=== PATIENT | male | born 1950 | race Caucasian/White ===

== ENCOUNTER 2019-06-28 05:42 | Outpatient (CLI) | payer SELFPAY ==
[~2019-06-28] VITALS: Ht 172.7 cm; Wt 70.5 kg
[~2019-06-28 05:42] MED LIST: LORA1TAB PO; SERT100T8 PO; TERA1CAP3 PO; TRAZ150T42 PO
[2019-06-28] MEDS ORDERED: TERA2CAP4 PO (10:06)
[2019-06-28] MEDS ORDERED: TRAZ150T72 PO (10:06)
[2019-06-28] MEDS ORDERED: SERT100T8 PO (10:06)
[2019-06-28] MEDS ORDERED: RT-ALBUINH IH (10:11)
== END 2019-06-28 10:12 | disposition home or self-care (01) ==
LOC: PREOP 05:42
PROVIDERS: ATTEND Specialist
DX: Z01.818 Encounter for other preprocedural examination (principal)

== ENCOUNTER 2019-07-01 08:01 | Day surgery (SDC) | payer OTHER ==
[~2019-07-01] VITALS: Wt 70.5 kg
[~2019-07-01 08:01] MED LIST changes: +RT-ALBUINH IH; +TERA2CAP4 PO; +TRAZ150T72 PO
[2019-07-01 08:10] VITALS: BP 155/75
[2019-07-01] MEDS ORDERED: POVIDONE (BETADINE) OPHTH SOLN 5% 30 ML OP ONE (08:15)
[2019-07-01] MEDS ORDERED: TIMOLOL MALEATE 0.5% 5 ML (TIMOPTIC) BTL OU PRN (08:15)
[2019-07-01] MEDS ORDERED: MOXIFLOXACIN OPHTH SOLN 5 MG/ML 0.3 ML SYRINGE OP ONE (08:15)
[2019-07-01] MEDS ORDERED: LIDOCAINE PF 1% 2 ML AMP IR PRN (08:15)
[2019-07-01] MEDS: TETRACAINE 0.5% OPHTH SOLN 4 ML BTL (SINGLE DOSE ONLY) OU PRN ×4 (08:24→08:50)
[2019-07-01] MEDS: CYCLOPENTOLATE 1% (CYCLOGYL) 2 ML DROPS OP SCH ×3 (08:34→08:50)
[2019-07-01] MEDS: PHENYLEPHRINE 10% OPHTH (NEO-SYN) 5 ML BTL OU SCH ×3 (08:34→08:50)
--- NOTE | 2019-07-01 09:29 | Ophthalmologist Pre-Op Note ---
Pre-Operative Progress Note H&P Reviewed The H&P was reviewed, patient examined and no changes noted. Date H&P Reviewed: Jul 01, 2019 Time H&P Reviewed: 09:29 Pre-Op Dx Cataract, Right Eye ALEX BARONE MD Jul 01, 2019 09:29
[2019-07-01] MEDS ORDERED: MIDAZOLAM 2 MG/2 ML (VERSED) VIAL ONE (09:33)
--- NOTE | 2019-07-01 09:57 | Ophthalmology Operative Report ---
Cataract removal/placement IOL PREOPERATIVE DIAGNOSIS: Cataract Right Eye POSTOPERATIVE DIAGNOSIS: Cataract Right Eye PROCEDURE: Cataract removal and placement of posterior chamber implant, right eye SURGEON: John Barone ANESTHESIA: Topical with sedation COMPLICATIONS: None ESTIMATED BLOOD LOSS: Minimal DESCRIPTION OF PROCEDURE: After proper informed consent was obtained, the patient, a [id number] male, was taken to the Operating Room and the right eye was anesthetized with tetracaine. The right eye was then prepped and draped in the usual manner. A wire lid speculum was placed. A paracentesis was made at the left hand position. Preservative free lidocaine was injected into the anterior chamber followed by viscoelastic. A clear corneal incision was made in the temporal position. A capsulorrhexis was preformed and the central nuclear and cortical material were removed. The posterior capsule was polished and Bryon 19.0 AU00T0 IOL was placed into the capsular bag. The residual viscoelastic was aspirated and balanced saline solution was injected into the anterior chamber. Moxifloxacin was injected into the anterior chamber. The wound was checked and found to be water tight. The patient tolerated the procedure well without complications. JOHN BARONE MD Jul 01, 2019 09:57
[2019-07-01] MEDS ORDERED: acetaZOLAMIDE ER 500 MG CAP (DIAMOX SEQUELS) PO ONE (10:00)
[2019-07-01 10:08] VITALS: BP 139/76
== END 2019-07-01 10:08 | disposition home or self-care (01) ==
LOC: SDC 08:01
PROVIDERS: ATTEND Specialist
DX: H25.11 Age-related nuclear cataract, right eye (principal); J44.9 Chronic obstructive pulmonary disease, unspecified; F32.9 Major depressive disorder, single episode, unspecified; F17.210 Nicotine dependence, cigarettes, uncomplicated; Z79.899 Other long term (current) drug therapy

== ENCOUNTER 2021-09-18 18:45 | Inpatient (IN) | payer OTHER ==
[~2021-09-18] VITALS: Ht 165 cm; Wt 48.4 kg
[~2021-09-18 18:45] MED LIST changes: +SERT-414 PO
[2021-09-18] MEDS ORDERED: ROCURONIUM 10 MG/ML 5 ML SYRINGE IV ONE (18:50)
[2021-09-18] MEDS ORDERED: ETOMIDATE IV SOLN 20 MG/10 ML VIAL IV ONE (18:50)
[2021-09-18] MEDS ORDERED: methylPREDNISolone 40 MG/ML (Solu-MEDROL) VIAL IV ONE (19:15)
--- NOTE | 2021-09-18 19:19 | ED Neurological Problem ---
General Chief Complaint: Respiratory Problems Stated Complaint: AMS Source: patient, EMS Exam Limitations: no limitations (RUFINO TURNER) History of Present Illness Date Seen by Provider: Sep 18, 2021 Time Seen by Provider: 19:15 Initial Comments Patient is a 70-year-old male who was brought to the ED by EMS for altered mental status. Patient was found in his room rolling around on the ground was confused and slurring of his words. According to patient roommates patient was sleeping this morning and when they return patient was found on the ground. Denies of any seizure-like activity. Reports daily excessive alcohol use. Patient was found to be hypoxic 80% on room air. Patient was placed on 15 L nonrebreather. Eventually was able to get a better oxygen level at 97% on 3 L. Patient appears altered. Alert and oriented x3. Denies of any alcohol or drug use. Reports cough. Denies chest pain abdominal pain, vomiting or diarrhea. Patient smells of smoke. EMS concerned that patient appeared dusky. Patient does appear cool to touch. Patient is moaning. Patient with impaired movements. (RUFINO TURNER) Allergies and Home Medications Allergies Coded Allergies: No Known Drug Allergies (Unverified , 12/16/12) Patient Home Medication List Home Medication List Reviewed: Yes (RUFINO TURNER) Albuterol Sulfate (Proair Hfa) 1 Puff Puff, 2 PUFF IH Q4H PRN for WHEEZING, (Reported) Entered as Reported by: MULUGETA VENTURA on 06/28/19 1011 Sertraline HCl (Sertraline HCl) 100 Mg Tablet, 150 MG PO DAILY, (Reported) Entered as Reported by: MULUGETA VENTURA on 06/28/19 1006 Terazosin HCl (Terazosin HCl) 2 Mg Capsule, 2 MG PO HS, (Reported) Entered as Reported by: MULUGETA VENTURA on 06/28/19 1006 Trazodone HCl (Trazodone HCl) 150 Mg Tablet, 150 MG PO HS, (Reported) Entered as Reported by: MULUGETA VENTURA on 06/28/19 1006 Review of Systems Review of Systems Constitutional: No chills, No dizziness, No fever Eyes: Denies Blindness, Denies Blurred Vision Ears, Nose, Mouth, Throat: denies ear pain, denies nose pain, denies nose discharge Cardiovascular: No chest pain Gastrointestinal: No abdominal pain, No diarrhea, No vomiting Musculoskeletal: No back pain Skin: No change in color, No change in hair/nails (RUFINO TURNER) All Other Systems Reviewed Negative Unless Noted: Yes (RUFINO TURNER) Past Qfmrbfr-Rlyvni-Jtysxe Hx Immunizations Up To Date Tetanus Booster (TDap): Unknown (RUFINO TURNER) Past Medical History Reproductive Disorders: No Prostate Problems ADD/ADHD, Schizophrenia, Depression Adverse Reaction/Blood Tranf: No (RUFINO TURNER) Physical Exam Vital Signs Vital Signs - First Documented 09/19/21 09/19/21 00:34 08:00 O2 Flow Rate 40.00 FiO2 40 (NICHO CALDERON) Vital Signs Capillary Refill : (RUFINO TURNER) Height, Weight, BMI Height: 5'9.00" Weight: 160lbs. 6.0oz. [id number]; BMI Method:Stated General Appearance: other (Altered) HEENT: other (Pinpoint pupils) Neck: non-tender, full range of motion, supple Respiratory: wheezing Cardiovascular: regular rate, rhythm, no edema, no gallop Peripheral Pulses: 2+ Femoral (R), 2+ Femoral (L), 2+ Dorsalis Pedis (R), 2+ Left Dors-Pedis (L), 2+ Radial Pulses (R), 2+ Radial Pulses (L) Gastrointestinal: normal bowel sounds, non tender, soft, no organomegaly Back: normal inspection, no CVA tenderness Extremities: normal range of motion, non-tender, normal inspection, no pedal edema (RUFINO TURNER) Focused Exam Lactate Level 09/18/21 18:45: Lactic Acid Level 2.10*H 09/18/21 21:56: Lactic Acid Level 1.88 (NICHO CALDERON) Sepsis Stage: Sepsis Possible Source: Genitouriary (BRITTNEY MICHAEL MD) Lactic Acid Level Laboratory Tests Test 09/18/21 18:45 09/18/21 21:56 Lactic Acid Level 2.10 MMOL/L (0.50-2.00) *H 1.88 MMOL/L (0.50-2.00) (NICHO CALDERON) Time of Focused Exam: 07:30 Respiratory: Lungs Clear, Normal Breath Sounds Cardiovascular: Regular Rate, Rhythm, No Edema, No Murmur Capillary Refill: Greater Than 3 Seconds Skin: normal color, warm/dry (BRITTNEY MICHAEL MD) Within 3hrs of presentation: Admin fluids, Admin 30ml/kg IBW due to BMI>30, Admin ABX, Blood cultures prior to ABX's, Focus exam, Lactate level (BRITTNEY MICHAEL MD) Procedures/Interventions Reason for Intubation: Airway protection Date of ETT Placement: Sep 18, 2021 Time of ETT Placement: 23:45 Intubation Method: orotracheal Tube Size: 7.5 Medications: Etomidate, Rocuronium Positive End Tide CO2: Yes Breath Sounds after Intubation: bilateral-equal Intubation Complications: no complications Post Intubation Xray: Yes Initial placement required movement at least 3 cm into the trachea. Succes Care turned over to: Dr. Calderon (TURNERRUFINO A [place]) Progress/Results/Core Measures Results/Orders Lab Results Laboratory Tests Test 09/18/21 18:45 09/18/21 19:00 09/18/21 19:08 09/18/21 19:13 Range/Units White Blood Count 18.5 H 4.3-11.0 10^3/uL Red Blood Count 4.30 4.30-5.52 10^6/uL Hemoglobin 11.7 L 13.3-17.7 g/dL Hematocrit 36 L 40-54 % Mean Corpuscular Volume 85 80-99 fL Mean Corpuscular Hemoglobin 27 25-34 pg Mean Corpuscular Hemoglobin Concent 32 32-36 g/dL Red Cell Distribution Width 14.6 H 10.0-14.5 % Platelet Count 360 130-400 10^3/uL Mean Platelet Volume 9.5 9.0-12.2 fL Immature Granulocyte % (Auto) 1 % Neutrophils (%) (Auto) 88 H 42-75 % Lymphocytes (%) (Auto) 6 L 12-44 % Monocytes (%) (Auto) 6 0-12 % Eosinophils (%) (Auto) 0 0-10 % Basophils (%) (Auto) 0 0-10 % Neutrophils # (Auto) 16.2 H 1.8-7.8 10^3/uL Lymphocytes # (Auto) 1.1 1.0-4.0 10^3/uL Monocytes # (Auto) 1.0 0.0-1.0 10^3/uL Eosinophils # (Auto) 0.0 0.0-0.3 10^3/uL Basophils # (Auto) 0.0 0.0-0.1 10^3/uL Immature Granulocyte # (Auto) 0.1 0.0-0.1 10^3/uL Neutrophils % (Manual) 94 % Lymphocytes % (Manual) 3 % Monocytes % (Manual) 3 % Metamyelocytes % % Band Neutrophils % Blood Morphology Comment NORMAL Sodium Level 135 135-145 MMOL/L Potassium Level 6.2 H 3.6-5.0 MMOL/L Chloride Level 97 L 98-107 MMOL/L Carbon Dioxide Level 13 L 21-32 MMOL/L Anion Gap 25 H 5-14 MMOL/L Blood Urea Nitrogen 99 H 7-18 MG/DL Creatinine 4.84 H 0.60-1.30 MG/DL Estimat Glomerular Filtration Rate 12 BUN/Creatinine Ratio 20 Glucose Level 89 70-105 MG/DL Lactic Acid Level 2.10 *H 0.50-2.00 MMOL/L Calcium Level 7.3 L 8.5-10.1 MG/DL Corrected Calcium 7.5 L 8.5-10.1 MG/DL Total Bilirubin 0.9 0.1-1.0 MG/DL Aspartate Amino Transf (AST/SGOT) 1588 H 5-34 U/L Alanine Aminotransferase (ALT/SGPT) 319 H 0-55 U/L Alkaline Phosphatase 80 40-136 U/L Total Creatine Kinase > 63984 H 30-200 U/L Troponin I 0.253 H <0.028 NG/ML Total Protein 8.7 H 6.4-8.2 GM/DL Albumin 3.8 3.2-4.5 GM/DL Procalcitonin 1.73 H <0.10 NG/ML Salicylates Level < 5.0 L 5.0-20.0 MG/DL Acetaminophen Level < 10 L 10-30 UG/ML Serum Alcohol < 10 <10 MG/DL Influenza Type A Antigen NEGATIVE NEGATIVE Influenza Type B Antigen NEGATIVE NEGATIVE SARS-CoV-2 RNA (RT-PCR) Not Detected Negative Blood Gas Puncture Site LEFT WRIST Blood Gas Patient Temperature 36.3 Arterial Blood pH 7.18 *L 7.37-7.43 Arterial Blood Partial Pressure CO2 42 35-45 MMHG Arterial Blood Partial Pressure O2 184 H 79-93 MMHG Arterial Blood HCO3 15 *L 23-27 MMOL/L Arterial Blood Total CO2 16.4 L 21.0-31.0 MMOL/L Arterial Blood Oxygen Saturation 99 94-100 % Arterial Blood Base Excess -11.9 L -2.5-2.5 MMOL/L Juan David Test POSITIVE Blood Gas Ventilator Setting NO Blood Gas Inspired Oxygen RA Glucometer 92 70-110 MG/DL Coronavirus (COVID-19)(PCR) Negative Negative Test 09/18/21 19:14 09/18/21 21:56 09/18/21 22:10 09/19/21 01:15 Range/Units Urine Color YELLOW Urine Clarity CLOUDY Urine pH 5.0 5-9 Urine Specific Bivins >=1.030 1.016-1.022 Urine Protein 2+ H NEGATIVE Urine Glucose (UA) NEGATIVE NEGATIVE Urine Ketones TRACE H NEGATIVE Urine Nitrite NEGATIVE NEGATIVE Urine Bilirubin 2+ H NEGATIVE Urine Urobilinogen 1.0 < = 1.0 MG/DL Urine Leukocyte Esterase NEGATIVE NEGATIVE Urine RBC (Auto) 3+ H NEGATIVE Urine RBC 10-25 H /HPF Urine WBC 5-10 H /HPF Urine Squamous Epithelial Cells 5-10 /HPF Urine Crystals PRESENT H /LPF Urine Amorphous Sediment MOD LESVIA URATES H /LPF Urine Bacteria FEW H /HPF Urine Casts NONE /LPF Urine Mucus NEGATIVE /LPF Urine Culture Indicated YES Urine Opiates Screen NEGATIVE NEGATIVE Urine Oxycodone Screen NEGATIVE NEGATIVE Urine Methadone Screen NEGATIVE NEGATIVE Urine Propoxyphene Screen NEGATIVE NEGATIVE Urine Barbiturates Screen NEGATIVE NEGATIVE Ur Tricyclic Antidepressants Screen NEGATIVE NEGATIVE Urine Phencyclidine Screen NEGATIVE NEGATIVE Urine Amphetamines Screen POSITIVE H NEGATIVE Urine Methamphetamines Screen POSITIVE H NEGATIVE Urine Benzodiazepines Screen NEGATIVE NEGATIVE Urine Cocaine Screen NEGATIVE NEGATIVE Urine Cannabinoids Screen NEGATIVE NEGATIVE Sodium Level 137 135-145 MMOL/L Potassium Level 5.9 H 3.6-5.0 MMOL/L Chloride Level 101 98-107 MMOL/L Carbon Dioxide Level 12 L 21-32 MMOL/L Anion Gap 24 H 5-14 MMOL/L Blood Urea Nitrogen 100 *H 7-18 MG/DL Creatinine 4.63 H 0.60-1.30 MG/DL Estimat Glomerular Filtration Rate 13 BUN/Creatinine Ratio 22 Glucose Level 83 70-105 MG/DL Lactic Acid Level 1.88 0.50-2.00 MMOL/L Calcium Level 6.7 L 8.5-10.1 MG/DL Blood Gas Puncture Site RIGHT RADIAL Blood Gas Patient Temperature 36.3 Arterial Blood pH 7.21 *L 7.37-7.43 Arterial Blood Partial Pressure CO2 39 35-45 MMHG Arterial Blood Partial Pressure O2 59 L 79-93 MMHG Arterial Blood HCO3 15 *L 23-27 MMOL/L Arterial Blood Total CO2 16.2 L 21.0-31.0 MMOL/L Arterial Blood Oxygen Saturation 88 L 94-100 % Arterial Blood Base Excess -11.6 L -2.5-2.5 MMOL/L Juan David Test POSITIVE Blood Gas Ventilator Setting NO Blood Gas Inspired Oxygen RA Troponin I 0.193 H <0.028 NG/ML Test 09/19/21 01:24 09/19/21 05:37 09/19/21 06:10 09/19/21 08:10 Range/Units Glucometer 113 H 70-110 MG/DL Blood Gas Puncture Site RIGHT RADIAL Blood Gas Patient Temperature 37 Arterial Blood pH 7.19 *L 7.37-7.43 Arterial Blood Partial Pressure CO2 40 35-45 MMHG Arterial Blood Partial Pressure O2 120 H 79-93 MMHG Arterial Blood HCO3 15 *L 23-27 MMOL/L Arterial Blood Total CO2 15.9 L 21.0-31.0 MMOL/L Arterial Blood Oxygen Saturation 98 94-100 % Arterial Blood Base Excess -11.9 L -2.5-2.5 MMOL/L Juan David Test POSITIVE Blood Gas Ventilator Setting YES Blood Gas Inspired Oxygen 40% White Blood Count 14.9 H 4.3-11.0 10^3/uL Red Blood Count 4.14 L 4.30-5.52 10^6/uL Hemoglobin 11.2 L 13.3-17.7 g/dL Hematocrit 35 L 40-54 % Mean Corpuscular Volume 85 80-99 fL Mean Corpuscular Hemoglobin 27 25-34 pg Mean Corpuscular Hemoglobin Concent 32 32-36 g/dL Red Cell Distribution Width 14.6 H 10.0-14.5 % Platelet Count 285 130-400 10^3/uL Mean Platelet Volume 9.5 9.0-12.2 fL Immature Granulocyte % (Auto) 1 % Neutrophils (%) (Auto) 93 H 42-75 % Lymphocytes (%) (Auto) 2 L 12-44 % Monocytes (%) (Auto) 4 0-12 % Eosinophils (%) (Auto) 0 0-10 % Basophils (%) (Auto) 0 0-10 % Neutrophils # (Auto) 13.8 H 1.8-7.8 10^3/uL Lymphocytes # (Auto) 0.3 L 1.0-4.0 10^3/uL Monocytes # (Auto) 0.6 0.0-1.0 10^3/uL Eosinophils # (Auto) 0.0 0.0-0.3 10^3/uL Basophils # (Auto) 0.0 0.0-0.1 10^3/uL Immature Granulocyte # (Auto) 0.1 0.0-0.1 10^3/uL Sodium Level 134 L 135-145 MMOL/L Potassium Level 6.7 *H 3.6-5.0 MMOL/L Chloride Level 102 98-107 MMOL/L Carbon Dioxide Level 13 L 21-32 MMOL/L Anion Gap 19 H 5-14 MMOL/L Blood Urea Nitrogen 111 *H 7-18 MG/DL Creatinine 4.83 H 0.60-1.30 MG/DL Estimat Glomerular Filtration Rate 12 BUN/Creatinine Ratio 23 Glucose Level 106 H 70-105 MG/DL Calcium Level 6.2 L 8.5-10.1 MG/DL Magnesium Level 2.5 H 1.6-2.4 MG/DL Total Bilirubin 0.7 0.1-1.0 MG/DL Direct Bilirubin 0.5 H 0.0-0.3 MG/DL Indirect Bilirubin 0.2 MG/DL Aspartate Amino Transf (AST/SGOT) 925 H 5-34 U/L Alanine Aminotransferase (ALT/SGPT) 253 H 0-55 U/L Alkaline Phosphatase 66 40-136 U/L Total Creatine Kinase 10153 H 30-200 U/L Troponin I 0.155 H <0.028 NG/ML Total Protein 7.3 6.4-8.2 GM/DL Albumin 3.2 3.2-4.5 GM/DL Prothrombin Time 17.5 H 12.2-14.7 SEC INR Comment 1.4 0.8-1.4 Test 09/19/21 12:19 09/19/21 12:45 09/19/21 13:40 09/19/21 18:00 Range/Units Glucometer 171 H 70-110 MG/DL Sodium Level 136 138 135-145 MMOL/L Potassium Level 5.4 H 4.8 3.6-5.0 MMOL/L Chloride Level 100 102 98-107 MMOL/L Carbon Dioxide Level 19 L 19 L 21-32 MMOL/L Anion Gap 17 H 17 H 5-14 MMOL/L Blood Urea Nitrogen 112 *H 112 *H 7-18 MG/DL Creatinine 4.85 H 4.85 H 0.60-1.30 MG/DL Estimat Glomerular Filtration Rate 12 12 BUN/Creatinine Ratio 23 23 Glucose Level 218 H 117 H 70-105 MG/DL Calcium Level 5.9 *L 6.0 *L 8.5-10.1 MG/DL Total Creatine Kinase 38499 H 70146 H 30-200 U/L Procalcitonin 1.47 H <0.10 NG/ML Blood Gas Puncture Site RRAD Blood Gas Patient Temperature 35.6 Arterial Blood pH 7.32 *L 7.37-7.43 Arterial Blood Partial Pressure CO2 40 35-45 MMHG Arterial Blood Partial Pressure O2 135 H 79-93 MMHG Arterial Blood HCO3 20 L 23-27 MMOL/L Arterial Blood Total CO2 21.4 21.0-31.0 MMOL/L Arterial Blood Oxygen Saturation 99 94-100 % Arterial Blood Base Excess -5.3 L -2.5-2.5 MMOL/L Juan David Test POS Blood Gas Ventilator Setting YES Blood Gas Inspired Oxygen 40% Test 09/20/21 00:29 09/20/21 02:45 09/20/21 05:35 09/20/21 06:50 Range/Units Glucometer 119 H 70-110 MG/DL Blood Gas Puncture Site LEFT RADIAL Blood Gas Patient Temperature 36.2 Arterial Blood pH 7.31 *L 7.37-7.43 Arterial Blood Partial Pressure CO2 43 35-45 MMHG Arterial Blood Partial Pressure O2 359 H 79-93 MMHG Arterial Blood HCO3 21 L 23-27 MMOL/L Arterial Blood Total CO2 22.5 21.0-31.0 MMOL/L Arterial Blood Oxygen Saturation 100 94-100 % Arterial Blood Base Excess -4.2 L -2.5-2.5 MMOL/L Juan David Test YES-POS Blood Gas Ventilator Setting YES Blood Gas Inspired Oxygen 30% White Blood Count 11.2 H 4.3-11.0 10^3/uL Red Blood Count 3.64 L 4.30-5.52 10^6/uL Hemoglobin 10.0 L 13.3-17.7 g/dL Hematocrit 30 L 40-54 % Mean Corpuscular Volume 82 80-99 fL Mean Corpuscular Hemoglobin 28 25-34 pg Mean Corpuscular Hemoglobin Concent 34 32-36 g/dL Red Cell Distribution Width 15.0 H 10.0-14.5 % Platelet Count 190 130-400 10^3/uL Mean Platelet Volume 9.5 9.0-12.2 fL Sodium Level 141 135-145 MMOL/L Potassium Level 4.7 3.6-5.0 MMOL/L Chloride Level 103 98-107 MMOL/L Carbon Dioxide Level 20 L 21-32 MMOL/L Anion Gap 18 H 5-14 MMOL/L Blood Urea Nitrogen 119 *H 7-18 MG/DL Creatinine 4.69 H 0.60-1.30 MG/DL Estimat Glomerular Filtration Rate 12 BUN/Creatinine Ratio 25 Glucose Level 118 H 70-105 MG/DL Calcium Level 5.5 *L 8.5-10.1 MG/DL Magnesium Level 2.1 1.6-2.4 MG/DL Total Bilirubin 0.5 0.1-1.0 MG/DL Direct Bilirubin 0.4 H 0.0-0.3 MG/DL Indirect Bilirubin 0.1 MG/DL Aspartate Amino Transf (AST/SGOT) 371 H 5-34 U/L Alanine Aminotransferase (ALT/SGPT) 179 H 0-55 U/L Alkaline Phosphatase 56 40-136 U/L Total Creatine Kinase 30750 H 30-200 U/L Total Protein 6.1 L 6.4-8.2 GM/DL Albumin 2.6 L 3.2-4.5 GM/DL Hepatitis A IgM Antibody Non-Reactive Non-Reactive Hepatitis B Surface Antigen Non-Reactive Non-Reactive Hepatitis B Core IgM Antibody Non-Reactive Non-Reactive Hepatitis C Antibody Reactive H Non-Reactive Hepatitis C Antibody Index 13.67 H 0.00-0.79 Index HIV (1&2) Ag and Ab Screen Referral Non-Reactive Non-Reactive Test 09/20/21 11:31 09/20/21 14:00 09/21/21 01:28 09/21/21 06:49 Range/Units Glucometer 111 H 102 70-110 MG/DL Sodium Level 141 148 H 135-145 MMOL/L Potassium Level 4.2 3.7 3.6-5.0 MMOL/L Chloride Level 103 102 98-107 MMOL/L Carbon Dioxide Level 25 28 21-32 MMOL/L Anion Gap 13 18 H 5-14 MMOL/L Blood Urea Nitrogen 118 *H 113 *H 7-18 MG/DL Creatinine 4.55 H 4.15 #H 0.60-1.30 MG/DL Estimat Glomerular Filtration Rate 13 14 BUN/Creatinine Ratio 26 27 Glucose Level 112 H 95 70-105 MG/DL Calcium Level 5.7 *L 6.3 L 8.5-10.1 MG/DL Total Creatine Kinase 52173 H 6504 #H 30-200 U/L White Blood Count 9.2 4.3-11.0 10^3/uL Red Blood Count 3.47 L 4.30-5.52 10^6/uL Hemoglobin 9.5 L 13.3-17.7 g/dL Hematocrit 29 L 40-54 % Mean Corpuscular Volume 84 80-99 fL Mean Corpuscular Hemoglobin 27 25-34 pg Mean Corpuscular Hemoglobin Concent 33 32-36 g/dL Red Cell Distribution Width 15.6 H 10.0-14.5 % Platelet Count 157 130-400 10^3/uL Mean Platelet Volume 9.7 9.0-12.2 fL Prothrombin Time 16.5 H 12.2-14.7 SEC INR Comment 1.3 0.8-1.4 Test 09/21/21 08:07 Range/Units Blood Gas Puncture Site RT RAD Blood Gas Patient Temperature 37.0 Arterial Blood pH 7.52 H 7.37-7.43 Arterial Blood Partial Pressure CO2 37 35-45 MMHG Arterial Blood Partial Pressure O2 80 79-93 MMHG Arterial Blood HCO3 30 H 23-27 MMOL/L Arterial Blood Total CO2 31.2 H 21.0-31.0 MMOL/L Arterial Blood Oxygen Saturation 98 94-100 % Arterial Blood Base Excess 6.9 H -2.5-2.5 MMOL/L Juan David Test YES-POS Blood Gas Ventilator Setting YES Blood Gas Inspired Oxygen 30 (NICHO CALDERON) Micro Results Microbiology 09/20/21 Gram Stain - Final, Resulted 09/20/21 Sputum Culture, Resulted Pending 09/20/21 Gram Stain - Final, Resulted 09/20/21 Sputum Culture, Resulted Pending 09/18/21 Urine Culture - Final, Complete NO GROWTH 09/18/21 Blood Culture - Preliminary, Resulted No growth 09/18/21 Blood Culture - Preliminary, Resulted No growth (NICHO CALDERON) My Orders Orders - NICHO CALDERON Chest 1 View, Ap/Pa Only (09/18/21 22:34) Catheter(Urinary) Insert & Ass 03,15 (09/18/21 23:36) Og Tube Insertion (09/18/21 23:36) Troponin I [place] (09/19/21 01:00) Cefepime Injection (Maxipime Injection) (09/19/21 02:00) 1/2 Ns Iv Solution (0.45% Sodium Chlorid (09/19/21 01:00) Arterial Blood Gas (09/19/21 05:19) Cbc With Automated Diff (09/19/21 05:51) Basic Metabolic Panel (09/19/21 05:51) Chest 1 View, Ap/Pa Only (09/21/21 07:22) Arterial Blood Gas (09/21/21 07:59) Ceftriaxone 1 Gm Pre-Mix (Rocephin 1 Gm (09/21/21 09:00) Morphine Injection (Morphine Injection (09/21/21 08:36) Morphine Injection (Morphine Injection (09/21/21 08:37) D5 1/2 Ns 1000 Ml Iv Solution (Dextrose (09/21/21 09:15) (NICHO CALDERON) Medications Given in ED Current Medications Medications Dose Ordered Sig/Eriberto Route Start Time Stop Time Status Last Admin Dose Admin Ceftriaxone Sodium/Dextrose 50 ml @ 100 mls/hr DAILY ONCE IV 09/21/21 09:00 09/21/21 09:29 09/21/21 08:34 100 MLS/HR (NICHO CALDERON) Vital Signs/I&O 09/18/21 09/18/21 09/18/21 09/19/21 18:50 18:50 23:24 00:34 Temp 36.3 Pulse 79 84 84 Resp 20 18 16 B/P (MAP) 125/71 (89) 146/69 Pulse Ox 97 98 O2 Delivery Nasal Cannula Room Air FiO2 40 09/19/21 09/19/21 09/19/21 09/19/21 07:17 08:00 09:29 09:30 Pulse 75 74 76 76 Resp 16 24 16 23 B/P (MAP) 109/53 115/56 Pulse Ox 100 100 100 100 O2 Delivery Mechanical Ventilator Mechanical Ventilator O2 Flow Rate 40.00 40.00 FiO2 40 40 09/19/21 09/19/21 09/19/21 09/19/21 10:00 11:00 11:43 12:00 Pulse 76 73 72 73 Resp 24 24 23 B/P (MAP) 114/58 108/59 111/59 114/61 Pulse Ox 100 100 100 O2 Delivery Mechanical Ventilator Mechanical Ventilator Mechanical Ventilator O2 Flow Rate 40.00 40.00 40.00 09/19/21 09/19/21 09/19/21 09/19/21 12:00 13:00 14:00 14:32 Temp 36.0 Pulse 75 74 73 Resp 19 20 16 B/P (MAP) 107/52 109/52 Pulse Ox 100 100 99 O2 Delivery Mechanical Ventilator Mechanical Ventilator O2 Flow Rate 40.00 40.00 FiO2 40 09/19/21 09/19/21 09/19/21 09/19/21 15:00 16:00 16:00 17:00 Temp 35.8 Pulse 72 73 73 Resp 18 18 19 B/P (MAP) 114/60 113/55 112/51 Pulse Ox 99 100 99 O2 Delivery Mechanical Ventilator Mechanical Ventilator Mechanical Ventilator O2 Flow Rate 40.00 40.00 40.00 09/19/21 09/19/21 09/19/21 09/19/21 18:00 18:39 19:04 21:00 Temp 36.3 Pulse 76 73 Resp 20 18 B/P (MAP) 109/74 Pulse Ox 99 99 O2 Delivery Mechanical Ventilator O2 Flow Rate 40.00 FiO2 40 30 09/19/21 09/19/21 09/20/21 09/20/21 22:25 23:35 02:03 02:14 Temp 36.4 Pulse 77 75 76 Resp 24 24 B/P (MAP) 120/58 Pulse Ox 96 97 FiO2 30 30 09/20/21 09/20/21 09/20/21 09/20/21 03:17 06:37 07:11 09:00 Temp 36.8 37.1 37.1 Pulse 77 75 Resp 24 23 B/P (MAP) 113/59 Pulse Ox 100 95 FiO2 30 09/20/21 09/20/21 09/20/21 09/20/21 10:20 11:00 13:25 13:26 Temp 36.8 36.7 Pulse 74 74 73 74 Resp 18 21 14 24 B/P (MAP) 122/61 140/88 119/61 Pulse Ox 99 99 99 FiO2 30 09/20/21 09/20/21 09/20/21 09/20/21 14:55 15:00 17:00 18:00 Temp 36.5 36.5 36.2 Pulse 72 73 70 69 Resp 18 20 20 18 B/P (MAP) 123/60 122/57 114/59 Pulse Ox 99 98 99 98 FiO2 30 09/20/21 09/20/21 09/20/21 09/21/21 19:31 20:35 21:59 01:28 Temp 36.2 Pulse 69 70 71 Resp 18 18 B/P (MAP) 108/54 Pulse Ox 99 99 FiO2 30 30 09/21/21 09/21/21 09/21/21 09/21/21 01:30 04:47 06:40 08:30 Temp 36.6 36.7 37.0 Pulse 74 76 Resp 20 20 B/P (MAP) 108/54 Pulse Ox 97 97 FiO2 30 09/21/21 00:00 Intake Total 1210 ml Output Total 1250 ml Balance -40 ml (NICHO CALDERON) Progress Progress Note #1: Time: 23:52 Progress Note Assumed care of the patient at shift change. Patient was intubated because of GCS below 7. Fear he would not protect his airway. He did receive some Zosyn and we will continue that for potential airway aspiration. He certainly has an impressive case of rhabdomyolysis likely due to his recent methamphetamine ingestion and lack of self-care. Put a Oquendo catheter NG and he has good IV access. We will continue fluids going. Will repeat troponin at 1 AM. Significant other states that he is a heavy drinker daily and since his alcohol level is 0 we put him on a Versed drip to prevent withdrawal seizures. Jatinder has called multiple hospitals in the [address] [place] [address] area without success at finding a available bed. Plan to room him in overnight and see if we can try again in the morning. Patient is stable at this time on ventilator settings 450 tidal volume, PEEP of 5, FiO2 60%, rate of 16 and sats of 96%. We will switch him to cefepime given his kidney failure and and redose him at 0200. Progress Note #2: Time: 07:21 Progress Note Assumed care of the patient at shift change. Plan to get a chest x-ray in addition to lab draws for this morning. We will continue to pursue his increasing urine output and reducing creatinine levels. He is resting comfortably 450 tidal volume, rate of 16, PEEP of 5, FiO2 of 30% with good vital signs. eICU consult is appreciated. Progress Note #3: Progress Note 09/21/21 0915: Patient's ABG reviewed and he has metabolic alkalosis. We stopped the bicarb drip and put him on half-normal saline at 165 an hour. He is resting comfortably. No ventilator changes were made at this time. He is excepted to the ICU and we are just waiting for a bed to open up. He did receive a gram of Rocephin here in the ER for his UTI. A septic vital signs. We will give him Protonix and continue to manage him with the much appreciated assistance of eICU. (NICHO CALDERON) Progress Note #1: Time: 07:59 Progress Note Care of this patient has been assumed from Dr. Calderon. Report received and morning labs are reviewed. Patient was reexamined and found to have clear lung sounds. Capillary refill is 3 to 5 seconds. No edema. I have contacted [facility] to help find a bed placement. Our facility is currently on ICU diversion. In addition to needing critical care, this patient also needs nephrology services and likely dialysis. He is being maintained on a Versed drip. Versed was selected due to his history of daily alcohol consumption. Urine output has been poor at 15 to 20 mL/h despite receiving 3 L of IV fluids. He is now receiving normal saline at 250 mL/h. Potassium has been increasing. Management will be discussed with eICU momentarily. Troponin and CK levels are trending downward. Progress Note #2: Time: 08:59 Progress Note Patient remained stable on the ventilator sedated with Versed. Report has been given to eICU. We have reviewed management of hyperkalemia and overall condition. Patient is receiving D50 with insulin 5 units IV as well as albute rol 10 mg, an amp of sodium bicarb, and calcium gluconate for immediate management of the hyperkalemia. We will also add a sodium bicarb drip of 100 mEq in D5W to run at 250 mL/h x 1 L in addition to the normal saline running at 250 mL/h. Labs will be checked again in approximately 4 hours. Transfer has been turned over to [place] control with a request to transfer to a nephrology capable facility with dialysis. Patient received Zosyn and cefepime earlier this morning. Because of the renal failure no further antibiotics have been given at this time. Progress Note #3: Time: 14:37 Progress Note Most recent labs have been reviewed. Renal function is static. Hyperkalemia has improved. eICU continues to assist with management. I have discussed this case with Dr. Valdovinos multiple times, before most recent labs and again after. He declines admission to [facility] at this time due to the patient's renal function as patient would be best served in a facility with nephrology and dialysis. We will continue to monitor his renal function. In the meantime, I have inquired about transfer status with [facility]. They have been looking as far away as [place], [place], [place], and [place] without any success in finding a bed. (BRITTNEY MICHAEL MD) Progress Note : Progress Note 1800--ASSUMED CARE OF PT AT SHIFT CHANGE. STILL UNABLE TO FIND A BED, IN MULTIPLE STATES. E-ICU CONTINUES TO MANAGE PATIENT. VITALS ARE STABLE, STILL MAINTAINED ON VENTILATOR. 0600--CARE TURNED OVER TO DR. RASHID. PT REMAINED STABLE THROUGHOUT THE [facility]. [facility] HAS CONTACTED [facility], AND THEY WILL START THE PROCESS AGAIN THIS MORNING TO TRY TO FIND A BED. E-ICU CONTINUES TO MANAGE THE PATIENT. (KIM HERNANDEZ DO) Progress Note : Time: 06:10 Progress Note Care assumed at shift change from Dr Hernandez. Patient critical care, boarding in the ICU pending placement at a facility with Nephrology services. [facility] assisting with finding a bed. Liz Walters in consult for critical care management. Patient evaluated by me - stable VS, on the ventilator with saO2 100% at 30%. BP 120's systolic, not tachycardic. am CXR reviewed and it appears he may be developing a right sided infiltrate. He's currently on a Versed drip, saline and a Bicarb drip. Afebrile. per Dr Hernandez (night doc) and nursing staff, he's been turned. had oral care. I&O's monitored (just around 24ml/kg/hr or urine output over night). Will continue to monitor patient. Hopeful for bed placement today. She and i discussed with significantly elevated LFT's adding on HIV and Acute hepatitis panel. This has been done. (FATUMA RASHID MD) Progress Note : Time: 03:50 Progress Note 09/21/2021: Assumed care of the patient at shift change at [address] Rashid pending transfer. Patient is also under care of [facility] on ICU hold consult and they are managing the patient. Patient is currently intubated and appears comfortable. Remains on Versed drip as well as sodium bicarb drip. Vent settings tidal volume 450, rate 18, PEEP of 5 with FiO2 at 30% and satting 97% with those settings. Heart rate is 72 and regular. Lung sounds are clear with ventilation. Abdomen is soft. Edema noted to arms. No significant edema of the legs with distal pulses intact. Heel protector boots are on place bilateral lower extremities. Nursing has continued orders per ICU including turning. At this point, he is having improved urinary output with total out on this shift of 1050 mL of now clear yellow urine. At beginning of shift, urine was darker yellow but now is much stallion keeper. Urine output is much improved. Hepatitis panel is positive. Creatinine had improved slightly with yesterday afternoon's labs and today's labs are pending. [facility] is still working to find bed placement. [facility] ICU consult much appreciated. Continue to monitor awaiting placement. (EVELINE BROWER MD) Comment Sinus rhythm, 78 bpm, QRS duration 92 MS, QTC 504 MS (RUFINO TURNER) Initial ECG Impression Date: Sep 18, 2021 Initial ECG Impression Time: 19:57 Initial ECG Rate: 78 Initial ECG Rhythm: Normal Sinus Initial ECG Intervals: Normal Initial ECG Impression: Normal Initial ECG Comparisson: No Previous ECG Available Comment Sinus rhythm without clinically relevant ST changes. (NICHO CALDERON) Diagnostic Imaging Diagonstic Imaging: Xray Plain Films/CT/US/NM/MRI: chest Comments [facility] [place] NAME: JAXON HERNANDEZ [facility] REC#: [id number] PT STATUS: REG ER : 1950 PHYSICIAN: RUFINO TURNER ADMIT DATE: 09/18/21/ER Signed Date of Exam:09/18/21 CHEST 1 VIEW, AP/PA ONLY CLINICAL INDICATIONS: Patient with cough. EXAM: Portable chest x-ray upright view. COMPARISON: Chest x-ray dated 03/19/2015. FINDINGS: There is interval development of pleural thickening involving the lateral right lung base and blunting of right costophrenic angle. There is a spiculated area of consolidation in the periphery of the right lung base which appears pleural-based with architectural distortion noted. Groundglass opacifications involving right midlung field right lung base. There are increased lung markings throughout both lungs and mild left basilar atelectasis versus infiltrate. There is no pneumothorax. Pulmonary vasculature and cardiac silhouette are within normal limits. Bones show no significant interval abnormality. IMPRESSION: 1: There is interval development of pleural thickening in the lateral right lung base region or pleural fluid. There is also parenchymal consolidation of the periphery of the lateral right lung base which is pleural-based with architectural distortion. Unknown if this represents postoperative changes or a mass. If this is not a known finding, then CT scan of the chest with contrast is suggested for further evaluation. 2: There are increased lung markings throughout both lungs which may be related to chronic lung changes or interstitial infiltrates. Bilateral basilar atelectasis versus infiltrate seen. Dictated by: Dictated on workstation # [id number] Dict: 09/18/212014 Trans: 09/18/212330 [facility] [id number] Interpreted by: GUILLE MORELAND MD Electronically signed by: GUILLE MORELAND MD 09/18/21 2331 Reviewed: Reviewed by Me Diagonstic Imaging: CT Plain Films/CT/US/NM/MRI: head Comments [facility] [place] [place] NAME: JAXON HERNANDEZ [facility] REC#: [id number] PT STATUS: REG ER : 1950 PHYSICIAN: RUFINO TURNER ADMIT DATE: 09/18/21/ER Signed Date of Exam:09/18/21 CT HEAD WO Clinical indication: Patient with altered mental status. Exam: Axial CT scan of the brain without IV contrast with coronal and sagittal reformatted images. Auto Exposure Controls were utilized during the CT exam to meet ALARA standards for radiation dose reduction. Comparison: None Findings: There is interval development of a roughly 6 mm low-density area involving the left frontal lobe deep white matter region which is of unknown age. There is slight progression of patchy confluent low-density white matter changes throughout both cerebral hemispheres. There is no definite evidence of acute cerebral infarct, intracranial hemorrhage, or gross mass effect. There is no dense vessel sign. Brain parenchymal volume loss again seen. There is normal cortes-white matter distinction. There is no significant midline shift or herniation. There is no evidence of hydrocephalus. The basal cisterns are unremarkable. The skull, extracranial soft tissue, and orbits are unremarkable. The paranasal sinuses are unremarkable. Temporal bones show no significant abnormality. Impression: 1: There is a 6 mm low-density area involving the left frontal lobe deep white matter which is of unknown age, but is developed in interim. This may represent a subacute or chronic ischemic area. If there is concern for acute cerebral infarct, MRI of the brain would better evaluate. 2: Otherwise, there is no acute intracranial process. 3: There is slight progression of age-related brain parenchymal changes. Dictated by: Dictated on workstation # [id number] Dict: 09/18/212122 Trans: 09/18/212335 [facility] [id number] Interpreted by: GUILLE MORELAND MD Electronically signed by: GUILLE MORELAND MD 09/18/212335 Reviewed: Reviewed by Me Diagonstic Imaging: Xray Plain Films/CT/US/NM/MRI: chest Comments Good interval placement of the ET tube about 4 to 5 cm above the samuel. Reviewed: Reviewed by Me Diagonstic Imaging: Xray Plain Films/CT/US/NM/MRI: chest Comments [facility] [place], [place] NAME: JAXON HERNANDEZ [facility] REC#: [id number] PT STATUS: REG ER : 1950 PHYSICIAN: NICHO CALDERON MD ADMIT DATE: 09/18/21/ER Draft Date of Exam:09/21/21 CHEST 1 VIEW, AP/PA ONLY HISTORY: Intubated COMPARISON: 09/20/2021 TECHNIQUE: Frontal view the chest FINDINGS: The endotracheal tube is about 6.5 cm above the samuel. An enteric tube crosses the [id number]. There are airspace opacities in the lung bases and perihilar region, likely scarring at the right lung base. No pneumothorax is seen. The cardiac silhouette is normal in size. There is a small right pleural effusion. IMPRESSION:. Bilateral airspace opacities with small right pleural effusion, stable since the prior study. Dictated on workstation # [id number] Dict: 09/21/21 0732 Trans: 09/21/21 0748 [facility] [id number] Interpreted by: TOPHER VELEZ MD Electronically signed by: Reviewed: Reviewed by Me (NICHO CALDERON) Diagonstic Imaging: Xray Plain Films/CT/US/NM/MRI: chest Comments [facility] [place], [place] NAME: JAXON HERNANDEZ [facility] REC#: [id number] PT STATUS: REG ER : 1950 PHYSICIAN: BENIGNO TORO MD ADMIT DATE: 09/18/21/ER Signed Date of Exam:09/20/21 CHEST 1 VIEW, AP/PA ONLY REASON FOR EXAMINATION: Endotracheal tube placement. Semiupright AP portable chest was obtained and compared to 09/18/2021. FINDINGS: Heart size is within normal limits. No mediastinal widening. ET tube tip is between the clavicles and samuel. Right greater than left pulmonary infiltrates with right pleural thickening versus right pleural effusion and not much overall change since 09/18/2021. IMPRESSION: 1. ET tube tip is in good position. 2. Persistent bilateral infiltrates greatest in the right lower lobe with a right pleural thickening versus small right pleural effusion. Not much change since 09/18/2021. Dictated by: Dictated on workstation # [id number] Dict: 09/20/21610 Trans: 09/20/21613 [id number] Interpreted by: KAM LEWIS MD Electronically signed by: KAM LEWIS MD 09/20/21613 (FATUMA RASHID MD) Critical Care Note Critical Care Start Time: 21:30 Stop Time: 22:30 Total Time (minutes) 60 Progress Improvement after intubation, aggressive IV hydration secondary to rhabdomyolysis, respiratory distress, metabolic acidosis, acute kidney injury. (RUFINO TURNER) Departure Communication (Admissions) Patient on arrival easily arousable but does appear confused. Patient is altered. Maintaining his airway. I Was able to get a oxygen level on 3 L of nasal cannula of 96 to 98%. Patient did feel cool to touch. Initial dusky skin. Patient initial ABG showed a pH of 7.18, bicarb of 15. Elevated white blood count. Sepsis protocol was initiated initially on arrival. Lactic acid 2.10. Was started on a liter of fluid. Patient in acute kidney failure with elevated transaminitis, troponin likely secondary to acute kidney injury we will continue monitoring. EKG normal sinus rhythm. Chest x-ray with possible pneumonia. Urinalysis concerning for source of infection. Patient was started on Zosyn. Patient with a history of alcohol abuse after discussing with roommat janny. Patient positive for methamphetamines. Negative for opiates. Patient was given Ativan and Cogentin with improvement of his involuntary movements likely secondary to meth induced. CT scan head negative for acute abnormality. Patient in rhabdomyolysis. Excessive fluid resuscitation here in the ED. Patient initially was given 3 L of fluid started on normal saline switch to LR.. Patient initial potassium 6.2 without any EKG changes. Rechecked with improvement of 5.9. Calcium carbonate and potassium treatment was held at this time. If any acute changes will start on protocol. We will continue monitoring ABG. Bicarb. May consider bicarb at this time. At shift change discussed patient with Dr. Calderon who assumed care. Intubation was performed to help maintain patient's airway as he became somnolent. Successful after placement with chest x-ray (RUFINO TURNER) Time/Spoke to Admitting Phy: 07:45 Dr. Fung agrees to admit the patient to the ICU with eICU consult, bicarb drip, Versed for sedation. We reviewed ventilator settings. Patient's urine output has improved to 1.6 mL/kg/h. Patient had 1350 mL of urine out over the past 12 hours. Patient also is maintaining good sedation oxygenation and repeat chest x-ray unremarkable. Time/Spoke to Consulting Phy: 08:00 eICU agrees to consult on the case (NICHO CALDERON) Communication (PCP) Patient was passed on to Dr. Calderon at 2300. Patient initially was able to verbally answer questions. Patient started to become somnolent. Difficulty obtaining oxygen level. For the patient safety and his current mental status intubation was performed. Attempted to call multiple places including [facility], [facility], [facility], [facility] and [facility] and was unsuccessful. We will continue monitoring patient here in the ED. Patient was given 3 L of IV fluids here in the ED. Slight improvement of potassium, kidney function, pH after initial 2 L of fluid (RUFINO TURNER) Impression Primary Impression: Methamphetamine abuse Additional Impressions: Intoxication by drug Qualified Codes: F19.921 - Other psychoactive substance use, unspecified with intoxication with delirium Rhabdomyolysis Qualified Codes: M62.82 - Rhabdomyolysis Dehydration Acute kidney injury Hyperkalemia Elevated troponin Sepsis Qualified Codes: A41.9 - Sepsis, unspecified organism; R65.20 - Severe sepsis without septic shock; N17.9 - Acute kidney failure, unspecified Urinary tract infection Qualified Codes: N39.0 - Urinary tract infection, site not specified Pulmonary infiltrate Abnormal CT scan, head Acute hepatitis Multiorgan failure Disposition: ADMITTED INPATIENT Condition: Critical Admissions Decision to Admit Reason: Admit from ER (General) Decision to Admit/Date: Sep 21, 2021 Time/Decision to Admit Time: 07:45 (NICHO CALDERON) Decision to Admit Reason: Admit from ER (General) Decision to Admit/Date: Sep 18, 2021 Time/Decision to Admit Time: 19:20 (BRITTNEY MICHAEL MD) Departure-Patient Inst. Referrals: NO,LOCAL PHYSICIAN (PCP/Family) Primary Care Physician RUFINO TURNER Sep 18, 2021 19:19 NICHO CALDERON Sep 18, 2021 23:59 BRITTNEY MICHAEL MD Sep 19, 2021 08:04 KIM HERNANDEZ DO Sep 19, 2021 20:00 FATUMA RASHID MD Sep 20, 2021 06:25 EVELINE BROWER MD Sep 21, 2021 03:56
[2021-09-18 19:22] LABS: ABG BASE EXCESS -11.9 MMOL/L (-2.5-2.5); ABG OXYGEN SATURATION 99 % (94-100); ABG PCO2 42 MMHG (35-45); ABG PO2 184 MMHG (79-93); ABG TCO2 16.4 MMOL/L (21.0-31.0)
[2021-09-18 19:23] LABS: ABG PH 7.18 (7.37-7.43); ALLENS TEST POSITIVE; INSPIRED O2 RA; PATIENT TEMP 36.3; VENTILATOR NO
[2021-09-18] MEDS: NS IV 1000 ML 1,000 ML IV SCH (19:23)
[2021-09-18 19:29] LABS: BASOPHILS % (AUTO) 0 % (0-10); EOSINOPHILS % (AUTO) 0 % (0-10); HEMATOCRIT 36 % (40-54); HEMOGLOBIN 11.7 g/dL (13.3-17.7); LYMPHOCYTES # (AUTO) 1.1 10^3/uL (1.0-4.0); LYMPHOCYTES % (AUTO) 6 % (12-44); MEAN CORPUSCULAR HEMOGLOBIN 27 pg (25-34); MEAN CORPUSCULAR HGB CONC 32 g/dL (32-36); MEAN CORPUSCULAR VOLUME 85 fL (80-99); MEAN PLATELET VOLUME 9.5 fL (9.0-12.2); MONOCYTES % (AUTO) 6 % (0-12); NEUTROPHILS # (AUTO) 16.2 10^3/uL (1.8-7.8); NEUTROPHILS % (AUTO) 88 % (42-75); PLATELET COUNT 360 10^3/uL (130-400); WHITE BLOOD COUNT 18.5 10^3/uL (4.3-11.0)
[2021-09-18 19:32] LABS: CLARITY,URINE CLOUDY; COLOR,URINE YELLOW; GLUCOSE, URINE (UA) NEGATIVE (NEGATIVE); KETONES,URINE TRACE (NEGATIVE); LEUKOCYTE ESTERASE ,URINE NEGATIVE (NEGATIVE); NITRITE,URINE NEGATIVE (NEGATIVE); PROTEIN,URINE 2+ (NEGATIVE)
[2021-09-18 19:36] LABS: ALBUMIN 3.8 GM/DL (3.2-4.5); CHLORIDE 97 MMOL/L (98-107); POTASSIUM 6.2 MMOL/L (3.6-5.0); SODIUM 135 MMOL/L (135-145)
[2021-09-18 19:38] LABS: CALCIUM 7.3 MG/DL (8.5-10.1)
[2021-09-18 19:39] LABS: GLUCOSE 89 MG/DL (70-105); TOTAL PROTEIN 8.7 GM/DL (6.4-8.2)
[2021-09-18 19:40] LABS: BACTERIA,URINE FEW /HPF; BILIRUBIN,URINE 2+ (NEGATIVE)
[2021-09-18 19:40] LABS: BILIRUBIN,TOTAL 0.9 MG/DL (0.1-1.0); CARBON DIOXIDE 13 MMOL/L (21-32)
[2021-09-18 19:41] LABS: AMORPHOUS SEDIMENT,UR MOD AMOR URATES /LPF
[2021-09-18 19:42] LABS: ALKALINE PHOSPHATASE 80 U/L (40-136); CREATININE SERUM 4.84 MG/DL (0.60-1.30); GFR ESTIMATED 12
[2021-09-18 19:43] LABS: BUN/CREATININE RATIO 20
[2021-09-18 19:45] LABS: ALANINE AMINOTRANSFERASE 319 U/L (0-55)
[2021-09-18] MEDS ORDERED: PIPERACILLIN SODIUM/TAZOBACTAM 4.5 GM in NS (IVPB) 100 ML IV ONE (19:45)
[2021-09-18 19:47] LABS: AMPHETAMINE SCREEN, URINE POSITIVE (NEGATIVE); BARBITURATE SCREEN URINE NEGATIVE (NEGATIVE); BENZODIAZEPINES SCREEN URINE NEGATIVE (NEGATIVE); CANNABINOID SCREEN, URINE NEGATIVE (NEGATIVE); COCAINE SCREEN URINE NEGATIVE (NEGATIVE); METHADONE STAT NEGATIVE (NEGATIVE); METHAMPHETAMINE SCREEN URINE S POSITIVE (NEGATIVE); OPIATE SCREEN URINE NEGATIVE (NEGATIVE); OXYCODONE STAT NEGATIVE (NEGATIVE); PROPOXYPHENE STAT NEGATIVE (NEGATIVE); TRICYCLIC ANTIDEPRESSANTS SCRE NEGATIVE (NEGATIVE)
[2021-09-18 19:50] LABS: MONOCYTES % (MANUAL) 3 %; RBC MORPH NORMAL
[2021-09-18] MEDS ORDERED: LORazepam INJ 2 MG/ML (ATIVAN) VIAL ONE (19:52)
[2021-09-18 19:54] LABS: LYMPHOCYTES % (MANUAL) 3 %; NEUTROPHILS % (MANUAL) 94 %
[2021-09-18] MEDS ORDERED: LACTATED RINGERS 1,000 ML IV ONE (19:57)
[2021-09-18] MEDS ORDERED: LORazepam INJ 2 MG/ML (ATIVAN) VIAL IVP ONE (20:00)
[2021-09-18] MEDS ORDERED: BENZTROPINE 2 MG/2 ML INJ (COGENTIN) AMP IM ONE (20:00)
[2021-09-18] MEDS ORDERED: LACTATED RINGERS 1,000 ML IV SCH ×2 (20:00→22:00)
[2021-09-18] MEDS ORDERED: BENZTROPINE 2 MG/2 ML INJ (COGENTIN) AMP ONE (20:17)
[2021-09-18 20:19] LABS: SALICYLATE < 5.0 MG/DL (5.0-20.0)
[2021-09-18 20:23] LABS: ACETAMINOPHEN < 10 UG/ML (10-30)
--- NOTE | 2021-09-18 20:24 | Diagnostic Imaging Report ---
CLINICAL INDICATIONS: Patient with cough. EXAM: Portable chest x-ray upright view. COMPARISON: Chest x-ray dated 03/19/2015. FINDINGS: There is interval development of pleural thickening involving the lateral right lung base and blunting of right costophrenic angle. There is a spiculated area of consolidation in the periphery of the right lung base which appears pleural-based with architectural distortion noted. Groundglass opacifications involving right midlung field right lung base. There are increased lung markings throughout both lungs and mild left basilar atelectasis versus infiltrate. There is no pneumothorax. Pulmonary vasculature and cardiac silhouette are within normal limits. Bones show no significant interval abnormality. IMPRESSION: 1: There is interval development of pleural thickening in the lateral right lung base region or pleural fluid. There is also parenchymal consolidation of the periphery of the lateral right lung base which is pleural-based with architectural distortion. Unknown if this represents postoperative changes or a mass. If this is not a known finding, then CT scan of the chest with contrast is suggested for further evaluation. 2: There are increased lung markings throughout both lungs which may be related to chronic lung changes or interstitial infiltrates. Bilateral basilar atelectasis versus infiltrate seen. Dictated by: Dictated on workstation # [id number]
[2021-09-18 20:44] LABS: CREATINE KINASE > 42670 U/L (30-200)
--- NOTE | 2021-09-18 21:27 | Diagnostic Imaging Report ---
Clinical indication: Patient with altered mental status. Exam: Axial CT scan of the brain without IV contrast with coronal and sagittal reformatted images. Auto Exposure Controls were utilized during the CT exam to meet ALARA standards for radiation dose reduction. Comparison: None Findings: There is interval development of a roughly 6 mm low-density area involving the left frontal lobe deep white matter region which is of unknown age. There is slight progression of patchy confluent low-density white matter changes throughout both cerebral hemispheres. There is no definite evidence of acute cerebral infarct, intracranial hemorrhage, or gross mass effect. There is no dense vessel sign. Brain parenchymal volume loss again seen. There is normal cortes-white matter distinction. There is no significant midline shift or herniation. There is no evidence of hydrocephalus. The basal cisterns are unremarkable. The skull, extracranial soft tissue, and orbits are unremarkable. The paranasal sinuses are unremarkable. Temporal bones show no significant abnormality. Impression: 1: There is a 6 mm low-density area involving the left frontal lobe deep white matter which is of unknown age, but is developed in interim. This may represent a subacute or chronic ischemic area. If there is concern for acute cerebral infarct, MRI of the brain would better evaluate. 2: Otherwise, there is no acute intracranial process. 3: There is slight progression of age-related brain parenchymal changes. Dictated by: Dictated on workstation # [id number]
[2021-09-18 22:18] LABS: POTASSIUM 5.9 MMOL/L (3.6-5.0)
[2021-09-18 22:20] LABS: CALCIUM 6.7 MG/DL (8.5-10.1)
[2021-09-18 22:23] LABS: ABG BASE EXCESS -11.6 MMOL/L (-2.5-2.5); ABG OXYGEN SATURATION 88 % (94-100); ABG PCO2 39 MMHG (35-45); ABG PO2 59 MMHG (79-93); ABG TCO2 16.2 MMOL/L (21.0-31.0)
[2021-09-18 22:24] LABS: ALLENS TEST POSITIVE; INSPIRED O2 RA; PATIENT TEMP 36.3; VENTILATOR NO
[2021-09-18 22:24] LABS: CREATININE SERUM 4.63 MG/DL (0.60-1.30)
[2021-09-18 22:26] LABS: ABG PH 7.21 (7.37-7.43)
[2021-09-18] MEDS: MIDAZOLAM DRIP PRE-MIX 100 ML IV SCH (23:24)
--- NOTE | 2021-09-19 00:11 | Diagnostic Imaging Report ---
CLINICAL INDICATION: Post intubation EXAM: Portable chest x-ray upright view. COMPARISON: Chest x-ray dated 09/18/2021 at 2002 hours. FINDINGS AND IMPRESSION: 1: There is interval placement of ET tube with tip seen at the C7 vertebral body level. The ET tube should be advanced roughly 7 cm to ensure good positioning. Dr. Calderon is aware of the position of the ET tube. 2: Feeding tube has been placed in the interim with distal portion seen below level of diaphragm, but is not completely imaged. 3: The remainder of this exam shows no significant interval change compared to the prior study of comparison. Dictated by: Dictated on workstation # [id number]
--- NOTE | 2021-09-19 00:16 | Diagnostic Imaging Report ---
CLINICAL INDICATION: ET tube adjusted. EXAM: Portable chest x-ray upright view. COMPARISON: Chest x-ray dated 09/18/2021 at 2259 hours. FINDINGS AND IMPRESSION: 1: There is interval advancement of ET tube in good position with tip now seen at the T4 vertebral body level. 2: The remainder of this exam shows no significant interval change compared to the prior study of comparison. Dictated by: Dictated on workstation # [id number]
[2021-09-19 00:34] VITALS: BP 131/61
[2021-09-19] MEDS ORDERED: 1/2 NS IV SOLUTION 1,000 ML IV SCH (01:00)
[2021-09-19] MEDS ORDERED: CEFEPIME INJECTION 1,000 MG in NS (IVPB) 50 ML IV ONE (02:00)
[2021-09-19 05:47] LABS: ABG BASE EXCESS -11.9 MMOL/L (-2.5-2.5); ABG OXYGEN SATURATION 98 % (94-100); ABG PCO2 40 MMHG (35-45); ABG PO2 120 MMHG (79-93); ABG TCO2 15.9 MMOL/L (21.0-31.0)
[2021-09-19] MEDS: NS IV 1000 ML 1,000 ML IV SCH ×3 (05:49→20:02)
[2021-09-19 05:51] LABS: ALLENS TEST POSITIVE
[2021-09-19 05:52] LABS: INSPIRED O2 40%; PATIENT TEMP 37; VENTILATOR YES
[2021-09-19 05:53] LABS: ABG PH 7.19 (7.37-7.43)
[2021-09-19 06:19] LABS: BASOPHILS % (AUTO) 0 % (0-10); EOSINOPHILS % (AUTO) 0 % (0-10); HEMATOCRIT 35 % (40-54); HEMOGLOBIN 11.2 g/dL (13.3-17.7); LYMPHOCYTES # (AUTO) 0.3 10^3/uL (1.0-4.0); LYMPHOCYTES % (AUTO) 2 % (12-44); MEAN CORPUSCULAR HEMOGLOBIN 27 pg (25-34); MEAN CORPUSCULAR HGB CONC 32 g/dL (32-36); MEAN CORPUSCULAR VOLUME 85 fL (80-99); MEAN PLATELET VOLUME 9.5 fL (9.0-12.2); MONOCYTES # (AUTO) 0.6 10^3/uL (0.0-1.0); MONOCYTES % (AUTO) 4 % (0-12); NEUTROPHILS # (AUTO) 13.8 10^3/uL (1.8-7.8); NEUTROPHILS % (AUTO) 93 % (42-75); PLATELET COUNT 285 10^3/uL (130-400); WHITE BLOOD COUNT 14.9 10^3/uL (4.3-11.0)
[2021-09-19 06:32] LABS: CALCIUM 6.2 MG/DL (8.5-10.1)
[2021-09-19 06:36] LABS: CREATININE SERUM 4.83 MG/DL (0.60-1.30)
[2021-09-19 06:42] LABS: POTASSIUM 6.7 MMOL/L (3.6-5.0)
[2021-09-19 06:59] LABS: MAGNESIUM 2.5 MG/DL (1.6-2.4)
[2021-09-19] MEDS ORDERED: NS IV 1000 ML 1,000 ML IV ONE (07:00)
[2021-09-19 07:17] VITALS: BP 131/61
[2021-09-19 07:34] LABS: ALBUMIN 3.2 GM/DL (3.2-4.5)
[2021-09-19 07:37] LABS: TOTAL PROTEIN 7.3 GM/DL (6.4-8.2)
[2021-09-19 07:39] LABS: BILIRUBIN,TOTAL 0.7 MG/DL (0.1-1.0)
[2021-09-19 07:42] LABS: BILIRUBIN,DIRECT 0.5 MG/DL (0.0-0.3); BILIRUBIN,INDIRECT 0.2 MG/DL
[2021-09-19] MEDS ORDERED: RT-ALBUTEROL SULF 2.5 MG/3 ML PRE-MIX VIAL INH STA (08:41)
[2021-09-19] MEDS ORDERED: SODIUM BICARB 8.4% 50 MEQ/50 ML (ABBOTT) SYR IV ONE (08:45)
[2021-09-19] MEDS ORDERED: DEXTROSE 50% 50 ML (IMS) SYR IV ONE (08:45)
[2021-09-19] MEDS ORDERED: inSUlin (REGULAR) HUMAN 1 UNIT/0.01 ML (CHARGE PER UNIT) IV ONE (08:45)
[2021-09-19] MEDS ORDERED: CALCIUM GLUC. 10% 4.65 MEQ/10 ML VIAL IV ONE (08:45)
[2021-09-19 08:57] LABS: INR 1.4 (0.8-1.4); PROTHROMBIN TIME PATIENT 17.5 SEC (12.2-14.7)
[2021-09-19] MEDS ORDERED: SODIUM BICARBONATE 8.4% VIAL 100 MEQ in D5W 1000 ML IV SOLUTION 1,000 ML IV SCH (09:00)
[2021-09-19 09:29] VITALS: BP 109/53
--- NOTE | 2021-09-19 11:26 | Tele-ICU Consult ---
History of Present Illness History of Present Illness Date Seen by Provider: Sep 19, 2021 Time Seen by Provider: 11:26 Date of Admission Allergies and Home Medications Allergies Coded Allergies: No Known Drug Allergies (Unverified , 12/16/12) Home Medications Albuterol Sulfate 1 Puff Puff, 2 PUFF IH Q4H PRN for WHEEZING, (Reported) 1 PUFF = 90 MCG Sertraline HCl 100 Mg Tablet, 150 MG PO DAILY, (Reported) take 1.5 of 100mg tab Terazosin HCl 2 Mg Capsule, 2 MG PO HS, (Reported) Trazodone HCl 150 Mg Tablet, 150 MG PO HS, (Reported) Past Medical/Social/Family Hx Patient Social History Tobacco Use?: No Use of E-Cig and/or Vaping dev: No Substance use?: No Alcohol Use?: No Pt stated abuse/neglect: No Immunizations Up To Date Influenza Vaccine Up-to-Date: Yes; Up-to-Date First/Initial COVID19 Vaccinat: 2020 Second COVID19 Vaccination Bar: 2020 Tetanus Booster (TDap): Unknown Hepatitis A: No Hepatitis B: No TB Skin Test: None Date of Pneumonia Vaccine: Mar 19, 2014 Current Status Advance Directives: No Communicates: Verbally Primary Language: Tristanian Preferred Spoken Language: Tristanian Past Medical History Past medical history 1. Alcoholism 2. Depression 3. Benign prostatic hypertrophy Review of Systems Constitutional: see HPI Focused Exam Lactate Level 09/18/21 18:45: Lactic Acid Level 2.10*H 09/18/21 21:56: Lactic Acid Level 1.88 Height, Weight, BMI Height: 5'9.00" Weight: 160lbs. 6.0oz. 72.137153lf; 25.00 BMI Method:Stated Time of Focused Exam: 07:30 Exam Exam Patient acknowledged, consented, and participated in this virtual visit which was conducted using real time audio/video Vital Signs Date Time Temp Pulse Resp B/P (MAP) Pulse Ox O2 Delivery O2 Flow Rate FiO2 09/19/21 09:29 76 16 100 40 09/19/21 07:17 75 16 100 40 09/19/21 00:34 84 16 98 40 09/18/21 23:24 84 18 146/69 09/18/21 18:50 Room Air 09/18/21 18:50 36.3 79 20 125/71 (89) 97 Nasal Cannula I & O 09/19/21 07:00 Intake Total 3350 ml Balance 3350 ml Height & Weight Height: 5'9.00" Weight: 160lbs. 6.0oz. 72.808393cl; 25.00 BMI Method:Stated General Appearance: No Apparent Distress Respiratory: Lungs Clear, Normal Breath Sounds Cardiovascular: Regular Rate, Rhythm, No Edema, No Murmur Capillary Refill: Greater Than 3 Seconds Peripheral Pulses: 2+ Femoral (R), 2+ Femoral (L), 2+ Dorsalis Pedis (R), 2+ Left Dors-Pedis (L), 2+ Radial Pulses (R), 2+ Radial Pulses (L) Gastrointestinal: normal bowel sounds, non tender, soft, no organomegaly Results Lab Laboratory Tests 09/18/21 18:45 09/18/21 21:56 09/19/21 06:10 Assessment/Plan Assessment/Plan (Tele-ICU Physician , consultation) PATIENT IS CURRENTLY IN ER , AWAITING ICU BED Available chart/ vitals / labs / Images reviewed H&P is from ER notes and discussion with ER MD Patient's information available about PMH, Shx, Fhx allergy reviewed in EMR. ROS as per chart and RN report Discussed with RN. Hospital course: 09/19- intubated FOR AIRWAY PROTECTION , METH OD, LYDIA / RABDO A/P Acute respo failure - AC 450 25 +5 100 - intubated 09/19 for airway protection -follow abg , adjust rate Unresponsiveness - most likely OFD - urin tox pos for meth/amphet - CT head - no acute finfding , abnormal findings to follow latted - as per PCP LYDIA - cont agressive hydration - dodson in place , if no UO will check US renal Rhabdo - bicarb gtt , agressive hydration hyperkalemia with LYDIA - Tx with meds , repeat , follow Elevated transaminazes - -? shock liver , follow Possible infection , UTI ,? PNA? abx started , cx pending - fly and rapod covif NEG ETON abuse - thiamine Elv trop - in face of LYDIA - follow closely Follow BS Lines : periph (Central Line Necessity Reviewed) Dodson: 09/19 O/6 Nutrition: Analgesia: Anxiety/ delirium versed VTE Prophylaxis: INR 1.4 - readress tomorrow Stress Ulcer Prophylaxis: ppi Plans in collaboration with bedside consultants and IM MDs. Discussed with RN to reach out if any questions or concerns A total of 40 minutes of critical care time was devoted to this patient today, required to treat and/or prevent further deterioration of critical care condition ( as above ) . BENIGNO TORO MD Sep 19, 2021 11:26
[2021-09-19] MEDS: MIDAZOLAM DRIP PRE-MIX 100 ML IV SCH (11:43)
[2021-09-19] MEDS ORDERED: inSUlin ASPART (NovoLOG) 1 UNIT/0.01 ML (CHARGE PER UNIT) ONE (12:22)
[2021-09-19 13:14] LABS: POTASSIUM 5.4 MMOL/L (3.6-5.0)
[2021-09-19 13:17] LABS: CALCIUM 5.9 MG/DL (8.5-10.1)
[2021-09-19 13:20] LABS: CREATININE SERUM 4.85 MG/DL (0.60-1.30)
[2021-09-19 13:42] LABS: ABG BASE EXCESS -5.3 MMOL/L (-2.5-2.5); ABG OXYGEN SATURATION 99 % (94-100); ABG PCO2 40 MMHG (35-45); ABG PO2 135 MMHG (79-93); ABG TCO2 21.4 MMOL/L (21.0-31.0)
[2021-09-19 13:50] LABS: ABG PH 7.32 (7.37-7.43); ALLENS TEST POS; INSPIRED O2 40%; PATIENT TEMP 35.6; VENTILATOR YES
[2021-09-19 14:32] VITALS: BP 115/63
[2021-09-19] MEDS ORDERED: CALCIUM GLUCONATE 10% INJ 4.65 MEQ in NS (IVPB) 50 ML IV ONE (14:45)
[2021-09-19] MEDS: SODIUM BICARBONATE 8.4% VIAL 100 MEQ in 1/2 NS IV SOLUTION 1,000 ML IV SCH ×2 (14:51→23:31)
[2021-09-19] MEDS ORDERED: inSUlin ASPART (NovoLOG) 1 UNIT/0.01 ML (CHARGE PER UNIT) SC SCH (16:00)
[2021-09-19 18:19] LABS: POTASSIUM 4.8 MMOL/L (3.6-5.0)
[2021-09-19 18:24] LABS: CREATININE SERUM 4.85 MG/DL (0.60-1.30)
[2021-09-19] MEDS: inSUlin ASPART (NovoLOG) 1 UNIT/0.01 ML (CHARGE PER UNIT) SC SCH (18:24)
[2021-09-19 18:39] VITALS: BP 109/72
[2021-09-19 22:25] VITALS: BP 117/58
[2021-09-19] MEDS ORDERED: 1/2 NS IV SOLUTION 1,000 ML IV ONE (23:07)
[2021-09-19] MEDS ORDERED: SODIUM BICARB 8.4% 50 MEQ/50 ML (ABBOTT) SYR ONE (23:08)
[2021-09-20] MEDS: inSUlin ASPART (NovoLOG) 1 UNIT/0.01 ML (CHARGE PER UNIT) SC SCH ×4 (00:30→19:37)
[2021-09-20] MEDS: MIDAZOLAM DRIP PRE-MIX 100 ML IV SCH ×2 (02:03→13:25)
[2021-09-20 02:14] VITALS: BP 122/59
[2021-09-20 02:49] LABS: ABG BASE EXCESS -4.2 MMOL/L (-2.5-2.5); ABG OXYGEN SATURATION 100 % (94-100); ABG PCO2 43 MMHG (35-45); ABG PO2 359 MMHG (79-93); ABG TCO2 22.5 MMOL/L (21.0-31.0)
[2021-09-20 02:57] LABS: ABG PH 7.31 (7.37-7.43)
[2021-09-20 02:58] LABS: ALLENS TEST YES-POS; INSPIRED O2 30%; PATIENT TEMP 36.2; VENTILATOR YES
[2021-09-20] MEDS: NS IV 1000 ML 1,000 ML IV SCH (03:39)
[2021-09-20 05:44] LABS: HEMATOCRIT 30 % (40-54); MEAN CORPUSCULAR HEMOGLOBIN 28 pg (25-34); MEAN CORPUSCULAR HGB CONC 34 g/dL (32-36); MEAN CORPUSCULAR VOLUME 82 fL (80-99); MEAN PLATELET VOLUME 9.5 fL (9.0-12.2); PLATELET COUNT 190 10^3/uL (130-400); WHITE BLOOD COUNT 11.2 10^3/uL (4.3-11.0)
[2021-09-20 05:56] LABS: ALBUMIN 2.6 GM/DL (3.2-4.5); POTASSIUM 4.7 MMOL/L (3.6-5.0)
[2021-09-20 05:59] LABS: TOTAL PROTEIN 6.1 GM/DL (6.4-8.2)
[2021-09-20 06:00] LABS: BILIRUBIN,TOTAL 0.5 MG/DL (0.1-1.0)
[2021-09-20 06:01] LABS: CALCIUM 5.5 MG/DL (8.5-10.1)
[2021-09-20 06:02] LABS: CREATININE SERUM 4.69 MG/DL (0.60-1.30)
[2021-09-20 06:04] LABS: BILIRUBIN,DIRECT 0.4 MG/DL (0.0-0.3); BILIRUBIN,INDIRECT 0.1 MG/DL
[2021-09-20 06:05] LABS: MAGNESIUM 2.1 MG/DL (1.6-2.4)
--- NOTE | 2021-09-20 06:14 | Diagnostic Imaging Report ---
REASON FOR EXAMINATION: Endotracheal tube placement. Semiupright AP portable chest was obtained and compared to 09/18/2021. FINDINGS: Heart size is within normal limits. No mediastinal widening. ET tube tip is between the clavicles and samuel. Right greater than left pulmonary infiltrates with right pleural thickening versus right pleural effusion and not much overall change since 09/18/2021. IMPRESSION: 1. ET tube tip is in good position. 2. Persistent bilateral infiltrates greatest in the right lower lobe with a right pleural thickening versus small right pleural effusion. Not much change since 09/18/2021. Dictated by: Dictated on workstation # [id number]
[2021-09-20] MEDS ORDERED: CALCIUM GLUCONATE 10% INJ 4.65 MEQ in NS (IVPB) 50 ML IV ONE ×2 (07:00→15:00)
[2021-09-20 07:11] VITALS: BP 117/585
[2021-09-20] MEDS: SODIUM BICARBONATE 8.4% VIAL 100 MEQ in 1/2 NS IV SOLUTION 1,000 ML IV SCH ×3 (08:01→21:43)
[2021-09-20] MEDS: PANTOPRAZOLE 40 MG (PROTONIX) VIAL IV SCH (08:32)
[2021-09-20] MEDS ORDERED: THIAMINE 100 MG/ML 2 ML (VITAMIN B-1) VIAL IV ONE (09:00)
[2021-09-20] MEDS ORDERED: BUMETANIDE 1 MG/4 ML (BUMEX) VIAL IV ONE ×2 (09:15→15:00)
--- NOTE | 2021-09-20 09:22 | Tele-ICU Progress Note ---
Subjective Date Seen by a Provider: Sep 20, 2021 Time Seen by a Provider: 09:22 Sepsis Event Evaluation Height, Weight, BMI Height: 5'9.00" Weight: 160lbs. 6.0oz. 72.001843cr; 25.00 BMI Method:Stated Focused Exam Lactate Level 09/18/21 18:45: Lactic Acid Level 2.10*H 09/18/21 21:56: Lactic Acid Level 1.88 Time of Focused Exam: 07:30 Exam Exam Patient acknowledged, consented, and participated in this virtual visit which was conducted using real time audio/video Vital Signs Date Time Temp Pulse Resp B/P (MAP) Pulse Ox O2 Delivery O2 Flow Rate FiO2 09/20/21 07:11 77 24 100 30 09/20/21 06:37 37.1 09/20/21 03:17 36.8 09/20/21 02:14 76 24 97 30 09/20/21 02:03 75 120/58 09/19/21 23:35 36.4 09/19/21 22:25 77 24 96 30 09/19/21 21:00 36.3 09/19/21 19:04 30 09/19/21 18:39 73 18 99 40 09/19/21 18:00 76 20 109/74 99 Mechanical Ventilator 40.00 09/19/21 17:00 73 19 112/51 99 Mechanical Ventilator 40.00 09/19/21 16:00 73 18 113/55 100 Mechanical Ventilator 40.00 09/19/21 16:00 35.8 09/19/21 15:00 72 18 114/60 99 Mechanical Ventilator 40.00 09/19/21 14:32 73 16 99 40 09/19/21 14:00 74 20 109/52 100 Mechanical Ventilator 40.00 09/19/21 13:00 75 19 107/52 100 Mechanical Ventilator 40.00 09/19/21 12:00 36.0 09/19/21 12:00 73 23 114/61 100 Mechanical Ventilator 40.00 09/19/21 11:43 72 111/59 09/19/21 11:00 73 24 108/59 100 Mechanical Ventilator 40.00 09/19/21 10:00 76 24 114/58 100 Mechanical Ventilator 40.00 09/19/21 09:30 76 23 115/56 100 Mechanical Ventilator 40.00 09/19/21 09:29 76 16 100 40 I & O 09/20/21 07:00 Intake Total 5760 ml Output Total 675 ml Balance 5085 ml Height & Weight Height: 5'9.00" Weight: 160lbs. 6.0oz. 72.029753zz; 25.00 BMI Method:Stated General Appearance: No Apparent Distress Respiratory: Lungs Clear, Normal Breath Sounds Cardiovascular: Regular Rate, Rhythm, No Edema, No Murmur Capillary Refill: Greater Than 3 Seconds Peripheral Pulses: 2+ Femoral (R), 2+ Femoral (L), 2+ Dorsalis Pedis (R), 2+ Left Dors-Pedis (L), 2+ Radial Pulses (R), 2+ Radial Pulses (L) Gastrointestinal: normal bowel sounds, non tender, soft, no organomegaly Results Lab Laboratory Tests 09/18/21 18:45 09/18/21 21:56 09/19/21 06:10 09/19/21 12:45 09/19/21 18:00 09/20/21 05:35 Assessment/Plan Assessment/Plan (Tele-ICU Physician , Progress Note ) PATIENT IS IN ER, AWAITING TRANSFER TO HOSPITAL WITH RENAL SERVICE Tele-ICU is providing complimentary help with ICU expertise to ER / PCP physicians while patient in ER location. Available chart/ vitals / labs / Images reviewed Discussed with RN , EXAM PER RN Events overnight : none Afebrile , 37.1 FiO2 - I/O = positive Pressors: , hemodynamically stable Hospital course: 09/19- intubated FOR AIRWAY PROTECTION , METH OD, LYDIA / RABDO A/P Acute respo failure - AC 450 25 +5 30 % - intubated 09/19 for airway protection -follow abg , adjust Unresponsiveness - most likely OD - urin tox pos for meth/amphet - CT head - no acute finfding , abnormal findings to follow latted - as per PCP - on versed gtt on vent LYDIA - cont agressive hydration with NS and bicarb - smal dose of diuretics given x1 - dodson in place , follow UO Rhabdo - bicarb gtt to cont , agressive hydration hyperkalemia with LYDIA - Tx with meds , repeat , follow --> resolved Elevated transaminazes - -? shock liver , follow -> improved Possible infection , UTI ,? PNA? abx started , cx pending - flu and rapid covif NEG ETON abuse - thiamine Elv trop - in face of LYDIA - follow closely , trending down Anemia - most likely delutional Follow BS Lines : periph (Central Line Necessity Reviewed) Dodson: 09/19 O/6 Nutrition: Analgesia: Anxiety/ delirium versed VTE Prophylaxis: INR 1.4 - readress tomorrow, recheck INR Stress Ulcer Prophylaxis: ppi Bedside admitting physician and consultants on case to be updated by bedside RN. Future plans depend on the clinical course and tests results, and as delineated by bedside physicians. Discussed with RN to reach out if any questions or concerns (we cannot fully and completely monitor patient in ER settings BENIGNO TORO MD Sep 20, 2021 09:22
[2021-09-20] MEDS: CEFEPIME INJECTION 1,000 MG in NS (IVPB) 50 ML IV SCH ×2 (09:49→20:32)
[2021-09-20 10:20] VITALS: BP 116/59
[2021-09-20 14:20] LABS: POTASSIUM 4.2 MMOL/L (3.6-5.0)
[2021-09-20 14:25] LABS: CREATININE SERUM 4.55 MG/DL (0.60-1.30)
[2021-09-20 14:32] LABS: CALCIUM 5.7 MG/DL (8.5-10.1)
[2021-09-20 14:55] VITALS: BP 123/60
[2021-09-20 19:31] VITALS: BP 106/60
[2021-09-20 23:37] LABS: HEPATITIS C ANTIBODY C Reactive (Non-Reactive)
[2021-09-21] MEDS: MIDAZOLAM DRIP PRE-MIX 100 ML IV SCH ×3 (01:28→21:44)
[2021-09-21] MEDS: inSUlin ASPART (NovoLOG) 1 UNIT/0.01 ML (CHARGE PER UNIT) SC SCH ×5 (01:30→23:20)
[2021-09-21] MEDS: SODIUM BICARBONATE 8.4% VIAL 100 MEQ in 1/2 NS IV SOLUTION 1,000 ML IV SCH ×2 (04:31→15:39)
[2021-09-21 06:40] VITALS: BP 108/54
[2021-09-21 06:56] LABS: HEMATOCRIT 29 % (40-54); HEMOGLOBIN 9.5 g/dL (13.3-17.7); MEAN CORPUSCULAR HEMOGLOBIN 27 pg (25-34); MEAN CORPUSCULAR HGB CONC 33 g/dL (32-36); MEAN CORPUSCULAR VOLUME 84 fL (80-99); MEAN PLATELET VOLUME 9.7 fL (9.0-12.2); PLATELET COUNT 157 10^3/uL (130-400); WHITE BLOOD COUNT 9.2 10^3/uL (4.3-11.0)
[2021-09-21 07:06] LABS: POTASSIUM 3.7 MMOL/L (3.6-5.0)
[2021-09-21 07:07] LABS: CALCIUM 6.3 MG/DL (8.5-10.1)
[2021-09-21 07:11] LABS: CREATININE SERUM 4.15 MG/DL (0.60-1.30)
[2021-09-21 07:25] LABS: INR 1.3 (0.8-1.4); PROTHROMBIN TIME PATIENT 16.5 SEC (12.2-14.7)
--- NOTE | 2021-09-21 07:48 | Diagnostic Imaging Report ---
HISTORY: Intubated COMPARISON: 09/20/2021 TECHNIQUE: Frontal view the chest FINDINGS: The endotracheal tube is about 6.5 cm above the samuel. An enteric tube crosses the [id number]. There are airspace opacities in the lung bases and perihilar region, likely scarring at the right lung base. No pneumothorax is seen. The cardiac silhouette is normal in size. There is a small right pleural effusion. IMPRESSION:. Bilateral airspace opacities with small right pleural effusion, stable since the prior study. Dictated by: Dictated on workstation # [id number]
[2021-09-21 08:13] LABS: ABG BASE EXCESS 6.9 MMOL/L (-2.5-2.5); ABG OXYGEN SATURATION 98 % (94-100); ABG PCO2 37 MMHG (35-45); ABG PH 7.52 (7.37-7.43); ABG PO2 80 MMHG (79-93); ABG TCO2 31.2 MMOL/L (21.0-31.0)
[2021-09-21 08:27] LABS: ALLENS TEST YES-POS; INSPIRED O2 30; VENTILATOR YES
[2021-09-21] MEDS: LACRI-LUBE OPTHALMIC OINT 3.5 GM TUBE OU SCH ×2 (08:34→20:28)
[2021-09-21] MEDS ORDERED: morphine INJ 10 MG/ML 1ML (SYR OR VIAL) IVP STA (08:36)
[2021-09-21] MEDS ORDERED: morphine INJ 10 MG/ML 1ML (SYR OR VIAL) ONE (08:37)
[2021-09-21] MEDS ORDERED: cefTRIAXone 1 GM PRE-MIX 50 ML IV ONE (09:00)
[2021-09-21] MEDS ORDERED: D5 1/2 NS 1000 ML IV SOLUTION 1,000 ML IV SCH (09:15)
[2021-09-21] MEDS: PANTOPRAZOLE 40 MG (PROTONIX) VIAL IV SCH (09:16)
[2021-09-21] MEDS: 1/2 NS IV SOLUTION 1,000 ML IV SCH ×3 (09:27→21:43)
[2021-09-21] MEDS: CEFEPIME INJECTION 1,000 MG in NS (IVPB) 50 ML IV SCH ×2 (09:41→20:07)
[2021-09-21 10:50] VITALS: BP 108/54
[2021-09-21 14:04] VITALS: BP 106/51
--- NOTE | 2021-09-21 14:08 | Tele-ICU Progress Note ---
Progress Note 70 /o male with drug OD. Intubated and has been held in ED for past 48 h Has LYDIA and rhabdo PLAN: mechanical vent and sedation Fluid resuscittaion for rhabdo Focused Exam Lactate Level 09/18/21 18:45: Lactic Acid Level 2.10*H 09/18/21 21:56: Lactic Acid Level 1.88 Height, Weight, BMI Height: 5'9.00" Weight: 160lbs. 6.0oz. 72.256628pe; 25.00 BMI Method:Stated Time of Focused Exam: 07:30 Results Results/Procedures Lab Laboratory Tests 09/19/21 18:00 09/20/21 05:35 09/20/21 14:00 09/21/21 06:49 Results Labs Labs Laboratory Tests 09/21/21 01:28: Glucometer 102 09/21/21 06:49: White Blood Count 9.2, Red Blood Count 3.47L, Hemoglobin 9.5L, Hematocrit 29L, Mean Corpuscular Volume 84, Mean Corpuscular Hemoglobin 27, Mean Corpuscular Hemoglobin Concent 33, Red Cell Distribution Width 15.6H, Platelet Count 157, Mean Platelet Volume 9.7, Prothrombin Time 16.5H, INR Comment 1.3, Sodium Level 148H, Potassium Level 3.7, Chloride Level 102, Carbon Dioxide Level 28, Anion Gap 18H, Blood Urea Nitrogen 113*H, Creatinine 4.15#H, Estimat Glomerular Filtration Rate 14, BUN/Creatinine Ratio 27, Glucose Level 95, Calcium Level 6.3L, Total Creatine Kinase 6504#H 09/21/21 08:07: Blood Gas Puncture Site RT RAD, Blood Gas Patient Temperature 37.0, Arterial Blood pH 7.52H, Arterial Blood Partial Pressure CO2 37, Arterial Blood Partial Pressure O2 80, Arterial Blood HCO3 30H, Arterial Blood Total CO2 31.2H, Arterial Blood Oxygen Saturation 98, Arterial Blood Base Excess 6.9H, Juan David Test YES-POS, Blood Gas Ventilator Setting YES, Blood Gas Inspired Oxygen 30 Microbiology 09/20/21 Gram Stain - Final, Resulted 09/20/21 Sputum Culture, Resulted Pending 09/18/21 Urine Culture - Final, Complete NO GROWTH 09/18/21 Blood Culture - Preliminary, Resulted Probable Coag Negative Staph Gram Positive Bacillus 1 FRANCISCO J RICHARDSON MD Sep 21, 2021 14:08
[2021-09-21] MEDS ORDERED: ONDANSETRON 4 MG/2 ML (SDV) Z0FRAN IV PRN (18:30)
[2021-09-21] MEDS ORDERED: polyethylene glycoL POWDER 17 GM (MIRALAX) PACK PO PRN (18:30)
[2021-09-21] MEDS ORDERED: ACETAMINOPHEN 325 MG TABLET PO PRN (18:30)
[2021-09-21] MEDS ORDERED: ONDANSETRON 4 MG (ZOFRAN) ORAL DISSOLVE TAB PO PRN (18:30)
[2021-09-21] MEDS ORDERED: ANTACID SUSP 30 ML UDC (MYLANTA) PO PRN (18:30)
--- NOTE | 2021-09-21 18:35 | History & Physical-Hospitalist ---
History of Present Illness HPI/Chief Complaint Roman Jane is a 70 year old male who presented to the ER after being found down at his home. He was reportedly agitated, but alert and oriented on arrival. He was requiring supplemental oxygen. He was intoxicated on methamphetamine. He became less responsive and was intubated for airway protection. He was found to be in acute renal failure with rhabdomyolysis. Due to the severity of his renal failure, a transfer was attempted for hemodialysis. He had low urine output, hyperkalemia, and significantly elevated BUN/creatinine. He was treated with IV fluids and bicarbonate. No bed was able to be secured for transfer, but his renal function began to improve. Source: patient Exam Limitations: no limitations Date Seen 09/21/21 Time Seen by a Provider: 11:30 Attending Physician Carleen Grossman MD PCP No,Local Physician Referring Physician Date of Admission Sep 21, 2021 at 08:00 Home Medications & Allergies Home Medications Reviewed patient Home Medication Reconciliation performed by pharmacy medication reconciliations range technician and/or nursing. Patients Allergies have been reviewed. Allergies Allergies Coded Allergies No Known Drug Allergies (Unverified12/16/12) Past Qqeipse-Cghrnw-Rgthph Hx Patient Social History Tobacco Use?: No Use of E-Cig and/or Vaping dev: No Substance use?: Yes Substance type: Methamphetamine Alcohol Use?: No Pt feels they are or have been: No Immunizations Up To Date Date of Influenza Vaccine: May 18, 2012 First/Initial COVID19 Vaccinat: 2020 Second COVID19 Vaccination Bar: 2020 Tetanus Booster (TDap): Unknown Hepatitis A: No Hepatitis B: No Date of Pneumonia Vaccine: Mar 19, 2014 Current Status Advance Directives: No Communicates: Verbally Primary Language: [place] Preferred Spoken Language: [place] Past Medical History Prostate Problems ADD/ADHD, Schizophrenia, Depression Adverse Reaction/Blood Tranf: No Past medical history 1. Alcoholism 2. Depression 3. Benign prostatic hypertrophy Family Medical History No Pertinent Family Hx Review of Systems ROS-Unable to Obtain: intubated and sedated Constitutional: see HPI Physical Exam Physical Exam Vital Signs Vital Signs - First Documented 09/19/21 09/19/21 00:34 08:00 O2 Flow Rate 40.00 FiO2 40 Capillary Refill : Greater Than 3 Seconds Height, Weight, BMI Height: 5'9.00" Weight: 160lbs. 6.0oz. 72.769455al; 25.00 BMI Method:Stated General Appearance: No Apparent Distress, WD/WN, Other (intubated and sedated) HEENT: PERRL/EOMI, Pharynx Normal Respiratory: Lungs Clear, No Respiratory Distress, Other (intubated and mechanically ventilated) Cardiovascular: Regular Rate, Rhythm, No Murmur Gastrointestinal: Normal Bowel Sounds, Soft Extremity: Normal Inspection, Pedal Edema Neurologic/Psychiatric: Other (sedated) Skin: Normal Color, Warm/Dry Results Results/Procedures Labs Laboratory Tests 09/20/21 05:35 09/20/21 14:00 09/21/21 06:49 Patient resulted labs reviewed. Imaging: Reviewed Imaging Report Assessment/Plan Admission Diagnosis Acute kidney injury superimposed on chronic kidney disease Admission Status: Inpatient Order (span 2 midnights) Reason for Inpatient Admission: Renal failure Respiratory failure Assessment and Plan LYDIA on CKD Acute tubular necrosis Rhabdomyolysis Acute respiratory failure with hypoxia Endotracheally intubated Hyperkalemia Lactic acidosis Metabolic acidosis Hypernatremia Pneumonia Methamphetamine abuse Elevated LFTs Hepatitis C antibody positive CK improving BUN/Cr improving Continue IV fluids Monitor I/O Continue Rocephin TeleICU following Monitor electrolytes Check Hep C RNA Social work consult DVT prophylaxis: Heparin Critical Care Critically Ill Patient Diagnosis/Problems Diagnosis/Problems (1) Acute kidney injury superimposed on chronic kidney disease Status: Acute (2) ATN (acute tubular necrosis) Status: Acute (3) Lactic acidosis Status: Resolved Resolution Date/Time: 09/21/21 @ 18:43 (4) Hypernatremia Status: Acute (5) Metabolic acidosis Status: Resolved Resolution Date/Time: 09/21/21 @ 18:43 (6) PNA (pneumonia) Status: Acute (7) Endotracheally intubated Status: Acute (8) Methamphetamine abuse Status: Acute (9) Acute hepatitis Status: Acute (10) Rhabdomyolysis Status: Acute Qualifiers: Rhabdomyolysis type: non-traumatic Qualified Codes: M62.82 - Rhabdomyolysis (11) Multiorgan failure Status: Acute (12) Hyperkalemia Status: Resolved Resolution Date/Time: 09/21/21 @ 18:43 (13) Acute respiratory failure with hypoxia Status: Acute (14) Hepatitis C antibody positive in blood Status: Acute CARLEEN GROSSMAN MD Sep 21, 2021 18:35
[2021-09-21 18:55] VITALS: BP 113/55
[2021-09-21 22:50] VITALS: BP 115/51
[2021-09-22 02:55] VITALS: BP 124/60
[2021-09-22] MEDS: 1/2 NS IV SOLUTION 1,000 ML IV SCH ×4 (03:47→22:45)
[2021-09-22 05:17] LABS: BASOPHILS % (AUTO) 0 % (0-10); EOSINOPHILS % (AUTO) 0 % (0-10); HEMATOCRIT 31 % (40-54); HEMOGLOBIN 9.9 g/dL (13.3-17.7); LYMPHOCYTES % (AUTO) 13 % (12-44); MEAN CORPUSCULAR HEMOGLOBIN 27 pg (25-34); MEAN CORPUSCULAR HGB CONC 32 g/dL (32-36); MEAN CORPUSCULAR VOLUME 85 fL (80-99); MONOCYTES # (AUTO) 0.6 10^3/uL (0.0-1.0); MONOCYTES % (AUTO) 7 % (0-12); NEUTROPHILS # (AUTO) 6.3 10^3/uL (1.8-7.8); NEUTROPHILS % (AUTO) 79 % (42-75); PLATELET COUNT 154 10^3/uL (130-400)
[2021-09-22] MEDS: KCL 20 MEQ TAB (K-DUR) PO SCH (05:18)
[2021-09-22 05:20] LABS: ABG BASE EXCESS 5.6 MMOL/L (-2.5-2.5); ABG OXYGEN SATURATION 91 % (94-100); ABG PCO2 44 MMHG (35-45); ABG PH 7.45 (7.37-7.43); ABG PO2 58 MMHG (79-93); ABG TCO2 31.1 MMOL/L (21.0-31.0)
[2021-09-22 05:23] LABS: ALLENS TEST YES-POS; INSPIRED O2 30%; PATIENT TEMP 36.5; VENTILATOR YES
[2021-09-22 05:31] LABS: POTASSIUM 3.6 MMOL/L (3.6-5.0)
[2021-09-22 05:32] LABS: CALCIUM 6.2 MG/DL (8.5-10.1)
[2021-09-22 05:36] LABS: PHOSPHORUS 3.9 MG/DL (2.3-4.7)
[2021-09-22 05:37] LABS: CREATININE SERUM 3.23 MG/DL (0.60-1.30)
[2021-09-22 05:39] LABS: MAGNESIUM 1.8 MG/DL (1.6-2.4)
[2021-09-22] MEDS: POTASSIUM CL 10MEQ/50ML IVPB 50 ML IV SCH (06:00)
[2021-09-22] MEDS: inSUlin ASPART (NovoLOG) 1 UNIT/0.01 ML (CHARGE PER UNIT) SC SCH ×3 (06:00→18:22)
[2021-09-22] MEDS: MAGNESIUM 1 GM/100 ML IVPB 100 ML IV SCH (06:00)
[2021-09-22 08:05] VITALS: BP 130/62
[2021-09-22] MEDS: MIDAZOLAM DRIP PRE-MIX 100 ML IV SCH ×2 (08:41→19:51)
[2021-09-22] MEDS: CEFEPIME INJECTION 1,000 MG in NS (IVPB) 50 ML IV SCH ×2 (09:06→20:35)
[2021-09-22] MEDS: PANTOPRAZOLE 40 MG (PROTONIX) VIAL IV SCH (09:06)
[2021-09-22] MEDS: LACRI-LUBE OPTHALMIC OINT 3.5 GM TUBE OU SCH ×2 (09:12→20:35)
[2021-09-22 10:46] VITALS: BP 116/65
--- NOTE | 2021-09-22 10:46 | Tele-ICU Progress Note ---
Subjective Date Seen by a Provider: Sep 22, 2021 Time Seen by a Provider: 09:30 Subjective/Events-last exam This virtual visit was conducted using real time audio/video. Thank you for asking us to see this patient for respiratory insufficiency due to B pna. Also meth intoxication, LYDIA, rhabdo, Pos blod cult. Recent events: stable overnight. PE: Sedated on vent. VSS. O2 sat 90% on 30%/+5 HEENT: No obvious masses, adenopathy or JVD. Chest: clear to auscultation. CV: RRR S1 S2 No murmur or added sounds. Abd: Non-tender. Bowel sounds Y. : Unremarkable. [place]quendo Y. INSERT OPERATOR/psychiatric: Grossly intact. No obvious focal findings. Extremities: No edema. Capillary refill < 3 seconds. Skin: unremarkable. Results: Elevated BUN 97, Creat 3.23, CPK 6504. Decreased .Hb 9.9 B.45/44/58. CXR: B infilts. Available chart/ vitals / labs / images reviewed. Video assessment done using teleICU camera, rest of exam as per RN. A/P: Respiratory insufficiency: Continue present management with vent. SBT soon. Monitor for increasing oxygenation needs. Critical Care: critically ill patient. Cont. PPI, Cefipime, Versed, Hep., SSI. Discussed with STEVEN Betancourt. Asked RN to reach out to eICU if any questions or concerns later. Time spent with patient/coordination of care with other health professionals (mins): 30 Sepsis Event Evaluation Height, Weight, BMI Height: 5'9.00" Weight: 160lbs. 6.0oz. 72.810164li; 25.00 BMI Method:Stated Focused Exam Time of Focused Exam: 07:30 Exam Exam Patient acknowledged, consented, and participated in this virtual visit which was conducted using real time audio/video Vital Signs Date Time Temp Pulse Resp B/P (MAP) Pulse Ox O2 Delivery O2 Flow Rate FiO2 09/22/21 10:00 65 9 135/69 93 Mechanical Ventilator 35.00 09/22/21 09:00 68 18 116/64 90 Mechanical Ventilator 30.00 09/22/21 08:41 79 22 132/69 09/22/21 08:05 75 26 94 30 09/22/21 08:00 76 18 130/62 90 Mechanical Ventilator 30.00 09/22/21 08:00 37.0 09/22/21 07:00 61 14 129/65 95 Mechanical Ventilator 30.00 09/22/21 07:00 61 09/22/21 06:00 64 17 118/63 94 Mechanical Ventilator 30.00 09/22/21 05:11 36.5 09/22/21 05:00 77 14 130/65 94 Mechanical Ventilator 30.00 09/22/21 04:07 30 09/22/21 04:00 94 Mechanical Ventilator 30 09/22/21 04:00 71 16 126/58 92 Mechanical Ventilator 30.00 09/22/21 03:46 36.6 09/22/21 03:00 72 15 124/63 95 Mechanical Ventilator 30.00 09/22/21 02:55 67 25 95 30 09/22/21 02:00 61 18 120/63 94 Mechanical Ventilator 30.00 09/22/21 01:00 63 17 116/57 94 Mechanical Ventilator 30.00 09/22/21 01:00 62 09/22/21 00:08 30 09/22/21 00:00 67 21 125/64 94 Mechanical Ventilator 30.00 09/22/21 00:00 94 Mechanical Ventilator 30 09/21/21 23:05 36.3 09/21/21 23:00 70 18 116/52 95 Mechanical Ventilator 30.00 09/21/21 22:50 60 18 95 30 09/21/21 22:00 61 17 117/63 95 Mechanical Ventilator 30.00 09/21/21 21:44 61 18 107/51 09/21/21 21:00 64 18 108/51 94 Mechanical Ventilator 30.00 09/21/21 20:06 30 09/21/21 20:00 64 18 118/59 92 Mechanical Ventilator 30.00 09/21/21 20:00 94 Mechanical Ventilator 30 09/21/21 19:35 35.9 09/21/21 19:00 63 09/21/21 19:00 63 23 113/65 93 Mechanical Ventilator 30.00 09/21/21 18:55 63 18 92 30 09/21/21 18:00 63 18 114/56 92 Mechanical Ventilator 30.00 09/21/21 17:00 65 19 110/57 92 Mechanical Ventilator 30.00 09/21/21 16:00 65 17 103/55 92 Mechanical Ventilator 30.00 09/21/21 16:00 94 Mechanical Ventilator 30 09/21/21 15:58 36.6 09/21/21 15:00 66 17 105/53 95 Mechanical Ventilator 30.00 09/21/21 14:04 69 18 93 30 09/21/21 14:03 73 09/21/21 14:00 69 15 106/51 94 Mechanical Ventilator 30.00 09/21/21 14:00 93 Mechanical Ventilator 30 09/21/21 13:44 36.4 67 16 110/52 96 Mechanical Ventilator 30.00 09/21/21 12:19 36.4 66 16 114/61 95 09/21/21 11:58 66 18 118/63 09/21/21 10:50 66 18 97 30 I & O 09/22/21 07:00 Intake Total 2700 ml Output Total 2005 ml Balance 695 ml Height & Weight Height: 5'9.00" Weight: 160lbs. 6.0oz. 72.117743op; 25.00 BMI Method:Stated General Appearance: No Apparent Distress, WD/WN, Other (intubated and sedated) HEENT: PERRL/EOMI, Pharynx Normal Respiratory: Lungs Clear, No Respiratory Distress, Other (intubated and mechanically ventilated) Cardiovascular: Regular Rate, Rhythm, No Murmur Capillary Refill: Greater Than 3 Seconds Peripheral Pulses: 2+ Femoral (R), 2+ Femoral (L), 2+ Dorsalis Pedis (R), 2+ Left Dors-Pedis (L), 2+ Radial Pulses (R), 2+ Radial Pulses (L) Gastrointestinal: normal bowel sounds, non tender, soft, no organomegaly Extremity: Normal Inspection, Pedal Edema Neurologic/Psychiatric: Other (sedated) Skin: Normal Color, Warm/Dry Results Lab Laboratory Tests 09/20/21 14:00 09/21/21 06:49 09/22/21 04:31 Assessment/Plan Assessment/Plan See free text. Critical Care: Ventilator Management ALEKSEY MOLINA MD Sep 22, 2021 10:46
[2021-09-22] MEDS: DexMEDEtomidine 250 ML DRIP 250 ML IV SCH (11:17)
[2021-09-22 15:09] VITALS: BP 126/62
[2021-09-22 18:51] VITALS: BP 126/57
--- NOTE | 2021-09-22 19:02 | Progress Note - Hospitalist ---
Subjective HPI/CC On Admission Date Seen by Provider: Sep 22, 2021 Time Seen by Provider: 10:00 Roman Jane is a 70 year old male who presented to the ER after being found down at his home. He was reportedly agitated, but alert and oriented on arrival. He was requiring supplemental oxygen. He was intoxicated on methamphetamine. He b ecame less responsive and was intubated for airway protection. He was found to be in acute renal failure with rhabdomyolysis. Due to the severity of his renal failure, a transfer was attempted for hemodialysis. He had low urine output, hyperkalemia, and significantly elevated BUN/creatinine. He was treated with IV fluids and bicarbonate. No bed was able to be secured for transfer, but his renal function began to improve. Subjective/Events-last exam He remains intubated and sedated. Focused Exam Time of Focused Exam: 07:30 Objective Exam Vital Signs Vital Signs Date Time Temp Pulse Resp B/P (MAP) Pulse Ox O2 Delivery O2 Flow Rate FiO2 09/22/21 18:51 49 18 96 35 09/22/21 18:00 139/63 Mechanical Ventilator 35.00 09/22/21 16:00 36.4 Capillary Refill : Greater Than 3 Seconds General Appearance: No Apparent Distress, WD/WN Respiratory: Lungs Clear, No Respiratory Distress, Other (intubated and mechanically ventilated) Cardiovascular: Regular Rate, Rhythm, No Edema, No Murmur Gastrointestinal: Normal Bowel Sounds, Non Tender, Soft Extremity: Normal Inspection, Non Tender, Pedal Edema Neurologic/Psychiatric: Other (sedated) Skin: Normal Color, Warm/Dry Results/Procedures Lab Laboratory Tests 09/22/21 04:31 Patient resulted labs reviewed. Imaging: Reviewed Imaging Report Assessment/Plan Assessment and Plan Assess & Plan/Chief Complaint LYDIA on CKD Acute tubular necrosis Rhabdomyolysis Acute respiratory failure with hypoxia Endotracheally intubated Pneumonia Methamphetamine abuse Elevated LFTs Hepatitis C antibody positive CK improving BUN/Cr improving Continue IV fluids Monitor I/O Continue Rocephin TeleICU following Monitor electrolytes Hep C RNA pending Social work consult DVT prophylaxis: Heparin Hyperkalemia, resolved Lactic acidosis, resolved Metabolic acidosis, resolved Hypernatremia, resolved Critical Care Critically Ill Patient Diagnosis/Problems Diagnosis/Problems (1) Acute kidney injury superimposed on chronic kidney disease Status: Acute (2) ATN (acute tubular necrosis) Status: Acute (3) Lactic acidosis Status: Resolved Resolution Date/Time: 1/8/22 @ 18:43 (4) Hypernatremia Status: Acute (5) Metabolic acidosis Status: Resolved Resolution Date/Time: 09/21/21 @ 18:43 (6) PNA (pneumonia) Status: Acute (7) Endotracheally intubated Status: Acute (8) Methamphetamine abuse Status: Acute (9) Acute hepatitis Status: Acute (10) Rhabdomyolysis Status: Acute Qualifiers: Rhabdomyolysis type: non-traumatic Qualified Codes: M62.82 - Rhabdomyolysis (11) Multiorgan failure Status: Acute (12) Hyperkalemia Status: Resolved Resolution Date/Time: 09/21/21 @ 18:43 (13) Acute respiratory failure with hypoxia Status: Acute (14) Hepatitis C antibody positive in blood Status: Acute CARLEEN GROSSMAN MD Sep 22, 2021 19:02
[2021-09-23] MEDS: inSUlin ASPART (NovoLOG) 1 UNIT/0.01 ML (CHARGE PER UNIT) SC SCH ×4 (00:05→18:21)
[2021-09-23 02:15] VITALS: BP 139/101
[2021-09-23] MEDS: DexMEDEtomidine 250 ML DRIP 250 ML IV SCH ×2 (02:49→19:16)
[2021-09-23] MEDS: 1/2 NS IV SOLUTION 1,000 ML IV SCH ×4 (04:50→23:29)
[2021-09-23 05:06] LABS: ABG BASE EXCESS 2.8 MMOL/L (-2.5-2.5); ABG OXYGEN SATURATION 98 % (94-100); ABG PCO2 40 MMHG (35-45); ABG PH 7.44 (7.37-7.43); ABG PO2 95 MMHG (79-93); ABG TCO2 28.1 MMOL/L (21.0-31.0); ALLENS TEST YES-POS; INSPIRED O2 35%; VENTILATOR YES
[2021-09-23 05:44] LABS: BASOPHILS % (AUTO) 0 % (0-10); EOSINOPHILS # (AUTO) 0.1 10^3/uL (0.0-0.3); EOSINOPHILS % (AUTO) 2 % (0-10); HEMATOCRIT 34 % (40-54); HEMOGLOBIN 10.6 g/dL (13.3-17.7); LYMPHOCYTES # (AUTO) 1.1 10^3/uL (1.0-4.0); LYMPHOCYTES % (AUTO) 15 % (12-44); MEAN CORPUSCULAR HEMOGLOBIN 27 pg (25-34); MEAN CORPUSCULAR HGB CONC 32 g/dL (32-36); MEAN CORPUSCULAR VOLUME 86 fL (80-99); MEAN PLATELET VOLUME 10.4 fL (9.0-12.2); MONOCYTES # (AUTO) 0.7 10^3/uL (0.0-1.0); MONOCYTES % (AUTO) 10 % (0-12); NEUTROPHILS # (AUTO) 5.1 10^3/uL (1.8-7.8); NEUTROPHILS % (AUTO) 72 % (42-75); PLATELET COUNT 151 10^3/uL (130-400)
[2021-09-23 05:54] LABS: POTASSIUM 3.6 MMOL/L (3.6-5.0)
[2021-09-23 05:59] LABS: PHOSPHORUS 3.9 MG/DL (2.3-4.7)
[2021-09-23 06:00] LABS: CREATININE SERUM 2.21 MG/DL (0.60-1.30)
[2021-09-23 06:02] LABS: MAGNESIUM 1.8 MG/DL (1.6-2.4)
[2021-09-23] MEDS: POTASSIUM CL 10MEQ/50ML IVPB 50 ML IV SCH (06:22)
[2021-09-23] MEDS: MAGNESIUM 1 GM/100 ML IVPB 100 ML IV SCH (06:22)
[2021-09-23] MEDS: KCL 20 MEQ TAB (K-DUR) PO SCH (06:22)
[2021-09-23 07:00] VITALS: BP 127/69
[2021-09-23] MEDS: PANTOPRAZOLE 40 MG (PROTONIX) VIAL IV SCH (08:04)
[2021-09-23] MEDS: CEFEPIME INJECTION 1,000 MG in NS (IVPB) 50 ML IV SCH ×2 (08:04→20:40)
[2021-09-23] MEDS: LACRI-LUBE OPTHALMIC OINT 3.5 GM TUBE OU SCH ×2 (08:05→20:40)
[2021-09-23] MEDS: MIDAZOLAM DRIP PRE-MIX 100 ML IV SCH ×2 (08:41→18:43)
--- NOTE | 2021-09-23 09:29 | Tele-ICU Progress Note ---
Subjective Date Seen by a Provider: Sep 23, 2021 Time Seen by a Provider: 09:28 Sepsis Event Evaluation Height, Weight, BMI Height: 5'9.00" Weight: 160lbs. 6.0oz. 72.000617je; 25.00 BMI Method:Stated Focused Exam Time of Focused Exam: 07:30 Exam Exam Patient acknowledged, consented, and participated in this virtual visit which was conducted using real time audio/video Vital Signs Date Time Temp Pulse Resp B/P (MAP) Pulse Ox O2 Delivery O2 Flow Rate FiO2 09/23/21 08:41 49 18 125/60 09/23/21 08:12 30 09/23/21 08:00 35.4 09/23/21 07:49 Mechanical Ventilator 30.00 09/23/21 07:22 Mechanical Ventilator 30.00 09/23/21 07:00 42 09/23/21 06:00 42 18 125/60 60 Mechanical Ventilator 35.00 09/23/21 05:00 44 18 132/63 94 Mechanical Ventilator 35.00 09/23/21 04:47 36.0 09/23/21 04:00 42 18 139/60 94 Mechanical Ventilator 35.00 09/23/21 04:00 35 09/23/21 04:00 94 Mechanical Ventilator 35 09/23/21 03:00 44 18 130/62 91 Mechanical Ventilator 35.00 09/23/21 02:15 45 18 100 35 09/23/21 02:00 43 18 139/61 96 Mechanical Ventilator 35.00 09/23/21 01:00 44 18 134/62 96 Mechanical Ventilator 35.00 09/23/21 01:00 44 09/23/21 00:48 35 09/23/21 00:03 36.2 09/23/21 00:00 46 18 135/63 95 Mechanical Ventilator 35.00 09/23/21 00:00 94 Mechanical Ventilator 35 09/22/21 23:00 46 18 130/66 95 Mechanical Ventilator 35.00 09/22/21 22:00 46 18 131/62 96 Mechanical Ventilator 35.00 09/22/21 21:00 47 18 125/60 95 Mechanical Ventilator 35.00 09/22/21 20:06 35 09/22/21 20:00 36.0 09/22/21 20:00 48 18 119/53 96 Mechanical Ventilator 35.00 09/22/21 20:00 94 Mechanical Ventilator 35 09/22/21 19:51 49 16 115/54 09/22/21 19:00 49 09/22/21 19:00 49 18 123/56 97 Mechanical Ventilator 35.00 09/22/21 18:51 49 18 96 35 09/22/21 18:00 50 17 139/63 96 Mechanical Ventilator 35.00 09/22/21 17:00 51 18 137/64 96 Mechanical Ventilator 35.00 09/22/21 16:12 98 Mechanical Ventilator 35 09/22/21 16:06 35 09/22/21 16:00 36.4 09/22/21 16:00 51 18 127/64 96 Mechanical Ventilator 35.00 09/22/21 15:09 52 18 96 35 09/22/21 15:00 52 17 126/62 96 Mechanical Ventilator 35.00 09/22/21 14:00 53 17 132/66 96 Mechanical Ventilator 35.00 09/22/21 13:00 55 18 122/68 95 Mechanical Ventilator 35.00 09/22/21 13:00 56 09/22/21 12:06 35 09/22/21 12:01 98 Mechanical Ventilator 30 09/22/21 12:00 64 22 107/51 91 Mechanical Ventilator 35.00 09/22/21 11:45 36.6 09/22/21 11:17 77 130/61 09/22/21 11:00 75 23 127/63 96 Mechanical Ventilator 35.00 09/22/21 10:46 74 21 94 35 09/22/21 10:00 65 9 135/69 93 Mechanical Ventilator 35.00 I & O 09/23/21 07:00 Intake Total 2400 ml Output Total 2025 ml Balance 375 ml Height & Weight Height: 5'9.00" Weight: 160lbs. 6.0oz. 72.004502me; 25.00 BMI Method:Stated General Appearance: No Apparent Distress, WD/WN HEENT: PERRL/EOMI, Pharynx Normal Respiratory: Lungs Clear, No Respiratory Distress, Other (intubated and mechanically ventilated) Cardiovascular: Regular Rate, Rhythm, No Edema, No Murmur Capillary Refill: Greater Than 3 Seconds Peripheral Pulses: 2+ Femoral (R), 2+ Femoral (L), 2+ Dorsalis Pedis (R), 2+ Left Dors-Pedis (L), 2+ Radial Pulses (R), 2+ Radial Pulses (L) Gastrointestinal: normal bowel sounds, non tender, soft, no organomegaly Extremity: Normal Inspection, Non Tender, Pedal Edema Neurologic/Psychiatric: Other (sedated) Skin: Normal Color, Warm/Dry Results Lab Laboratory Tests 09/22/21 04:31 09/23/21 05:08 Assessment/Plan Assessment/Plan (Tele-ICU Physician , Progress Note ) Available chart/ vitals / labs / Images reviewed Discussed with RN , EXAM PER RN Events overnight : none Afebrile , 37.1 FiO2 - I/O = positive Pressors: , hemodynamically stable Hospital course: 09/19- intubated FOR AIRWAY PROTECTION , METH OD, LYDIA / RABDO A/P Acute respo failure - AC 450 25 +5 30 % - intubated 09/19 for airway protection -follow abg , adjust Unresponsiveness - most likely OD - urin tox pos for meth/amphet - CT head - no acute finfding , abnormal findings to follow latted - as per PCP - OFF sedation 09/23 - not follow commands , agitated, will try prn fentanul LYDIA - cont agressive hydration with NS and ( OFF bicarb - dodson in place , follow UO Rhabdo - bicarb gtt to cont , agressive hydration - resolving Elevated transaminazes - -? shock liver , follow -> improved Possible infection , - sputum with H flu = cont abx - flu and rapid covif NEG ETON abuse? - thiamine Elv trop - in face of LYDIA , trending down Anemia - most likely delutional - follow Follow BS Lines : (Central Line Necessity Reviewed) Dodson: 09/19 O/6 Nutrition: Analgesia: Anxiety/ delirium versed VTE Prophylaxis: INR 1.4 - readress tomorrow, recheck INR Stress Ulcer Prophylaxis: ppi Plans in collaboration with bedside consultants and IM MDs. Discussed with RN to reach out if any questions or concerns A total of 35 minutes of critical care time was devoted to this patient today, required to treat and/or prevent further deterioration of critical care condition ( as above) . BENIGNO TORO MD Sep 23, 2021 09:29
[2021-09-23] MEDS: fentaNYL INJ 100 MCG/2 ML AMP IVP PRN ×4 (10:06→14:42)
[2021-09-23 10:15] VITALS: BP 99/53
--- NOTE | 2021-09-23 10:53 | Progress Note - Hospitalist ---
Subjective HPI/CC On Admission Date Seen by Provider: Sep 23, 2021 Time Seen by Provider: 10:30 Roman Jane is a 70 year old male who presented to the ER after being found down at his home. He was reportedly agitated, but alert and oriented on arrival. He was requiring supplemental oxygen. He was intoxicated on methamphetamine. He became less responsive and was intubated for airway protection. He was found to be in acute renal failure with rhabdomyolysis. Due to the severity of his renal failure, a transfer was attempted for hemodialysis. He had low urine output, hyperkalemia, and significantly elevated BUN/creatinine. He was treated with IV fluids and bicarbonate. No bed was able to be secured for transfer, but his renal function began to improve. Subjective/Events-last exam Pt remains critical but stable Cefepime maintained Pt is on vent ABG is 7.44/40/95 A good friend is at the bedside Creatinine is down to 2.21 Sedation vacation revealed he can't follow commands Focused Exam Time of Focused Exam: 07:30 Objective Exam Vital Signs Vital Signs Date Time Temp Pulse Resp B/P (MAP) Pulse Ox O2 Delivery O2 Flow Rate FiO2 09/24/21 04:43 42 09/24/21 02:10 18 94 32 09/24/21 02:00 95/44 Mechanical Ventilator 32.00 09/23/21 22:09 36.2 Capillary Refill : Greater Than 3 Seconds General Appearance: Chronically ill, Other (sedated and intubated) Respiratory: Lungs Clear Cardiovascular: Regular Rate, Rhythm Results/Procedures Lab Laboratory Tests 09/23/21 05:08 09/24/21 04:23 Patient resulted labs reviewed. Imaging: Reviewed Imaging Report Assessment/Plan Assessment and Plan Assess & Plan/Chief Complaint Assess & Plan/Chief Complaint LYDIA on CKD Acute tubular necrosis Rhabdomyolysis Acute respiratory failure with hypoxia Endotracheally intubated Pneumonia Methamphetamine abuse Elevated LFTs Hepatitis C antibody positive CK improving BUN/Cr improving Continue IV fluids Monitor I/O Continue Cefepime TeleICU following Monitor electrolytes Hep C RNA pending Social work consult DVT prophylaxis: Heparin Hyperkalemia, resolved Lactic acidosis, resolved Metabolic acidosis, resolved Hypernatremia, resolved 09/23/21: Supportive care Prognosis guarded DC [place] control search Critical Care Critically Ill Patient GAIL GIRARD DO Sep 23, 2021 10:53
[2021-09-23 15:50] VITALS: BP 120/55
[2021-09-23] MEDS: RT-ALBUTEROL/IPRATROPIUM 3 ML (DUONEB) VIAL INH PRN (15:50)
[2021-09-23 18:21] VITALS: BP 120/58
[2021-09-23 21:26] VITALS: BP 109/55
[2021-09-24] MEDS: fentaNYL INJ 100 MCG/2 ML AMP IVP PRN ×6 (00:06→22:25)
[2021-09-24] MEDS: inSUlin ASPART (NovoLOG) 1 UNIT/0.01 ML (CHARGE PER UNIT) SC SCH ×4 (00:38→18:25)
[2021-09-24 02:10] VITALS: BP 94/44
[2021-09-24] MEDS: MIDAZOLAM DRIP PRE-MIX 100 ML IV SCH ×2 (04:43→17:37)
[2021-09-24 04:54] LABS: BASOPHILS % (AUTO) 1 % (0-10); EOSINOPHILS # (AUTO) 0.1 10^3/uL (0.0-0.3); EOSINOPHILS % (AUTO) 2 % (0-10); HEMATOCRIT 36 % (40-54); LYMPHOCYTES # (AUTO) 1.3 10^3/uL (1.0-4.0); LYMPHOCYTES % (AUTO) 21 % (12-44); MEAN CORPUSCULAR HEMOGLOBIN 27 pg (25-34); MEAN CORPUSCULAR HGB CONC 31 g/dL (32-36); MEAN CORPUSCULAR VOLUME 86 fL (80-99); MEAN PLATELET VOLUME 10.5 fL (9.0-12.2); MONOCYTES # (AUTO) 0.6 10^3/uL (0.0-1.0); MONOCYTES % (AUTO) 10 % (0-12); NEUTROPHILS # (AUTO) 3.9 10^3/uL (1.8-7.8); NEUTROPHILS % (AUTO) 66 % (42-75); PLATELET COUNT 135 10^3/uL (130-400); WHITE BLOOD COUNT 5.9 10^3/uL (4.3-11.0)
[2021-09-24 05:10] LABS: ALBUMIN 2.2 GM/DL (3.2-4.5); POTASSIUM 3.5 MMOL/L (3.6-5.0)
[2021-09-24 05:12] LABS: CALCIUM 7.4 MG/DL (8.5-10.1)
[2021-09-24 05:13] LABS: TOTAL PROTEIN 5.6 GM/DL (6.4-8.2)
[2021-09-24 05:15] LABS: BILIRUBIN,TOTAL 1.1 MG/DL (0.1-1.0)
[2021-09-24 05:16] LABS: PHOSPHORUS 3.7 MG/DL (2.3-4.7)
[2021-09-24 05:17] LABS: CREATININE SERUM 1.56 MG/DL (0.60-1.30)
[2021-09-24 05:20] LABS: MAGNESIUM 1.6 MG/DL (1.6-2.4)
[2021-09-24 05:23] LABS: ABG BASE EXCESS -0.5 MMOL/L (-2.5-2.5); ABG OXYGEN SATURATION 92 % (94-100); ABG PCO2 39 MMHG (35-45); ABG PO2 66 MMHG (79-93); ABG TCO2 24.9 MMOL/L (21.0-31.0)
[2021-09-24 05:24] LABS: ALLENS TEST ART LINE; INSPIRED O2 32%; PATIENT TEMP 36.5; VENTILATOR YES
[2021-09-24] MEDS: MAGNESIUM 1 GM/100 ML IVPB 100 ML IV SCH (05:27)
[2021-09-24] MEDS: POTASSIUM CL 10MEQ/50ML IVPB 50 ML IV SCH (05:27)
[2021-09-24] MEDS: KCL 20 MEQ TAB (K-DUR) PO SCH (05:28)
[2021-09-24] MEDS: 1/2 NS IV SOLUTION 1,000 ML IV SCH ×4 (05:33→23:44)
[2021-09-24] MEDS: DexMEDEtomidine 250 ML DRIP 250 ML IV SCH ×2 (06:18→19:26)
[2021-09-24 07:26] VITALS: BP 97/50
[2021-09-24] MEDS: CEFEPIME INJECTION 1,000 MG in NS (IVPB) 50 ML IV SCH ×2 (08:34→20:03)
[2021-09-24] MEDS: LACRI-LUBE OPTHALMIC OINT 3.5 GM TUBE OU SCH ×2 (08:34→20:03)
[2021-09-24] MEDS: PANTOPRAZOLE 40 MG (PROTONIX) VIAL IV SCH (08:34)
[2021-09-24] MEDS ORDERED: KCL 20 MEQ TAB (K-DUR) PO NR (09:24)
[2021-09-24] MEDS ORDERED: BUMETANIDE 1 MG/4 ML (BUMEX) VIAL IV NR (09:24)
--- NOTE | 2021-09-24 09:52 | Tele-ICU Progress Note ---
Subjective Date Seen by a Provider: Sep 24, 2021 Time Seen by a Provider: 09:52 Sepsis Event Evaluation Height, Weight, BMI Height: 5'9.00" Weight: 160lbs. 6.0oz. 72.342767op; 25.00 BMI Method:Stated Focused Exam Time of Focused Exam: 07:30 Exam Exam Patient acknowledged, consented, and participated in this virtual visit which was conducted using real time audio/video Vital Signs Date Time Temp Pulse Resp B/P (MAP) Pulse Ox O2 Delivery O2 Flow Rate FiO2 09/24/21 09:00 44 19 96/53 97 Mechanical Ventilator 50.00 09/24/21 08:00 44 14 103/55 97 Mechanical Ventilator 50.00 09/24/21 08:00 36.0 09/24/21 07:26 43 19 96 50 09/24/21 07:00 46 17 97/51 94 Mechanical Ventilator 50.00 09/24/21 07:00 44 09/24/21 06:18 86/44 09/24/21 06:00 48 18 90/46 98 Mechanical Ventilator 32.00 09/24/21 05:00 42 18 100/47 95 Mechanical Ventilator 32.00 09/24/21 04:43 42 09/24/21 04:00 36.5 09/24/21 04:00 Mechanical Ventilator 32 09/24/21 04:00 32 09/24/21 04:00 42 18 98/48 94 Mechanical Ventilator 32.00 09/24/21 03:00 42 18 100/49 94 Mechanical Ventilator 32.00 09/24/21 02:10 41 18 94 32 09/24/21 02:00 42 18 95/44 94 Mechanical Ventilator 32.00 09/24/21 01:00 42 09/24/21 01:00 42 18 94/45 93 Mechanical Ventilator 32.00 09/24/21 00:39 32 09/24/21 00:39 Mechanical Ventilator 32 09/24/21 00:00 42 18 111/52 93 Mechanical Ventilator 32.00 09/23/21 23:00 42 18 112/56 93 Mechanical Ventilator 32.00 09/23/21 22:09 36.2 09/23/21 22:00 43 18 112/57 93 Mechanical Ventilator 32.00 09/23/21 21:26 43 21 91 32 09/23/21 21:00 43 18 109/51 91 Mechanical Ventilator 32.00 09/23/21 20:00 32 09/23/21 20:00 43 18 107/53 93 Mechanical Ventilator 32.00 09/23/21 19:33 94 Mechanical Ventilator 32 09/23/21 19:32 44 18 109/52 94 Mechanical Ventilator 32.00 09/23/21 19:26 36.1 09/23/21 19:16 44 09/23/21 19:00 44 09/23/21 19:00 44 18 96/49 94 Mechanical Ventilator 32.00 09/23/21 18:43 41 18 120/58 09/23/21 18:21 41 18 93 32 09/23/21 18:00 41 19 121/59 93 Mechanical Ventilator 32.00 09/23/21 17:00 42 18 121/55 94 Mechanical Ventilator 32.00 09/23/21 16:00 42 17 118/57 94 Mechanical Ventilator 32.00 09/23/21 16:00 36.1 09/23/21 15:50 42 18 95 32 09/23/21 15:46 32 09/23/21 15:45 93 Mechanical Ventilator 32 09/23/21 15:00 43 17 120/55 94 Mechanical Ventilator 32.00 09/23/21 14:00 43 17 116/56 97 Mechanical Ventilator 32.00 09/23/21 13:00 43 09/23/21 13:00 43 11 130/56 97 Mechanical Ventilator 32.00 09/23/21 12:56 97 Mechanical Ventilator 32 09/23/21 12:53 32 09/23/21 12:00 50 122/57 96 Mechanical Ventilator 32.00 09/23/21 11:56 35.6 09/23/21 11:00 65 106/62 94 Mechanical Ventilator 32.00 09/23/21 10:38 Mechanical Ventilator 32.00 09/23/21 10:15 46 18 92 32 09/23/21 10:00 55 22 112/55 91 Mechanical Ventilator 30.00 I & O 09/24/21 07:00 Intake Total 2250 ml Output Total 1500 ml Balance 750 ml Height & Weight Height: 5'9.00" Weight: 160lbs. 6.0oz. 72.366345nh; 25.00 BMI Method:Stated General Appearance: Chronically ill, Other (sedated and intubated) HEENT: PERRL/EOMI, Pharynx Normal Respiratory: Lungs Clear Cardiovascular: Regular Rate, Rhythm Capillary Refill: Greater Than 3 Seconds Peripheral Pulses: 2+ Femoral (R), 2+ Femoral (L), 2+ Dorsalis Pedis (R), 2+ Left Dors-Pedis (L), 2+ Radial Pulses (R), 2+ Radial Pulses (L) Gastrointestinal: normal bowel sounds, non tender, soft, no organomegaly Extremity: Normal Inspection, Non Tender, Pedal Edema Neurologic/Psychiatric: Other (sedated) Skin: Normal Color, Warm/Dry Results Lab Laboratory Tests 09/23/21 05:08 09/24/21 04:23 Assessment/Plan Assessment/Plan (Tele-ICU Physician , Progress Note ) Available chart/ vitals / labs / Images reviewed Discussed with RN , EXAM PER RN Events overnight : none Afebrile , 37.1 FiO2 - I/O = positive Pressors: , hemodynamically stable Hospital course: 09/19- intubated FOR AIRWAY PROTECTION , METH OD, LYDIA / RABDO A/P Acute respo failure - AC 450 25 +5 FIO2 NEEDS INCREASED TO %) today = probab;ly VO now - WILL DECREASE FLUIDS M ONE DOSE BUMEX _ FOLLOW CLOSELY - intubated 09/19 for airway protection SBT considered tomorrow if mental status ok Unresponsiveness - most likely OD - urin tox pos for meth/amphet - CT head - no acute finfding , abnormal findings to follow latted - as per PCP - OFF sedation 09/23 - not follow commands , agitated, will try prn fentanul LYDIA with Rhabdo - Improving - cont hydration , decrease rrate - dodson in place , follow UO Elevated transaminazes - -? shock liver , follow -> improved Possible infection , - sputum with H flu = cont abx - flu and rapid covif NEG ETON abuse? - thiamine Elv trop - in face of LYDIA , trending down Anemia - most likely delutional - follow Follow BS start TF today Lines : (Central Line Necessity Reviewed) Dodson: 09/19 O/6 Nutrition: Analgesia: Anxiety/ delirium versed VTE Prophylaxis: INR 1.4 - readress tomorrow, recheck INR Stress Ulcer Prophylaxis: ppi Plans in collaboration with bedside consultants and IM MDs. Discussed with RN to reach out if any questions or concerns A total of 35 minutes of critical care time was devoted to this patient today, required to treat and/or prevent further deterioration of critical care condition ( as above) . BENIGNO TORO MD Sep 24, 2021 09:52
--- NOTE | 2021-09-24 10:12 | Progress Note - Hospitalist ---
Subjective HPI/CC On Admission Date Seen by Provider: Sep 24, 2021 Time Seen by Provider: 10:00 Roman Jane is a 70 year old male who presented to the ER after being found down at his home. He was reportedly agitated, but alert and oriented on arrival. He was requiring supplemental oxygen. He was intoxicated on methamphetamine. He became less responsive and was intubated for airway protection. He was found to be in acute renal failure with rhabdomyolysis. Due to the severity of his renal failure, a transfer was attempted for hemodialysis. He had low urine output, hyperkalemia, and significantly elevated BUN/creatinine. He was treated with IV fluids and bicarbonate. No bed was able to be secured for transfer, but his renal function began to improve. Subjective/Events-last exam Pt still intubated Creatine 1.5 Overall, very poor prognosis long-term due to meth use Focused Exam Time of Focused Exam: 07:30 Objective Exam Vital Signs Vital Signs Date Time Temp Pulse Resp B/P (MAP) Pulse Ox O2 Delivery O2 Flow Rate FiO2 09/25/21 05:00 57 18 91 Mechanical Ventilator 40.00 09/25/21 04:16 40 09/25/21 03:58 36.7 Capillary Refill : Greater Than 3 Seconds General Appearance: Chronically ill, Other (sedated and intubated) Respiratory: Normal Breath Sounds Cardiovascular: Regular Rate, Rhythm Results/Procedures Lab Laboratory Tests 09/25/21 04:22 Patient resulted labs reviewed. Imaging: Reviewed Imaging Report Assessment/Plan Assessment and Plan Assess & Plan/Chief Complaint Assess & Plan/Chief Complaint LYDIA on CKD Acute tubular necrosis Rhabdomyolysis Acute respiratory failure with hypoxia Endotracheally intubated Pneumonia Methamphetamine abuse Elevated LFTs Hepatitis C antibody positive CK improving BUN/Cr improving Continue IV fluids Monitor I/O Continue Cefepime TeleICU following Monitor electrolytes Hep C RNA pending Social work consult DVT prophylaxis: Heparin Hyperkalemia, resolved Lactic acidosis, resolved Metabolic acidosis, resolved Hypernatremia, resolved 09/23/21: Supportive care Prognosis guarded DC [place] control search 09/24/21: Intubation Guarded prognosis Critical Care Critically Ill Patient SHAJIGAIL WHITE Sep 24, 2021 10:12
[2021-09-24 10:20] VITALS: BP 112/58
[2021-09-24] MEDS ORDERED: TRAZ-227 PO (12:22)
[2021-09-24 14:09] VITALS: BP 98/51
[2021-09-24 19:12] VITALS: BP 89/51
[2021-09-24 22:13] VITALS: BP 91/44
[2021-09-25] MEDS: fentaNYL INJ 100 MCG/2 ML AMP IVP PRN ×5 (02:10→20:33)
[2021-09-25 02:36] VITALS: BP 108/58
[2021-09-25 04:10] LABS: ABG BASE EXCESS -1.7 MMOL/L (-2.5-2.5); ABG OXYGEN SATURATION 92 % (94-100); ABG PCO2 39 MMHG (35-45); ABG PH 7.38 (7.37-7.43); ABG PO2 65 MMHG (79-93); ABG TCO2 23.9 MMOL/L (21.0-31.0)
[2021-09-25 04:11] LABS: ALLENS TEST YES-POS; INSPIRED O2 40%; PATIENT TEMP 36.7; VENTILATOR YES
[2021-09-25 04:58] LABS: BASOPHILS % (AUTO) 0 % (0-10); EOSINOPHILS # (AUTO) 0.1 10^3/uL (0.0-0.3); EOSINOPHILS % (AUTO) 2 % (0-10); HEMATOCRIT 34 % (40-54); HEMOGLOBIN 10.6 g/dL (13.3-17.7); LYMPHOCYTES # (AUTO) 1.2 10^3/uL (1.0-4.0); LYMPHOCYTES % (AUTO) 19 % (12-44); MEAN CORPUSCULAR HEMOGLOBIN 27 pg (25-34); MEAN CORPUSCULAR HGB CONC 31 g/dL (32-36); MEAN CORPUSCULAR VOLUME 86 fL (80-99); MEAN PLATELET VOLUME 11.5 fL (9.0-12.2); MONOCYTES # (AUTO) 0.7 10^3/uL (0.0-1.0); MONOCYTES % (AUTO) 10 % (0-12); NEUTROPHILS # (AUTO) 4.4 10^3/uL (1.8-7.8); NEUTROPHILS % (AUTO) 68 % (42-75); PLATELET COUNT 151 10^3/uL (130-400); WHITE BLOOD COUNT 6.6 10^3/uL (4.3-11.0)
[2021-09-25 05:12] LABS: POTASSIUM 3.6 MMOL/L (3.6-5.0)
[2021-09-25 05:13] LABS: CALCIUM 7.9 MG/DL (8.5-10.1)
[2021-09-25 05:17] LABS: CREATININE SERUM 1.42 MG/DL (0.60-1.30); PHOSPHORUS 3.7 MG/DL (2.3-4.7)
[2021-09-25 05:20] LABS: MAGNESIUM 1.5 MG/DL (1.6-2.4)
[2021-09-25] MEDS: KCL 20 MEQ TAB (K-DUR) PO SCH (05:21)
[2021-09-25] MEDS: inSUlin ASPART (NovoLOG) 1 UNIT/0.01 ML (CHARGE PER UNIT) SC SCH ×5 (05:21→23:42)
[2021-09-25] MEDS: MAGNESIUM 1 GM/100 ML IVPB 100 ML IV SCH ×3 (05:21→23:09)
[2021-09-25] MEDS: POTASSIUM CL 10MEQ/50ML IVPB 50 ML IV SCH (05:21)
[2021-09-25] MEDS: DexMEDEtomidine 250 ML DRIP 250 ML IV SCH ×2 (06:38→19:42)
[2021-09-25 07:08] VITALS: BP 116/58
--- NOTE | 2021-09-25 07:14 | Progress Note - Hospitalist ---
Subjective HPI/CC On Admission Date Seen by Provider: Sep 25, 2021 Time Seen by Provider: 11:00 Roman Jane is a 70 year old male who presented to the ER after being found down at his home. He was reportedly agitated, but alert and oriented on arrival. He was requiring supplemental oxygen. He was intoxicated on methamphetamine. He became less responsive and was intubated for airway protection. He was found to be in acute renal failure with rhabdomyolysis. Due to the severity of his renal failure, a transfer was attempted for hemodialysis. He had low urine output, hyperkalemia, and significantly elevated BUN/creatinine. He was treated with IV fluids and bicarbonate. No bed was able to be secured for transfer, but his renal function began to improve. Subjective/Events-last exam Pt is still intubated Checked meds and labs Overall very tenuous Trying to wake up for wean protocol Meth use procludes anything but a poor prognosis Focused Exam Lactate Level 09/25/21 21:20: Lactic Acid Level 0.98 Time of Focused Exam: 07:30 Objective Exam Vital Signs Vital Signs Date Time Temp Pulse Resp B/P (MAP) Pulse Ox O2 Delivery O2 Flow Rate FiO2 09/26/21 04:25 61 115/56 09/26/21 04:00 High Flow N/C 15.00 09/26/21 00:00 22 90 09/25/21 19:53 36.6 09/25/21 16:49 50 Capillary Refill : Greater Than 3 Seconds General Appearance: Chronically ill, Other (sedated) Respiratory: No Accessory Muscle Use, No Respiratory Distress, Decreased Breath Sounds Cardiovascular: Regular Rate, Rhythm Results/Procedures Lab Laboratory Tests 09/25/21 21:20 09/26/21 04:15 Patient resulted labs reviewed. Imaging: Reviewed Imaging Report Assessment/Plan Assessment and Plan Assess & Plan/Chief Complaint Assess & Plan/Chief Complaint LYDIA on CKD Acute tubular necrosis Rhabdomyolysis Acute respiratory failure with hypoxia Endotracheally intubated Pneumonia Methamphetamine abuse Elevated LFTs Hepatitis C antibody positive CK improving BUN/Cr improving Continue IV fluids Monitor I/O TeleICU following Monitor electrolytes Hep C RNA pending Social work consult DVT prophylaxis: Heparin Hyperkalemia, resolved Lactic acidosis, resolved Metabolic acidosis, resolved Hypernatremia, resolved 09/23/21: Supportive care Prognosis guarded DC [place] control search 09/24/21: Intubation Guarded prognosis 09/25/21: Monitor closely Critical Care Critically Ill Patient GAIL GIRARD DO Sep 25, 2021 07:13
[2021-09-25] MEDS: PANTOPRAZOLE 40 MG (PROTONIX) VIAL IV SCH (08:10)
[2021-09-25] MEDS: LACRI-LUBE OPTHALMIC OINT 3.5 GM TUBE OU SCH ×2 (08:10→20:17)
[2021-09-25] MEDS: RT-ALBUTEROL/IPRATROPIUM 3 ML (DUONEB) VIAL INH PRN (10:29)
[2021-09-25 10:30] VITALS: BP 133/76
--- NOTE | 2021-09-25 13:10 | Tele-ICU Progress Note ---
Subjective Date Seen by a Provider: Sep 25, 2021 Time Seen by a Provider: 13:02 Subjective/Events-last exam PT remained sedated and on vent. versed at 10mg/hr. fio2 40%. not a candidated for sbt due to high dose of versed. advised to start on precedex and wean versed. Review of Systems ros per rn Sepsis Event Evaluation Height, Weight, BMI Height: 5'9.00" Weight: 160lbs. 6.0oz. 72.879603kv; 25.00 BMI Method:Stated Focused Exam Time of Focused Exam: 07:30 Exam Exam Patient acknowledged, consented, and participated in this virtual visit which was conducted using real time audio/video Vital Signs Date Time Temp Pulse Resp B/P (MAP) Pulse Ox O2 Delivery O2 Flow Rate FiO2 09/25/21 12:00 91 22 130/59 90 Mechanical Ventilator 50.00 09/25/21 11:38 36.6 09/25/21 11:00 78 114/56 93 Mechanical Ventilator 50.00 09/25/21 10:39 40 09/25/21 10:30 79 31 93 50 09/25/21 10:00 51 19 122/57 93 Mechanical Ventilator 50.00 09/25/21 09:00 52 19 119/58 90 Mechanical Ventilator 50.00 09/25/21 08:16 50 09/25/21 08:00 69 19 113/55 91 Mechanical Ventilator 50.00 09/25/21 07:54 36.6 Mechanical Ventilator 50.00 09/25/21 07:08 65 20 92 40 09/25/21 07:00 50 09/25/21 07:00 54 16 100/58 93 Mechanical Ventilator 40.00 09/25/21 06:38 50 09/25/21 06:00 50 18 105/51 92 Mechanical Ventilator 40.00 09/25/21 05:30 51 18 98/52 91 Mechanical Ventilator 40.00 09/25/21 05:00 57 18 91 Mechanical Ventilator 40.00 09/25/21 04:16 40 09/25/21 04:16 Mechanical Ventilator 40 09/25/21 04:00 51 18 98/47 91 Mechanical Ventilator 40.00 09/25/21 03:58 36.7 09/25/21 03:00 50 18 103/50 91 Mechanical Ventilator 40.00 09/25/21 02:36 50 18 92 40 1/12/22 02:00 49 18 111/51 93 Mechanical Ventilator 40.00 09/25/21 01:00 51 18 105/54 93 Mechanical Ventilator 40.00 09/25/21 01:00 51 09/25/21 00:00 36.3 09/25/21 00:00 45 09/25/21 00:00 50 18 100/50 91 Mechanical Ventilator 40.00 09/24/21 23:22 Mechanical Ventilator 40 09/24/21 23:00 49 18 104/50 92 Mechanical Ventilator 40.00 09/24/21 22:13 52 28 91 40 09/24/21 22:00 49 18 110/53 94 Mechanical Ventilator 40.00 09/24/21 21:00 49 18 113/59 93 Mechanical Ventilator 40.00 09/24/21 20:58 Mechanical Ventilator 40.00 09/24/21 20:00 50 18 100/53 92 Mechanical Ventilator 50.00 09/24/21 19:42 36.1 09/24/21 19:30 45 09/24/21 19:28 93 Mechanical Ventilator 45 09/24/21 19:26 105/73 09/24/21 19:23 60 25 105/73 94 Mechanical Ventilator 50.00 09/24/21 19:12 55 25 94 50 09/24/21 19:00 53 18 89/51 92 Mechanical Ventilator 50.00 09/24/21 19:00 53 09/24/21 18:00 46 109/52 96 Mechanical Ventilator 50.00 09/24/21 17:37 47 21 108/53 09/24/21 17:00 46 22 106/51 96 Mechanical Ventilator 50.00 09/24/21 16:15 94 Mechanical Ventilator 50 09/24/21 16:06 50 09/24/21 16:00 49 21 103/55 95 Mechanical Ventilator 50.00 09/24/21 16:00 36.4 09/24/21 15:00 45 19 101/48 96 Mechanical Ventilator 50.00 09/24/21 14:09 48 19 95 50 09/24/21 14:00 51 22 98/51 96 Mechanical Ventilator 50.00 I & O 09/25/21 07:00 Intake Total 690 ml Output Total 1275 ml Balance -585 ml Height & Weight Height: 5'9.00" Weight: 160lbs. 6.0oz. 72.005655fn; 25.00 BMI Method:Stated General Appearance: Chronically ill, Other (sedated and intubated) HEENT: PERRL/EOMI, Pharynx Normal Respiratory: Normal Breath Sounds Cardiovascular: Regular Rate, Rhythm Capillary Refill: Greater Than 3 Seconds Peripheral Pulses: 2+ Femoral (R), 2+ Femoral (L), 2+ Dorsalis Pedis (R), 2+ Left Dors-Pedis (L), 2+ Radial Pulses (R), 2+ Radial Pulses (L) Gastrointestinal: normal bowel sounds, non tender, soft, no organomegaly Extremity: Normal Inspection, Non Tender, Pedal Edema Neurologic/Psychiatric: Other (sedated) Skin: Normal Color, Warm/Dry Other comments pe per attending physician Results Lab Laboratory Tests 09/24/21 04:23 09/25/21 04:22 Assessment/Plan Assessment/Plan 1. Acute hypoxic respiratory failure secondary to methamphetamine abuse 2. Rhabdomyolysis with acute kidney injury. 3. Metabolic encephalopathy due to drug abuse. Recommendations 1. We will start Precedex and try to wean Versed drip. Once his Versed has been adequately reduced 2. Recheck his CPK level 3. Continue hydration with normal saline 4. DVT prophylaxis and ulcer prophylaxis will be continued. 5. Video visit made and discussed with the PROCESSING CLERK. Critical Care: Ventilator Management ROBBY WHITTEN MD Sep 25, 2021 13:10
[2021-09-25 13:47] VITALS: BP 124/56
[2021-09-25 14:54] LABS: ABG BASE EXCESS -2.2 MMOL/L (-2.5-2.5); ABG OXYGEN SATURATION 97 % (94-100); ABG PCO2 38 MMHG (35-45); ABG PH 7.38 (7.37-7.43); ABG PO2 93 MMHG (79-93); ABG TCO2 23.1 MMOL/L (21.0-31.0)
[2021-09-25 14:55] LABS: INSPIRED O2 50%; PATIENT TEMP 37.7; VENTILATOR YES
[2021-09-25] MEDS: 1/2 NS IV SOLUTION 1,000 ML IV SCH ×2 (19:30→19:42)
[2021-09-25] MEDS ORDERED: LORazepam 1 MG (ATIVAN) TAB PO PRN (20:45)
[2021-09-25] MEDS ORDERED: MAGNESIUM 2 GM/50 ML IVPB 50 ML IV ONE (20:45)
[2021-09-25] MEDS ORDERED: LORazepam INJ 2 MG/ML (ATIVAN) VIAL IM/IV PRN (20:45)
[2021-09-25] MEDS ORDERED: LORazepam INJ 2 MG/ML (ATIVAN) VIAL ONE ×2 (20:48→21:51)
[2021-09-25] MEDS: LORazepam INJ 2 MG/ML (ATIVAN) VIAL IV PRN ×3 (20:49→22:53)
--- NOTE | 2021-09-25 20:50 | Tele-ICU Progress Note ---
Subjective Date Seen by a Provider: Sep 25, 2021 (20) Time Seen by a Provider: 20:30 Subjective/Events-last exam TeleICU NOTE Bedside RN called. Patient with history of ETOH, polysubstance withdrawal extubated earlier today but with ongoing agitation and delirium, trying to get out of bed, risk to self and nursing staff, yelling. No benefit with max precedex Add order CIWA scale and PRN ativan Per RN report, patient already had head CT on 09/18/21 with admission, no focal changes in neuro exam reported Assessment/Plan Assessment/Plan 1. Delirium Recommend CIWA scale, add PRN ativan trial and monitor response Discontinue fentanyl/versed gtt for now Patient is extubated RN to use soft mitts, declines restraints for now Bedside sitter not available 2. Worsening mixed metabolic acidosis noted upon chart review, worsening AG Recommend repeat BMP, check ketones, lactate. ?AKA or Starvation KA with concomitant LYDIA Replace Mg AM labs ordered Critical Care: Critically Ill Patient Time spent with patient (mins): 25 DRISS COLEMAN MD Sep 25, 2021 20:50
[2021-09-25 21:45] LABS: POTASSIUM 3.6 MMOL/L (3.6-5.0)
[2021-09-25 21:46] LABS: CALCIUM 8.2 MG/DL (8.5-10.1)
[2021-09-25 21:50] LABS: CREATININE SERUM 1.3 MG/DL (0.60-1.30)
[2021-09-25] MEDS ORDERED: MAGNESIUM 1 GM/100 ML IVPB 200 ML IV ONE (21:52)
[2021-09-26] MEDS: LORazepam INJ 2 MG/ML (ATIVAN) VIAL IV PRN ×7 (00:19→18:19)
[2021-09-26] MEDS: DexMEDEtomidine 250 ML DRIP 250 ML IV SCH ×3 (04:25→22:51)
[2021-09-26] MEDS: 1/2 NS IV SOLUTION 1,000 ML IV SCH (04:25)
[2021-09-26] MEDS: KCL 20 MEQ TAB (K-DUR) PO SCH (04:40)
[2021-09-26] MEDS: POTASSIUM CL 10MEQ/50ML IVPB 50 ML IV SCH (04:40)
[2021-09-26] MEDS: MAGNESIUM 1 GM/100 ML IVPB 100 ML IV SCH (04:40)
[2021-09-26 04:54] LABS: BASOPHILS % (AUTO) 0 % (0-10); EOSINOPHILS # (AUTO) 0.1 10^3/uL (0.0-0.3); EOSINOPHILS % (AUTO) 1 % (0-10); HEMATOCRIT 32 % (40-54); HEMOGLOBIN 9.8 g/dL (13.3-17.7); LYMPHOCYTES # (AUTO) 1.1 10^3/uL (1.0-4.0); LYMPHOCYTES % (AUTO) 13 % (12-44); MEAN CORPUSCULAR HEMOGLOBIN 27 pg (25-34); MEAN CORPUSCULAR HGB CONC 31 g/dL (32-36); MEAN CORPUSCULAR VOLUME 86 fL (80-99); MEAN PLATELET VOLUME 11.3 fL (9.0-12.2); MONOCYTES # (AUTO) 0.7 10^3/uL (0.0-1.0); MONOCYTES % (AUTO) 8 % (0-12); NEUTROPHILS # (AUTO) 6.7 10^3/uL (1.8-7.8); NEUTROPHILS % (AUTO) 77 % (42-75); PLATELET COUNT 161 10^3/uL (130-400); WHITE BLOOD COUNT 8.7 10^3/uL (4.3-11.0)
[2021-09-26 05:04] LABS: ALBUMIN 2.4 GM/DL (3.2-4.5); POTASSIUM 3.5 MMOL/L (3.6-5.0)
[2021-09-26 05:05] LABS: CALCIUM 8.1 MG/DL (8.5-10.1)
[2021-09-26 05:07] LABS: TOTAL PROTEIN 5.9 GM/DL (6.4-8.2)
[2021-09-26 05:09] LABS: BILIRUBIN,TOTAL 1.2 MG/DL (0.1-1.0)
[2021-09-26 05:10] LABS: CREATININE SERUM 1.17 MG/DL (0.60-1.30); PHOSPHORUS 3.1 MG/DL (2.3-4.7)
[2021-09-26 05:13] LABS: MAGNESIUM 1.8 MG/DL (1.6-2.4)
[2021-09-26] MEDS: inSUlin ASPART (NovoLOG) 1 UNIT/0.01 ML (CHARGE PER UNIT) SC SCH ×3 (05:16→18:19)
--- NOTE | 2021-09-26 06:15 | Progress Note - Hospitalist ---
Subjective HPI/CC On Admission Date Seen by Provider: Sep 26, 2021 Time Seen by Provider: 10:00 Roman Jane is a 70 year old male who presented to the ER after being found down at his home. He was reportedly agitated, but alert and oriented on arrival. He was requiring supplemental oxygen. He was intoxicated on methamphetamine. He became less responsive and was intubated for airway protection. He was found to be in acute renal failure with rhabdomyolysis. Due to the severity of his renal failure, a transfer was attempted for hemodialysis. He had low urine output, hyperkalemia, and significantly elevated BUN/creatinine. He was treated with IV fluids and bicarbonate. No bed was able to be secured for transfer, but his renal function began to improve. Subjective/Events-last exam Pt extubated but wheezing Chest X-ray shows progression of infiltrates Bulmaro and Alexa will be given On alcohol withdrawal protocol Overall, poor prognosis Pt appears to be very debilitated Review of Systems General: Fatigue, Malaise Neurological: Confusion Focused Exam Lactate Level 09/25/21 21:20: Lactic Acid Level 0.98 Time of Focused Exam: 07:30 Objective Exam Vital Signs Vital Signs Date Time Temp Pulse Resp B/P (MAP) Pulse Ox O2 Delivery O2 Flow Rate FiO2 09/27/21 04:00 Vapotherm 35.00 80 09/27/21 02:11 92 09/27/21 01:00 93 09/27/21 00:00 23 103/44 09/26/21 22:47 36.3 Capillary Refill : Less Than 3 Seconds General Appearance: Anxious, Chronically ill, Obese, Other (fatigued) Respiratory: Accessory Muscle Use, Crackles, Decreased Breath Sounds, Wheezing Cardiovascular: Regular Rate, Rhythm Neurologic/Psychiatric: Alert, Disoriented Results/Procedures Lab Laboratory Tests 09/27/21 04:45 Patient resulted labs reviewed. Imaging: Reviewed Imaging Report Assessment/Plan Assessment and Plan Assess & Plan/Chief Complaint Assess & Plan/Chief Complaint LYDIA on CKD Acute tubular necrosis Rhabdomyolysis Acute respiratory failure with hypoxia Endotracheally intubated Pneumonia Methamphetamine abuse Elevated LFTs Hepatitis C antibody positive CK improving BUN/Cr improving Continue IV fluids Monitor I/O TeleICU following Monitor electrolytes Hep C RNA pending Social work consult DVT prophylaxis: Heparin Hyperkalemia, resolved Lactic acidosis, resolved Metabolic acidosis, resolved Hypernatremia, resolved 1/10/22: Supportive care Prognosis guarded DC [place] control search 09/24/21: Intubation Guarded prognosis 09/25/21: Monitor closely 09/26/21: Risk for re-intubation Critical Care Critically Ill Patient GAIL GIRARD DO Sep 26, 2021 06:15
[2021-09-26] MEDS: PANTOPRAZOLE 40 MG (PROTONIX) VIAL IV SCH (08:06)
[2021-09-26] MEDS: RT-ALBUTEROL/IPRATROPIUM 3 ML (DUONEB) VIAL INH PRN (08:20)
[2021-09-26] MEDS: LACRI-LUBE OPTHALMIC OINT 3.5 GM TUBE OU SCH ×2 (08:22→19:35)
[2021-09-26] MEDS ORDERED: BUMETANIDE 1 MG/4 ML (BUMEX) VIAL IV NR (10:31)
--- NOTE | 2021-09-26 10:45 | Diagnostic Imaging Report ---
EXAMINATION: Chest 1 view HISTORY: Hypoxia. COMPARISON: 09/21/2021. FINDINGS: Widespread patchy and consolidative opacities are seen throughout the lungs, greatest in the mid lungs and left apex. Increasing small right pleural effusion is seen. No pneumothorax. Stable cardiac silhouette. There has been interval removal of the endotracheal tube. IMPRESSION: 1. Increased multifocal opacities throughout the lungs with increasing small right pleural effusion. Findings are concerning for pneumonia. Dictated by: Dictated on workstation # [id number]
--- NOTE | 2021-09-26 10:49 | Tele-ICU Progress Note ---
Subjective Date Seen by a Provider: Sep 26, 2021 Time Seen by a Provider: 10:49 Sepsis Event Evaluation Height, Weight, BMI Height: 5'9.00" Weight: 160lbs. 6.0oz. 72.708046qt; 25.00 BMI Method:Stated Focused Exam Lactate Level 09/25/21 21:20: Lactic Acid Level 0.98 Time of Focused Exam: 07:30 Exam Exam Patient acknowledged, consented, and participated in this virtual visit which was conducted using real time audio/video Vital Signs Date Time Temp Pulse Resp B/P (MAP) Pulse Ox O2 Delivery O2 Flow Rate FiO2 09/26/21 10:29 58 16 108/56 94 Vapotherm 35.00 80.00 09/26/21 09:00 60 15 104/46 94 Vapotherm 35.00 80.00 09/26/21 08:48 Vapotherm 35.00 80.00 09/26/21 08:45 95 Vapotherm 35.00 80 09/26/21 08:24 High Flow N/C 12.00 09/26/21 08:00 High Flow N/C 12.00 09/26/21 08:00 36.0 09/26/21 08:00 69 25 101/90 92 High Flow N/C 15.00 09/26/21 07:00 48 26 109/48 97 High Flow N/C 15.00 09/26/21 07:00 47 09/26/21 06:00 80 20 128/61 94 High Flow N/C 15.00 09/26/21 05:00 71 16 96/56 91 High Flow N/C 15.00 09/26/21 04:25 61 115/56 09/26/21 04:00 68 19 103/48 92 High Flow N/C 15.00 09/26/21 04:00 High Flow N/C 15.00 09/26/21 03:00 57 14 109/58 94 High Flow N/C 15.00 09/26/21 02:00 84 15 113/57 94 High Flow N/C 15.00 09/26/21 01:07 High Flow N/C 15.00 09/26/21 01:00 61 09/26/21 01:00 61 24 99/47 92 High Flow N/C 10.00 09/26/21 00:00 73 22 115/56 90 High Flow N/C 10.00 09/25/21 23:59 High Flow N/C 15.00 09/25/21 23:00 75 30 115/48 93 High Flow N/C 10.00 09/25/21 22:37 High Flow N/C 10.00 09/25/21 22:00 81 25 115/53 95 High Flow N/C 15.00 09/25/21 21:00 89 20 124/55 97 High Flow N/C 15.00 09/25/21 20:00 High Flow N/C 15.00 09/25/21 20:00 90 14 136/63 96 High Flow N/C 15.00 09/25/21 19:53 36.6 09/25/21 19:42 103 119/52 09/25/21 19:00 90 09/25/21 19:00 87 16 117/79 92 High Flow N/C 15.00 09/25/21 19:00 High Flow N/C 15.00 09/25/21 18:00 103 32 84 NIV Bilevel 50.00 09/25/21 17:00 97 31 94 NIV Bilevel 50.00 09/25/21 16:49 NIV Bilevel 50 09/25/21 16:00 101 36 119/52 95 NIV Bilevel 50.00 09/25/21 16:00 37.2 09/25/21 15:35 NIV Bilevel 50.00 09/25/21 15:30 100 37 95 50.00 09/25/21 15:00 112 18 99/79 95 Mechanical Ventilator 50.00 09/25/21 14:00 90 32 99/50 95 Mechanical Ventilator 50.00 09/25/21 13:47 87 31 95 50 09/25/21 13:41 86 23 95 50 09/25/21 13:00 75 09/25/21 13:00 89 28 124/56 90 Mechanical Ventilator 50.00 09/25/21 12:15 Mechanical Ventilator 40 09/25/21 12:06 50 09/25/21 12:00 91 22 130/59 90 Mechanical Ventilator 50.00 09/25/21 11:38 36.6 09/25/21 11:00 78 114/56 93 Mechanical Ventilator 50.00 I & O 09/26/21 07:00 Intake Total 2700 ml Output Total 1900 ml Balance 800 ml Height & Weight Height: 5'9.00" Weight: 160lbs. 6.0oz. 72.908792uh; 25.00 BMI Method:Stated General Appearance: Chronically ill, Other (sedated) HEENT: PERRL/EOMI, Pharynx Normal Respiratory: No Accessory Muscle Use, No Respiratory Distress, Decreased Breath Sounds Cardiovascular: Regular Rate, Rhythm Capillary Refill: Less Than 3 Seconds Peripheral Pulses: 2+ Femoral (R), 2+ Femoral (L), 2+ Dorsalis Pedis (R), 2+ Left Dors-Pedis (L), 2+ Radial Pulses (R), 2+ Radial Pulses (L) Gastrointestinal: normal bowel sounds, non tender, soft, no organomegaly Extremity: Normal Inspection, Non Tender, Pedal Edema Neurologic/Psychiatric: Other (sedated) Skin: Normal Color, Warm/Dry Results Lab Laboratory Tests 09/25/21 04:22 09/25/21 21:20 09/26/21 04:15 Assessment/Plan Assessment/Plan (Tele-ICU Physician , Progress Note ) Available chart/ vitals / labs / Images reviewed Discussed with RN , EXAM PER RN Events overnight : none Afebrile , 37.1 FiO2 - I/O = positive Pressors: , hemodynamically stable Hospital course: 09/19- intubated FOR AIRWAY PROTECTION , METH OD, LYDIA / RABDO 09/25 extubated , still confused. 12L, precedex 1.5 09/26 - CIWA strarted on VT 35L 80%, weak cough A/P Acute respo failure - intubated 09/19 for airway protection -09/25 extubated , still confused. precedex 1.5 -post extubation 12L-->09/26 VT 35L 80% --weak cough, strarted on scheduled nebs , STOP IVF < GENTLE DIURESIS < CHECK CXR Unresponsiveness on presentation / ENCEPHALOPATHY - most likely OD - urin tox pos for meth/amphet - CT head - no acute finfding , abnormal findings to follow latted - as per PCP - 09/26 - CIWA strarted post extubation + precedex 1.5 LYDIA with Rhabdo - resolved Elevated transaminazes - -? shock liver , follow -> improved Possible infection , - sputum with H flu = FINISHED ABX - flu and rapid covif NEG ETON abuse? - thiamine , CIWA Elv trop - in face of LYDIA , trending down Anemia - most likely delutional - follow Follow BS Lines : (Central Line Necessity Reviewed) Oquendo: 09/19 O/6 Nutrition: NPO today Analgesia: Anxiety/ delirium versed VTE Prophylaxis: INR 1.4 - readress tomorrow, recheck INR Stress Ulcer Prophylaxis: ppi Plans in collaboration with bedside consultants and IM MDs. Discussed with RN to reach out if any questions or concerns A total of 35 minutes of critical care time was devoted to this patient today, required to treat and/or prevent further deterioration of critical care condition ( as above) . BENIGNO TORO MD Sep 26, 2021 10:49
[2021-09-26] MEDS ORDERED: WATER (STERILE) FOR INJ 10 ML BTL INJ SCH (11:00)
[2021-09-26] MEDS: HALOPERIDOL 5 MG/ML (HALDOL) VIAL IM PRN ×2 (11:10→16:00)
[2021-09-26] MEDS: RT-ALBUTEROL/IPRATROPIUM 3 ML (DUONEB) VIAL INH SCH ×3 (15:05→23:04)
[2021-09-26] MEDS: ZIPRASIDONE 20 MG INJ (GEODON) VIAL IM PRN (18:07)
[2021-09-26] MEDS: WATER (STERILE) FOR INJ 10 ML BTL INJ SCH (18:07)
[2021-09-27] MEDS: inSUlin ASPART (NovoLOG) 1 UNIT/0.01 ML (CHARGE PER UNIT) SC SCH ×4 (00:44→17:20)
[2021-09-27] MEDS: HALOPERIDOL 5 MG/ML (HALDOL) VIAL IM PRN ×3 (01:04→09:49)
[2021-09-27] MEDS: RT-ALBUTEROL/IPRATROPIUM 3 ML (DUONEB) VIAL INH SCH ×6 (02:11→22:29)
[2021-09-27] MEDS: ZIPRASIDONE 20 MG INJ (GEODON) VIAL IM PRN ×2 (02:18→12:48)
[2021-09-27] MEDS: LORazepam INJ 2 MG/ML (ATIVAN) VIAL IV PRN ×6 (03:49→19:52)
[2021-09-27 04:54] LABS: BASOPHILS % (AUTO) 0 % (0-10); EOSINOPHILS % (AUTO) 0 % (0-10); HEMATOCRIT 34 % (40-54); HEMOGLOBIN 10.6 g/dL (13.3-17.7); LYMPHOCYTES # (AUTO) 0.5 10^3/uL (1.0-4.0); LYMPHOCYTES % (AUTO) 6 % (12-44); MEAN CORPUSCULAR HEMOGLOBIN 27 pg (25-34); MEAN CORPUSCULAR HGB CONC 31 g/dL (32-36); MEAN CORPUSCULAR VOLUME 86 fL (80-99); MEAN PLATELET VOLUME 10.9 fL (9.0-12.2); MONOCYTES # (AUTO) 0.6 10^3/uL (0.0-1.0); MONOCYTES % (AUTO) 7 % (0-12); NEUTROPHILS % (AUTO) 86 % (42-75); PLATELET COUNT 185 10^3/uL (130-400); WHITE BLOOD COUNT 8.2 10^3/uL (4.3-11.0)
[2021-09-27 05:04] LABS: POTASSIUM 3.3 MMOL/L (3.6-5.0)
[2021-09-27 05:05] LABS: CALCIUM 8.4 MG/DL (8.5-10.1)
[2021-09-27 05:09] LABS: CREATININE SERUM 0.89 MG/DL (0.60-1.30); PHOSPHORUS 3.1 MG/DL (2.3-4.7)
[2021-09-27 05:12] LABS: MAGNESIUM 1.5 MG/DL (1.6-2.4)
[2021-09-27] MEDS: MAGNESIUM 1 GM/100 ML IVPB 100 ML IV SCH (06:19)
[2021-09-27] MEDS: KCL 20 MEQ TAB (K-DUR) PO SCH (06:19)
[2021-09-27] MEDS: POTASSIUM CL 10MEQ/50ML IVPB 50 ML IV SCH (06:19)
[2021-09-27 06:47] LABS: LYMPHOCYTES % (MANUAL) 6 %; MONOCYTES % (MANUAL) 5 %; NEUTROPHILS % (MANUAL) 89 %
[2021-09-27 06:48] LABS: TOXIC GRANULATION/VACUOLAZATIO 1+
[2021-09-27] MEDS: PANTOPRAZOLE 40 MG (PROTONIX) VIAL IV SCH (08:36)
[2021-09-27] MEDS: DexMEDEtomidine 250 ML DRIP 250 ML IV SCH ×2 (08:37→17:40)
[2021-09-27] MEDS: LACRI-LUBE OPTHALMIC OINT 3.5 GM TUBE OU SCH ×2 (08:38→20:23)
[2021-09-27] MEDS ORDERED: BUMETANIDE 1 MG/4 ML (BUMEX) VIAL IV NR (10:04)
--- NOTE | 2021-09-27 10:47 | Tele-ICU Progress Note ---
Subjective Date Seen by a Provider: Sep 27, 2021 Time Seen by a Provider: 10:47 Sepsis Event Evaluation Height, Weight, BMI Height: 5'9.00" Weight: 160lbs. 6.0oz. 72.055350qw; 25.00 BMI Method:Stated Focused Exam Lactate Level 09/25/21 21:20: Lactic Acid Level 0.98 Time of Focused Exam: 07:30 Exam Exam Patient acknowledged, consented, and participated in this virtual visit which was conducted using real time audio/video Vital Signs Date Time Temp Pulse Resp B/P (MAP) Pulse Ox O2 Delivery O2 Flow Rate FiO2 09/27/21 10:00 72 22 116/47 94 Vapotherm 35.00 75.00 09/27/21 09:20 Vapotherm 35.00 75.00 09/27/21 09:00 77 28 115/48 90 Vapotherm 35.00 100.00 09/27/21 08:37 77 115/49 09/27/21 08:00 77 115/49 92 Vapotherm 35.00 100.00 09/27/21 08:00 35.8 09/27/21 08:00 Vapotherm 35.00 75 09/27/21 07:12 93 Vapotherm 35.00 75 09/27/21 07:00 75 09/27/21 07:00 70 28 104/72 94 Vapotherm 35.00 100.00 09/27/21 06:00 77 23 117/82 92 Vapotherm 35.00 100.00 09/27/21 05:00 85 23 125/77 95 Vapotherm 35.00 100.00 09/27/21 04:00 84 23 114/54 94 Vapotherm 35.00 100.00 09/27/21 04:00 Vapotherm 35.00 80 09/27/21 03:00 84 23 116/50 98 Vapotherm 35.00 100.00 09/27/21 02:11 92 Vapotherm 35.00 75 09/27/21 02:00 68 23 33/57 94 Vapotherm 35.00 100.00 09/27/21 01:00 93 09/27/21 01:00 94 28 115/47 92 Vapotherm 35.00 100.00 09/27/21 00:00 99 23 103/44 97 Vapotherm 35.00 100.00 09/26/21 23:59 Vapotherm 35.00 80 09/26/21 23:04 95 Vapotherm 35.00 80 09/26/21 23:00 45 23 116/49 95 Vapotherm 35.00 80.00 09/26/21 22:51 50 102/45 09/26/21 22:47 36.3 09/26/21 22:00 47 23 113/51 98 Vapotherm 35.00 80.00 09/26/21 21:00 50 23 124/53 96 Vapotherm 35.00 80.00 09/26/21 20:00 55 14 134/48 96 Vapotherm 35.00 80.00 09/26/21 20:00 Vapotherm 35.00 80 09/26/21 19:33 36.0 53 20 123/50 96 Vapotherm 35.00 80.00 09/26/21 19:00 45 09/26/21 19:00 45 19 114/49 96 Vapotherm 35.00 80.00 09/26/21 18:40 94 Vapotherm 35.00 80 09/26/21 18:00 63 29 115/54 93 Vapotherm 35.00 80.00 09/26/21 17:00 71 24 132/78 94 Vapotherm 35.00 80.00 09/26/21 16:08 Vapotherm 35.00 80 09/26/21 16:00 59 10 123/47 95 Vapotherm 35.00 80.00 09/26/21 16:00 36.5 09/26/21 15:10 94 Vapotherm 35.00 80 09/26/21 15:00 44 16 116/51 96 Vapotherm 35.00 80.00 09/26/21 14:00 45 16 114/52 96 Vapotherm 35.00 80.00 09/26/21 13:29 46 109/51 09/26/21 13:00 46 15 109/51 96 Vapotherm 35.00 80.00 09/26/21 12:34 61 09/26/21 12:01 Vapotherm 35.00 80 09/26/21 12:00 54 29 112/48 94 Vapotherm 35.00 80.00 09/26/21 11:53 36.0 09/26/21 11:00 84 24 92/48 99 Vapotherm 35.00 80.00 I & O 09/27/21 07:00 Intake Total 1000 ml Output Total 2425 ml Balance -1425 ml Height & Weight Height: 5'9.00" Weight: 160lbs. 6.0oz. 72.503478ob; 25.00 BMI Method:Stated General Appearance: Anxious, Chronically ill, Obese, Other (fatigued) HEENT: PERRL/EOMI, Pharynx Normal Respiratory: Accessory Muscle Use, Crackles, Decreased Breath Sounds, Wheezing Cardiovascular: Regular Rate, Rhythm Capillary Refill: Less Than 3 Seconds Peripheral Pulses: 2+ Femoral (R), 2+ Femoral (L), 2+ Dorsalis Pedis (R), 2+ Left Dors-Pedis (L), 2+ Radial Pulses (R), 2+ Radial Pulses (L) Gastrointestinal: normal bowel sounds, non tender, soft, no organomegaly Extremity: Normal Inspection, Non Tender, Pedal Edema Neurologic/Psychiatric: Alert, Disoriented Skin: Normal Color, Warm/Dry Results Lab Laboratory Tests 09/25/21 21:20 09/26/21 04:15 09/27/21 04:45 Assessment/Plan Assessment/Plan (Tele-ICU Physician , Progress Note ) Available chart/ vitals / labs / Images reviewed Discussed with RN , EXAM PER RN Events overnight : none Afebrile , 37.1 FiO2 - I/O = positive Pressors: , hemodynamically stable Hospital course: 09/19- intubated FOR AIRWAY PROTECTION , METH OD, LYDIA / RABDO 09/25 extubated , still confused. 12L, precedex 1.5 09/26 - CIWA strarted on VT 35L 80%, weak cough 09/27 - 35 L 75% A/P Acute respo failure - intubated 09/19 for airway protection -09/25 extubated , still confused. precedex 1.5 -post extubation 12L-->09/26 VT 35L 80% --weak cough, strarted on scheduled nebs , STOPED IVF < GENTLE DIURESIS TO CONT - CXR - PNA vs VO - OFF abx - WILL CHECK PCT - MIGHT CONSIDER CARBAPEMNEM IF ELEVATED Unresponsiveness on presentation / ENCEPHALOPATHY - most likely OD - urin tox pos for meth/amphet - CT head - no acute finfding , abnormal findings to follow latted - as per PCP - 09/26 - CIWA strarted post extubation + precedex 1.5 LYDIA with Rhabdo - resolved Elevated transaminazes - -? shock liver , follow -> improved Possible infection , - sputum with H flu = FINISHED ABX - cxr with suspected PN A, hypoxix - WILL CHECK PCT - MIGHT CONSIDER CARBAPEMNEM IF ELEVATED - flu and rapid covif NEG ETON abuse? - thiamine , CIWA Elv trop - in face of LYDIA - trending down Anemia - most likely delutional - follow Follow BS failed swallow 09/27 - NPO for now Lines : periph (Central Line Necessity Reviewed) Oquendo: 09/19 O/6 Nutrition: NPO today Analgesia: Anxiety/ delirium versed VTE Prophylaxis: INR 1.4 - readress tomorrow, recheck INR Stress Ulcer Prophylaxis: ppi Plans in collaboration with bedside consultants and IM MDs. Discussed with RN to reach out if any questions or concerns A total of 35 minutes of critical care time was devoted to this patient today, required to treat and/or prevent further deterioration of critical care condition ( as above) . BENIGNO TORO MD Sep 27, 2021 10:47
[2021-09-27] MEDS: WATER (STERILE) FOR INJ 10 ML BTL INJ SCH (12:49)
--- NOTE | 2021-09-27 13:14 | Progress Note - Hospitalist ---
YOHAN ANTUNEZ 09/27/21 1314: Subjective HPI/CC On Admission Date Seen by Provider: Sep 27, 2021 Time Seen by Provider: 10:45 Roman Jane is a 70 year old male who presented to the ER after being found down at his home. He was reportedly agitated, but alert and oriented on arrival. He was requiring supplemental oxygen. He was intoxicated on methamphetamine. He became less responsive and was intubated for airway protection. He was found to be in acute renal failure with rhabdomyolysis. Due to the severity of his renal failure, a transfer was attempted for hemodialysis. He had low urine output, hyperkalemia, and significantly elevated BUN/creatinine. He was treated with IV fluids and bicarbonate. No bed was able to be secured for transfer, but his renal function began to improve. Subjective/Events-last exam Patient is in laying in bed at time of encounter. His eyes are open and at times will track, however he appears unresponsive. He is slightly groaning with respirations. Patient is on vapotherm 35/75, SpO2 91% Oquendo catheter is in place, urine is dark yellow/orange. BUN 32, improvement from yesterday (44) Cr 0.89, yesterday 1.17 CXR from 09/26 displayed increase in multifocal opacities throughout the lungs with increase in small right pleural effusion and concern for pneumonia. Patient was extubated on 09/26, there is concern for re-intubation At this time patient does not have any family members present for care decision- making. ROS unable to be obtained. Focused Exam Lactate Level 09/25/21 21:20: Lactic Acid Level 0.98 Time of Focused Exam: 07:30 Objective Exam Vital Signs Vital Signs Date Time Temp Pulse Resp B/P (MAP) Pulse Ox O2 Delivery O2 Flow Rate FiO2 09/27/21 13:00 79 09/27/21 12:00 Vapotherm 35.00 75 09/27/21 12:00 35 118/68 94 09/27/21 12:00 35.8 Capillary Refill : Less Than 3 Seconds General Appearance: Chronically ill, Moderate Distress, Thin HEENT: Other (poor dentition) Respiratory: Decreased Breath Sounds, Respiratory Distress, Other (coarse breath sounds throughout) Gastrointestinal: Soft, Abnormal Bowel Sounds (absent bowel sounds) Extremity: No Pedal Edema Skin: Warm/Dry, Other (garcia-coloration) Results/Procedures Lab Laboratory Tests 09/27/21 04:45 Patient resulted labs reviewed. Imaging: Reviewed Imaging Report Assessment/Plan Assessment and Plan Assess & Plan/Chief Complaint Assessment: LYDIA on CKD Acute tubular necrosis Acute respiratory failure with hypoxia S/p endotracheal intubation Rhabdomyoloysis Elevated CK improvement Pneumonia Methamphetamine abuse Elevated LFTs Hepatitis C antibody positive, Hep C RNA pending DVT prophylaxis with heparin Hyperkalemia -> resolved Lactic acidosis -> resolved Metabolic acidosis -> resolved Hypernatremia -> resolved Hypokalemia Risk for re-intubation Plan: Continue IV fluids Monitor I/O TeleICU following Monitor electrolytes Social work consult Replace K Monitor closely Continue vapotherm Critical Care: Critically Ill Patient ANISHA GIRARD DO 09/28/21 0529: Subjective Subjective/Events-last exam Patient appears to be declining Appears to be more of a comfort care patient Patient at high risk for needing intubation again Objective Exam General Appearance: Chronically ill, Moderate Distress, Thin, Other (Garcia) Respiratory: Accessory Muscle Use, Decreased Breath Sounds Assessment/Plan Assessment and Plan Assess & Plan/Chief Complaint Supportive care May need reintubation Very poor prognosis Supervisory-Addendum Brief Verification & Attestation Participated in pt care: history, MDM, physical Personally performed: exam, history, MDM, supervision of care Care discussed with: Medical Student Procedures: n/a Results interpretation: Verified all documentation Verification and Attestation of Medical Student E/M Service A medical student performed and documented this service in my presence. I reviewed and verified all information documented by the medical student and made modifications to such information, when appropriate. I personally performed the physical exam and medical decision making. Anisha Girard, Sep 28, 2021,05:28 YOHAN ANTUNEZ Sep 27, 2021 13:14 ANISHA GIRARD DO Sep 28, 2021 05:29
[2021-09-27] MEDS ORDERED: SCOPOLAMINE 1.5 MG (TRANSDERM-SCOP) PATCH TD ONE (19:30)
[2021-09-27] MEDS ORDERED: SCOPOLAMINE 1.5 MG (TRANSDERM-SCOP) PATCH ONE (20:27)
[2021-09-28] MEDS: LORazepam INJ 2 MG/ML (ATIVAN) VIAL IV PRN ×6 (00:10→23:11)
[2021-09-28] MEDS: HALOPERIDOL 5 MG/ML (HALDOL) VIAL IM PRN (00:29)
[2021-09-28] MEDS: ZIPRASIDONE 20 MG INJ (GEODON) VIAL IM PRN ×2 (02:28→12:00)
[2021-09-28] MEDS: WATER (STERILE) FOR INJ 10 ML BTL INJ SCH ×2 (02:29→12:00)
[2021-09-28] MEDS: DexMEDEtomidine 250 ML DRIP 250 ML IV SCH ×3 (02:29→21:03)
[2021-09-28] MEDS: inSUlin ASPART (NovoLOG) 1 UNIT/0.01 ML (CHARGE PER UNIT) SC SCH ×5 (02:31→23:15)
[2021-09-28] MEDS: RT-ALBUTEROL/IPRATROPIUM 3 ML (DUONEB) VIAL INH SCH ×6 (02:36→22:49)
[2021-09-28 05:12] LABS: LYMPHOCYTES % (AUTO) 9 % (12-44); MEAN CORPUSCULAR VOLUME 86 fL (80-99)
[2021-09-28 05:14] LABS: BASOPHILS % (AUTO) 0 % (0-10); EOSINOPHILS # (AUTO) 0.1 10^3/uL (0.0-0.3); EOSINOPHILS % (AUTO) 1 % (0-10); HEMATOCRIT 31 % (40-54); HEMOGLOBIN 9.7 g/dL (13.3-17.7); LYMPHOCYTES # (AUTO) 0.6 10^3/uL (1.0-4.0); MEAN CORPUSCULAR HEMOGLOBIN 27 pg (25-34); MEAN CORPUSCULAR HGB CONC 31 g/dL (32-36); MEAN PLATELET VOLUME 11.9 fL (9.0-12.2); MONOCYTES # (AUTO) 0.5 10^3/uL (0.0-1.0); MONOCYTES % (AUTO) 8 % (0-12); NEUTROPHILS # (AUTO) 5.2 10^3/uL (1.8-7.8); NEUTROPHILS % (AUTO) 81 % (42-75); PLATELET COUNT 144 10^3/uL (130-400); WHITE BLOOD COUNT 6.4 10^3/uL (4.3-11.0)
[2021-09-28 05:24] LABS: POTASSIUM 2.9 MMOL/L (3.6-5.0)
[2021-09-28 05:25] LABS: CALCIUM 8.4 MG/DL (8.5-10.1)
[2021-09-28 05:29] LABS: CREATININE SERUM 0.77 MG/DL (0.60-1.30); PHOSPHORUS 2.8 MG/DL (2.3-4.7)
[2021-09-28 05:32] LABS: MAGNESIUM 1.2 MG/DL (1.6-2.4)
--- NOTE | 2021-09-28 06:04 | Progress Note - Hospitalist ---
Subjective HPI/CC On Admission Date Seen by Provider: Sep 28, 2021 Time Seen by Provider: 11:30 Roman Jane is a 70 year old male who presented to the ER after being found down at his home. He was reportedly agitated, but alert and oriented on arrival. He was requiring supplemental oxygen. He was intoxicated on methamphetamine. He became less responsive and was intubated for airway protection. He was found to be in acute renal failure with rhabdomyolysis. Due to the severity of his renal failure, a transfer was attempted for hemodialysis. He had low urine output, hyperkalemia, and significantly elevated BUN/creatinine. He was treated with IV fluids and bicarbonate. No bed was able to be secured for transfer, but his renal function began to improve. Subjective/Events-last exam Patient still confused Tracking better Very chronically ill Appears to be a comfort care candidate Checked meds and labs Long history of meth use is caused multisystem organ failure Maintained on Vapotherm maxed Focused Exam Lactate Level Time of Focused Exam: 07:30 Objective Exam Vital Signs Vital Signs Date Time Temp Pulse Resp B/P (MAP) Pulse Ox O2 Delivery O2 Flow Rate FiO2 09/29/21 04:00 37.6 Vapotherm 25.00 80.00 09/29/21 04:00 95 80 09/29/21 01:00 80 09/28/21 23:00 32 111/55 Capillary Refill : Less Than 3 Seconds General Appearance: WD/WN, Anxious, Chronically ill, Mild Distress, Other (Very end-stage appearance) Respiratory: No Respiratory Distress, Accessory Muscle Use, Decreased Breath Sounds, Rales, Wheezing Cardiovascular: Regular Rate, Rhythm Results/Procedures Lab Laboratory Tests 09/28/21 18:42 09/29/21 03:34 Patient resulted labs reviewed. Imaging: Reviewed Imaging Report Assessment/Plan Assessment and Plan Assess & Plan/Chief Complaint LYDIA on CKD Acute tubular necrosis Rhabdomyolysis Acute respiratory failure with hypoxia Endotracheally intubated Pneumonia Methamphetamine abuse Elevated LFTs Hepatitis C antibody positive CK improving BUN/Cr improving Continue IV fluids Monitor I/O TeleICU following Monitor electrolytes Hep C RNA pending Social work consult DVT prophylaxis: Heparin Hyperkalemia, resolved Lactic acidosis, resolved Metabolic acidosis, resolved Hypernatremia, resolved 09/23/21: Supportive care Prognosis guarded DC [place] control search 09/24/21: Intubation Guarded prognosis 09/25/21: Monitor closely 09/26/21: Risk for re-intubation 09/28/2021: Prognosis poor Vapotherm [facility] Critical Care Critically Ill Patient GAIL GIRARD DO Sep 28, 2021 06:04
[2021-09-28] MEDS: KCL 20 MEQ TAB (K-DUR) PO SCH (06:14)
[2021-09-28] MEDS: MAGNESIUM 1 GM/100 ML IVPB 100 ML IV SCH ×5 (06:14→09:45)
[2021-09-28] MEDS: POTASSIUM CL 10MEQ/50ML IVPB 50 ML IV SCH ×10 (06:14→23:06)
[2021-09-28] MEDS: PANTOPRAZOLE 40 MG (PROTONIX) VIAL IV SCH (08:19)
[2021-09-28] MEDS: LACRI-LUBE OPTHALMIC OINT 3.5 GM TUBE OU SCH ×2 (08:39→21:04)
--- NOTE | 2021-09-28 11:04 | Tele-ICU Progress Note ---
Subjective Date Seen by a Provider: Sep 28, 2021 Time Seen by a Provider: 11:04 Sepsis Event Evaluation Height, Weight, BMI Height: 5'9.00" Weight: 160lbs. 6.0oz. 72.473533yp; 25.00 BMI Method:Stated Focused Exam Lactate Level 09/25/21 21:20: Lactic Acid Level 0.98 Time of Focused Exam: 07:30 Exam Exam Patient acknowledged, consented, and participated in this virtual visit which was conducted using real time audio/video Vital Signs Date Time Temp Pulse Resp B/P (MAP) Pulse Ox O2 Delivery O2 Flow Rate FiO2 09/28/21 10:22 93 Vapotherm 30.00 90 09/28/21 10:00 86 16 118/52 93 Vapotherm 30.00 90.00 09/28/21 09:00 75 23 121/68 98 Vapotherm 30.00 90.00 09/28/21 08:08 97 Vapotherm 40.00 100 09/28/21 08:03 36.4 09/28/21 08:00 79 25 117/44 95 Vapotherm 30.00 90.00 09/28/21 07:46 95 Vapotherm 30.00 90 09/28/21 07:43 96 Vapotherm 40.00 100 09/28/21 07:00 74 09/28/21 07:00 77 25 109/48 95 Vapotherm 40.00 100.00 09/28/21 06:00 77 18 133/60 98 Vapotherm 40.00 100.00 09/28/21 05:00 81 19 119/64 98 Vapotherm 40.00 100.00 09/28/21 04:00 84 23 138/56 98 Vapotherm 40.00 100.00 09/28/21 04:00 Vapotherm 40.00 100 09/28/21 03:00 87 24 129/57 96 Vapotherm 40.00 100.00 09/28/21 02:36 95 Vapotherm 40.00 100 09/28/21 02:29 88 131/71 09/28/21 02:00 81 24 128/57 96 Vapotherm 40.00 100.00 09/28/21 01:00 83 23 127/66 95 Vapotherm 40.00 100.00 09/28/21 01:00 84 09/28/21 00:00 86 28 121/58 85 Vapotherm 40.00 100.00 09/28/21 00:00 Vapotherm 40.00 100 09/27/21 23:00 75 18 132/56 98 Vapotherm 40.00 100.00 09/27/21 22:52 35.6 09/27/21 22:30 97 Vapotherm 40.00 100 09/27/21 22:00 78 19 115/54 98 Vapotherm 40.00 100.00 09/27/21 21:45 Vapotherm 40.00 100.00 09/27/21 21:00 87 24 116/51 98 NIV Bilevel 100.00 09/27/21 20:00 Vapotherm 40.00 100 09/27/21 20:00 79 17 134/61 98 NIV Bilevel 100.00 09/27/21 19:36 36.3 09/27/21 19:02 94 Vapotherm 40.00 100 09/27/21 19:00 83 17 113/56 95 Vapotherm 40.00 100.00 09/27/21 19:00 82 09/27/21 18:00 80 23 117/86 98 Vapotherm 40.00 100.00 09/27/21 17:40 82 123/55 09/27/21 17:00 82 25 123/55 95 Vapotherm 40.00 100.00 09/27/21 16:01 Vapotherm 40.00 100 09/27/21 16:00 36.1 09/27/21 16:00 85 14 90/48 97 Vapotherm 40.00 100.00 09/27/21 15:00 73 28 116/65 92 Vapotherm 40.00 100.00 09/27/21 14:46 93 Vapotherm 40.00 100 09/27/21 14:00 69 28 103/50 95 Vapotherm 40.00 100.00 09/27/21 13:47 Vapotherm 40.00 100.00 09/27/21 13:00 68 26 107/46 91 Vapotherm 35.00 75.00 09/27/21 13:00 79 09/27/21 12:00 Vapotherm 35.00 75 09/27/21 12:00 76 35 118/68 94 Vapotherm 35.00 75.00 09/27/21 12:00 35.8 I & O 09/28/21 07:00 Intake Total 1250 ml Output Total 3300 ml Balance -2050 ml Height & Weight Height: 5'9.00" Weight: 160lbs. 6.0oz. 72.365772rt; 25.00 BMI Method:Stated General Appearance: Chronically ill, Moderate Distress, Thin, Other (Garcia) HEENT: Other (poor dentition) Respiratory: Accessory Muscle Use, Decreased Breath Sounds Cardiovascular: Regular Rate, Rhythm Capillary Refill: Less Than 3 Seconds Peripheral Pulses: 2+ Femoral (R), 2+ Femoral (L), 2+ Dorsalis Pedis (R), 2+ Left Dors-Pedis (L), 2+ Radial Pulses (R), 2+ Radial Pulses (L) Gastrointestinal: normal bowel sounds, non tender, soft, no organomegaly Extremity: No Pedal Edema Neurologic/Psychiatric: Alert, Disoriented Skin: Warm/Dry, Other (garcia-coloration) Results Lab Laboratory Tests 09/27/21 04:45 09/28/21 04:45 Assessment/Plan Assessment/Plan (Tele-ICU Physician , Progress Note ) Available chart/ vitals / labs / Images reviewed Discussed with RN , EXAM PER RN Events overnight : none Afebrile FiO2 - I/O = negative Pressors: , hemodynamically stable Hospital course: 09/19- intubated FOR AIRWAY PROTECTION , METH OD, LYDIA / RABDO 09/25 extubated , still confused. 12L, precedex 1.5 09/26 - CIWA strarted on VT 35L 80%, weak cough 09/27 - 35 L 75% 09/28 30 L 80 % A/P Acute respo failure - intubated 09/19 for airway protection -09/25 extubated , still confused. precedex 1.5 -post extubation 12L-->09/26 VT 35L 80% --weak cough, strarted on scheduled nebs , STOPED IVF < GENTLE DIURESIS TO CONT - CXR - PNA vs VO - OFF abx - WILL CHECK PCT neg 09/27 Unresponsiveness on presentation / ENCEPHALOPATHY - most likely OD - urin tox pos for meth/amphet - CT head 09/28 - no acute finfding , abnormal findings to follow latted - as per PCP- - will order to repeart CT with contrrast , might need MRI - 09/26 - CIWA strarted post extubation + precedex 1.5 - check ammonia LYDIA with Rhabdo - resolved Elevated transaminazes - -? shock liver , follow -> improved Possible infection , - sputum with H flu = FINISHED ABX - cxr with suspected PN A, hypoxia - neg PCT - ( MIGHT CONSIDER CARBAPEMNEM IF ELEVATED - flu and rapid covif NEG ETON abuse? - thiamine , CIWA Elv trop - in face of LYDIA - trending down Anemia - most likely delutional - follow Follow BS failed swallow 09/27 - NPO for now - ? will need OG and TF if no improvenment Lines : periph (Central Line Necessity Reviewed) Oquendo: 09/19 O/6 Nutrition: NPO today Analgesia: Anxiety/ delirium VTE Prophylaxis: heparinn sq Stress Ulcer Prophylaxis: ppi Plans in collaboration with bedside consultants and IM MDs. Discussed with RN to reach out if any questions or concerns A total of 38 minutes of critical care time was devoted to this patient today, required to treat and/or prevent further deterioration of critical care condition ( as above) . BENIGNO TORO MD Sep 28, 2021 11:04
[2021-09-28] MEDS ORDERED: NS 100 ML (IVPB) BAG IV ONE (11:30)
[2021-09-28] MEDS ORDERED: HOLD METFORMIN - RECEIVED CONTRAST 20 ML VIAL IV SCH (11:30)
[2021-09-28] MEDS ORDERED: IOHEXOL 350 MG/ML 100 ML (OMNIPAQUE 350) VIAL IV ONE (11:30)
[2021-09-28] MEDS ORDERED: POTASSIUM CL 10MEQ/50ML IVPB 50 ML IV ONE (19:15)
[2021-09-29] MEDS: RT-ALBUTEROL/IPRATROPIUM 3 ML (DUONEB) VIAL INH SCH ×6 (02:18→21:38)
[2021-09-29] MEDS: LORazepam INJ 2 MG/ML (ATIVAN) VIAL IV PRN ×3 (03:27→22:05)
[2021-09-29 03:42] LABS: BASOPHILS % (AUTO) 0 % (0-10); EOSINOPHILS # (AUTO) 0.1 10^3/uL (0.0-0.3); EOSINOPHILS % (AUTO) 2 % (0-10); HEMATOCRIT 30 % (40-54); HEMOGLOBIN 9.2 g/dL (13.3-17.7); LYMPHOCYTES # (AUTO) 1.1 10^3/uL (1.0-4.0); LYMPHOCYTES % (AUTO) 16 % (12-44); MEAN CORPUSCULAR HEMOGLOBIN 27 pg (25-34); MEAN CORPUSCULAR HGB CONC 31 g/dL (32-36); MEAN CORPUSCULAR VOLUME 87 fL (80-99); MEAN PLATELET VOLUME 10.7 fL (9.0-12.2); MONOCYTES # (AUTO) 0.5 10^3/uL (0.0-1.0); MONOCYTES % (AUTO) 7 % (0-12); NEUTROPHILS # (AUTO) 4.8 10^3/uL (1.8-7.8); NEUTROPHILS % (AUTO) 74 % (42-75); PLATELET COUNT 218 10^3/uL (130-400); WHITE BLOOD COUNT 6.5 10^3/uL (4.3-11.0)
[2021-09-29 03:53] LABS: POTASSIUM 3.7 MMOL/L (3.6-5.0)
[2021-09-29 03:54] LABS: CALCIUM 8.3 MG/DL (8.5-10.1)
[2021-09-29 03:58] LABS: PHOSPHORUS 2.2 MG/DL (2.3-4.7)
[2021-09-29 03:59] LABS: CREATININE SERUM 0.77 MG/DL (0.60-1.30)
[2021-09-29 04:01] LABS: MAGNESIUM 1.6 MG/DL (1.6-2.4)
[2021-09-29 04:18] LABS: ALBUMIN 2.4 GM/DL (3.2-4.5)
[2021-09-29 04:21] LABS: TOTAL PROTEIN 5.9 GM/DL (6.4-8.2)
[2021-09-29 04:23] LABS: BILIRUBIN,TOTAL 1.2 MG/DL (0.1-1.0)
[2021-09-29 04:27] LABS: BILIRUBIN,DIRECT 0.8 MG/DL (0.0-0.3); BILIRUBIN,INDIRECT 0.4 MG/DL
[2021-09-29] MEDS: MAGNESIUM 1 GM/100 ML IVPB 100 ML IV SCH ×3 (05:07→05:09)
[2021-09-29] MEDS: inSUlin ASPART (NovoLOG) 1 UNIT/0.01 ML (CHARGE PER UNIT) SC SCH ×3 (05:09→18:01)
[2021-09-29] MEDS: KCL 20 MEQ TAB (K-DUR) PO SCH (05:09)
[2021-09-29] MEDS: POTASSIUM CL 10MEQ/50ML IVPB 50 ML IV SCH (05:09)
[2021-09-29] MEDS: DexMEDEtomidine 250 ML DRIP 250 ML IV SCH ×2 (05:55→15:12)
--- NOTE | 2021-09-29 06:23 | Progress Note - Hospitalist ---
Subjective HPI/CC On Admission Date Seen by Provider: Sep 29, 2021 Time Seen by Provider: 10:00 Roman Jane is a 70 year old male who presented to the ER after being found down at his home. He was reportedly agitated, but alert and oriented on arrival. He was requiring supplemental oxygen. He was intoxicated on methamphetamine. He became less responsive and was intubated for airway protection. He was found to be in acute renal failure with rhabdomyolysis. Due to the severity of his renal failure, a transfer was attempted for hemodialysis. He had low urine output, hyperkalemia, and significantly elevated BUN/creatinine. He was treated with IV fluids and bicarbonate. No bed was able to be secured for transfer, but his renal function began to improve. Subjective/Events-last exam Patient declining Difficulty communicating with daughter Meropenem initiated due to fever Poor prognosis Review of Systems Neurological: Confusion Focused Exam Time of Focused Exam: 07:30 Objective Exam Vital Signs Vital Signs Date Time Temp Pulse Resp B/P (MAP) Pulse Ox O2 Delivery O2 Flow Rate FiO2 09/30/21 05:00 95 124/79 90 Vapotherm 25.00 100.00 09/30/21 03:00 33 09/30/21 02:46 100 09/30/21 02:00 37.2 Capillary Refill : Less Than 3 Seconds General Appearance: Anxious, Chronically ill, Mild Distress, Thin Respiratory: Accessory Muscle Use, Crackles, Decreased Breath Sounds, Rales, Wheezing Cardiovascular: Regular Rate, Rhythm Neurologic/Psychiatric: Alert, Disoriented Results/Procedures Lab Laboratory Tests 09/30/21 03:58 Patient resulted labs reviewed. Imaging: Reviewed Imaging Report Assessment/Plan Assessment and Plan Assess & Plan/Chief Complaint Assessment: LYDIA on CKD Acute tubular necrosis Rhabdomyolysis Acute respiratory failure with hypoxia Endotracheally intubated Pneumonia Methamphetamine abuse Elevated LFTs Hepatitis C antibody positive CK improving BUN/Cr improving Continue IV fluids Monitor I/O TeleICU following Monitor electrolytes Hep C RNA pending Social work consult DVT prophylaxis: Heparin Hyperkalemia, resolved Lactic acidosis, resolved Metabolic acidosis, resolved Hypernatremia, resolved 09/23/21: Supportive care Prognosis guarded DC [place] control search 09/24/21: Intubation Guarded prognosis 09/25/21: Monitor closely 09/26/21: Risk for re-intubation 09/28/2021: Prognosis poor Vapotherm maxed 09/29/2021: Poor prognosis Critical Care Critically Ill Patient GAIL GIRARD DO Sep 29, 2021 06:23
--- NOTE | 2021-09-29 07:39 | Diagnostic Imaging Report ---
CHEST 1 VIEW, AP/PA ONLY Indication: Hypoxia Comparison: 09/26/2021 Findings: Heterogeneous consolidations throughout the entire left lung and mid to lower right lung have not substantially changed. Stable chronic blunting of the bilateral costophrenic angles. No pneumothorax. Cardiac silhouette is normal in size. Impression: 1. No change in bilateral pulmonary opacities which are likely due to scar/fibrosis secondary to severe acute lung injury. Dictated by: Dictated on workstation # [id number]
[2021-09-29] MEDS: PANTOPRAZOLE 40 MG (PROTONIX) VIAL IV SCH (09:50)
[2021-09-29] MEDS: LACRI-LUBE OPTHALMIC OINT 3.5 GM TUBE OU SCH ×2 (09:50→22:05)
[2021-09-29] MEDS: ACETAMINOPHEN 650 MG SUPP (TYLENOL) PR PRN (10:14)
[2021-09-29] MEDS ORDERED: BUMETANIDE 1 MG/4 ML (BUMEX) VIAL IV NR (10:30)
--- NOTE | 2021-09-29 10:54 | Tele-ICU Progress Note ---
Subjective Date Seen by a Provider: Sep 29, 2021 Time Seen by a Provider: 10:54 Sepsis Event Evaluation Height, Weight, BMI Height: 5'9.00" Weight: 160lbs. 6.0oz. 72.661960pc; 25.00 BMI Method:Stated Focused Exam Time of Focused Exam: 07:30 Exam Exam Patient acknowledged, consented, and participated in this virtual visit which was conducted using real time audio/video Vital Signs Date Time Temp Pulse Resp B/P (MAP) Pulse Ox O2 Delivery O2 Flow Rate FiO2 09/29/21 10:39 92 Vapotherm 25.00 80 09/29/21 10:17 Vapotherm 25.00 100.00 09/29/21 10:14 39.0 09/29/21 10:00 86 128/57 92 Vapotherm 25.00 80.00 09/29/21 09:48 39.0 09/29/21 09:00 84 130/60 92 Vapotherm 25.00 80.00 09/29/21 08:16 84 120/55 89 Vapotherm 25.00 80.00 09/29/21 07:54 89 Vapotherm 25.00 80 09/29/21 07:18 89 Vapotherm 25.00 80 09/29/21 07:00 82 119/55 89 Vapotherm 25.00 80.00 09/29/21 07:00 84 09/29/21 06:00 83 26 125/56 90 Vapotherm 25.00 80.00 09/29/21 05:55 84 127/54 09/29/21 05:00 84 26 127/54 90 Vapotherm 25.00 80.00 09/29/21 04:00 37.6 Vapotherm 25.00 80.00 09/29/21 04:00 95 Vapotherm 25.00 80 09/29/21 04:00 90 28 115/51 92 Vapotherm 25.00 80.00 09/29/21 03:00 84 26 125/60 90 Vapotherm 25.00 80.00 09/29/21 02:18 94 Vapotherm 25.00 80 09/29/21 02:00 80 27 115/51 92 Vapotherm 25.00 80.00 09/29/21 01:00 80 09/29/21 01:00 79 36 115/54 94 Vapotherm 25.00 80.00 09/29/21 00:00 37.1 Vapotherm 25.00 80.00 09/29/21 00:00 77 28 115/51 95 Vapotherm 25.00 80.00 09/28/21 23:59 95 Vapotherm 25.00 80 09/28/21 23:00 85 32 111/55 94 Vapotherm 25.00 80.00 09/28/21 22:49 95 Vapotherm 25.00 80 09/28/21 22:00 79 34 109/49 94 Vapotherm 25.00 80.00 09/28/21 21:03 76 115/54 09/28/21 21:00 80 26 105/48 94 Vapotherm 25.00 80.00 09/28/21 20:00 95 Vapotherm 25.00 80 09/28/21 20:00 37.4 Vapotherm 25.00 80.00 09/28/21 20:00 82 25 124/57 95 Vapotherm 25.00 80.00 09/28/21 19:06 95 Vapotherm 25.00 80 09/28/21 19:00 81 09/28/21 19:00 81 35 109/52 95 Vapotherm 25.00 80.00 09/28/21 18:00 93 126/84 92 Vapotherm 25.00 80.00 09/28/21 17:00 84 32 124/61 95 Vapotherm 25.00 80.00 09/28/21 16:21 93 Vapotherm 25.00 80 09/28/21 16:00 87 129/63 95 Vapotherm 25.00 80.00 09/28/21 15:00 90 11 136/66 94 Vapotherm 25.00 80.00 09/28/21 14:32 Vapotherm 25.00 80.00 09/28/21 14:31 96 25.00 80 09/28/21 14:30 97 Vapotherm 30.00 90 09/28/21 14:00 88 31 130/61 97 Vapotherm 30.00 90.00 09/28/21 13:00 84 23 126/64 96 Vapotherm 30.00 90.00 09/28/21 12:41 87 09/28/21 12:00 94 Vapotherm 30.00 90 09/28/21 12:00 91 31 112/31 95 Vapotherm 30.00 90.00 09/28/21 11:36 94 115/58 09/28/21 11:27 36.6 09/28/21 11:00 94 33 115/58 89 Vapotherm 30.00 90.00 I & O 09/29/21 07:00 Intake Total 1650 ml Output Total 1300 ml Balance 350 ml Height & Weight Height: 5'9.00" Weight: 160lbs. 6.0oz. 72.737447iy; 25.00 BMI Method:Stated General Appearance: WD/WN, Anxious, Chronically ill, Mild Distress, Other (Very end-stage appearance) HEENT: Other (poor dentition) Respiratory: No Respiratory Distress, Accessory Muscle Use, Decreased Breath Sounds, Rales, Wheezing Cardiovascular: Regular Rate, Rhythm Capillary Refill: Less Than 3 Seconds Peripheral Pulses: 2+ Femoral (R), 2+ Femoral (L), 2+ Dorsalis Pedis (R), 2+ Left Dors-Pedis (L), 2+ Radial Pulses (R), 2+ Radial Pulses (L) Gastrointestinal: normal bowel sounds, non tender, soft, no organomegaly Extremity: No Pedal Edema Neurologic/Psychiatric: Alert, Disoriented Skin: Warm/Dry, Other (cortes-coloration) Results Lab Laboratory Tests 09/28/21 04:45 09/28/21 18:42 09/29/21 03:34 Assessment/Plan Assessment/Plan (Tele-ICU Physician , Progress Note ) Available chart/ vitals / labs / Images reviewed Discussed with RN , EXAM PER RN Events overnight : none Afebrile FiO2 - I/O = negative Pressors: , hemodynamically stable Hospital course: 09/19- intubated FOR AIRWAY PROTECTION , METH OD, LYDIA / RABDO 09/25 extubated , still confused. 12L, precedex 1.5 09/26 - CIWA strarted on VT 35L 80%, weak cough 09/27 - 35 L 75% 09/28 30 L 80 % 09/29 - NEW FEVER -MERREM started , 100 fio2 A/P Acute respo failure - intubated 09/19 for airway protection -09/25 extubated , on 100 % fio2 with new fever - Merrem started 09/29 - FULL CODE as per family - monitor for intubnation needs Unresponsiveness on presentation / ENCEPHALOPATHY - most likely OD - urin tox pos for meth/amphet - CT head 09/28 - no acute finfding , abnormal findings to follow latted - as per PCP- - might need to repeart CT with contrrast , might need MRI - 09/26 - CIWA strarted post extubation + precedex 1.5, neg ammonia LYDIA with Rhabdo - resolved Elevated transaminazes - -? shock liver , follow -> improved ID - sputum with H flu = FINISHED ABX - merrem 09/29 ( new fever) - flu and rapid covif NEG ETON abuse? - thiamine , CIWA Elv trop - in face of LYDIA - trending down Anemia - most likely delutional - follow Follow BS failed swallow 09/27 - NPO for now - ? will need OG and TF if no improvenment Lines : periph (Central Line Necessity Reviewed) Oquendo: 09/19 O/6 Nutrition: NPO today Analgesia: Anxiety/ delirium VTE Prophylaxis: heparinn sq Stress Ulcer Prophylaxis: ppi Plans in collaboration with bedside consultants and IM MDs. Discussed with RN to reach out if any questions or concerns A total of 38 minutes of critical care time was devoted to this patient today, required to treat and/or prevent further deterioration of critical care condition ( as above) . BENIGNO TORO MD Sep 29, 2021 10:54
[2021-09-29] MEDS: MEROPENEM 1,000 MG in NS (IVPB) 100 ML IV SCH ×2 (11:29→18:32)
[2021-09-29 12:08] LABS: ABG OXYGEN SATURATION 95 % (94-100); ABG PCO2 47 MMHG (35-45); ABG PH 7.44 (7.37-7.43); ABG PO2 75 MMHG (79-93); ABG TCO2 32.3 MMOL/L (21.0-31.0)
[2021-09-29 12:09] LABS: ALLENS TEST YES-POS; INSPIRED O2 25L 100%; PATIENT TEMP 101.4; VENTILATOR NO
[2021-09-29] MEDS: ZIPRASIDONE 20 MG INJ (GEODON) VIAL IM PRN (18:32)
[2021-09-29] MEDS: WATER (STERILE) FOR INJ 10 ML BTL INJ SCH (18:32)
[2021-09-30] MEDS: inSUlin ASPART (NovoLOG) 1 UNIT/0.01 ML (CHARGE PER UNIT) SC SCH ×4 (00:29→17:21)
[2021-09-30] MEDS: DexMEDEtomidine 250 ML DRIP 250 ML IV SCH ×3 (00:30→22:00)
[2021-09-30] MEDS: RT-ALBUTEROL/IPRATROPIUM 3 ML (DUONEB) VIAL INH SCH ×6 (02:45→21:47)
[2021-09-30] MEDS: MEROPENEM 1,000 MG in NS (IVPB) 100 ML IV SCH ×3 (02:57→18:03)
[2021-09-30] MEDS: LORazepam INJ 2 MG/ML (ATIVAN) VIAL IV PRN ×3 (03:51→08:12)
[2021-09-30 04:07] LABS: BASOPHILS % (AUTO) 0 % (0-10); EOSINOPHILS # (AUTO) 0.1 10^3/uL (0.0-0.3); EOSINOPHILS % (AUTO) 1 % (0-10); HEMATOCRIT 29 % (40-54); HEMOGLOBIN 8.9 g/dL (13.3-17.7); LYMPHOCYTES # (AUTO) 1.2 10^3/uL (1.0-4.0); LYMPHOCYTES % (AUTO) 15 % (12-44); MEAN CORPUSCULAR HEMOGLOBIN 27 pg (25-34); MEAN CORPUSCULAR HGB CONC 31 g/dL (32-36); MEAN CORPUSCULAR VOLUME 88 fL (80-99); MEAN PLATELET VOLUME 10.8 fL (9.0-12.2); MONOCYTES # (AUTO) 0.6 10^3/uL (0.0-1.0); MONOCYTES % (AUTO) 7 % (0-12); NEUTROPHILS # (AUTO) 6.3 10^3/uL (1.8-7.8); NEUTROPHILS % (AUTO) 76 % (42-75); PLATELET COUNT 206 10^3/uL (130-400); WHITE BLOOD COUNT 8.3 10^3/uL (4.3-11.0)
[2021-09-30 04:15] LABS: POTASSIUM 3.2 MMOL/L (3.6-5.0)
[2021-09-30 04:16] LABS: CALCIUM 8.1 MG/DL (8.5-10.1)
[2021-09-30 04:20] LABS: PHOSPHORUS 2.8 MG/DL (2.3-4.7)
[2021-09-30 04:21] LABS: CREATININE SERUM 0.8 MG/DL (0.60-1.30)
[2021-09-30 04:23] LABS: MAGNESIUM 1.7 MG/DL (1.6-2.4)
[2021-09-30] MEDS: MAGNESIUM 1 GM/100 ML IVPB 100 ML IV SCH ×2 (05:48→09:05)
[2021-09-30] MEDS: POTASSIUM CL 10MEQ/50ML IVPB 50 ML IV SCH ×3 (05:48→08:11)
[2021-09-30] MEDS: KCL 20 MEQ TAB (K-DUR) PO SCH (05:48)
[2021-09-30] MEDS: LACRI-LUBE OPTHALMIC OINT 3.5 GM TUBE OU SCH ×2 (08:12→22:12)
[2021-09-30] MEDS: PANTOPRAZOLE 40 MG (PROTONIX) VIAL IV SCH (08:12)
[2021-09-30] MEDS: WATER (STERILE) FOR INJ 10 ML BTL INJ SCH (09:04)
[2021-09-30] MEDS: ZIPRASIDONE 20 MG INJ (GEODON) VIAL IM PRN ×2 (09:04→22:10)
--- NOTE | 2021-09-30 09:54 | Tele-ICU Progress Note ---
Subjective Date Seen by a Provider: Sep 30, 2021 Time Seen by a Provider: 08:05 Subjective/Events-last exam This virtual visit was conducted using real time audio/video. Thank you for asking us to see this patient for respiratory insufficiency due to pna. Also Meth/EtOH abuse, rhabdo. Recent events: None overnight. PE: Appears comfortable on camera. VSS. O2 sat 95% on VT 100%. HEENT: No obvious masses, adenopathy or JVD. Chest: coarse wheezes. CV: RRR S1 S2 No murmur or added sounds. Abd: Non-tender. Bowel sounds Y. : Unremarkable. Oquendo Y. GRINDER LAP/psychiatric: Grossly intact. No obvious focal findings. Extremities: 1+ edema. Capillary refill < 3 seconds. Skin: unremarkable. Results: Elevated Na 152. Decreased K 3.2. BG: &.44/47/55. CXR: B infilts, unchanged. Available chart/ vitals / labs / images reviewed. Video assessment done using teleICU camera, rest of exam as per RN. A/P: Respiratory insufficiency: Continue present management with Vapotherm, BDs. Monitor for increasing oxygenation needs and/or need for intubation. Critical Care: critically ill patient. Cont. CIWA, Merrem, Thiamine, Hep., PPI, SSI,Geodon. Discussed with RN Chrissy. Pt too ill to transfer currently.Asked RN to reach out to eICU if any questions or concerns later. Time spent with patient/coordination of care with other health professionals (mins): 20 Sepsis Event Evaluation Height, Weight, BMI Height: 5'9.00" Weight: 160lbs. 6.0oz. 72.026245bc; 25.00 BMI Method:Stated Focused Exam Time of Focused Exam: 07:30 Exam Exam Patient acknowledged, consented, and participated in this virtual visit which was conducted using real time audio/video Vital Signs Date Time Temp Pulse Resp B/P (MAP) Pulse Ox O2 Delivery O2 Flow Rate FiO2 09/30/21 09:20 92 125/64 09/30/21 09:00 92 43 125/64 94 Vapotherm 25.00 100.00 09/30/21 08:42 95 Vapotherm 25.00 100 09/30/21 08:00 94 44 127/59 95 Vapotherm 25.00 100.00 09/30/21 08:00 37.6 1/17/22 07:04 93 Vapotherm 25.00 100 09/30/21 07:00 83 09/30/21 07:00 87 29 128/60 93 Vapotherm 25.00 100.00 09/30/21 06:00 85 143/64 91 Vapotherm 25.00 100.00 09/30/21 05:00 95 124/79 90 Vapotherm 25.00 100.00 09/30/21 04:00 87 118/74 92 Vapotherm 25.00 100.00 09/30/21 04:00 95 High Flow N/C 25.00 100 09/30/21 04:00 37.9 Vapotherm 25.00 100.00 09/30/21 03:00 80 33 115/77 92 Vapotherm 25.00 100.00 09/30/21 02:46 95 Vapotherm 25.00 100 09/30/21 02:00 75 27 115/45 95 Vapotherm 25.00 100.00 09/30/21 02:00 37.2 Vapotherm 25.00 100.00 09/30/21 01:00 81 09/30/21 01:00 81 127/56 97 Vapotherm 25.00 100.00 09/30/21 00:30 97 130/59 09/30/21 00:00 80 29 131/53 97 NIV Bilevel 25.00 100.00 09/30/21 00:00 37.6 Vapotherm 25.00 100.00 09/29/21 23:59 95 High Flow N/C 25.00 100 09/29/21 23:00 80 28 118/57 97 NIV Bilevel 50.00 09/29/21 22:00 85 34 133/54 97 NIV Bilevel 50.00 09/29/21 21:38 96 Vapotherm 25.00 100 09/29/21 21:00 87 121/56 95 NIV Bilevel 50.00 09/29/21 20:00 89 125/67 97 NIV Bilevel 50.00 09/29/21 20:00 95 High Flow N/C 25.00 100 09/29/21 20:00 37.0 09/29/21 19:00 82 18 113/76 97 NIV Bilevel 50.00 09/29/21 19:00 82 09/29/21 18:57 92 Vapotherm 25.00 100 09/29/21 18:00 77 36 122/57 92 NIV Bilevel 50.00 09/29/21 17:00 80 118/64 96 NIV Bilevel 50.00 09/29/21 16:00 95 NIV Bilevel 50 09/29/21 16:00 74 18 112/50 94 NIV Bilevel 50.00 09/29/21 15:12 76 102/47 09/29/21 15:08 NIV Bilevel 50.00 09/29/21 15:00 77 26 104/47 93 NIV Bilevel 100.00 09/29/21 14:35 76 34 95 70.00 09/29/21 14:00 75 27 102/47 97 NIV Bilevel 100.00 09/29/21 13:00 75 39 110/54 97 NIV Bilevel 100.00 09/29/21 12:47 81 09/29/21 12:45 89 Vapotherm 25.00 100 09/29/21 12:40 NIV Bilevel 100.00 09/29/21 12:00 81 19 114/56 92 Vapotherm 25.00 100.00 09/29/21 11:23 38.1 09/29/21 11:00 83 17 114/54 92 Vapotherm 25.00 100.00 09/29/21 10:39 92 Vapotherm 25.00 80 09/29/21 10:17 Vapotherm 25.00 100.00 09/29/21 10:14 39.0 09/29/21 10:00 86 128/57 92 Vapotherm 25.00 80.00 09/29/21 09:48 39.0 I & O 09/30/21 07:00 Intake Total 0 ml Output Total 2675 ml Balance -2675 ml Height & Weight Height: 5'9.00" Weight: 160lbs. 6.0oz. 72.336201ll; 25.00 BMI Method:Stated General Appearance: Anxious, Chronically ill, Mild Distress, Thin HEENT: Other (poor dentition) Respiratory: Accessory Muscle Use, Crackles, Decreased Breath Sounds, Rales, Wheezing Cardiovascular: Regular Rate, Rhythm Capillary Refill: Less Than 3 Seconds Peripheral Pulses: 2+ Femoral (R), 2+ Femoral (L), 2+ Dorsalis Pedis (R), 2+ Left Dors-Pedis (L), 2+ Radial Pulses (R), 2+ Radial Pulses (L) Gastrointestinal: normal bowel sounds, non tender, soft, no organomegaly Extremity: No Pedal Edema Neurologic/Psychiatric: Alert, Disoriented Skin: Warm/Dry, Other (cortes-coloration) Results Lab Laboratory Tests 09/28/21 18:42 09/29/21 03:34 09/30/21 03:58 Assessment/Plan Assessment/Plan See free text. Critical Care: Critically Ill Patient ALEKSEY MOLINA MD Sep 30, 2021 09:54
[2021-09-30] MEDS: risperiDONE 1 MG (RisperDAL) TAB PO SCH ×2 (10:44→22:06)
[2021-09-30] MEDS: D5W 1000 ML IV SOLUTION 1,000 ML IV SCH ×2 (10:52→21:00)
[2021-09-30] MEDS: HALOPERIDOL 5 MG/ML (HALDOL) VIAL IM PRN ×3 (13:00→20:43)
[2021-09-30] MEDS ORDERED: FUROSEMIDE 40 MG/4 ML INJ (LASIX) ONE (13:09)
[2021-09-30] MEDS ORDERED: FUROSEMIDE 40 MG/4 ML INJ (LASIX) IVP ONE (13:15)
--- NOTE | 2021-09-30 19:20 | Progress Note - Hospitalist ---
Subjective HPI/CC On Admission Date Seen by Provider: Sep 30, 2021 Time Seen by Provider: 09:50 Roman Jane is a 70 year old male who presented to the ER after being found down at his home. He was reportedly agitated, but alert and oriented on arrival. He was requiring supplemental oxygen. He was intoxicated on methamphetamine. He became less responsive and was intubated for airway protection. He was found to be in acute renal failure with rhabdomyolysis. Due to the severity of his renal failure, a transfer was attempted for hemodialysis. He had low urine output, hyperkalemia, and significantly elevated BUN/creatinine. He was treated with IV fluids and bicarbonate. No bed was able to be secured for transfer, but his renal function began to improve. Subjective/Events-last exam He is following commands. He opens his eyes but is not tracking. He says his name. He knows he is in the hospital. He squeezes his fingers and wiggles his toes. Focused Exam Time of Focused Exam: 07:30 Objective Exam Vital Signs Vital Signs Date Time Temp Pulse Resp B/P (MAP) Pulse Ox O2 Delivery O2 Flow Rate FiO2 09/30/21 18:56 97 Vapotherm 25.00 100 09/30/21 18:00 93 24 125/53 09/30/21 16:38 36.9 Capillary Refill : Less Than 3 Seconds General Appearance: No Apparent Distress, Chronically ill HEENT: PERRL/EOMI Respiratory: No Respiratory Distress, Rhonci Cardiovascular: Regular Rate, Rhythm, No Murmur Gastrointestinal: Normal Bowel Sounds, Soft Extremity: No Inflammation; Pedal Edema Neurologic/Psychiatric: Alert, No Motor/Sensory Deficits, Disoriented Skin: Normal Color, Warm/Dry Results/Procedures Lab Laboratory Tests 09/30/21 03:58 Patient resulted labs reviewed. Imaging: Reviewed Imaging Report Assessment/Plan Assessment and Plan Assess & Plan/Chief Complaint Acute respiratory failure with hypoxia PNA Vapotherm Merrem Add Lasix TeleICU following Delirium Agitation Dysphagia Debility Add Risperdal Haldol as needed Decrease Geodon Speech/swallow evaluation PT/OT Hypernatremia Begin D5W Methamphetamine abuse Hepatitis C DVT prophylaxis: Lovenox LYDIA on CKD, resolved Acute tubular necrosis, resolved Rhabdomyolysis, resolved Endotracheally intubated, resolved Pneumonia, resolved Hyperkalemia, resolved Lactic acidosis, resolved Metabolic acidosis, resolved Elevated LFTs, resolved Critical Care Critically Ill Patient Diagnosis/Problems Diagnosis/Problems (1) Acute kidney injury superimposed on chronic kidney disease Status: Acute (2) ATN (acute tubular necrosis) Status: Acute (3) Lactic acidosis Status: Resolved Resolution Date/Time: 09/21/21 @ 18:43 (4) Hypernatremia Status: Acute (5) Metabolic acidosis Status: Resolved Resolution Date/Time: 09/21/21 @ 18:43 (6) PNA (pneumonia) Status: Acute (7) Endotracheally intubated Status: Acute (8) Methamphetamine abuse Status: Acute (9) Acute hepatitis Status: Acute (10) Rhabdomyolysis Status: Acute Qualifiers: Rhabdomyolysis type: non-traumatic Qualified Codes: M62.82 - Rhabdomyolysis (11) Multiorgan failure Status: Acute (12) Hyperkalemia Status: Resolved Resolution Date/Time: 09/21/21 @ 18:43 (13) Acute respiratory failure with hypoxia Status: Acute (14) Hepatitis C antibody positive in blood Status: Acute (15) Delirium Status: Acute (16) Agitation Status: Acute (17) Debility Status: Acute (18) Dysphagia Status: Acute CARLEEN GROSSMAN MD Sep 30, 2021 19:20
[2021-09-30] MEDS: ENOXAPARIN 40 MG/0.4 ML (LOVENOX) SYR SC SCH (22:12)
[2021-10-01] MEDS: RT-ALBUTEROL/IPRATROPIUM 3 ML (DUONEB) VIAL INH SCH ×6 (02:38→21:29)
[2021-10-01] MEDS: MEROPENEM 1,000 MG in NS (IVPB) 100 ML IV SCH ×3 (03:31→18:15)
[2021-10-01 03:58] LABS: BASOPHILS % (AUTO) 0 % (0-10); EOSINOPHILS # (AUTO) 0.2 10^3/uL (0.0-0.3); EOSINOPHILS % (AUTO) 2 % (0-10); HEMATOCRIT 28 % (40-54); HEMOGLOBIN 8.5 g/dL (13.3-17.7); LYMPHOCYTES # (AUTO) 0.9 10^3/uL (1.0-4.0); LYMPHOCYTES % (AUTO) 11 % (12-44); MEAN CORPUSCULAR HEMOGLOBIN 27 pg (25-34); MEAN CORPUSCULAR HGB CONC 30 g/dL (32-36); MEAN CORPUSCULAR VOLUME 90 fL (80-99); MEAN PLATELET VOLUME 10.7 fL (9.0-12.2); MONOCYTES # (AUTO) 0.6 10^3/uL (0.0-1.0); MONOCYTES % (AUTO) 7 % (0-12); NEUTROPHILS # (AUTO) 6.1 10^3/uL (1.8-7.8); NEUTROPHILS % (AUTO) 79 % (42-75); PLATELET COUNT 216 10^3/uL (130-400); WHITE BLOOD COUNT 7.7 10^3/uL (4.3-11.0)
[2021-10-01 04:08] LABS: POTASSIUM 2.9 MMOL/L (3.6-5.0)
[2021-10-01 04:09] LABS: CALCIUM 7.6 MG/DL (8.5-10.1)
[2021-10-01 04:13] LABS: CREATININE SERUM 0.76 MG/DL (0.60-1.30); PHOSPHORUS 2.7 MG/DL (2.3-4.7)
[2021-10-01 04:16] LABS: MAGNESIUM 1.6 MG/DL (1.6-2.4)
[2021-10-01] MEDS: ZIPRASIDONE 20 MG INJ (GEODON) VIAL IM PRN ×3 (04:38→20:17)
[2021-10-01] MEDS: MAGNESIUM 1 GM/100 ML IVPB 100 ML IV SCH ×3 (05:32→06:47)
[2021-10-01] MEDS: KCL 20 MEQ TAB (K-DUR) PO SCH (05:32)
[2021-10-01] MEDS: POTASSIUM CL 10MEQ/50ML IVPB 50 ML IV SCH ×9 (05:32→17:18)
[2021-10-01] MEDS: D5W 1000 ML IV SOLUTION 1,000 ML IV SCH ×2 (05:33→17:20)
[2021-10-01] MEDS: inSUlin ASPART (NovoLOG) 1 UNIT/0.01 ML (CHARGE PER UNIT) SC SCH ×5 (05:33→23:51)
[2021-10-01] MEDS ORDERED: POTASSIUM CL 10MEQ/50ML IVPB 50 ML IV ONE (05:45)
[2021-10-01] MEDS: DexMEDEtomidine 250 ML DRIP 250 ML IV SCH ×2 (08:13→17:21)
[2021-10-01] MEDS: PANTOPRAZOLE 40 MG (PROTONIX) VIAL IV SCH (08:41)
[2021-10-01] MEDS: LACRI-LUBE OPTHALMIC OINT 3.5 GM TUBE OU SCH ×2 (08:41→21:03)
[2021-10-01] MEDS: FUROSEMIDE 40 MG/4 ML INJ (LASIX) IVP SCH (08:41)
[2021-10-01] MEDS: risperiDONE 1 MG (RisperDAL) TAB PO SCH ×2 (08:41→21:03)
--- NOTE | 2021-10-01 08:50 | Physical Therapy Evaluation ---
PT Evaluation-General Medical Diagnosis Admission Date Sep 21, 2021 at 08:00 Medical Diagnosis: ARF, Rhabdo, Hemodialysis, Meth use, Hep C Onset Date: Sep 21, 2021 Therapy Diagnosis Therapy Diagnosis: Gait deficit, strength deficit Height/Weight Height (Feet): 5 Height (Inches): 9.00 Weight (Pounds): 160 Weight (Ounces): 6.0 Precautions Precautions/Isolations: Aspiration, Fall Prevention, Standard Precautions, Pressure Ulcer Referral Physician: Dr. Valdovinos Reason for Referral: Evaluation/Treatment Medical History Reviewed History: Yes Social History Home: Single Level Current Living Status: Alone Entry Into Home: Stairs With Railing PT Steps Into Home: 5 Prior Prior Level of Function SCALE: Activities may be completed with or without assistive devices. 7-Hikavnjaii-ryaqgiq completes the activity by him/herself with no assistance from a helper. 5-Set-up or Clean-up Assistance-helper sets up or cleans up; patient completes activity. [place] assists only prior to or following the activity. 4-Supervision or Touching Assistance-helper provides verbal cues and/or touching/steadying and/or contact guard assistance as patient completes activity. Assistance may be provided throughout the activity or intermittently. 3-Partial/Moderate Assistance-helper does LESS THAN HALF the effort. [place] lifts, holds or supports trunk or limbs, but provides less than half the effort. 2-Substantial/Maximal Assistance-helper does MORE THAN HALF the effort. [place] lifts or holds trunk or limbs and provides more than half the effort. 7-Mjwlyavhi-afmwgf does ALL the effort. Patient does none of the effort to complete the activity. Or, the assistance of 2 or more helpers is required for the patient to complete the activity. If activity was not attempted, code reason: 7-Patient Refused. 9-Not Applicable-not attempted and the patient did not perform the activity before the current illness, exacerbation or injury. 10-Not Attempted due to Environmental Limitations-(lack of equipment, weather restraints, etc.). 88-Not Attempted due to Medical Conditions or Safety Concerns. Bed Mobility: 6 Transfers (B,C,W/C): 6 Gait: 6 Stairs: 6 Indoor Mobility (Ambulation): Independent Stairs: Independent Prior Devices Use: None PT Evaluation-Current Subjective Patient lying supine in bed upon PT arrival, agreeable to treatment. Nurse gives approval as well. Patient demonstrates difficulty speaking, however was able to enunciate some words that were understandable. ROM/Strength ROM Lower Extremities Bilateral LEs WFLs with PROM, Patient unable to fully follow commands to determine AROM. Strength Lower Extremities 3/5 Bilaterally all planes based upon visual observation as patient does not follow commands to accurately test MMT Neuromuscular (Tone, Coordination, Reflexes) Tone appears minimally decreased but otherwise normal, coordination impaired in BLEs. Sensory Vision: Functional Hearing: Functional Sensation Right Lower Extremit: Impaired Sensation Left Lower Extremity: Impaired Transfers Roll Left to Right (QC): 2 Sit to Lying (QC): 1 Lying to Sitting/Side of Bed(Q: 1 Sit to Stand (QC): 1 Gait Does the Patient Walk?: No and Walking Goal IS indicated Mode of Locomotion: Walk Anticipated Mode of Locomotion: Walk Balance Sitting Static: Poor Sitting Dynamic: Poor Standing Static: Poor Standing Dynamic: Poor Assessment/Needs Patient tolerated treatment fair, however demonstrates difficulty following commands to fully participate. Majority of the eval was passively, however patient did attempt to participate to his limits. Patient performs all bed mobility with Max assistance and all observed transfers with dependence. Patient received BLE PROM/AAROM to LEs prior to mobilizing and he reports his LEs "feel tight." Patient was able to sit at the edge of the bed ~ 2 minutes with total dependence. He tends to lean posteriorly and to the left. Patient requires total dependence to return to bed. Patient in bed post treatment with all needs met, nursing notified, call light in reach and nurse in the room. Rehab Potential: Poor PT Short Term Goals Short Term Goals Time Frame: Oct 11, 2021 Roll Left & Right: 3 Sit to lyin Lying to sitting on side of be: 3 Sit to stand: 3 Chair/xre-ii-eeukc transfer: 3 Toilet transfer: 3 Walk 10 feet: 2 PT Allergy Nurse Goals Mcfp Goals PT Allergy Nurse Goals Time Frame: Oct 25, 2021 Roll Left & Right (QC): 4 Sit to Lying (QC): 4 Lying-Sitting on Side/Bed(QC): 4 Sit to Stand (QC): 4 Chair/Npo-fo-Swbyd Xfer(QC): 4 Toilet Transfer (QC): 4 Car Transfer (QC): 4 Does the Patient Walk: Yes Walk 10 feet (QC): 4 Walk 50ft with 2 Turns (QC): 3 Walk 150 ft (QC): 3 PT Plan Problem List Problem List: Activity Tolerance, Functional Strength, Safety Treatment/Plan Treatment Plan: Continue Plan of Care Treatment Plan: Bed Mobility, Education, Functional Activity Kaia, Functional Strength, Group Therapy, Gait, Safety, Therapeutic Exercise, Transfers Treatment Duration: Nov 11, 2021 Frequency: 6 times per week Estimated Hrs Per Day: .25 hour per day Safety Risks/Education Patient Education: Transfer Techniques, Safety Issues Teaching Recipient: Patient Teaching Methods: Demonstration, Discussion Response to Teaching: Reinforcement Needed Discharge Recommendations Target Placement Post acute placement recommended. Time/GCodes Time In: 816 Time Out: 842 Total Billed Treatment Time: 26 Total Billed Treatment Visit, stephanie Carlisle JOHN A PT Oct 01, 2021 08:50
[2021-10-01] MEDS ORDERED: MIDAZOLAM 5 MG/5 ML (VERSED) VIAL IVP NR (10:15)
--- NOTE | 2021-10-01 10:55 | Tele-ICU Progress Note ---
Subjective Date Seen by a Provider: Oct 01, 2021 Time Seen by a Provider: 09:53 Sepsis Event Evaluation Height, Weight, BMI Height: 5'9.00" Weight: 160lbs. 6.0oz. [id number]; 25.00 BMI Method:Stated Focused Exam Time of Focused Exam: 07:30 Exam Exam Patient acknowledged, consented, and participated in this virtual visit which was conducted using real time audio/video Vital Signs Date Time Temp Pulse Resp B/P (MAP) Pulse Ox O2 Delivery O2 Flow Rate FiO2 10/01/21 09:47 Vapotherm 30.00 90.00 10/01/21 09:00 86 29 122/63 100 Vapotherm 40.00 100.00 10/01/21 08:13 74 101/52 10/01/21 08:00 91 38 104/54 90 Vapotherm 40.00 100.00 10/01/21 08:00 90 Vapotherm 40.00 100 10/01/21 07:44 36.5 10/01/21 07:43 Vapotherm 40.00 100.00 10/01/21 07:41 91 10/01/21 07:27 Vapotherm 40.00 100.00 10/01/21 07:00 88 54 141/64 93 Vapotherm 25.00 90.00 10/01/21 06:56 94 Vapotherm 25.00 90 10/01/21 06:00 74 37 101/52 95 Vapotherm 25.00 90.00 10/01/21 05:00 70 23 114/53 97 Vapotherm 25.00 90.00 10/01/21 04:00 36.5 10/01/21 04:00 77 36 110/42 Vapotherm 25.00 90.00 10/01/21 04:00 90 Vapotherm 25.00 100 10/01/21 03:00 73 26 120/49 94 Vapotherm 25.00 90.00 10/01/21 02:37 95 Vapotherm 25.00 90 10/01/21 02:00 86 28 108/49 95 Vapotherm 25.00 90.00 10/01/21 01:00 86 10/01/21 01:00 86 135/69 94 Vapotherm 25.00 90.00 10/01/21 00:00 90 26 125/61 92 Vapotherm 25.00 90.00 10/01/21 00:00 38.0 09/30/21 23:59 90 Vapotherm 25.00 100 09/30/21 23:00 101 133/55 94 Vapotherm 25.00 90.00 09/30/21 22:00 93 133/116 95 Vapotherm 25.00 90.00 09/30/21 22:00 93 110/95 09/30/21 21:47 99 Vapotherm 25.00 100 09/30/21 21:00 92 21 133/58 97 Vapotherm 25.00 90.00 09/30/21 20:14 37.4 09/30/21 20:00 90 Vapotherm 25.00 100 09/30/21 20:00 91 22 115/72 97 Vapotherm 25.00 90.00 09/30/21 19:00 89 09/30/21 19:00 89 37 126/59 96 Vapotherm 25.00 90.00 09/30/21 18:56 97 Vapotherm 25.00 100 09/30/21 18:00 93 24 125/53 93 Vapotherm 25.00 100.00 09/30/21 17:00 92 26 118/65 97 Vapotherm 25.00 100.00 09/30/21 16:38 36.9 09/30/21 16:00 93 22 104/68 94 Vapotherm 25.00 100.00 09/30/21 15:07 90 Vapotherm 25.00 100 09/30/21 15:03 95 Vapotherm 25.00 100 09/30/21 15:00 90 37 110/55 96 Vapotherm 25.00 100.00 09/30/21 14:06 37.5 09/30/21 14:00 89 30 122/56 99 Vapotherm 25.00 100.00 09/30/21 13:00 101 28 126/71 95 Vapotherm 25.00 100.00 09/30/21 12:50 94 09/30/21 12:40 38.1 09/30/21 12:00 38.2 09/30/21 12:00 92 31 121/63 94 Vapotherm 25.00 100.00 09/30/21 11:53 94 Vapotherm 25.00 100 09/30/21 11:00 96 24 145/58 94 Vapotherm 25.00 100.00 I & O 10/01/21 07:00 Intake Total 850 ml Output Total 3450 ml Balance -2600 ml Height & Weight Height: 5'9.00" Weight: 160lbs. 6.0oz. [id number]; 25.00 BMI Method:Stated General Appearance: No Apparent Distress, Chronically ill HEENT: PERRL/EOMI Respiratory: No Respiratory Distress, Rhonci Cardiovascular: Regular Rate, Rhythm, No Murmur Capillary Refill: Less Than 3 Seconds Peripheral Pulses: 2+ Femoral (R), 2+ Femoral (L), 2+ Dorsalis Pedis (R), 2+ Left Dors-Pedis (L), 2+ Radial Pulses (R), 2+ Radial Pulses (L) Gastrointestinal: normal bowel sounds, non tender, soft, no organomegaly Extremity: No Inflammation; Pedal Edema Neurologic/Psychiatric: Alert, No Motor/Sensory Deficits, Disoriented Skin: Normal Color, Warm/Dry Results Lab Laboratory Tests 09/30/21 03:58 10/01/21 03:47 Assessment/Plan Assessment/Plan (Tele-ICU Physician , Progress Note ) Available chart/ vitals / labs / Images reviewed Discussed with RN , EXAM PER RN Events overnight : none Afebrile FiO2 - I/O = negative Pressors: , hemodynamically stable Hospital course: 09/19- intubated FOR AIRWAY PROTECTION , METH OD, LYDIA / RABDO 09/25 extubated , still confused. 12L, precedex 1.5 09/26 - CIWA strarted on VT 35L 80%, weak cough 09/27 - 35 L 75% 09/28 30 L 80 % 09/29 - NEW FEVER -MERREM started , 100 fio2 10/01 - large blood clots in laryngeal area with edema A/P Acute respo failure - intubated 09/19 for airway protection -09/25 extubated on 100 % fio2 with new fever - Merrem started 09/29 - FULL CODE as per family - monitor for intubation needs Unresponsiveness on presentation / ENCEPHALOPATHY - most likely OD - urin tox pos for meth/amphet - CT head 09/28 - no acute finfding , abnormal findings to follow latted - as per PCP- - might need to repeart CT with contrrast , might need MRI - 09/26 - CIWA strarted post extubation + precedex 1.5, neg ammonia LYDIA with Rhabdo - resolved Elevated transaminazes - -? shock liver , follow -> improved ID - sputum with H flu = FINISHED ABX - merrem 09/29 ( new fever) - still febrile - will scan neck , chesr and abdomen - ? absess - flu and rapid covif NEG ETON abuse? - thiamine , CIWA Elv trop - in face of LYDIA - trending down Anemia - most likely delutional - follow Follow BS failed swallow 09/27 - NPO for now - can not place OG 09/30 - will await CT , and readress Hypernatremia - on d5w Lines : periph (Central Line Necessity Reviewed) Oquendo: 09/19 O/6 Nutrition: NPO today Analgesia: Anxiety/ delirium VTE Prophylaxis: heparinn sq Stress Ulcer Prophylaxis: ppi Plans in collaboration with bedside consultants and IM MDs. Discussed with RN to reach out if any questions or concerns A total of 40 minutes of critical care time was devoted to this patient today, required to treat and/or prevent further deterioration of critical care condition ( as above) . BENIGNO TORO MD Oct 01, 2021 10:55
[2021-10-01] MEDS ORDERED: HOLD METFORMIN - RECEIVED CONTRAST 20 ML VIAL IV SCH (11:30)
[2021-10-01] MEDS ORDERED: IOHEXOL 350 MG/ML 150 ML (OMNIPAQUE 350) VIAL IV ONE (11:30)
[2021-10-01] MEDS ORDERED: NS 100 ML (IVPB) BAG IV ONE (11:30)
[2021-10-01] MEDS: HALOPERIDOL 5 MG/ML (HALDOL) VIAL IM PRN ×2 (11:49→20:17)
--- NOTE | 2021-10-01 12:54 | Speech Therapy Progress Note ---
Therapy Progress Note Speech pathology acknowledges consult for "Swallow Eval" placed on 09/26/2021 at 1236. This specific clinician has been out of the office since 09/20/2021. The clinician contacted ICU at 1215 on this date to update the RN/floor on the expected/estimated date and time the clinical bedside swallowing evaluation would be completed (10/02/2021 due to high volume of speech language pathology orders received). No answer was received, however, a call back was returned from "Jeffery" at approximately 1245. The clinician stated she will make every attempt to complete the order as soon as possible. Per chart review, the patient was unable to follow commands, therefore, the NG was unable to be placed (09/30/2021). Additionally, nutrition recommended "pt would likely benefit from TPN to meet nutrition needs" on 09/30/2021. If medically necessary for the patient to receive nutrition prior to completion of the clinical bedside swallowing evaluation (10/02/2021, if the patient is appropriate and able to follow commands), this clinician recommends following nutrition's advice previously provided. Per RN, "I will let Chrissy know." If additional questions or concerns arise, this clinician will provide support as clinically appropriate and within scope of practice. MICHELLE MORTENSEN Oct 01, 2021 12:54
--- NOTE | 2021-10-01 13:34 | Occupational Therapy Eval ---
OT Evaluation-General/PLF Medical Diagnosis Admission Date Sep 21, 2021 at 08:00 Medical Diagnosis: ARF, Rhabdo, Hemodialysis, Meth use, Hep C Onset Date: Sep 21, 2021 Therapy Diagnosis Therapy Diagnosis: decreased ADL status, impaired cognition Height/Weight Height (Feet): 5 Height (Inches): 9.00 Weight (Pounds): 160 Weight (Ounces): 6.0 Precautions Precautions/Isolations: Aspiration, Fall Prevention, Standard Precautions, Pressure Ulcer Referral Physician: Dr. Valdovinos Referral Reason: Evaluation/Treatment Medical History Additional Medical History alcoholism, depression, BPH, schizophrenia, meth use Current History ED after being found down at home, became less responsive and intubated to protect airways. Social History Home: Single Level Current Living Status: Alone Entry Into Home: Stairs With Railing Steps Into Home: 5 ADL-Prior Level of Function SCALE: Activities may be completed with or without assistive devices. 9-Ptghpfpbau-khcuacz completes the activity by him/herself with no assistance from a helper. 5-Set-up or Clean-up Assistance-helper sets up or cleans up; patient completes activity. [place] assists only prior to or following the activity. 4-Supervision or Touching Assistance-helper provides verbal cues and/or touching/steadying and/or contact guard assistance as patient completes activity. Assistance may be provided throughout the activity or intermittently. 3-Partial/Moderate Assistance-helper does LESS THAN HALF the effort. [place] lifts, holds or supports trunk or limbs, but provides less than half the effort. 2-Substantial/Maximal Assistance-helper does MORE THAN HALF the effort. [place] lifts or holds trunk or limbs and provides more than half the effort. 0-Kcdhikiii-tewmvj does ALL the effort. Patient does none of the effort to complete the activity. Or, the assistance of 2 or more helpers is required for the patient to complete the activity. If activity was not attempted, code reason: 7-Patient Refused. 9-Not Applicable-not attempted and the patient did not perform the activity before the current illness, exacerbation or injury. 10-Not Attempted due to Environmental Limitations-(lack of equipment, weather restraints, etc.). 88-Not Attempted due to Medical Conditions or Safety Concerns. ADL PLOF Comments Unknown at this time, pt unable to provide information Self Care: Unknown Functional Cognition: Unknown OT Current Status Subjective Pt in bed, telesitter present. Pt mumbles throughout session, OT had difficulty understanding what pt was saying. Pt followed minimal directions throughout session. Mental Status/Objective Patient Orientation: Unable to Assess, Eyes Open, Mumbles Attachments: [place] Catheter, IV, Oxygen (vapotherm) Current Upper Extremity ROM AAROM WFL. Pt had difficulty following instructions for formal testing. Upper Extremity Sensation unable to assess Upper Extremity Strength unable to formally assess due to pt's difficulty following instructions. ADL-Treatment Eating (QC): 88 Oral Hygiene (QC): 88 Toileting Hygiene (QC): 1 (catheter.) Other Treatments Pt in bed, telesitter present. Pt pulling on the bedrail, pulling his trunk fo rward in bed. OT provided tactile cue and instruction to lay back and relax, pt then laid back down in bed. Assist x2 to scoot pt up towards HOB. OT attempted UE screen, pt unable to follow instructions. OT performed AAROM RUE for shoulder flexion, x9 reps, then pt resistive to movements. OT pointed at pt's LUE, instructing him to lift it up, pt raised his R arm off of his lap. AAROM provided to raise LUE, x1 rep then pt resisted other movements. Throughout session, pt was constantly moving, attempting to roll towards the side, bend/straighten legs in bed, and pulling his trunk forward in bed. Multiple cues given throughout session to lay back. Post tx, pt in bed, call light in reach and all needs met. Bed alarm on and telesitter present. Education OT Patient Education: Correct positioning, Energy conservation, Exercise program, Modified ADL techniques, Progress toward Goal/Update tx plan, Purpose of tx/functional activities, Rehab process Teaching Recipient: Patient Teaching Methods: Demonstration Response to Teaching: Unable to Return Demonstration, Unable to Comprehend OT Prop Maker Goals Care Home Goals Time Frame: Oct 18, 2021 Eating (QC): 5 Oral Hygiene (QC): 5 Toileting Hygiene (QC): 4 Shower/Bathe Self (QC): 4 Upper Body Dressing (QC): 5 Lower Body Dressing (QC): 4 On/Off Footwear (QC): 4 Additional Goals: 1-Demonstrate ADL Tasks, 2-Verbalize Understanding, 3- ImproveStrength/Kaia 1=Demonstrate adherence to instructed precautions during ADL tasks. 2=Patient will verbalize/demonstrate understanding of assistive devices/modifications for ADL. 3=Patient will improve strength/tolerance for activity to enable patient to perform ADL's. OT Education/Plan Problem List/Assessment Assessment: Decreased Activ Tolerance, Decreased Safety Aware, Decreased UE Strength, Impaired Cognition, Impaired Coordination, Impaired Funct Balance, Impaired I ADL's, Impaired Self-Care Skills, Restricted Funct UE ROM Discharge Recommendations Plan/Recommendations: Continue POC Treatment Plan/Plan of Care Patient would benefit from OT for education, treatment and training to promote independence in ADL's, mobility, safety and/or upper extremity function for ADL's. Plan of Care: ADL Retraining, Functional Mobility, UE Funct Exercise/Act Treatment Duration: Oct 18, 2021 Frequency: 3 times per week (3-5 times per week.) Rehab Potential: Guarded Time/GCodes Start Time: 13:01 Stop Time: 13:12 Total Time Billed (hr/min): 11 Billed Treatment Time 1, EDWINA ESTRADA OT Oct 01, 2021 13:34
[2021-10-01] MEDS: WATER (STERILE) FOR INJ 10 ML BTL INJ SCH (13:43)
--- NOTE | 2021-10-01 16:01 | Diagnostic Imaging Report ---
CT NECK/CHEST/ABDOMEN W INDICATION: Neck mass and pneumonia. COMPARISON: None available. TECHNIQUE: CT imaging of the neck, chest, and abdomen was performed with IV contrast. Automatic exposure controls were utilized to keep dose as low as reasonably achievable. FINDINGS: NECK: Airway remains patent. No mass at the base of the tongue. Epiglottis is normal in appearance. The pericolonic fat spaces are normal. No cervical lymphadenopathy. Parapharyngeal fat spaces are also normal. No retropharyngeal fluid collection. Mild mucosal thickening in the paranasal sinuses. Hyperdense tubular structure in the left external auditory canal could be a hearing aid device. Multilevel degenerative changes throughout the cervical spine do not cause high-grade spinal stenosis. No worrisome focal osseous lesions. CHEST: Small bilateral pleural effusions are present. The right pleural effusion has a thin rim of hyperdensity indicative of a chronic effusion. There is a mixture of consolidations, interlobular thickening, and ground-glass attenuation within both lungs. No axillary or mediastinal lymphadenopathy. Heart is normal in size without pericardial effusion. Normal-caliber thoracic aorta without dissection. No lytic or blastic skeletal lesions. ABDOMEN: No free intraperitoneal air or fluid. Diffuse body wall edema is noted. No focal hepatic lesion is appreciated. Gallbladder is moderately distended. Spleen is unremarkable. No peripancreatic inflammatory change. No adrenal mass. No renal mass or obstructive uropathy. Atherosclerotic aorta is normal in caliber. No dilated loops of bowel that would indicate obstruction. IMPRESSION: 1. No mass or lymphadenopathy within the neck. Airway is widely patent. 2. Bilateral multifocal pulmonary consolidations are likely due to multifocal pneumonia or potentially ARDS. 3. Small bilateral pleural effusions, of which the right has a chronic appearance. 4. Distended gallbladder without radiopaque gallstones. This could be due to fasting state. However, if there is strong clinical concern for acute cholecystitis, consider right upper quadrant ultrasound. Dictated by: Dictated on workstation # [id number]
--- NOTE | 2021-10-01 19:51 | Progress Note - Hospitalist ---
Subjective HPI/CC On Admission Date Seen by Provider: Oct 01, 2021 Time Seen by Provider: 09:40 Roman Jane is a 70 year old male who presented to the ER after being found down at his home. He was reportedly agitated, but alert and oriented on arrival. He was requiring supplemental oxygen. He was intoxicated on methamphetamine. He became less responsive and was intubated for airway protection. He was found to be in acute renal failure with rhabdomyolysis. Due to the severity of his renal failure, a transfer was attempted for hemodialysis. He had low urine output, hyperkalemia, and significantly elevated BUN/creatinine. He was treated with IV fluids and bicarbonate. No bed was able to be secured for transfer, but his renal function began to improve. Subjective/Events-last exam He is awake and speaking. He is difficult to understand. He is delirious and agitated. Focused Exam Time of Focused Exam: 07:30 Objective Exam Vital Signs Vital Signs Date Time Temp Pulse Resp B/P (MAP) Pulse Ox O2 Delivery O2 Flow Rate FiO2 10/01/21 18:41 95 Vapotherm 20.00 50 10/01/21 18:00 81 22 130/66 10/01/21 15:42 36.4 Capillary Refill : Less Than 3 Seconds General Appearance: Anxious, Chronically ill Respiratory: No Respiratory Distress, Crackles Cardiovascular: Regular Rate, Rhythm, No Murmur Gastrointestinal: Normal Bowel Sounds, Soft Extremity: Normal Inspection, No Pedal Edema Neurologic/Psychiatric: Alert, Disoriented Skin: Normal Color, Warm/Dry Results/Procedures Lab Laboratory Tests 10/01/21 03:47 10/01/21 13:20 Patient resulted labs reviewed. Imaging: Reviewed Imaging Report Assessment/Plan Assessment and Plan Assess & Plan/Chief Complaint Acute respiratory failure with hypoxia PNA Vapotherm, requirements improving Merrem [facility] TeleICU following Goals of care discussion Poor prognosis DNR Hypokalemia Hypomagnesemia Monitor and replace as needed Delirium Agitation Dysphagia Debility Risperdal Haldol as needed Geodon as needed Speech/swallow evaluation PT/OT Hypernatremia D5W Methamphetamine abuse Hepatitis C DVT prophylaxis: Lovenox LYDIA on CKD, resolved Acute tubular necrosis, resolved Rhabdomyolysis, resolved Endotracheally intubated, resolved Pneumonia, resolved Hyperkalemia, resolved Lactic acidosis, resolved Metabolic acidosis, resolved Elevated LFTs, resolved Critical Care Critically Ill Patient Diagnosis/Problems Diagnosis/Problems (1) Acute kidney injury superimposed on chronic kidney disease Status: Acute (2) ATN (acute tubular necrosis) Status: Acute (3) Lactic acidosis Status: Resolved Resolution Date/Time: 09/21/21 @ 18:43 (4) Hypernatremia Status: Acute (5) Metabolic acidosis Status: Resolved Resolution Date/Time: 09/21/21 @ 18:43 (6) PNA (pneumonia) Status: Acute (7) Endotracheally intubated Status: Acute (8) Methamphetamine abuse Status: Acute (9) Acute hepatitis Status: Acute (10) Rhabdomyolysis Status: Acute Qualifiers: Rhabdomyolysis type: non-traumatic Qualified Codes: M62.82 - Rhabdo myolysis (11) Multiorgan failure Status: Acute (12) Hyperkalemia Status: Resolved Resolution Date/Time: 09/21/21 @ 18:43 (13) Acute respiratory failure with hypoxia Status: Acute (14) Hepatitis C antibody positive in blood Status: Acute (15) Delirium Status: Acute (16) Agitation Status: Acute (17) Debility Status: Acute (18) Dysphagia Status: Acute CARLEEN GROSSMAN MD Oct 01, 2021 19:51
[2021-10-01] MEDS: ENOXAPARIN 40 MG/0.4 ML (LOVENOX) SYR SC SCH (21:03)
[2021-10-02] MEDS: HALOPERIDOL 5 MG/ML (HALDOL) VIAL IM PRN ×4 (00:43→23:10)
[2021-10-02] MEDS: ZIPRASIDONE 20 MG INJ (GEODON) VIAL IM PRN ×4 (01:16→23:10)
[2021-10-02] MEDS: RT-ALBUTEROL/IPRATROPIUM 3 ML (DUONEB) VIAL INH SCH ×6 (02:19→22:14)
[2021-10-02] MEDS: MEROPENEM 1,000 MG in NS (IVPB) 100 ML IV SCH ×3 (02:22→19:37)
[2021-10-02] MEDS: D5W 1000 ML IV SOLUTION 1,000 ML IV SCH (02:24)
[2021-10-02] MEDS: DexMEDEtomidine 250 ML DRIP 250 ML IV SCH ×2 (02:30→11:44)
[2021-10-02 04:45] LABS: BASOPHILS % (AUTO) 0 % (0-10); EOSINOPHILS # (AUTO) 0.1 10^3/uL (0.0-0.3); EOSINOPHILS % (AUTO) 1 % (0-10); HEMATOCRIT 35 % (40-54); HEMOGLOBIN 10.5 g/dL (13.3-17.7); LYMPHOCYTES # (AUTO) 0.9 10^3/uL (1.0-4.0); LYMPHOCYTES % (AUTO) 9 % (12-44); MEAN CORPUSCULAR HEMOGLOBIN 27 pg (25-34); MEAN CORPUSCULAR HGB CONC 30 g/dL (32-36); MEAN CORPUSCULAR VOLUME 89 fL (80-99); MEAN PLATELET VOLUME 11.5 fL (9.0-12.2); MONOCYTES # (AUTO) 0.6 10^3/uL (0.0-1.0); MONOCYTES % (AUTO) 6 % (0-12); NEUTROPHILS # (AUTO) 8.2 10^3/uL (1.8-7.8); NEUTROPHILS % (AUTO) 84 % (42-75); PLATELET COUNT 242 10^3/uL (130-400); WHITE BLOOD COUNT 9.8 10^3/uL (4.3-11.0)
[2021-10-02 05:01] LABS: POTASSIUM 3.5 MMOL/L (3.6-5.0)
[2021-10-02 05:02] LABS: CALCIUM 8.1 MG/DL (8.5-10.1)
[2021-10-02 05:06] LABS: CREATININE SERUM 0.78 MG/DL (0.60-1.30); PHOSPHORUS 1.9 MG/DL (2.3-4.7)
[2021-10-02 05:09] LABS: MAGNESIUM 1.7 MG/DL (1.6-2.4)
[2021-10-02] MEDS: inSUlin ASPART (NovoLOG) 1 UNIT/0.01 ML (CHARGE PER UNIT) SC SCH ×3 (05:29→18:48)
[2021-10-02] MEDS: POTASSIUM CL 10MEQ/50ML IVPB 50 ML IV SCH ×2 (05:29→05:48)
[2021-10-02] MEDS: KCL 20 MEQ TAB (K-DUR) PO SCH (05:29)
[2021-10-02] MEDS: MAGNESIUM 1 GM/100 ML IVPB 100 ML IV SCH (05:29)
[2021-10-02] MEDS: ACETAMINOPHEN 650 MG SUPP (TYLENOL) PR PRN (08:07)
[2021-10-02] MEDS: PANTOPRAZOLE 40 MG (PROTONIX) VIAL IV SCH (08:07)
[2021-10-02] MEDS: FUROSEMIDE 40 MG/4 ML INJ (LASIX) IVP SCH (08:07)
[2021-10-02] MEDS: risperiDONE 1 MG (RisperDAL) TAB PO SCH ×2 (09:24→19:47)
[2021-10-02] MEDS: LACRI-LUBE OPTHALMIC OINT 3.5 GM TUBE OU SCH ×2 (09:24→19:47)
--- NOTE | 2021-10-02 09:31 | Tele-ICU Progress Note ---
Subjective Date Seen by a Provider: Oct 02, 2021 Time Seen by a Provider: 09:31 Review of Systems ros per rn Sepsis Event Evaluation Height, Weight, BMI Height: 5'9.00" Weight: 160lbs. 6.0oz. [id number]; 25.00 BMI Method:Stated Focused Exam Time of Focused Exam: 07:30 Exam Exam Patient acknowledged, consented, and participated in this virtual visit which was conducted using real time audio/video Vital Signs Date Time Temp Pulse Resp B/P (MAP) Pulse Ox O2 Delivery O2 Flow Rate FiO2 10/02/21 08:07 38.8 10/02/21 07:00 100 10/02/21 07:00 92 Vapotherm 20.00 50 10/02/21 06:00 96 112/66 95 Vapotherm 20.00 50.00 10/02/21 05:00 94 32 95/53 91 Vapotherm 20.00 50.00 10/02/21 04:00 91 Vapotherm 20.00 50 10/02/21 04:00 36.5 10/02/21 04:00 92 26 108/67 96 Vapotherm 20.00 50.00 10/02/21 03:00 82 22 119/56 96 Vapotherm 20.00 50.00 10/02/21 02:30 98 124/60 10/02/21 02:19 92 Vapotherm 20.00 50 10/02/21 02:00 97 33 113/50 93 Vapotherm 20.00 50.00 10/02/21 01:00 98 96/52 91 Vapotherm 20.00 50.00 10/02/21 01:00 98 10/02/21 00:00 82 27 96/50 87 Vapotherm 20.00 50.00 10/01/21 23:59 91 Vapotherm 20.00 50 10/01/21 23:51 36.5 10/01/21 23:00 87 12 109/74 95 Vapotherm 20.00 50.00 10/01/21 22:00 93 101/59 100 Vapotherm 20.00 50.00 10/01/21 21:29 95 Vapotherm 20.00 50 10/01/21 21:00 86 104/72 97 Vapotherm 20.00 50.00 10/01/21 20:00 91 Vapotherm 20.00 50 10/01/21 20:00 36.9 10/01/21 20:00 87 32 113/53 98 Vapotherm 20.00 50.00 10/01/21 19:01 97 10/01/21 19:00 95 25 112/60 90 Vapotherm 20.00 50.00 10/01/21 18:41 95 Vapotherm 20.00 50 10/01/21 18:00 81 22 130/66 97 Vapotherm 20.00 50.00 10/01/21 17:21 87 124/60 10/01/21 17:00 71 22 114/64 98 Vapotherm 20.00 50.00 10/01/21 16:19 97 Vapotherm 20.00 50 10/01/21 16:00 87 25 124/60 93 Vapotherm 20.00 50.00 10/01/21 15:53 91 Vapotherm 20.00 50 10/01/21 15:42 36.4 Vapotherm 20.00 50.00 10/01/21 15:00 88 129/61 96 Vapotherm 25.00 65.00 10/01/21 14:00 87 25 118/63 100 Vapotherm 25.00 65.00 10/01/21 13:01 82 10/01/21 13:00 84 24 127/63 100 Vapotherm 25.00 65.00 10/01/21 12:49 Vapotherm 25.00 65.00 10/01/21 12:22 90 Vapotherm 30.00 70 10/01/21 12:00 81 32 83/74 100 Vapotherm 30.00 70.00 10/01/21 11:40 36.3 10/01/21 11:18 Vapotherm 30.00 70.00 10/01/21 11:08 96 Vapotherm 30.00 70 10/01/21 11:00 90 28 123/62 100 Vapotherm 30.00 90.00 10/01/21 10:00 94 26 113/57 99 Vapotherm 30.00 90.00 10/01/21 09:47 Vapotherm 30.00 90.00 I & O 10/02/21 07:00 Intake Total 2200 ml Output Total 2415 ml Balance -215 ml Height & Weight Height: 5'9.00" Weight: 160lbs. 6.0oz. [id number]; 25.00 BMI Method:Stated General Appearance: Anxious, Chronically ill HEENT: PERRL/EOMI Respiratory: No Respiratory Distress, Crackles Cardiovascular: Regular Rate, Rhythm, No Murmur Capillary Refill: Less Than 3 Seconds Peripheral Pulses: 2+ Femoral (R), 2+ Femoral (L), 2+ Dorsalis Pedis (R), 2+ Left Dors-Pedis (L), 2+ Radial Pulses (R), 2+ Radial Pulses (L) Gastrointestinal: normal bowel sounds, non tender, soft, no organomegaly Extremity: Normal Inspection, No Pedal Edema Neurologic/Psychiatric: Alert, Disoriented Skin: Normal Color, Warm/Dry Other comments PE PER RN Results Lab Laboratory Tests 10/01/21 03:47 10/01/21 13:20 10/02/21 04:14 Assessment/Plan Assessment/Plan 1. Metabolic encephalopathy secondary to methamphetamine and drug abuse. 2. Acute hypoxic respiratory failure improved and he is extubated. 3. Acute rhabdomyolysis secondary to drug abuse improving. 4. Acute kidney injury improved. Recommendations 1. Continue antibiotic therapy as patient having fever on and off probably due to aspiration pneumonia 2. GERD IM as needed for agitation per primary care 3. IV antibiotics with meropenem per primary care also. 4. Suggest placement in LTAC if possible. 5. Video visit made and discussed with the REAL ESTATE LEASING MANAGER. Critical Care: Critically Ill Patient Time spent with patient (mins): 20 ROBBY WHITTEN MD Oct 02, 2021 09:31
--- NOTE | 2021-10-02 09:49 | Physical Therapy Daily Note ---
PT Daily Note-Current Subjective Patient lethargic this visit. Eyes open throughout treatment however patient does not respond verbally this visit. Transfers SCALE: Activities may be completed with or without assistive devices. 0-Udelbvqwjn-cehrvev completes the activity by him/herself with no assistance from a helper. 5-Set-up or Clean-up Assistance-helper sets up or cleans up; patient completes activity. [place] assists only prior to or following the activity. 4-Supervision or Touching Assistance-helper provides verbal cues and/or touching/steadying and/or contact guard assistance as patient completes activity. Assistance may be provided throughout the activity or intermittently. 3-Partial/Moderate Assistance-helper does LESS THAN HALF the effort. [place] lifts, holds or supports trunk or limbs, but provides less than half the effort. 2-Substantial/Maximal Assistance-helper does MORE THAN HALF the effort. [place] lifts or holds trunk or limbs and provides more than half the effort. 1-Siwashkyb-pcanbn does ALL the effort. Patient does none of the effort to complete the activity. Or, the assistance of 2 or more helpers is required for the patient to complete the activity. If activity was not attempted, code reason: 7-Patient Refused. 9-Not Applicable-not attempted and the patient did not perform the activity before the current illness, exacerbation or injury. 10-Not Attempted due to Environmental Limitations-(lack of equipment, weather restraints, etc.). 88-Not Attempted due to Medical Conditions or Safety Concerns. Roll Left & Right (QC): 1 Sit to Lying (QC): 1 Lying to Sitting/Side of Bed(Q: 1 Sit to Stand (QC): 1 Gait Training Does the Patient Walk?: No and Walking Goal IS indicated Exercises Supine Ex: Ankle pumps, Quad Set, Heel Slides, Short Arc Quads, Straight leg raise, Hip abd/add Supine Reps: 20 Assessment Current Status: Poor Progress Patient does not respond to any verbal or tactile stimuli this visit. He also does not actively participate with ROM exercises. Patient puts forth less effort with bed mobility and transfers as well, requiring total dependence for all mobility and to maintain sitting at edge of bed. Patient returned to bed with total dependence and situated appropriately. Patient in bed post treatment with all needs met, nursing notified, call light in reach. PT Short Term Goals Short Term Goals Time Frame: Oct 11, 2021 Roll Left & Right: 3 Sit to lyin Lying to sitting on side of be: 3 Sit to stand: 3 Chair/qsu-an-ywbai transfer: 3 Toilet transfer: 3 Walk 10 feet: 2 PT Regrinder Goals Regrinder Goals PT Regrinder Goals Time Frame: Oct 25, 2021 Roll Left & Right (QC): 4 Sit to Lying (QC): 4 Lying-Sitting on Side/Bed(QC): 4 Sit to Stand (QC): 4 Chair/Qoj-gd-Udvth Xfer(QC): 4 Toilet Transfer (QC): 4 Car Transfer (QC): 4 Does the Patient Walk: Yes Walk 10 feet (QC): 4 Walk 50ft with 2 Turns (QC): 3 Walk 150 ft (QC): 3 PT Plan Treatment/Plan Treatment Plan: Continue Plan of Care Treatment Plan: Bed Mobility, Education, Functional Activity Kaia, Functional Strength, Group Therapy, Gait, Safety, Therapeutic Exercise, Transfers Treatment Duration: Nov 11, 2021 Frequency: 6 times per week Estimated Hrs Per Day: .25 hour per day Safety Risks/Education Patient Education: Transfer Techniques Teaching Recipient: Patient Teaching Methods: Demonstration Response to Teaching: Reinforcement Needed Time/GCodes Time In: 914 Time Out: 940 Total Billed Treatment Time: 26 Total Billed Treatment Visit, Ex, KAM MATUTE PT Oct 02, 2021 09:49
--- NOTE | 2021-10-02 10:58 | Occupational Ther Daily Note ---
OT Current Status-Daily Note Subjective Pt awake lying in bed, confused. Pt unable to follow directions and mumbles throughout session. Mental Status/Objective Patient Orientation: Confused Attachments: [place] Catheter, IV, Oxygen, Telemetry ADL-Treatment Therapy Code Descriptions/Definitions Functional [place] Measure: 0=Not Assessed/NA 4=Minimal Assistance 1=Total Assistance 5=Supervision or Setup 2=Maximal Assistance 6=Modified [place] 3=Moderate Assistance 7=Complete IndependenceSCALE: Activities may be completed with or without assistive devices. 5-Mdjeaephxf-wssbecq completes the activity by him/herself with no assistance from a helper. 5-Set-up or Clean-up Assistance-helper sets up or cleans up; patient completes activity. [place] assists only prior to or following the activity. 4-Supervision or Touching Assistance-helper provides verbal cues and/or touching/steadying and/or contact guard assistance as patient completes activity. Assistance may be provided throughout the activity or intermittently. 3-Partial/Moderate Assistance-helper does LESS THAN HALF the effort. [place] lifts, holds or supports trunk or limbs, but provides less than half the effort. 2-Substantial/Maximal Assistance-helper does MORE THAN HALF the effort. [place] lifts or holds trunk or limbs and provides more than half the effort. 3-Uxuugwucf-hpsdvi does ALL the effort. Patient does none of the effort to complete the activity. Or, the assistance of 2 or more helpers is required for the patient to complete the activity. If activity was not attempted, code reason: 7-Patient Refused. 9-Not Applicable-not attempted and the patient did not perform the activity before the current illness, exacerbation or injury. 10-Not Attempted due to Environmental Limitations-(lack of equipment, weather restraints, etc.). 88-Not Attempted due to Medical Conditions or Safety Concerns. Other Treatment Pt unable to follow directions for ROM and resists for any PROM/AAROM. Pt is dependent for rolling side to side and to scoot up in bed. Nrsg aware of pt's position and behaviour. Safety measures in place. All needs met in room. OT Salesforce Consultant Goals Residential Goals Time Frame: Oct 18, 2021 Eating (QC): 5 Oral Hygiene (QC): 5 Toileting Hygiene (QC): 4 Shower/Bathe Self (QC): 4 Upper Body Dressing (QC): 5 Lower Body Dressing (QC): 4 On/Off Footwear (QC): 4 Additional Goals: 1-Demonstrate ADL Tasks, 2-Verbalize Understanding, 3- ImproveStrength/[place] 1=Demonstrate adherence to instructed precautions during ADL tasks. 2=Patient will verbalize/demonstrate understanding of assistive devices/modifications for ADL. 3=Patient will improve strength/tolerance for activity to enable patient to perform ADL's. OT Education/Plan Problem List/Assessment Assessment: Decreased Activ Tolerance, Decreased Safety Aware, Dependent T ransfers, Impaired Bed Mobility, Impaired Cognition, Impaired Self-Care Skills Discharge Recommendations Plan/Recommendations: Continue POC Treatment Plan/Plan of Care Patient would benefit from OT for education, treatment and training to promote independence in ADL's, mobility, safety and/or upper extremity function for ADL's. Plan of Care: ADL Retraining, Functional Mobility, UE Funct Exercise/Act Treatment Duration: Oct 18, 2021 Frequency: 3 times per week (3-5 times per week.) Rehab Potential: Guarded Time/GCodes Start Time: 09:45 Stop Time: 10:10 Total Time Billed (hr/min): 25 Billed Treatment Time 1 visit-FA 2 (25 min) ROSANA QUARELS Oct 02, 2021 10:58
[2021-10-02] MEDS: WATER (STERILE) FOR INJ 10 ML BTL INJ SCH (11:04)
--- NOTE | 2021-10-02 13:05 | ST Dysphagia Evaluation ---
Speech Evaluation-General Medical Diagnosis ARF, Rhabdo, Hemodialysis, Meth use, Hep C Onset Date: Sep 21, 2021 Therapy Diagnosis Therapy Diagnosis: Severe Oropharyngeal Dysphagia Precautions Precautions: Aspiration Precautions/Isolations: Standard Precautions Referral Referring Physician: Dr. Anisha Valadez Reason for Referral: Evaluation/Treatment Medical History Current History The patient is a 70 year-old male with a past medical history of alcohol abuse, methamphetamine abuse, ADHD, schizophrenia, and depression, who presented to [facility] after being found down at home with methamphetamine intoxication. The patient was intubated for airway protection (09/18/2021) and extubated on 09/26/2021. Reviewed History: Yes Social History Current Living Status: Alone Speech PLF/Current-Dysphagia Prior Level of Function Unknown prior level of function was found following a chart review by the clinician. Subjective Due to intubation and a "failed" nursing dysphagia screen, speech language pathology was consulted for completion of a clinical bedside swallowing evaluation. To note, NG placement was attempted on 09/30/2021 and 10/01/2021 however was unsuccessful due to the patient's inability to follow verbal commands. Upon entrance to the patient's room, the physical therapist added the clinician in positioning the patient upright in bed for safe swallowing. The patient is currently receiving vapotherm at 50% O2 and 20 LPM. Prior to PO trials, the patient's SpO2% was 93% and respirations were at 27 bpm. The patient currently has bilateral mittens in place. The patient does not follow any verbal commands provided by the clinician or attend to tasks presented regardless of maximum verbal prompting. Cognitive Status Patient Orientation: Unable to Assess The patient does not respond to orientation questions asked by the clinician. Oral Motor Skills Dentition: Natural (Sparse, poor) Ability to Follow Directions: Unable Oral Expression Ability: Severe Impairment Voice Voice Phonatory-Based Quality: Breathy ("Wet"), Harsh Face The patient does not follow verbal commands or direct modeling for completion of an oral mechanism evaluation. Dysphagia Evaluation Consistencies Presented: Thin Liquid (One ice chip, one teaspoon of water.) Oral Phase: Anterior Spillage, Absent Oral Transit Funct. Velo/Pharyngeal Symptom: Wet Voice Dietary Recommendations: NPO Liquid Recommendations: NPO Recommendations: - The patient should remain NPO at this time. - Frequent and excellent oral care to reduce the transfer of oral bacteria to the lungs should aspiration of secretions occur. - Consider alternative means for nutrition, hydration, and medication (NG tube, TPN, PEG tube). - Speech pathology to re-assess the patient's oropharyngeal swallowing function three to four times per week or as appropriate (and as the patient is able to functionally participate). The recommendations were provided to the RN following completion of the assessment. Dysphagia Evaluation Summary Prior to PO trials, the clinician completed thorough oral care. Oral care is difficult as the patient does not follow verbal commands or direct modeling. With maximum clinician verbal prompting and encouragement, the patient removes an ice chip from the spoon. The patient does not attempt to manipulate the ice chip and continues to "mumble" while glancing around his environment. Anterior spillage of the melted ice chip is demonstrated. A pharyngeal swallow is not triggered, however, the patient's "mumbling" becomes increasingly "wet." The "wet" vocal quality leads the clinician to suspect the melted ice cube was silently aspirated throughout the patient's attempts to verbalize. A half teaspoon of water was provided and the patient was able to remove the water from the spoon. Again, the patient does not attempt to transfer the bolus posterior and a pharyngeal swallow was not triggered. The patient's "mumbling" becomes increasingly "wet" which leads the clinician to suspect the half teaspoon of water was silently aspirated throughout the patient's attempts to verbalize. The patient's SpO2% does remain stable at 94% throughout the PO trials. PO trials were terminated at this time for the patient's safety as he does not elicit a pharyngeal swallow with presented PO consistencies. Due to the patient's current altered mental status and reduced cognition, he remains at an extremely elevated risk for aspiration with PO intake of any kind. Barriers to Learning Impaired cognition. Speech Short Term Goals Short Term Goals Short Term Goals 1. The patient will participate in oral trials of the least restrictive consistency with the absence of s/s of suspected aspiration with 90% accuracy. Speech Cow Washer Goals Cow Washer Goals 1. The patient will consume the least restricted diet consistency to meet nutritional needs without the presence of s/s of suspected aspiration with 90% accuracy. Speech-Plan Treatment Plan Speech Therapy Treatment Plan: Continue Plan of Care Treatment Duration: Oct 16, 2021 Frequency: 3 times per week (Three to four times per week) Estimated Hrs Per Day: .25 hour per day Rehab Potential: Poor Pt/Family Agrees to Plan: Yes Safety Risks/Education Teaching Recipient: Patient Teaching Methods: Discussion Response to Teaching: Unable to Comprehend Education Topics Provided: Results of Evaluation, Plan of Care Time Speech Therapy Time In: 08:27 Speech Therapy Time Out: 08:44 Total Billed Time: 17 Billed Treatment Time 1SHANITAYSTARRMICHELLE ST Oct 02, 2021 13:04
--- NOTE | 2021-10-02 15:41 | Progress Note - Hospitalist ---
Subjective HPI/CC On Admission Date Seen by Provider: Oct 02, 2021 Time Seen by Provider: 09:30 Roman Jane is a 70 year old male who presented to the ER after being found down at his home. He was reportedly agitated, but alert and oriented on arrival. He was requiring supplemental oxygen. He was intoxicated on methamphetamine. He became less responsive and was intubated for airway protection. He was found to be in acute renal failure with rhabdomyolysis. Due to the severity of his renal failure, a transfer was attempted for hemodialysis. He had low urine output, hyperkalemia, and significantly elevated BUN/creatinine. He was treated with IV fluids and bicarbonate. No bed was able to be secured for transfer, but his renal function began to improve. Subjective/Events-last exam He remains confused. He speaks very softly. He is able to say his name but does not know where he is at. When asked the year it sounds like he says "22". He denies pain. He denies shortness of breath. Focused Exam Time of Focused Exam: 07:30 Objective Exam Vital Signs Vital Signs Date Time Temp Pulse Resp B/P (MAP) Pulse Ox O2 Delivery O2 Flow Rate FiO2 10/02/21 15:00 67 21 112/54 91 Vapotherm 20.00 50.00 10/02/21 10:04 50 10/02/21 09:00 37.0 Capillary Refill : Less Than 3 Seconds General Appearance: No Apparent Distress, Chronically ill Respiratory: Lungs Clear, Normal Breath Sounds, No Respiratory Distress Cardiovascular: Regular Rate, Rhythm, No Edema, No Murmur Gastrointestinal: Normal Bowel Sounds, Non Tender, Soft Extremity: Normal Inspection, No Pedal Edema Neurologic/Psychiatric: Alert, Disoriented, Motor Weakness Skin: Normal Color, Warm/Dry Results/Procedures Lab Laboratory Tests 10/02/21 04:14 Patient resulted labs reviewed. Imaging: Reviewed Imaging Report Assessment/Plan Assessment and Plan Assess & Plan/Chief Complaint Acute respiratory failure with hypoxia PNA Vapotherm Merrem [facility] TeleICU following Hypokalemia Hypomagnesemia Hypophosphatemia Monitor and replace as needed Delirium Agitation Dysphagia Debility Risperdal Haldol as needed Geodon as needed PT/OT Speech/swallow eval recommends NPO Methamphetamine abuse Hepatitis C Goals of care discussion Poor prognosis DNR DVT prophylaxis: Lovenox Hypernatremia, resolved LYDIA on CKD, resolved Acute tubular necrosis, resolved Rhabdomyolysis, resolved Endotracheally intubated, resolved Pneumonia, resolved Hyperkalemia, resolved Lactic acidosis, resolved Metabolic acidosis, resolved Elevated LFTs, resolved Diagnosis/Problems Diagnosis/Problems (1) Acute kidney injury superimposed on chronic kidney disease Status: Acute (2) ATN (acute tubular necrosis) Status: Acute (3) Lactic acidosis Status: Resolved Resolution Date/Time: 09/21/21 @ 18:43 (4) Hypernatremia Status: Acute (5) Metabolic acidosis Status: Resolved Resolution Date/Time: 09/21/21 @ 18:43 (6) PNA (pneumonia) Status: Acute (7) Endotracheally intubated Status: Acute (8) Methamphetamine abuse Status: Acute (9) Acute hepatitis Status: Acute (10) Rhabdomyolysis Status: Acute Qualifiers: Rhabdomyolysis type: non-traumatic Qualified Codes: M62.82 - Rhabdomyolysis (11) Multiorgan failure Status: Acute (12) Hyperkalemia Status: Resolved Resolution Date/Time: 09/21/21 @ 18:43 (13) Acute respiratory failure with hypoxia Status: Acute (14) Hepatitis C antibody positive in blood Status: Acute (15) Delirium Status: Acute (16) Agitation Status: Acute (17) Debility Status: Acute (18) Dysphagia Status: Acute CARLEEN GROSSMAN MD Oct 02, 2021 15:41
[2021-10-02] MEDS: D5 1/2 NS W/KCL 20 MEQ/L 1,000 ML IV SCH (17:06)
[2021-10-02] MEDS ORDERED: LACTATED RINGERS 1,000 ML IV ONE (19:28)
[2021-10-02] MEDS ORDERED: LACTATED RINGERS 1,000 ML IV SCH (19:30)
[2021-10-02] MEDS: ENOXAPARIN 40 MG/0.4 ML (LOVENOX) SYR SC SCH (19:38)
[2021-10-03] MEDS: inSUlin ASPART (NovoLOG) 1 UNIT/0.01 ML (CHARGE PER UNIT) SC SCH ×5 (00:21→20:22)
[2021-10-03] MEDS: D5 1/2 NS W/KCL 20 MEQ/L 1,000 ML IV SCH ×3 (03:03→13:50)
[2021-10-03] MEDS: MEROPENEM 1,000 MG in NS (IVPB) 100 ML IV SCH ×3 (03:03→19:20)
[2021-10-03] MEDS: RT-ALBUTEROL/IPRATROPIUM 3 ML (DUONEB) VIAL INH SCH ×5 (03:22→21:40)
[2021-10-03 04:43] LABS: BASOPHILS % (AUTO) 0 % (0-10); EOSINOPHILS # (AUTO) 0.1 10^3/uL (0.0-0.3); EOSINOPHILS % (AUTO) 2 % (0-10); HEMATOCRIT 34 % (40-54); HEMOGLOBIN 10.2 g/dL (13.3-17.7); LYMPHOCYTES % (AUTO) 14 % (12-44); MEAN CORPUSCULAR HEMOGLOBIN 27 pg (25-34); MEAN CORPUSCULAR HGB CONC 30 g/dL (32-36); MEAN CORPUSCULAR VOLUME 89 fL (80-99); MEAN PLATELET VOLUME 11.5 fL (9.0-12.2); MONOCYTES # (AUTO) 0.5 10^3/uL (0.0-1.0); MONOCYTES % (AUTO) 7 % (0-12); NEUTROPHILS # (AUTO) 5.5 10^3/uL (1.8-7.8); NEUTROPHILS % (AUTO) 77 % (42-75); PLATELET COUNT 194 10^3/uL (130-400); WHITE BLOOD COUNT 7.2 10^3/uL (4.3-11.0)
[2021-10-03] MEDS: HALOPERIDOL 5 MG/ML (HALDOL) VIAL IM PRN (04:50)
[2021-10-03 05:03] LABS: POTASSIUM 4.2 MMOL/L (3.6-5.0)
[2021-10-03 05:05] LABS: CALCIUM 7.8 MG/DL (8.5-10.1)
[2021-10-03 05:09] LABS: CREATININE SERUM 0.83 MG/DL (0.60-1.30)
[2021-10-03 05:13] LABS: BAND NEUTROPHILS 0 %; BASOPHILS % (MANUAL) 0 %; EOSINOPHILS % (MANUAL) 0 %; LYMPHOCYTES % (MANUAL) 11 %; MONOCYTES % (MANUAL) 7 %; NEUTROPHILS % (MANUAL) 81 %
[2021-10-03 05:14] LABS: ANISOCYTOSIS SLIGHT; REACTIVE LYMPHOCYTES 1 %; ROULEAUX SLIGHT
[2021-10-03] MEDS: DexMEDEtomidine 250 ML DRIP 250 ML IV SCH (05:18)
[2021-10-03] MEDS: POTASSIUM CL 10MEQ/50ML IVPB 50 ML IV SCH (05:20)
[2021-10-03] MEDS: KCL 20 MEQ TAB (K-DUR) PO SCH (05:20)
[2021-10-03] MEDS: MAGNESIUM 1 GM/100 ML IVPB 100 ML IV SCH (05:20)
--- NOTE | 2021-10-03 07:43 | Diagnostic Imaging Report ---
CHEST 1 VIEW, AP/PA ONLY Indication: Pneumonia Comparison: 09/29/2021 Findings: No change in bilateral consolidations. Architectural distortion of the mid right lung is similar. Small right pleural effusion is unchanged. No pneumothorax. Stable cardiac silhouette. Impression: 1. No change in extensive bilateral pulmonary consolidations. Dictated by: Dictated on workstation # [id number]
[2021-10-03] MEDS: PANTOPRAZOLE 40 MG (PROTONIX) VIAL IV SCH (09:30)
--- NOTE | 2021-10-03 09:31 | Physical Therapy Daily Note ---
PT Daily Note-Current Subjective Patient presents sitting up in bed and alert. Patient is very hard to understand due to his mumbling. Mental Status Patient Orientation: Confused, Mumbles Attachments: Oquendo Catheter, IV Transfers SCALE: Activities may be completed with or without assistive devices. 9-Gegrrpmufy-gwssply completes the activity by him/herself with no assistance from a helper. 5-Set-up or Clean-up Assistance-helper sets up or cleans up; patient completes activity. [place] assists only prior to or following the activity. 4-Supervision or Touching Assistance-helper provides verbal cues and/or touching/steadying and/or contact guard assistance as patient completes activity. Assistance may be provided throughout the activity or intermittently. 3-Partial/Moderate Assistance-helper does LESS THAN HALF the effort. [place] lifts, holds or supports trunk or limbs, but provides less than half the effort. 2-Substantial/Maximal Assistance-helper does MORE THAN HALF the effort. [place] lifts or holds trunk or limbs and provides more than half the effort. 4-Vqatvoqbx-jzdnmt does ALL the effort. Patient does none of the effort to c omplete the activity. Or, the assistance of 2 or more helpers is required for the patient to complete the activity. If activity was not attempted, code reason: 7-Patient Refused. 9-Not Applicable-not attempted and the patient did not perform the activity before the current illness, exacerbation or injury. 10-Not Attempted due to Environmental Limitations-(lack of equipment, weather restraints, etc.). 88-Not Attempted due to Medical Conditions or Safety Concerns. Lying to Sitting/Side of Bed(Q: 4 (SBA) Sit to Stand (QC): 2 Chair/Tcn-vq-Vhzjh Xfer(QC): 2 Patient was max assist due to ataxia and unsteady from weakness. Exercises Seated Therapy Exercises: Ankle pumps, Long arc quads, Hip flexion Seated Reps: 10 Assessment Patient was very difficult to understand due to mumbling. Patient required max assist for sit to stand transfer and to transfer to his chair. Patient is very weak and ataxic. Patient reports that he feels good sitting up in the chair. Patient performed seated exercises with multiple cues on correct performance of exercises. PT Short Term Goals Short Term Goals Time Frame: Oct 11, 2021 Roll Left & Right: 3 Sit to lyin Lying to sitting on side of be: 3 Sit to stand: 3 Chair/hyr-bm-ekmdo transfer: 3 Toilet transfer: 3 Walk 10 feet: 2 PT Radioisotope Technologist Goals Shelter Goals PT Radioisotope Technologist Goals Time Frame: Oct 25, 2021 Roll Left & Right (QC): 4 Sit to Lying (QC): 4 Lying-Sitting on Side/Bed(QC): 4 Sit to Stand (QC): 4 Chair/Wlp-de-Kkday Xfer(QC): 4 Toilet Transfer (QC): 4 Car Transfer (QC): 4 Does the Patient Walk: Yes Walk 10 feet (QC): 4 Walk 50ft with 2 Turns (QC): 3 Walk 150 ft (QC): 3 PT Plan Problem List Problem List: Activity Tolerance, Functional Strength, Safety, Balance, Gait, Transfer, Bed Mobility, ROM Treatment/Plan Treatment Plan: Continue Plan of Care Treatment Plan: Bed Mobility, Education, Functional Activity Kaia, Functional Strength, Group Therapy, Gait, Safety, Therapeutic Exercise, Transfers Treatment Duration: Nov 11, 2021 Frequency: 6 times per week Estimated Hrs Per Day: .25 hour per day Patient and/or Family Agrees t: Yes Time/GCodes Time In: 735 Time Out: 749 Total Billed Treatment Time: 14 Total Billed Treatment 1 Visit FA 14 min LANG JACKSON PT Oct 03, 2021 09:31
--- NOTE | 2021-10-03 09:38 | Occupational Ther Daily Note ---
OT Current Status-Daily Note Subjective Pt alert, sitting in recliner. Pt more cognitively aware today. Pt mumbles and indistinct verbalization when attempting to communicate. Mental Status/Objective Patient Orientation: Person, Unable to Assess Attachments: IV, Telemetry ADL-Treatment Pt given oral swab and after multiple attempts to voice and mime what to do pt able to complete by self after set up. Pt demonstrates good AROM and strength throughout B UE. Pt makes it know that there is one ear that pt is unable to hear out of and the other ear pt can, due to indistinguishable speech unable to understand which ear. Nrsg in room. Call light/phone in reach. All needs met in room. Therapy Code Descriptions/Definitions Functional [place] Measure: 0=Not Assessed/NA 4=Minimal Assistance 1=Total Assistance 5=Supervision or Setup 2=Maximal Assistance 6=Modified [place] 3=Moderate Assistance 7=Complete IndependenceSCALE: Activities may be completed with or without assistive devices. 3-Lqtzgtsrmv-yuggdvp completes the activity by him/herself with no assistance from a helper. 5-Set-up or Clean-up Assistance-helper sets up or cleans up; patient completes activity. [place] assists only prior to or following the activity. 4-Supervision or Touching Assistance-helper provides verbal cues and/or umm jewel/steadying and/or contact guard assistance as patient completes activity. Assistance may be provided throughout the activity or intermittently. 3-Partial/Moderate Assistance-helper does LESS THAN HALF the effort. [place] lifts, holds or supports trunk or limbs, but provides less than half the effort. 2-Substantial/Maximal Assistance-helper does MORE THAN HALF the effort. [place] lifts or holds trunk or limbs and provides more than half the effort. 3-Sfusqlunz-dlzlrr does ALL the effort. Patient does none of the effort to complete the activity. Or, the assistance of 2 or more helpers is required for the patient to complete the activity. If activity was not attempted, code reason: 7-Patient Refused. 9-Not Applicable-not attempted and the patient did not perform the activity before the current illness, exacerbation or injury. 10-Not Attempted due to Environmental Limitations-(lack of equipment, weather restraints, etc.). 88-Not Attempted due to Medical Conditions or Safety Concerns. Oral Hygiene (QC): 5 OT Ctc Operator Goals Detention Goals Time Frame: Oct 18, 2021 Eating (QC): 5 Oral Hygiene (QC): 5 Toileting Hygiene (QC): 4 Shower/Bathe Self (QC): 4 Upper Body Dressing (QC): 5 Lower Body Dressing (QC): 4 On/Off Footwear (QC): 4 Additional Goals: 1-Demonstrate ADL Tasks, 2-Verbalize Understanding, 3- ImproveStrength/Kaia 1=Demonstrate adherence to instructed precautions during ADL tasks. 2=Patient will verbalize/demonstrate understanding of assistive devices/modifications for ADL. 3=Patient will improve strength/tolerance for activity to enable patient to perform ADL's. OT Education/Plan Problem List/Assessment Assessment: Decreased Safety Aware, Impaired Cognition Discharge Recommendations Plan/Recommendations: Continue POC Treatment Plan/Plan of Care Patient would benefit from OT for education, treatment and training to promote independence in ADL's, mobility, safety and/or upper extremity function for ADL's. Plan of Care: ADL Retraining, Functional Mobility, UE Funct Exercise/Act Treatment Duration: Oct 18, 2021 Frequency: 3 times per week (3-5 times per week.) Rehab Potential: Poor Time/GCodes Start Time: 09:20 Stop Time: 09:30 Total Time Billed (hr/min): 10 Billed Treatment Time 1 visit-ADL 1 (10 min) ROSANA QUARLES Oct 03, 2021 09:38
[2021-10-03] MEDS: risperiDONE 1 MG (RisperDAL) TAB PO SCH ×2 (10:27→19:20)
--- NOTE | 2021-10-03 11:05 | Tele-ICU Progress Note ---
Subjective Date Seen by a Provider: Oct 03, 2021 Time Seen by a Provider: 11:05 Subjective/Events-last exam Patient today is sitting in the bedside chair. He is a little bit more oriented than before. His blood pressure is slightly on the low side. His Precedex drip is being weaned down. Advised to hold Lasix. He has increasing secretions in the oropharynx. I will try her on scopolamine patch. He is able to tolerate applesauce and water only without any evidence of aspiration. Hopefully will be able to advance his diet as the days goes by. Review of Systems ros per rn Sepsis Event Evaluation Height, Weight, BMI Height: 5'9.00" Weight: 160lbs. 6.0oz. 72.907012si; 25.00 BMI Method:Stated Focused Exam Time of Focused Exam: 07:30 Exam Exam Patient acknowledged, consented, and participated in this virtual visit which was conducted using real time audio/video Vital Signs Date Time Temp Pulse Resp B/P (MAP) Pulse Ox O2 Delivery O2 Flow Rate FiO2 10/03/21 10:22 98 Nasal Cannula 5.00 10/03/21 08:14 Room Air 10/03/21 07:48 36.6 10/03/21 07:38 100 High Flow N/C 5.00 10/03/21 07:00 70 10/03/21 06:48 High Flow N/C 5.00 10/03/21 06:47 High Flow N/C 5.00 10/03/21 06:45 100 High Flow N/C 8.00 10/03/21 06:00 70 22 113/54 100 High Flow N/C 10.00 10/03/21 05:18 61 99/53 10/03/21 05:00 67 18 112/54 100 High Flow N/C 10.00 10/03/21 04:14 36.6 10/03/21 04:00 95 High Flow N/C 10.00 10/03/21 04:00 75 26 141/60 98 High Flow N/C 10.00 10/03/21 03:22 100 High Flow N/C 10.00 10/03/21 03:00 56 17 88/47 100 High Flow N/C 10.00 10/03/21 02:00 68 25 112/51 100 High Flow N/C 10.00 10/03/21 01:00 61 28 109/52 98 High Flow N/C 10.00 10/03/21 01:00 61 10/03/21 00:00 56 23 99/53 100 High Flow N/C 10.00 10/03/21 00:00 36.0 10/02/21 23:59 95 High Flow N/C 10.00 10/02/21 23:00 86 23 131/58 100 High Flow N/C 10.00 10/02/21 22:14 100 High Flow N/C 10.00 10/02/21 22:00 56 17 100/52 100 High Flow N/C 10.00 10/02/21 21:00 59 17 90/56 99 High Flow N/C 10.00 10/02/21 20:00 95 High Flow N/C 10.00 10/02/21 20:00 60 16 113/54 100 High Flow N/C 10.00 10/02/21 20:00 36.5 High Flow N/C 10.00 10/02/21 19:08 100 High Flow N/C 10.00 10/02/21 19:00 60 10/02/21 19:00 60 16 107/63 100 High Flow N/C 10.00 10/02/21 18:00 62 17 113/52 97 Vapotherm 20.00 50.00 10/02/21 17:00 61 19 111/65 97 Vapotherm 20.00 50.00 10/02/21 16:00 36.4 10/02/21 16:00 95 High Flow N/C 10.00 10/02/21 16:00 65 19 116/59 97 Vapotherm 20.00 50.00 10/02/21 15:00 67 21 112/54 91 Vapotherm 20.00 50.00 10/02/21 14:24 95 High Flow N/C 12.00 10/02/21 14:00 66 19 109/59 98 Vapotherm 20.00 50.00 10/02/21 13:00 71 10/02/21 13:00 70 24 87/50 99 Vapotherm 20.00 50.00 10/02/21 12:30 95 High Flow N/C 10.00 10/02/21 12:00 76 27 81/47 94 Vapotherm 20.00 50.00 10/02/21 11:44 93 103/66 I & O 10/03/21 07:00 Intake Total 1450 ml Output Total 625 ml Balance 825 ml Height & Weight Height: 5'9.00" Weight: 160lbs. 6.0oz. 72.248198la; 25.00 BMI Method:Stated General Appearance: No Apparent Distress, Chronically ill HEENT: PERRL/EOMI Respiratory: Lungs Clear, Normal Breath Sounds, No Respiratory Distress Cardiovascular: Regular Rate, Rhythm, No Edema, No Murmur Capillary Refill: Less Than 3 Seconds Peripheral Pulses: 2+ Femoral (R), 2+ Femoral (L), 2+ Dorsalis Pedis (R), 2+ Left Dors-Pedis (L), 2+ Radial Pulses (R), 2+ Radial Pulses (L) Gastrointestinal: normal bowel sounds, non tender, soft, no organomegaly Extremity: Normal Inspection, No Pedal Edema Neurologic/Psychiatric: Alert, Disoriented, Motor Weakness Skin: Normal Color, Warm/Dry Other comments PE PER RN Results Lab Laboratory Tests 10/01/21 13:20 10/02/21 04:14 10/03/21 04:08 Assessment/Plan Assessment/Plan 1. Metabolic encephalopathy secondary to methamphetamine and drug abuse slowly improving. 2. Acute hypoxic respiratory failure improved and he is extubated. and currently on n/c 3. Acute rhabdomyolysis secondary to drug abuse improved.. 4. Acute kidney injury improved. Recommendations 1. Continue antibiotic therapy as patient having fever on and off probably due to aspiration pneumonia 2. Geodon im as needed for agitation per primary care 3. IV antibiotics with meropenem per primary care also. 4. will try scopolamine patch for increased secretions. 5. stop lasix due to low bp. 6.advance diet per speech therapy. 7.. Video visit made and discussed with the EXPERIMENTAL PREFLIGHT MECHANIC. Critical Care: Critically Ill Patient Time spent with patient (mins): 20 ROBBY WHITTEN MD Oct 03, 2021 11:05
[2021-10-03] MEDS: FUROSEMIDE 40 MG/4 ML INJ (LASIX) IVP SCH (11:31)
[2021-10-03] MEDS: LACRI-LUBE OPTHALMIC OINT 3.5 GM TUBE OU SCH ×2 (11:31→19:21)
--- NOTE | 2021-10-03 12:41 | Progress Note - Hospitalist ---
Subjective HPI/CC On Admission Date Seen by Provider: Oct 03, 2021 Time Seen by Provider: 10:00 Roman Jane is a 70 year old male who presented to the ER after being found down at his home. He was reportedly agitated, but alert and oriented on arrival. He was requiring supplemental oxygen. He was intoxicated on methamphetamine. He became less responsive and was intubated for airway protection. He was found to be in acute renal failure with rhabdomyolysis. Due to the severity of his renal failure, a transfer was attempted for hemodialysis. He had low urine output, hyperkalemia, and significantly elevated BUN/creatinine. He was treated with IV fluids and bicarbonate. No bed was able to be secured for transfer, but his renal function began to improve. Subjective/Events-last exam He is sitting in his bedside chair. He is awake and alert. He is oriented. He is hungry. He wants water. He denies pain. He denies trouble breathing. Focused Exam Time of Focused Exam: 07:30 Objective Exam Vital Signs Vital Signs Date Time Temp Pulse Resp B/P (MAP) Pulse Ox O2 Delivery O2 Flow Rate FiO2 10/03/21 11:00 76 91/51 100 Room Air 10/03/21 10:22 5.00 10/03/21 10:00 22 10/03/21 07:48 36.6 10/02/21 10:04 50 Capillary Refill : Less Than 3 Seconds General Appearance: No Apparent Distress, Chronically ill, Thin Respiratory: No Respiratory Distress, Wheezing Cardiovascular: Regular Rate, Rhythm, No Murmur Gastrointestinal: Normal Bowel Sounds, Soft Extremity: Normal Inspection, No Pedal Edema Neurologic/Psychiatric: Alert, Oriented x3, Normal Mood/Affect, Motor Weakness Skin: Normal Color, Warm/Dry Results/Procedures Lab Laboratory Tests 10/03/21 04:08 Patient resulted labs reviewed. Imaging: Reviewed Imaging Report Assessment/Plan Assessment and Plan Assess & Plan/Chief Complaint Acute respiratory failure with hypoxia PNA Oxygen requirement improving [facility] Tele[facility] following Hypokalemia Hypomagnesemia Hypophosphatemia Monitor and replace as needed Delirium Agitation Dysphagia Debility Risperdal Haldol as needed Geodon as needed PT/OT/ST Advancing diet as able Methamphetamine abuse Hepatitis C Goals of care discussion Poor prognosis DNR DVT prophylaxis: Lovenox Hypernatremia, resolved LYDIA on CKD, resolved Acute tubular necrosis, resolved Rhabdomyolysis, resolved Endotracheally intubated, resolved Pneumonia, resolved Hyperkalemia, resolved Lactic acidosis, resolved Metabolic acidosis, resolved Elevated LFTs, resolved Diagnosis/Problems Diagnosis/Problems (1) Acute kidney injury superimposed on chronic kidney disease Status: Resolved Resolution Date/Time: 10/03/21 @ 12:41 (2) ATN (acute tubular necrosis) Status: Resolved Resolution Date/Time: 10/03/21 @ 12:41 (3) Lactic acidosis Status: Resolved Resolution Date/Time: 09/21/21 @ 18:43 (4) Hypernatremia Status: Resolved Resolution Date/Time: 10/03/21 @ 12:41 (5) Metabolic acidosis Status: Resolved Resolution Date/Time: 09/21/21 @ 18:43 (6) PNA (pneumonia) Status: Acute (7) Endotracheally intubated Status: Resolved Resolution Date/Time: 10/03/21 @ 12:41 (8) Methamphetamine abuse Status: Acute (9) Acute hepatitis Status: Resolved Resolution Date/Time: 10/03/21 @ 12:41 (10) Rhabdomyolysis Status: Resolved Qualifiers: Rhabdomyolysis type: non-traumatic Qualified Codes: M62.82 - Rhabdomyolysis Resolution Date/Time: 10/03/21 @ 12:41 (11) Multiorgan failure Status: Resolved Resolution Date/Time: 10/03/21 @ 12:41 (12) Hyperkalemia Status: Resolved Resolution Date/Time: 09/21/21 @ 18:43 (13) Acute respiratory failure with hypoxia Status: Acute (14) Hepatitis C antibody positive in blood Status: Acute (15) Delirium Status: Acute (16) Agitation Status: Resolved Resolution Date/Time: 10/03/21 @ 12:41 (17) Debility Status: Acute (18) Dysphagia Status: Acute CARLEEN GROSSMAN MD Oct 03, 2021 12:41
--- NOTE | 2021-10-03 12:41 | Speech Therapy Progress Note ---
Therapy Progress Note Speech Pathology: The re-assessment of the oropharyngeal swallowing function has occurred at this time. Full report to follow. Recommendations: - The patient should remain NPO. - Frequent, thorough, and excellent oral care to prevent the transfer of oral bacteria to the lungs should aspiration of secretions occur. - Essential meds crushed and placed in puree for administration. - Speech pathology to re-assess the swallowing function three to four times per week or as appropriate. The recommendations were discussed with the treating RN and patient. The patient does appear to be positively progressing, however, remains with overtly "wet" phonation throughout oral trials correlating to poor airway protection throughout the oropharyngeal swallow. MICHELLE MORTENSEN Oct 03, 2021 12:41
[2021-10-03] MEDS ORDERED: predniSONE 20 MG TAB PO NR (12:45)
[2021-10-03] MEDS ORDERED: SCOPOLAMINE 1.5 MG (TRANSDERM-SCOP) PATCH TD NR (13:00)
[2021-10-03 14:49] VITALS: BP 131/54
[2021-10-03] MEDS ORDERED: RT-ALBUTEROL/IPRATROPIUM 3 ML (DUONEB) VIAL INH PRN (15:00)
--- NOTE | 2021-10-03 16:11 | Speech Therapy Daily Note ---
Speech Daily Progress Note Subjective Date Seen by Provider: Oct 03, 2021 Time Seen by Provider: 09:45 The patient was seated upright in recliner upon entrance to his room. The patient appears on this date with increased alertness, cooperation, and consistent participation (with verbal encouragement, prompts, and redirection to task). The patient remains with supplemental oxygen via nasal cannula and a virtual sitter. As the patient required frequent verbal redirection and prompting for attention, high impulsivity remains present. Objective The patient was provided thin liquid via ice chip, thin liquid via half teaspoon, nectar-thick liquid via half teaspoon and straw, and puree via half teaspoon. Prior to PO trials, the patient was encouraged to complete a voluntary cough in attempts to clear audible secretions from the pharyngeal and laryngeal region. The patient presents with a "wet" vocal quality, however, improved in comparison to the prior date. The patient demonstrated consistency throat clearing following ice chip trials and thin liquid via half teaspoon. Initially, no overt s/s of suspected aspiration were displayed with teaspoon trials of nectar-thick liquid. However, as trials continued, the patient's vocal quality progressively became more wet. An immediate, rigorous cough was displayed following straw sip trials of nectar- thick liquid. Overt s/s of suspected aspiration were not present with the initial five teaspoon trials of puree. Following the sixth trial, the patient displayed an effortful throat clear followed by rigorous coughing. Due to the consistent s/s of suspected aspiration with the above consistencies, PO trials were discontinued at this time. Recommendations: - The patient should remain NPO. - Frequent, thorough, and excellent oral care to prevent the transfer of oral bacteria to the lungs should aspiration of secretions occur. - Essential meds crushed and placed in puree for administration. - Speech pathology to re-assess the swallowing function three to four times per week or as appropriate. The recommendations were discussed with the treating RN and patient. The patient does appear to be positively progressing, however, remains with overtly "wet" phonation throughout oral trials correlating to poor airway protection throughout the oropharyngeal swallow. Assessment Assessment Current Status: Fair Progress Treatment Plan Continue Plan of Care Speech Short Term Goals Short Term Goals Short Term Goals 1. The patient will participate in oral trials of the least restrictive consistency with the absence of s/s of suspected aspiration with 90% accuracy. Speech Supervisor Toy Parts Former Goals Supervisor Toy Parts Former Goals 1. The patient will consume the least restricted diet consistency to meet nutritional needs without the presence of s/s of suspected aspiration with 90% accuracy. Speech-Plan Treatment Plan Speech Therapy Treatment Plan: Continue Plan of Care Treatment Duration: Oct 16, 2021 Frequency: 3 times per week (Three to four times per week) Estimated Hrs Per Day: .25 hour per day Rehab Potential: Poor Pt/Family Agrees to Plan: Yes Safety Risks/Education Teaching Recipient: Patient Teaching Methods: Discussion Response to Teaching: Reinforcement Needed Education Topics Provided: Results of Oropharyngeal Swallow Re-Assessment Time Speech Therapy Time In: 09:45 Speech Therapy Time Out: 10:11 Total Billed Time: 26 Billed Treatment Time 1, MICHELLE Dewey Oct 03, 2021 16:11
[2021-10-03] MEDS: ENOXAPARIN 40 MG/0.4 ML (LOVENOX) SYR SC SCH (19:20)
[2021-10-03 20:00] VITALS: BP 146/96
[2021-10-03] MEDS ORDERED: guaiFENesin/DM (ROBITUSSIN DM) 10 ML UDC PO PRN (21:00)
[2021-10-03] MEDS ORDERED: guaiFENesin/DM (ROBITUSSIN DM) 10 ML UDC ONE (21:04)
[2021-10-03] MEDS ORDERED: FUROSEMIDE 40 MG/4 ML INJ (LASIX) ONE (22:12)
[2021-10-03] MEDS ORDERED: FUROSEMIDE 40 MG/4 ML INJ (LASIX) IVP ONE (22:15)
[2021-10-04] VITALS (7 sets, daily range): BP systolic 146–174; BP diastolic 62–75
[2021-10-04] MEDS: RT-ALBUTEROL/IPRATROPIUM 3 ML (DUONEB) VIAL INH SCH ×4 (02:44→21:26)
[2021-10-04] MEDS: MEROPENEM 1,000 MG in NS (IVPB) 100 ML IV SCH (03:42)
[2021-10-04] MEDS: inSUlin ASPART (NovoLOG) 1 UNIT/0.01 ML (CHARGE PER UNIT) SC SCH ×4 (05:36→22:08)
[2021-10-04 05:40] LABS: POTASSIUM 3.7 MMOL/L (3.6-5.0)
[2021-10-04 05:41] LABS: CALCIUM 8.1 MG/DL (8.5-10.1)
[2021-10-04 05:45] LABS: CREATININE SERUM 0.79 MG/DL (0.60-1.30)
[2021-10-04 05:48] LABS: MAGNESIUM 1.5 MG/DL (1.6-2.4)
[2021-10-04] MEDS: POTASSIUM CL 10MEQ/50ML IVPB 50 ML IV SCH (05:48)
[2021-10-04] MEDS: KCL 20 MEQ TAB (K-DUR) PO SCH (05:48)
[2021-10-04] MEDS: MAGNESIUM 1 GM/100 ML IVPB 100 ML IV SCH ×3 (06:13→06:17)
[2021-10-04] MEDS ORDERED: predniSONE 20 MG TAB PO SCH (07:00)
[2021-10-04 07:26] LABS: BASOPHILS % (AUTO) 0 % (0-10); EOSINOPHILS % (AUTO) 0 % (0-10); HEMATOCRIT 29 % (40-54); HEMOGLOBIN 9.1 g/dL (13.3-17.7); LYMPHOCYTES % (AUTO) 11 % (12-44); MEAN CORPUSCULAR HEMOGLOBIN 27 pg (25-34); MEAN CORPUSCULAR HGB CONC 31 g/dL (32-36); MEAN CORPUSCULAR VOLUME 87 fL (80-99); MEAN PLATELET VOLUME 11.7 fL (9.0-12.2); MONOCYTES # (AUTO) 0.7 10^3/uL (0.0-1.0); MONOCYTES % (AUTO) 8 % (0-12); NEUTROPHILS # (AUTO) 7.3 10^3/uL (1.8-7.8); NEUTROPHILS % (AUTO) 81 % (42-75); PLATELET COUNT 303 10^3/uL (130-400)
[2021-10-04 07:54] LABS: ANISOCYTOSIS SLIGHT; EOSINOPHILS % (MANUAL) 1 %; HYPOCHROMASIA SLIGHT; LYMPHOCYTES % (MANUAL) 12 %; MICROCYTOSIS SLIGHT; MONOCYTES % (MANUAL) 4 %; NEUTROPHILS % (MANUAL) 83 %; TOXIC GRANULATION/VACUOLAZATIO 2+
[2021-10-04] MEDS: PANTOPRAZOLE 40 MG (PROTONIX) VIAL IV SCH (08:25)
[2021-10-04] MEDS: LACRI-LUBE OPTHALMIC OINT 3.5 GM TUBE OU SCH ×2 (08:26→22:08)
[2021-10-04] MEDS: risperiDONE 1 MG (RisperDAL) TAB PO SCH ×2 (08:26→22:07)
--- NOTE | 2021-10-04 09:20 | Physical Therapy Daily Note ---
PT Daily Note-Current Subjective Patient presents seated in bed. Patient is still very difficult to understand due to mumbling. Mental Status Patient Orientation: Mumbles Attachments: Oxygen (8.5 HF NC), Oquendo Catheter, IV Transfers SCALE: Activities may be completed with or without assistive devices. 2-Nuiqkavdkz-zdkfpdt completes the activity by him/herself with no assistance from a helper. 5-Set-up or Clean-up Assistance-helper sets up or cleans up; patient completes activity. [place] assists only prior to or following the activity. 4-Supervision or Touching Assistance-helper provides verbal cues and/or touching/steadying and/or contact guard assistance as patient completes activity. Assistance may be provided throughout the activity or intermittently. 3-Partial/Moderate Assistance-helper does LESS THAN HALF the effort. [place] lifts, holds or supports trunk or limbs, but provides less than half the effort. 2-Substantial/Maximal Assistance-helper does MORE THAN HALF the effort. [place] lifts or holds trunk or limbs and provides more than half the effort. 4-Eprbyhjcz-sphook does ALL the effort. Patient does none of the effort to complete the activity. Or, the assistance of 2 or more helpers is required for the patient to complete the activity. If activity was not attempted, code reason: 7-Patient Refused. 9-Not Applicable-not attempted and the patient did not perform the activity before the current illness, exacerbation or injury. 10-Not Attempted due to Environmental Limitations-(lack of equipment, weather restraints, etc.). 88-Not Attempted due to Medical Conditions or Safety Concerns. Lying to Sitting/Side of Bed(Q: 3 Sit to Stand (QC): 3 Chair/Jjy-sy-Cwpuj Xfer(QC): 3 Patient required min assist for all transfers. Patient required cues to push from the bed and to grab the rails on the bed to help him get up. Gait Training Does the Patient Walk?: Yes Distance: 5 steps Gait Assistive Device: FWW Patient ambulated for 5 steps to the chair with min assist and FWW. Patient was very weak and ataxic with ambulation. Patient required assistance with turning the walker and lots of verbal cues to sit safely. Patient O2 saturation never dropped below 95% during ambulation. Exercises Seated Therapy Exercises: Ankle pumps, Long arc quads, Hip flexion Seated Reps: 10 Assessment Patient sat EOB for 3 minutes with CGA prior to standing and ambulating. Patient O2 saturation didn't go below 93% during entire therapy session. Patient continues to be difficult to understand and requires frequent cues for safety with transfers and ambulation. Patient performed seated exercises with multiple cues and reported fatigue at the end of the therapy session. PT Short Term Goals Short Term Goals Time Frame: Oct 11, 2021 Roll Left & Right: 3 Sit to lyin Lying to sitting on side of be: 3 Sit to stand: 3 Chair/boi-hg-khsre transfer: 3 Toilet transfer: 3 Walk 10 feet: 2 PT Skilled Nursing Goals Sap Portal Architect Goals PT Sap Portal Architect Goals Time Frame: Oct 25, 2021 Roll Left & Right (QC): 4 Sit to Lying (QC): 4 Lying-Sitting on Side/Bed(QC): 4 Sit to Stand (QC): 4 Chair/Bes-ge-Mnmrc Xfer(QC): 4 Toilet Transfer (QC): 4 Car Transfer (QC): 4 Does the Patient Walk: Yes Walk 10 feet (QC): 4 Walk 50ft with 2 Turns (QC): 3 Walk 150 ft (QC): 3 PT Plan Problem List Problem List: Activity Tolerance, Functional Strength, Safety, Balance, Gait, Transfer, Bed Mobility, ROM Treatment/Plan Treatment Plan: Continue Plan of Care Treatment Plan: Bed Mobility, Education, Functional Activity Kaia, Functional Strength, Group Therapy, Gait, Safety, Therapeutic Exercise, Transfers Treatment Duration: Nov 11, 2021 Frequency: 6 times per week Estimated Hrs Per Day: .25 hour per day Patient and/or Family Agrees t: Yes Time/GCodes Time In: 747 Time Out: 803 Total Billed Treatment Time: 16 Total Billed Treatment 1 Visit FA 16 min LANG JACKSON PT Oct 04, 2021 09:20
--- NOTE | 2021-10-04 10:57 | Occupational Ther Daily Note ---
OT Current Status-Daily Note Subjective Pt alert, sitting in recliner. Telesitter present. Pt agrees to therapy. Wound care nrsg in room. Pt's speech is more intelligible today and pt is clearing cognitive even more. Mental Status/Objective Patient Orientation: Person, Unable to Assess Attachments: Oquendo Catheter, IV, Oxygen (7L HiFlow) ADL-Treatment Mod to Max A for sit to stand then min A for standing using FWW, 2x's. Wound care nrsg dressed wound on coccyx while pt was standing. Pt able to bath upper body, upper/lower legs then assist with feet and buttocks. After session, pt sitting in recliner with call light/phone in reach. Telesitter present. All needs met. Therapy Code Descriptions/Definitions Functional [place] Measure: 0=Not Assessed/NA 4=Minimal Assistance 1=Total Assistance 5=Supervision or Setup 2=Maximal Assistance 6=Modified [place] 3=Moderate Assistance 7=Complete IndependenceSCALE: Activities may be completed with or without assistive devices. 5-Ujtaazmbuv-orijvii completes the activity by him/herself with no assistance from a helper. 5-Set-up or Clean-up Assistance-helper sets up or cleans up; patient completes activity. [place] assists only prior to or following the activity. 4-Supervision or Touching Assistance-helper provides verbal cues and/or touching/steadying and/or contact guard assistance as patient completes activity. Assistance may be provided throughout the activity or intermittently. 3-Partial/Moderate Assistance-helper does LESS THAN HALF the effort. Eagle lifts, holds or supports trunk or limbs, but provides less than half the effort. 2-Substantial/Maximal Assistance-helper does MORE THAN HALF the effort. [place] lifts or holds trunk or limbs and provides more than half the effort. 9-Xfxzjytdp-oopwjl does ALL the effort. Patient does none of the effort to complete the activity. Or, the assistance of 2 or more helpers is required for the patient to complete the activity. If activity was not attempted, code reason: 7-Patient Refused. 9-Not Applicable-not attempted and the patient did not perform the activity before the current illness, exacerbation or injury. 10-Not Attempted due to Environmental Limitations-(lack of equipment, weather restraints, etc.). 88-Not Attempted due to Medical Conditions or Safety Concerns. Bathing Location: L Arm, R Arm, L Upper Leg, R Upper Leg, L Lower Leg (including foot), R Lower Leg (including foot), Chest, Abdomen Shower/Bathe Self (QC): 3 (Mod A) OT Literature Teacher Goals Literature Teacher Goals Time Frame: Oct 18, 2021 Eating (QC): 5 Oral Hygiene (QC): 5 Toileting Hygiene (QC): 4 Shower/Bathe Self (QC): 4 Upper Body Dressing (QC): 5 Lower Body Dressing (QC): 4 On/Off Footwear (QC): 4 Additional Goals: 1-Demonstrate ADL Tasks, 2-Verbalize Understanding, 3- ImproveStrength/Kaia 1=Demonstrate adherence to instructed precautions during ADL tasks. 2=Patient will verbalize/demonstrate understanding of assistive devices/modifications for ADL. 3=Patient will improve strength/tolerance for activity to enable patient to perform ADL's. OT Education/Plan Problem List/Assessment Assessment: Decreased Activ Tolerance, Decreased Safety Aware, Impaired Cognition, Impaired Coordination, Impaired Funct Balance, Impaired Self-Care Skills Discharge Recommendations Plan/Recommendations: Continue POC Treatment Plan/Plan of Care Patient would benefit from OT for education, treatment and training to promote independence in ADL's, mobility, safety and/or upper extremity function for ADL's. Plan of Care: ADL Retraining, Functional Mobility, UE Funct Exercise/Act Treatment Duration: Oct 18, 2021 Frequency: 3 times per week (3-5 times per week.) Rehab Potential: Poor Time/GCodes Start Time: 10:20 Stop Time: 10:45 Total Time Billed (hr/min): 25 Billed Treatment Time 1 vsiit-ADL 2 (25 min) ROSANA QUARLES Oct 04, 2021 10:57
--- NOTE | 2021-10-04 13:35 | Speech Therapy Daily Note ---
Speech Daily Progress Note Subjective Date Seen by Provider: Oct 04, 2021 Time Seen by Provider: 12:57 The patient was seated upright in his recliner, awake and alert upon entrance to his room. The patient greeted the clinician appropriately and remains less than 50% intelligible in unknown contexts. The patient is agreeable to participation in the dysphagia treatment session. The patient is currently receiving 5L supplemental oxygen via nasal cannula with SpO2% at 93%. The patient appears with a significantly wet vocal quality, as well as, audible wet respirations. Objective The patient was provided thin liquid via straw sip (1), nectar-thick liquid via straw sip (1), and puree via half teaspoon (1). The patient displayed a rigorous, immediate cough following the swallow of thin liquids with a red face and a decrease in SpO2% to 87%. Following respiratory recovery, the patient was provided applesauce via half teaspoon. The patient displayed a delayed, rigorous cough following the swallow, continuous throat clearing and expectoration of material (and phlegm) into a tissue. With verbal encouragement (due to fatigue), the patient was provided one straw sip of nectar-thick liquid. The patient displayed immediate throat clearing and a decrease in SpO2% from 93% to 88%. The patient appeared fatigued following three trials of PO, closing his eyes, taking deep breaths, and sighing. The clinician continues to believe the patient is not safe for continued PO intake to meet nutritional needs. The patient displayed overt s/s of suspected aspiration with each consistency provided on this date, as well as, the inability to demonstrate appropriate stamina for continued intake following three trials. Recommendations: - The patient should remain NPO. - Frequent, excellent, and thorough oral care to reduce the transfer of oral bacteria to the lungs should aspiration of secretions occur. - Consideration of alternative sources for nutrition, hydration, and medication. - Speech pathology will repeat the clinical bedside swallowing evaluation on 10/07/2021. Assessment Assessment Current Status: Poor Progress Treatment Plan Continue Plan of Care Speech Short Term Goals Short Term Goals Short Term Goals 1. The patient will participate in oral trials of the least restrictive consistency with the absence of s/s of suspected aspiration with 90% accuracy. Speech Admitting Interviewer Goals Admitting Interviewer Goals 1. The patient will consume the least restricted diet consistency to meet nutritional needs without the presence of s/s of suspected aspiration with 90% accuracy. Speech-Plan Treatment Plan Speech Therapy Treatment Plan: Continue Plan of Care Treatment Duration: Oct 16, 2021 Frequency: 3 times per week (Three to four times per week) Estimated Hrs Per Day: .25 hour per day Rehab Potential: Poor Safety Risks/Education Teaching Recipient: Patient Teaching Methods: Discussion Response to Teaching: Reinforcement Needed Education Topics Provided: Oropharyngeal Swallow Function, Risks of Aspiration, Results of Assessment Time Speech Therapy Time In: 12:57 Speech Therapy Time Out: 13:21 Total Billed Time: 24 Billed Treatment Time 1, MICHELLE Dewey Oct 04, 2021 13:35
--- NOTE | 2021-10-04 15:50 | Progress Note - Hospitalist ---
Subjective HPI/CC On Admission Date Seen by Provider: Oct 04, 2021 Time Seen by Provider: 09:50 Roman Jane is a 70 year old male who presented to the ER after being found down at his home. He was reportedly agitated, but alert and oriented on arrival. He was requiring supplemental oxygen. He was intoxicated on methamphetamine. He became less responsive and was intubated for airway protection. He was found to be in acute renal failure with rhabdomyolysis. Due to the severity of his renal failure, a transfer was attempted for hemodialysis. He had low urine output, hyperkalemia, and significantly elevated BUN/creatinine. He was treated with IV fluids and bicarbonate. No bed was able to be secured for transfer, but his renal function began to improve. Subjective/Events-last exam He is sitting in his chair. He denies pain. He is not short of breath. Focused Exam Time of Focused Exam: 07:30 Objective Exam Vital Signs Vital Signs Date Time Temp Pulse Resp B/P (MAP) Pulse Ox O2 Delivery O2 Flow Rate FiO2 10/04/21 11:50 36.8 91 18 161/68 (99) 95 High Flow N/C 2.00 10/03/21 14:49 7 Capillary Refill : Less Than 3 Seconds General Appearance: No Apparent Distress, Chronically ill, Thin Respiratory: No Respiratory Distress, Rhonci, Wheezing Cardiovascular: Regular Rate, Rhythm, No Murmur Gastrointestinal: Normal Bowel Sounds, Soft Extremity: Normal Inspection, No Pedal Edema Neurologic/Psychiatric: Alert, Normal Mood/Affect Skin: Normal Color, Warm/Dry Results/Procedures Lab Laboratory Tests 10/04/21 05:01 Patient resulted labs reviewed. Imaging: Reviewed Imaging Report Assessment/Plan Assessment and Plan Assess & Plan/Chief Complaint Acute respiratory failure with hypoxia COPD exacerbation Oxygen requirement improving Steroids MAT protocol Hypokalemia Hypomagnesemia Hypophosphatemia Monitor and replace as needed Dysphagia Severe protein calorie malnutrition Debility PT/OT/ST Refused inpatient rehab NPO Planning to start TPN Methamphetamine abuse Hepatitis C Goals of care discussion Poor prognosis DNR DVT prophylaxis: Lovenox Hypernatremia, resolved LYDIA on CKD, resolved Acute tubular necrosis, resolved Rhabdomyolysis, resolved Endotracheally intubated, resolved Pneumonia, resolved Hyperkalemia, resolved Lactic acidosis, resolved Metabolic acidosis, resolved Elevated LFTs, resolved Delirium, resolved Agitation, resolved Diagnosis/Problems Diagnosis/Problems (1) Acute kidney injury superimposed on chronic kidney disease Status: Resolved Resolution Date/Time: 10/03/21 @ 12:41 (2) ATN (acute tubular necrosis) Status: Resolved Resolution Date/Time: 10/03/21 @ 12:41 (3) Lactic acidosis Status: Resolved Resolution Date/Time: 09/21/21 @ 18:43 (4) Hypernatremia Status: Resolved Resolution Date/Time: 10/03/21 @ 12:41 (5) Metabolic acidosis Status: Resolved Resolution Date/Time: 09/21/21 @ 18:43 (6) PNA (pneumonia) Status: Acute (7) Endotracheally intubated Status: Resolved Resolution Date/Time: 10/03/21 @ 12:41 (8) Methamphetamine abuse Status: Acute (9) Acute hepatitis Status: Resolved Resolution Date/Time: 10/03/21 @ 12:41 (10) Rhabdomyolysis Status: Resolved Qualifiers: Rhabdomyolysis type: non-traumatic Qualified Codes: M62.82 - Rhab domyolysis Resolution Date/Time: 10/03/21 @ 12:41 (11) Multiorgan failure Status: Resolved Resolution Date/Time: 10/03/21 @ 12:41 (12) Hyperkalemia Status: Resolved Resolution Date/Time: 09/21/21 @ 18:43 (13) Acute respiratory failure with hypoxia Status: Acute (14) Hepatitis C antibody positive in blood Status: Acute (15) Delirium Status: Acute (16) Agitation Status: Resolved Resolution Date/Time: 10/03/21 @ 12:41 (17) Debility Status: Acute (18) Dysphagia Status: Acute CARLEEN GROSSMAN MD Oct 04, 2021 15:50
[2021-10-04] MEDS: ENOXAPARIN 40 MG/0.4 ML (LOVENOX) SYR SC SCH (22:07)
[2021-10-04] MEDS: COLLAGENASE 30 GM (SANTYL) TUBE TP SCH (22:08)
[2021-10-05] MEDS: RT-ALBUTEROL/IPRATROPIUM 3 ML (DUONEB) VIAL INH SCH ×4 (02:17→21:09)
[2021-10-05 03:01] VITALS: BP 162/68
[2021-10-05] MEDS: inSUlin ASPART (NovoLOG) 1 UNIT/0.01 ML (CHARGE PER UNIT) SC SCH ×4 (05:18→21:40)
[2021-10-05 06:05] LABS: BASOPHILS % (AUTO) 0 % (0-10); EOSINOPHILS % (AUTO) 0 % (0-10); HEMATOCRIT 31 % (40-54); HEMOGLOBIN 9.4 g/dL (13.3-17.7); LYMPHOCYTES # (AUTO) 1.5 10^3/uL (1.0-4.0); LYMPHOCYTES % (AUTO) 11 % (12-44); MEAN CORPUSCULAR HEMOGLOBIN 27 pg (25-34); MEAN CORPUSCULAR HGB CONC 31 g/dL (32-36); MEAN CORPUSCULAR VOLUME 87 fL (80-99); MEAN PLATELET VOLUME 11.1 fL (9.0-12.2); MONOCYTES % (AUTO) 8 % (0-12); NEUTROPHILS # (AUTO) 10.2 10^3/uL (1.8-7.8); NEUTROPHILS % (AUTO) 79 % (42-75); PLATELET COUNT 329 10^3/uL (130-400); WHITE BLOOD COUNT 12.9 10^3/uL (4.3-11.0)
[2021-10-05 06:24] LABS: ANISOCYTOSIS SLIGHT; LYMPHOCYTES % (MANUAL) 9 %; MONOCYTES % (MANUAL) 5 %; NEUTROPHILS % (MANUAL) 86 %
[2021-10-05 06:25] LABS: STOMATOCYTES MODERATE
[2021-10-05 06:26] LABS: POTASSIUM 3.6 MMOL/L (3.6-5.0)
[2021-10-05 06:27] LABS: CALCIUM 8.4 MG/DL (8.5-10.1)
[2021-10-05 06:31] LABS: CREATININE SERUM 0.73 MG/DL (0.60-1.30)
[2021-10-05 06:34] LABS: MAGNESIUM 1.9 MG/DL (1.6-2.4)
[2021-10-05] MEDS: POTASSIUM CL 10MEQ/50ML IVPB 50 ML IV SCH (06:46)
[2021-10-05] MEDS: MAGNESIUM 1 GM/100 ML IVPB 100 ML IV SCH (06:46)
[2021-10-05] MEDS: KCL 20 MEQ TAB (K-DUR) PO SCH (06:47)
[2021-10-05] MEDS ORDERED: KCL 20 MEQ TAB (K-DUR) PO ONE ×2 (07:00)
[2021-10-05 07:11] VITALS: BP 171/65
[2021-10-05] MEDS: PANTOPRAZOLE 40 MG (PROTONIX) VIAL IV SCH (08:05)
[2021-10-05] MEDS: methylPREDNISolone 40 MG/ML (Solu-MEDROL) VIAL IV SCH (08:05)
[2021-10-05] MEDS: LACRI-LUBE OPTHALMIC OINT 3.5 GM TUBE OU SCH ×2 (08:06→20:10)
[2021-10-05] MEDS: COLLAGENASE 30 GM (SANTYL) TUBE TP SCH ×2 (08:06→20:11)
[2021-10-05] MEDS: risperiDONE 1 MG (RisperDAL) TAB PO SCH ×2 (08:06→20:10)
--- NOTE | 2021-10-05 10:50 | Physical Therapy Daily Note ---
PT Daily Note-Current Subjective Pt is in the bedside chair, with the bed alarm on at arrival and on departure. Mental Status Patient Orientation: Confused, Mumbles Attachments: Oxygen, Oquendo Catheter Pt attempts to communicate, but is difficult to understand. Transfers SCALE: Activities may be completed with or without assistive devices. 1-Vlxpuphpmj-xlytxfz completes the activity by him/herself with no assistance from a helper. 5-Set-up or Clean-up Assistance-helper sets up or cleans up; patient completes activity. [place] assists only prior to or following the activity. 4-Supervision or Touching Assistance-helper provides verbal cues and/or touching/steadying and/or contact guard assistance as patient completes activity. Assistance may be provided throughout the activity or intermittently. 3-Partial/Moderate Assistance-helper does LESS THAN HALF the effort. [place] lifts, holds or supports trunk or limbs, but provides less than half the effort. 2-Substantial/Maximal Assistance-helper does MORE THAN HALF the effort. [place] lifts or holds trunk or limbs and provides more than half the effort. 1-Oqfspbeuo-zbhwrm does ALL the effort. Patient does none of the effort to complete the activity. Or, the assistance of 2 or more helpers is required for the patient to complete the activity. If activity was not attempted, code reason: 7-Patient Refused. 9-Not Applicable-not attempted and the patient did not perform the activity before the current illness, exacerbation or injury. 10-Not Attempted due to Environmental Limitations-(lack of equipment, weather restraints, etc.). 88-Not Attempted due to Medical Conditions or Safety Concerns. Sit to Stand (QC): 5 Gait Training Does the Patient Walk?: Yes Distance: 6ft Gait Assistive Device: FWW Pt ambulated a short distance forward and back due to limitations of the respiratory equipment in use. He was able to march in place and stand for exercises for the entire treatment lasting 12-13 minutes total in standing. Exercises Standing: Heel/toe raises, 3 way Ex=Flex, Abd, Ext, Marching Standing Reps: 15 Assessment Current Status: Good Progress Pt was motivated to get up and move with therapy. Pt was returned to his chair with the alarm activated, and his feet elevated. PT Short Term Goals Short Term Goals Time Frame: Oct 11, 2021 Roll Left & Right: 3 Sit to lyin Lying to sitting on side of be: 3 Sit to stand: 3 Chair/dve-wl-bdoid transfer: 3 Toilet transfer: 3 Walk 10 feet: 2 PT Prison Goals Realty Specialist Goals PT Prison Goals Time Frame: Oct 25, 2021 Roll Left & Right (QC): 4 Sit to Lying (QC): 4 Lying-Sitting on Side/Bed(QC): 4 Sit to Stand (QC): 4 Chair/Fut-bn-Aecoh Xfer(QC): 4 Toilet Transfer (QC): 4 Car Transfer (QC): 4 Does the Patient Walk: Yes Walk 10 feet (QC): 4 Walk 50ft with 2 Turns (QC): 3 Walk 150 ft (QC): 3 PT Plan Treatment/Plan Treatment Plan: Continue Plan of Care Treatment Plan: Bed Mobility, Education, Functional Activity Kaia, Functional Strength, Group Therapy, Gait, Safety, Therapeutic Exercise, Transfers Treatment Duration: Nov 11, 2021 Frequency: 6 times per week Estimated Hrs Per Day: .25 hour per day Patient and/or Family Agrees t: Yes Time/GCodes Time In: 819 Time Out: 834 Total Billed Treatment Time: 15 Total Billed Treatment 1, ex 15 RASHEEDA BECK PT Oct 05, 2021 10:50
[2021-10-05 11:19] VITALS: BP 184/88
[2021-10-05 15:30] VITALS: BP 186/84
--- NOTE | 2021-10-05 16:13 | Progress Note - Hospitalist ---
Subjective HPI/CC On Admission Date Seen by Provider: Oct 05, 2021 Time Seen by Provider: 11:20 Roman Jane is a 70 year old male who presented to the ER after being found down at his home. He was reportedly agitated, but alert and oriented on arrival. He was requiring supplemental oxygen. He was intoxicated on methamphetamine. He became less responsive and was intubated for airway protection. He was found to be in acute renal failure with rhabdomyolysis. Due to the severity of his renal failure, a transfer was attempted for hemodialysis. He had low urine output, hyperkalemia, and significantly elevated BUN/creatinine. He was treated with IV fluids and bicarbonate. No bed was able to be secured for transfer, but his renal function began to improve. Subjective/Events-last exam He is sitting in his chair. He is alert and oriented. He denies pain. Focused Exam Time of Focused Exam: 07:30 Objective Exam Vital Signs Vital Signs Date Time Temp Pulse Resp B/P (MAP) Pulse Ox O2 Delivery O2 Flow Rate FiO2 10/05/21 15:30 37.0 94 18 186/84 (118) 95 Nasal Cannula 6.00 10/03/21 14:49 7 Capillary Refill : Less Than 3 Seconds General Appearance: No Apparent Distress, Chronically ill, Thin Respiratory: No Respiratory Distress, Rhonci Cardiovascular: Regular Rate, Rhythm, No Murmur Gastrointestinal: Normal Bowel Sounds, Soft Extremity: Normal Inspection, No Pedal Edema Neurologic/Psychiatric: Alert, Oriented x3, Motor Weakness Skin: Normal Color, Warm/Dry Results/Procedures Lab Laboratory Tests 10/05/21 05:05 Patient resulted labs reviewed. Imaging: Reviewed Imaging Report Assessment/Plan Assessment and Plan Assess & Plan/Chief Complaint Acute respiratory failure with hypoxia COPD exacerbation Steroids MAT protocol Dysphagia Severe protein calorie malnutrition Debility PT/OT/ST NPO TPN Methamphetamine abuse Hepatitis C Goals of care discussion Poor prognosis DNR DVT prophylaxis: Lovenox Hypernatremia, resolved LYDIA on CKD, resolved Acute tubular necrosis, resolved Rhabdomyolysis, resolved Endotracheally intubated, resolved Pneumonia, resolved Hyperkalemia, resolved Lactic acidosis, resolved Metabolic acidosis, resolved Elevated LFTs, resolved Delirium, resolved Agitation, resolved Hypokalemia, resolved Hypomagnesemia, resolved Hypophosphatemia, resolved Diagnosis/Problems Diagnosis/Problems (1) Acute kidney injury superimposed on chronic kidney disease Status: Resolved Resolution Date/Time: 10/03/21 @ 12:41 (2) ATN (acute tubular necrosis) Status: Resolved Resolution Date/Time: 10/03/21 @ 12:41 (3) Lactic acidosis Status: Resolved Resolution Date/Time: 09/21/21 @ 18:43 (4) Hypernatremia Status: Resolved Resolution Date/Time: 10/03/21 @ 12:41 (5) Metabolic acidosis Status: Resolved Resolution Date/Time: 09/21/21 @ 18:43 (6) PNA (pneumonia) Status: Acute (7) Endotracheally intubated Status: Resolved Resolution Date/Time: 10/03/21 @ 12:41 (8) Methamphetamine abuse Status: Acute (9) Acute hepatitis Status: Resolved Resolution Date/Time: 10/03/21 @ 12:41 (10) Rhabdomyolysis Status: Resolved Qualifiers: Rhabdomyolysis type: non-traumatic Qualified Codes: M62.82 - Rhabdomyolysis Resolution Date/Time: 10/03/21 @ 12:41 (11) Multiorgan failure Status: Resolved Resolution Date/Time: 10/03/21 @ 12:41 (12) Hyperkalemia Status: Resolved Resolution Date/Time: 09/21/21 @ 18:43 (13) Acute respiratory failure with hypoxia Status: Acute (14) Hepatitis C antibody positive in blood Status: Acute (15) Delirium Status: Acute (16) Agitation Status: Resolved Resolution Date/Time: 10/03/21 @ 12:41 (17) Debility Status: Acute (18) Dysphagia Status: Acute CARLEEN GROSSMAN MD Oct 05, 2021 16:13
[2021-10-05] MEDS: ENOXAPARIN 40 MG/0.4 ML (LOVENOX) SYR SC SCH (20:10)
[2021-10-05 20:17] VITALS: BP 165/75
[2021-10-05] MEDS: ZIPRASIDONE 20 MG INJ (GEODON) VIAL IM PRN (20:19)
[2021-10-05] MEDS: HALOPERIDOL 5 MG/ML (HALDOL) VIAL IM PRN (21:46)
[2021-10-06] VITALS (7 sets, daily range): BP systolic 126–152; BP diastolic 50–80
[2021-10-06] MEDS: ZIPRASIDONE 20 MG INJ (GEODON) VIAL IM PRN ×3 (00:32→14:42)
[2021-10-06] MEDS ORDERED: LORazepam INJ 2 MG/ML (ATIVAN) VIAL IVP ONE (01:00)
[2021-10-06] MEDS: RT-ALBUTEROL/IPRATROPIUM 3 ML (DUONEB) VIAL INH SCH ×3 (02:20→21:37)
[2021-10-06] MEDS: inSUlin ASPART (NovoLOG) 1 UNIT/0.01 ML (CHARGE PER UNIT) SC SCH ×4 (06:14→21:07)
[2021-10-06 06:52] LABS: BASOPHILS % (AUTO) 0 % (0-10); EOSINOPHILS % (AUTO) 1 % (0-10); HEMATOCRIT 30 % (40-54); HEMOGLOBIN 9.3 g/dL (13.3-17.7); LYMPHOCYTES # (AUTO) 1.6 10^3/uL (1.0-4.0); LYMPHOCYTES % (AUTO) 20 % (12-44); MEAN CORPUSCULAR HEMOGLOBIN 26 pg (25-34); MEAN CORPUSCULAR HGB CONC 31 g/dL (32-36); MEAN CORPUSCULAR VOLUME 86 fL (80-99); MEAN PLATELET VOLUME 10.4 fL (9.0-12.2); MONOCYTES # (AUTO) 0.9 10^3/uL (0.0-1.0); MONOCYTES % (AUTO) 11 % (0-12); NEUTROPHILS # (AUTO) 5.7 10^3/uL (1.8-7.8); NEUTROPHILS % (AUTO) 69 % (42-75); PLATELET COUNT 304 10^3/uL (130-400); WHITE BLOOD COUNT 8.3 10^3/uL (4.3-11.0)
[2021-10-06 07:07] LABS: CALCIUM 8.2 MG/DL (8.5-10.1)
[2021-10-06 07:11] LABS: PHOSPHORUS 3.1 MG/DL (2.3-4.7)
[2021-10-06 07:12] LABS: CREATININE SERUM 0.7 MG/DL (0.60-1.30)
[2021-10-06 07:14] LABS: MAGNESIUM 1.6 MG/DL (1.6-2.4)
[2021-10-06] MEDS: KCL 20 MEQ TAB (K-DUR) PO SCH (07:22)
[2021-10-06] MEDS: POTASSIUM CL 10MEQ/50ML IVPB 50 ML IV SCH (07:22)
[2021-10-06] MEDS: MAGNESIUM 1 GM/100 ML IVPB 100 ML IV SCH ×3 (07:24→08:46)
[2021-10-06] MEDS: LORazepam INJ 2 MG/ML (ATIVAN) VIAL IVP PRN ×3 (07:39→19:43)
[2021-10-06 07:45] LABS: ATYPICAL LYMPHOCYTES 5 %; BLAST CELLS 2 %; LYMPHOCYTES % (MANUAL) 19 %; MONOCYTES % (MANUAL) 10 %; NEUTROPHILS % (MANUAL) 63 %; REACTIVE LYMPHOCYTES 1 %
[2021-10-06 07:46] LABS: ANISOCYTOSIS SLIGHT; HYPOCHROMASIA SLIGHT; STOMATOCYTES MODERATE; TOXIC GRANULATION/VACUOLAZATIO 2+
[2021-10-06] MEDS: PANTOPRAZOLE 40 MG (PROTONIX) VIAL IV SCH (08:46)
[2021-10-06] MEDS: COLLAGENASE 30 GM (SANTYL) TUBE TP SCH ×2 (08:46→21:08)
[2021-10-06] MEDS: methylPREDNISolone 40 MG/ML (Solu-MEDROL) VIAL IV SCH (08:46)
[2021-10-06] MEDS: LACRI-LUBE OPTHALMIC OINT 3.5 GM TUBE OU SCH ×2 (08:46→21:08)
[2021-10-06] MEDS: risperiDONE 1 MG (RisperDAL) TAB PO SCH ×2 (08:46→21:08)
[2021-10-06] MEDS ORDERED: SCOPOLAMINE PATCH REMOVAL TP SCH (13:00)
[2021-10-06] MEDS: WATER (STERILE) FOR INJ 10 ML BTL INJ SCH (14:43)
--- NOTE | 2021-10-06 20:01 | Progress Note - Hospitalist ---
Subjective HPI/CC On Admission Date Seen by Provider: Oct 06, 2021 Time Seen by Provider: 11:30 Roman Jane is a 70 year old male who presented to the ER after being found down at his home. He was reportedly agitated, but alert and oriented on arrival. He was requiring supplemental oxygen. He was intoxicated on methamphetamine. He became less responsive and was intubated for airway protection. He was found to be in acute renal failure with rhabdomyolysis. Due to the severity of his renal failure, a transfer was attempted for hemodialysis. He had low urine output, hyperkalemia, and significantly elevated BUN/creatinine. He was treated with IV fluids and bicarbonate. No bed was able to be secured for transfer, but his renal function began to improve. Subjective/Events-last exam He remains alert and oriented. He has no complaints or concerns. He does not remember being confused and agitated overnight. Focused Exam Time of Focused Exam: 07:30 Objective Exam Vital Signs Vital Signs Date Time Temp Pulse Resp B/P (MAP) Pulse Ox O2 Delivery O2 Flow Rate FiO2 10/06/21 19:20 36.2 91 20 132/62 (85) 100 High Flow N/C 6.00 10/03/21 14:49 7 Capillary Refill : Less Than 3 Seconds General Appearance: No Apparent Distress, Chronically ill, Thin Respiratory: No Respiratory Distress, Rhonci Cardiovascular: Regular Rate, Rhythm, No Murmur Gastrointestinal: Normal Bowel Sounds, Soft Extremity: Normal Inspection, No Pedal Edema Neurologic/Psychiatric: Alert, Oriented x3, Motor Weakness Skin: Normal Color, Warm/Dry Results/Procedures Lab Laboratory Tests 10/06/21 06:37 Patient resulted labs reviewed. Imaging: Reviewed Imaging Report Assessment/Plan Assessment and Plan Assess & Plan/Chief Complaint Acute respiratory failure with hypoxia COPD exacerbation Steroids MAT protocol Dysphagia Severe protein calorie malnutrition Debility Delirium PT/OT/ST NPO TPN Ativan as needed Methamphetamine abuse Hepatitis C Goals of care discussion Poor prognosis DNR DVT prophylaxis: Lovenox Hypernatremia, resolved LYDIA on CKD, resolved Acute tubular necrosis, resolved Rhabdomyolysis, resolved Endotracheally intubated, resolved Pneumonia, resolved Hyperkalemia, resolved Lactic acidosis, resolved Metabolic acidosis, resolved Elevated LFTs, resolved Delirium, resolved Agitation, resolved Hypokalemia, resolved Hypomagnesemia, resolved Hypophosphatemia, resolved Diagnosis/Problems Diagnosis/Problems (1) Acute kidney injury superimposed on chronic kidney disease Status: Resolved Resolution Date/Time: 10/03/21 @ 12:41 (2) ATN (acute tubular necrosis) Status: Resolved Resolution Date/Time: 10/03/21 @ 12:41 (3) Lactic acidosis Status: Resolved Resolution Date/Time: 09/21/21 @ 18:43 (4) Hypernatremia Status: Resolved Resolution Date/Time: 10/03/21 @ 12:41 (5) Metabolic acidosis Status: Resolved Resolution Date/Time: 09/21/21 @ 18:43 (6) PNA (pneumonia) Status: Acute (7) Endotracheally intubated Status: Resolved Resolution Date/Time: 10/03/21 @ 12:41 (8) Methamphetamine abuse Status: Acute (9) Acute hepatitis Status: Resolved Resolution Date/Time: 10/03/21 @ 12:41 (10) Rhabdomyolysis Status: Resolved Qualifiers: Rhabdomyolysis type: non-traumatic Qualified Codes: M62.82 - Rhabdomyolysis Resolution Date/Time: 10/03/21 @ 12:41 (11) Multiorgan failure Status: Resolved Resolution Date/Time: 10/03/21 @ 12:41 (12) Hyperkalemia Status: Resolved Resolution Date/Time: 09/21/21 @ 18:43 (13) Acute respiratory failure with hypoxia Status: Acute (14) Hepatitis C antibody positive in blood Status: Acute (15) Delirium Status: Acute (16) Agitation Status: Resolved Resolution Date/Time: 10/03/21 @ 12:41 (17) Debility Status: Acute (18) Dysphagia Status: Acute CARLEEN GROSSMAN MD Oct 06, 2021 20:01
[2021-10-06] MEDS: ENOXAPARIN 40 MG/0.4 ML (LOVENOX) SYR SC SCH (21:08)
[2021-10-07] VITALS (7 sets, daily range): BP systolic 142–161; BP diastolic 60–70
[2021-10-07] MEDS: RT-ALBUTEROL/IPRATROPIUM 3 ML (DUONEB) VIAL INH SCH ×4 (02:15→22:08)
[2021-10-07] MEDS: LORazepam INJ 2 MG/ML (ATIVAN) VIAL IVP PRN ×3 (03:19→18:53)
[2021-10-07] MEDS: ZIPRASIDONE 20 MG INJ (GEODON) VIAL IM PRN ×4 (04:16→22:01)
[2021-10-07] MEDS: WATER (STERILE) FOR INJ 10 ML BTL INJ SCH ×4 (04:16→22:01)
[2021-10-07] MEDS: inSUlin ASPART (NovoLOG) 1 UNIT/0.01 ML (CHARGE PER UNIT) SC SCH ×4 (05:57→19:59)
[2021-10-07 06:38] LABS: BASOPHILS % (AUTO) 0 % (0-10); EOSINOPHILS # (AUTO) 0.1 10^3/uL (0.0-0.3); EOSINOPHILS % (AUTO) 1 % (0-10); HEMATOCRIT 33 % (40-54); HEMOGLOBIN 10.2 g/dL (13.3-17.7); LYMPHOCYTES # (AUTO) 1.6 10^3/uL (1.0-4.0); LYMPHOCYTES % (AUTO) 21 % (12-44); MEAN CORPUSCULAR HEMOGLOBIN 27 pg (25-34); MEAN CORPUSCULAR HGB CONC 31 g/dL (32-36); MEAN CORPUSCULAR VOLUME 86 fL (80-99); MEAN PLATELET VOLUME 10.6 fL (9.0-12.2); MONOCYTES # (AUTO) 0.9 10^3/uL (0.0-1.0); MONOCYTES % (AUTO) 11 % (0-12); NEUTROPHILS # (AUTO) 5.1 10^3/uL (1.8-7.8); NEUTROPHILS % (AUTO) 66 % (42-75); PLATELET COUNT 329 10^3/uL (130-400); WHITE BLOOD COUNT 7.6 10^3/uL (4.3-11.0)
[2021-10-07 06:53] LABS: CALCIUM 8.4 MG/DL (8.5-10.1); CREATININE SERUM 0.74 MG/DL (0.60-1.30); POTASSIUM 3.3 MMOL/L (3.6-5.0)
[2021-10-07] MEDS: POTASSIUM CL 10MEQ/50ML IVPB 50 ML IV SCH (07:21)
[2021-10-07] MEDS: MAGNESIUM 1 GM/100 ML IVPB 100 ML IV SCH (07:21)
[2021-10-07] MEDS: KCL 20 MEQ TAB (K-DUR) PO SCH ×3 (07:22→08:17)
[2021-10-07 07:37] LABS: BAND NEUTROPHILS 0 %; BASOPHILS % (MANUAL) 0 %; EOSINOPHILS % (MANUAL) 0 %; LYMPHOCYTES % (MANUAL) 16 %; MONOCYTES % (MANUAL) 12 %; NEUTROPHILS % (MANUAL) 72 %; RBC MORPH NORMAL
[2021-10-07] MEDS: PANTOPRAZOLE 40 MG (PROTONIX) VIAL IV SCH (08:15)
[2021-10-07] MEDS: COLLAGENASE 30 GM (SANTYL) TUBE TP SCH ×2 (08:15→19:57)
[2021-10-07] MEDS: LACRI-LUBE OPTHALMIC OINT 3.5 GM TUBE OU SCH ×2 (08:15→19:57)
[2021-10-07] MEDS: risperiDONE 1 MG (RisperDAL) TAB PO SCH ×2 (08:15→19:58)
[2021-10-07] MEDS: methylPREDNISolone 40 MG/ML (Solu-MEDROL) VIAL IV SCH (08:15)
--- NOTE | 2021-10-07 09:47 | Occupational Ther Daily Note ---
OT Current Status-Daily Note Subjective Pt is drowsy and confused. Pt allows GARCIA to work with him. Sitter present in room. Mental Status/Objective Patient Orientation: Person, Confused Attachments: IV, Oxygen, Telemetry ADL-Treatment Therapy Code Descriptions/Definitions Functional [place] Measure: 0=Not Assessed/NA 4=Minimal Assistance 1=Total Assistance 5=Supervision or Setup 2=Maximal Assistance 6=Modified [place] 3=Moderate Assistance 7=Complete IndependenceSCALE: Activities may be completed with or without assistive devices. 0-Haajalqnjs-plqvrnp completes the activity by him/herself with no assistance from a helper. 5-Set-up or Clean-up Assistance-helper sets up or cleans up; patient completes activity. [place] assists only prior to or following the activity. 4-Supervision or Touching Assistance-helper provides verbal cues and/or touching/steadying and/or contact guard assistance as patient completes activity. Assistance may be provided throughout the activity or intermittently. 3-Partial/Moderate Assistance-helper does LESS THAN HALF the effort. [place] lifts, holds or supports trunk or limbs, but provides less than half the effort. 2-Substantial/Maximal Assistance-helper does MORE THAN HALF the effort. [place] lifts or holds trunk or limbs and provides more than half the effort. 9-Nrtcfvdsz-wlkinw does ALL the effort. Patient does none of the effort to complete the activity. Or, the assistance of 2 or more helpers is required for the patient to complete the activity. If activity was not attempted, code reason: 7-Patient Refused. 9-Not Applicable-not attempted and the patient did not perform the activity before the current illness, exacerbation or injury. 10-Not Attempted due to Environmental Limitations-(lack of equipment, weather restraints, etc.). 88-Not Attempted due to Medical Conditions or Safety Concerns. Other Treatment Mod A for supine to sit EOB with HOB elevated. GARCIA and nrsg assisted with sit to stand, min A with surface elevated. Assist x2 for safety to manipulate FWW and verbal cues to transfer from EOB to recliner. Pt has shuffling gait, stooped posture. After therapy, pt sitting in recliner with call light/phone in reach. Sitter present in room. OT Concrete Plant Laborer Goals Concrete Plant Laborer Goals Time Frame: Oct 18, 2021 Eating (QC): 5 Oral Hygiene (QC): 5 Toileting Hygiene (QC): 4 Shower/Bathe Self (QC): 4 Upper Body Dressing (QC): 5 Lower Body Dressing (QC): 4 On/Off Footwear (QC): 4 Additional Goals: 1-Demonstrate ADL Tasks, 2-Verbalize Understanding, 3- ImproveStrength/Kaia 1=Demonstrate adherence to instructed precautions during ADL tasks. 2=Patient will verbalize/demonstrate understanding of assistive devices/modifications for ADL. 3=Patient will improve strength/tolerance for activity to enable patient to perform ADL's. OT Education/Plan Problem List/Assessment Assessment: Decreased Safety Aware, Impaired Bed Mobility, Impaired Cognition, Impaired Self-Care Skills Discharge Recommendations Plan/Recommendations: Continue POC Treatment Plan/Plan of Care Patient would benefit from OT for education, treatment and training to promote independence in ADL's, mobility, safety and/or upper extremity function for ADL's. Plan of Care: ADL Retraining, Functional Mobility, UE Funct Exercise/Act Treatment Duration: Oct 18, 2021 Frequency: 3 times per week (3-5 times per week.) Rehab Potential: Poor Time/GCodes Start Time: 09:30 Stop Time: 09:40 Total Time Billed (hr/min): 10 Billed Treatment Time 1 visit-FA 1 (10 min) ROSANA QUARLES Oct 07, 2021 09:47
--- NOTE | 2021-10-07 10:41 | Physical Therapy Daily Note ---
PT Daily Note-Current Subjective Patient presented sitting in chair and agreed to participate in therapy. Patient is very hard to understand due to mumbling and patient is very confused. Mental Status Patient Orientation: Person, Confused, Mumbles Attachments: Oxygen, [place] Catheter Sat monitor on L foot Transfers SCALE: Activities may be completed with or without assistive devices. 1-Xohyquifzd-iafytjn completes the activity by him/herself with no assistance from a helper. 5-Set-up or Clean-up Assistance-helper sets up or cleans up; patient completes activity. [place] assists only prior to or following the activity. 4-Supervision or Touching Assistance-helper provides verbal cues and/or touching/steadying and/or contact guard assistance as patient completes activity. Assistance may be provided throughout the activity or intermittently. 3-Partial/Moderate Assistance-helper does LESS THAN HALF the effort. [place] lifts, holds or supports trunk or limbs, but provides less than half the effort. 2-Substantial/Maximal Assistance-helper does MORE THAN HALF the effort. [place] lifts or holds trunk or limbs and provides more than half the effort. 0-Uenwoecoi-fgtpya does ALL the effort. Patient does none of the effort to complete the activity. Or, the assistance of 2 or more helpers is required for the patient to complete the activity. If activity was not attempted, code reason: 7-Patient Refused. 9-Not Applicable-not attempted and the patient did not perform the activity before the current illness, exacerbation or injury. 10-Not Attempted due to Environmental Limitations-(lack of equipment, weather restraints, etc.). 88-Not Attempted due to Medical Conditions or Safety Concerns. Sit to Stand (QC): 2 Gait Training Does the Patient Walk?: No and Walking Goal IS indicated Exercises Seated Therapy Exercises: Ankle pumps, Long arc quads, Hip flexion Seated Reps: 10 Standing: Sit to Stand (x2) Assessment Patient had great difficulty with seated exercises and required max assist for sit to stand. Patient was very confused and weak and had difficulty with understand exercises. Patient reported fatigue after therapy session. Patient stood for over 30'' with mod assist x2 but required cues to stand up tall and to reach back for the chair when sitting down. PT Short Term Goals Short Term Goals Time Frame: Oct 11, 2021 Roll Left & Right: 3 Sit to lyin Lying to sitting on side of be: 3 Sit to stand: 3 Chair/owy-wc-oorib transfer: 3 Toilet transfer: 3 Walk 10 feet: 2 PT Real Estate Legal Assistant Goals Real Estate Legal Assistant Goals PT Fpc Goals Time Frame: Oct 25, 2021 Roll Left & Right (QC): 4 Sit to Lying (QC): 4 Lying-Sitting on Side/Bed(QC): 4 Sit to Stand (QC): 4 Chair/Hfu-zz-Lrelo Xfer(QC): 4 Toilet Transfer (QC): 4 Car Transfer (QC): 4 Does the Patient Walk: Yes Walk 10 feet (QC): 4 Walk 50ft with 2 Turns (QC): 3 Walk 150 ft (QC): 3 PT Plan Problem List Problem List: Activity Tolerance, Functional Strength, Safety, Balance, Gait, Transfer, Bed Mobility, ROM Treatment/Plan Treatment Plan: Continue Plan of Care Treatment Plan: Bed Mobility, Education, Functional Activity Kaia, Functional Strength, Group Therapy, Gait, Safety, Therapeutic Exercise, Transfers Treatment Duration: Nov 11, 2021 Frequency: 6 times per week Estimated Hrs Per Day: .25 hour per day Patient and/or Family Agrees t: Yes Time/GCodes Time In: 1001 Time Out: 1014 Total Billed Treatment Time: 13 Total Billed Treatment 1 Visit Ex 13 min LANG JACKSON PT Oct 07, 2021 10:41
--- NOTE | 2021-10-07 12:13 | Speech Therapy Daily Note ---
Speech Daily Progress Note Subjective Date Seen by Provider: Oct 07, 2021 Time Seen by Provider: 08:19 The patient was seated upright in bed, drifting in and out of sleep. The patient has two RN's present at bedside. The patient greets the clinician verbally, however, his speech remains mostly unintelligible and poorly articulated. Objective The patient displays audible, wet respirations and an overtly wet vocal quality at rest. The patient does not appear to be handling his own secretions which causes the clinician to highly suspect aspiration of oral secretions and contents. The patient is unable to provide a productive cough upon request by the clinician. The patient is provided medication crushed and in applesauce by the RN. The patient minimally manipulates the bolus and attempts multiple sw allows per teaspoon. The patient demonstrated a wet, productive throat clear immediately following 2/2 teaspoons. The patient's oral cavity is suctioned by the clinician and oral care is provided. The patient remains with applesauce lining the buccal cavities from a recent medication attempt. The patient minimally attempts to move the moist oral sponge and continues to display poor levels of alertness. At this time, the patient is receiving 6L high flow nasal cannula. Following oral care, suctioning is re-attempted. The patient is not appropriate or safe for PO intake of any kind. The patient is at an extremely high risk for aspiration of his own secretions, as well as, any PO trials. Recommendations: - NPO. - Consider alternative sources for nutrition, hydration, and medication (NG tube, TPN). - Frequent, excellent, and thorough oral care to reduce the transfer of oral bacteria to the lungs should aspiration of secretions occur. - Speech pathology will continue to re-assess the swallowing function as the patient is appropriate. Assessment Assessment Current Status: Poor Progress Treatment Plan Continue Plan of Care Speech Short Term Goals Short Term Goals Short Term Goals 1. The patient will participate in oral trials of the least restrictive consistency with the absence of s/s of suspected aspiration with 90% accuracy. Speech Detention Goals Document Management Analyst Goals 1. The patient will consume the least restricted diet consistency to meet nutritional needs without the presence of s/s of suspected aspiration with 90% accuracy. Speech-Plan Treatment Plan Speech Therapy Treatment Plan: Continue Plan of Care Treatment Duration: Oct 16, 2021 Frequency: 3 times per week (Three to four times per week) Estimated Hrs Per Day: .25 hour per day Rehab Potential: Poor Pt/Family Agrees to Plan: Yes Safety Risks/Education Teaching Recipient: Patient Teaching Methods: Discussion Response to Teaching: Reinforcement Needed Education Topics Provided: Plan of Care Time Speech Therapy Time In: 08:19 Speech Therapy Time Out: 08:33 Total Billed Time: 13 Billed Treatment Time 1MIREYA ELIZ[address] ST Oct 07, 2021 12:13
[2021-10-07] MEDS: HALOPERIDOL 5 MG/ML (HALDOL) VIAL IM PRN ×2 (13:54→22:00)
--- NOTE | 2021-10-07 14:12 | Progress Note - Hospitalist ---
Subjective HPI/CC On Admission Date Seen by Provider: Oct 07, 2021 Time Seen by Provider: 10:45 Roman Jane is a 70 year old male who presented to the ER after being found down at his home. He was reportedly agitated, but alert and oriented on arrival. He was requiring supplemental oxygen. He was intoxicated on methamphetamine. He became less responsive and was intubated for airway protection. He was found to be in acute renal failure with rhabdomyolysis. Due to the severity of his renal failure, a transfer was attempted for hemodialysis. He had low urine output, hyperkalemia, and significantly elevated BUN/creatinine. He was treated with IV fluids and bicarbonate. No bed was able to be secured for transfer, but his renal function began to improve. Subjective/Events-last exam He is laying in bed. He is less cooperative today. He is awake. He denies pain. Focused Exam Time of Focused Exam: 07:30 Objective Exam Vital Signs Vital Signs Date Time Temp Pulse Resp B/P (MAP) Pulse Ox O2 Delivery O2 Flow Rate FiO2 10/07/21 11:14 36.8 79 22 146/63 (90) 99 High Flow N/C 6.00 10/03/21 14:49 7 Capillary Refill : Less Than 3 Seconds General Appearance: No Apparent Distress (f), Chronically ill, Thin Respiratory: No Respiratory Distress, Rhonci Cardiovascular: Regular Rate, Rhythm, No Murmur Gastrointestinal: Normal Bowel Sounds, Soft Extremity: Normal Inspection, No Pedal Edema Neurologic/Psychiatric: Alert, Normal Mood/Affect Skin: Normal Color, Warm/Dry Results/Procedures Lab Laboratory Tests 10/07/21 05:40 Patient resulted labs reviewed. Imaging: Reviewed Imaging Report Assessment/Plan Assessment and Plan Assess & Plan/Chief Complaint Acute respiratory failure with hypoxia COPD exacerbation Steroids MAT protocol Dysphagia Severe protein calorie malnutrition Debility Delirium PT/OT/ST NPO TPN Ativan as needed Methamphetamine abuse Hepatitis C DVT prophylaxis: Lovenox Hypernatremia, resolved LYDIA on CKD, resolved Acute tubular necrosis, resolved Rhabdomyolysis, resolved Endotracheally intubated, resolved Pneumonia, resolved Hyperkalemia, resolved Lactic acidosis, resolved Metabolic acidosis, resolved Elevated LFTs, resolved Delirium, resolved Agitation, resolved Hypokalemia, resolved Hypomagnesemia, resolved Hypophosphatemia, resolved Diagnosis/Problems Diagnosis/Problems (1) Acute kidney injury superimposed on chronic kidney disease Status: Resolved Resolution Date/Time: 10/03/21 @ 12:41 (2) ATN (acute tubular necrosis) Status: Resolved Resolution Date/Time: 10/03/21 @ 12:41 (3) Lactic acidosis Status: Resolved Resolution Date/Time: 09/21/21 @ 18:43 (4) Hypernatremia Status: Resolved Resolution Date/Time: 10/03/21 @ 12:41 (5) Metabolic acidosis Status: Resolved Resolution Date/Time: 09/21/21 @ 18:43 (6) PNA (pneumonia) Status: Acute (7) Endotracheally intubated Status: Resolved Resolution Date/Time: 10/03/21 @ 12:41 (8) Methamphetamine abuse Status: Acute (9) Acute hepatitis Status: Resolved Resolution Date/Time: 10/03/21 @ 12:41 (10) Rhabdomyolysis Status: Resolved Qualifiers: Rhabdomyolysis type: non-traumatic Qualified Codes: M62.82 - Rhabdomyolysis Resolution Date/Time: 10/03/21 @ 12:41 (11) Multiorgan failure Status: Resolved Resolution Date/Time: 10/03/21 @ 12:41 (12) Hyperkalemia Status: Resolved Resolution Date/Time: 09/21/21 @ 18:43 (13) Acute respiratory failure with hypoxia Status: Acute (14) Hepatitis C antibody positive in blood Status: Acute (15) Delirium Status: Acute (16) Agitation Status: Resolved Resolution Date/Time: 10/03/21 @ 12:41 (17) Debility Status: Acute (18) Dysphagia Status: Acute CARLEEN GROSSMAN MD Oct 07, 2021 14:12
[2021-10-07] MEDS ORDERED: LORazepam INJ 2 MG/ML (ATIVAN) VIAL IVP ONE (14:30)
[2021-10-07] MEDS ORDERED: TPN IV SCH (16:30)
[2021-10-07] MEDS: MELATONIN 3 MG TABLET PO PRN (19:57)
[2021-10-07] MEDS: ENOXAPARIN 40 MG/0.4 ML (LOVENOX) SYR SC SCH (19:59)
[2021-10-08] VITALS (7 sets, daily range): BP systolic 137–171; BP diastolic 60–76
[2021-10-08] MEDS: RT-ALBUTEROL/IPRATROPIUM 3 ML (DUONEB) VIAL INH SCH ×3 (02:34→23:52)
[2021-10-08] MEDS: LORazepam INJ 2 MG/ML (ATIVAN) VIAL IVP PRN ×3 (02:37→13:28)
[2021-10-08 04:18] LABS: BASOPHILS % (AUTO) 0 % (0-10); EOSINOPHILS # (AUTO) 0.1 10^3/uL (0.0-0.3); EOSINOPHILS % (AUTO) 1 % (0-10); HEMATOCRIT 32 % (40-54); LYMPHOCYTES # (AUTO) 1.5 10^3/uL (1.0-4.0); LYMPHOCYTES % (AUTO) 23 % (12-44); MEAN CORPUSCULAR HEMOGLOBIN 27 pg (25-34); MEAN CORPUSCULAR HGB CONC 32 g/dL (32-36); MEAN CORPUSCULAR VOLUME 85 fL (80-99); MEAN PLATELET VOLUME 9.6 fL (9.0-12.2); MONOCYTES # (AUTO) 0.8 10^3/uL (0.0-1.0); MONOCYTES % (AUTO) 11 % (0-12); NEUTROPHILS # (AUTO) 4.4 10^3/uL (1.8-7.8); NEUTROPHILS % (AUTO) 64 % (42-75); PLATELET COUNT 353 10^3/uL (130-400); WHITE BLOOD COUNT 6.8 10^3/uL (4.3-11.0)
[2021-10-08 04:33] LABS: INR 1.2 (0.8-1.4); PROTHROMBIN TIME PATIENT 15.6 SEC (12.2-14.7)
[2021-10-08 04:43] LABS: ALBUMIN 2.7 GM/DL (3.2-4.5); CALCIUM 8.5 MG/DL (8.5-10.1); CREATININE SERUM 0.7 MG/DL (0.60-1.30); MAGNESIUM 1.8 MG/DL (1.6-2.4); PHOSPHORUS 3.3 MG/DL (2.3-4.7); POTASSIUM 3.6 MMOL/L (3.6-5.0); TOTAL PROTEIN 6.3 GM/DL (6.4-8.2)
[2021-10-08] MEDS: POTASSIUM CL 10MEQ/50ML IVPB 50 ML IV SCH (04:53)
[2021-10-08] MEDS: inSUlin ASPART (NovoLOG) 1 UNIT/0.01 ML (CHARGE PER UNIT) SC SCH ×4 (04:54→20:41)
[2021-10-08] MEDS: MAGNESIUM 1 GM/100 ML IVPB 100 ML IV SCH (04:54)
[2021-10-08 05:02] LABS: HYPOCHROMASIA SLIGHT; LYMPHOCYTES % (MANUAL) 22 %; MONOCYTES % (MANUAL) 8 %; NEUTROPHILS % (MANUAL) 70 %
[2021-10-08] MEDS: KCL 20 MEQ TAB (K-DUR) PO SCH (06:41)
[2021-10-08] MEDS: LACRI-LUBE OPTHALMIC OINT 3.5 GM TUBE OU SCH ×2 (08:29→20:32)
[2021-10-08] MEDS: PANTOPRAZOLE 40 MG (PROTONIX) VIAL IV SCH (08:29)
[2021-10-08] MEDS: risperiDONE 1 MG (RisperDAL) TAB PO SCH ×2 (08:29→20:30)
[2021-10-08] MEDS: COLLAGENASE 30 GM (SANTYL) TUBE TP SCH ×2 (08:29→20:32)
[2021-10-08] MEDS: methylPREDNISolone 40 MG/ML (Solu-MEDROL) VIAL IV SCH (08:29)
--- NOTE | 2021-10-08 09:20 | Physical Therapy Progress Note ---
Therapy Progress Note Patient on Hold per RN due to decline in status requiring sedation due to behaviors. PT will attempt in aLANG Feldman PT Oct 08, 2021 09:20
--- NOTE | 2021-10-08 09:54 | Occ Therapy Progress Note ---
Therapy Progress Note Per PT report-Patient on Hold per RN due to decline in status requiring sedation due to behaviors. OT will attempt in ROSANA Torres Oct 08, 2021 09:54
--- NOTE | 2021-10-08 10:36 | Speech Therapy Progress Note ---
Therapy Progress Note 0851: ST attempted a dysphagia re-evaluation at 0851. At this time, the patient is sleeping with bilateral mittens in place. Per sitter, the patient "just got to rest" and would be more appropriate for completion of the assessment at a later time. ST attempted to visit with the patient to see if appropriate alertness could be achieved. The patient does not respond to verbal greetings or gentle tactile cues. ST will reattempt the evaluation as the patient is alert, appropriate, and cooperative. ST continues to recommend alternative sources of nutrition, hydration and nutrition secondary to the patient's suspected severe oropharyngeal dysphagia, as well as, the length of time the patient has remained NPO and the possible lengthy time rehabilitation may be for return of the oropharyngeal swallow. MICHELLE MORTENSEN Oct 08, 2021 10:36
--- NOTE | 2021-10-08 16:41 | Progress Note - Hospitalist ---
Subjective HPI/CC On Admission Date Seen by Provider: Oct 08, 2021 Time Seen by Provider: 11:00 Roman Jane is a 70 year old male who presented to the ER after being found down at his home. He was reportedly agitated, but alert and oriented on arrival. He was requiring supplemental oxygen. He was intoxicated on methamphetamine. He became less responsive and was intubated for airway protection. He was found to be in acute renal failure with rhabdomyolysis. Due to the severity of his renal failure, a transfer was attempted for hemodialysis. He had low urine output, hyperkalemia, and significantly elevated BUN/creatinine. He was treated with IV fluids and bicarbonate. No bed was able to be secured for transfer, but his renal function began to improve. Subjective/Events-last exam He is confused. He is sleeping. He does not report any complaints. Focused Exam Time of Focused Exam: 07:30 Objective Exam Vital Signs Vital Signs Date Time Temp Pulse Resp B/P (MAP) Pulse Ox O2 Delivery O2 Flow Rate FiO2 10/08/21 16:08 35.8 87 18 149/63 (91) 98 High Flow N/C 3.00 10/08/21 04:20 3 Capillary Refill : Less Than 3 Seconds General Appearance: No Apparent Distress, Chronically ill, Cachetic Respiratory: Lungs Clear, No Respiratory Distress Cardiovascular: Regular Rate, Rhythm, No Murmur Gastrointestinal: Normal Bowel Sounds, Soft Extremity: Normal Inspection, No Pedal Edema Neurologic/Psychiatric: Alert, Normal Mood/Affect Skin: Normal Color, Warm/Dry Results/Procedures Lab Laboratory Tests 10/08/21 04:10 Patient resulted labs reviewed. Imaging: Reviewed Imaging Report Assessment/Plan Assessment and Plan Assess & Plan/Chief Complaint Acute respiratory failure with hypoxia COPD exacerbation Steroids MAT protocol Dysphagia Severe protein calorie malnutrition Debility Delirium PT/OT/ST NPO TPN Ativan and Haldol as needed Methamphetamine abuse Hepatitis C DVT prophylaxis: Lovenox Hypernatremia, resolved LYDIA on CKD, resolved Acute tubular necrosis, resolved Rhabdomyolysis, resolved Endotracheally intubated, resolved Pneumonia, resolved Hyperkalemia, resolved Lactic acidosis, resolved Metabolic acidosis, resolved Elevated LFTs, resolved Delirium, resolved Agitation, resolved Hypokalemia, resolved Hypomagnesemia, resolved Hypophosphatemia, resolved Diagnosis/Problems Diagnosis/Problems (1) Acute kidney injury superimposed on chronic kidney disease Status: Resolved Resolution Date/Time: 10/03/21 @ 12:41 (2) ATN (acute tubular necrosis) Status: Resolved Resolution Date/Time: 10/03/21 @ 12:41 (3) Lactic acidosis Status: Resolved Resolution Date/Time: 09/21/21 @ 18:43 (4) Hypernatremia Status: Resolved Resolution Date/Time: 10/03/21 @ 12:41 (5) Metabolic acidosis Status: Resolved Resolution Date/Time: 09/21/21 @ 18:43 (6) PNA (pneumonia) Status: Acute (7) Endotracheally intubated Status: Resolved Resolution Date/Time: 10/03/21 @ 12:41 (8) Methamphetamine abuse Status: Acute (9) Acute hepatitis Status: Resolved Resolution Date/Time: 10/03/21 @ 12:41 (10) Rhabdomyolysis Status: Resolved Qualifiers: Rhabdomyolysis type: non-traumatic Qualified Codes: M62.82 - Rhabdomyolysis Resolution Date/Time: 10/03/21 @ 12:41 (11) Multiorgan failure Status: Resolved Resolution Date/Time: 10/03/21 @ 12:41 (12) Hyperkalemia Status: Resolved Resolution Date/Time: 09/21/21 @ 18:43 (13) Acute respiratory failure with hypoxia Status: Acute (14) Hepatitis C antibody positive in blood Status: Acute (15) Delirium Status: Acute (16) Agitation Status: Resolved Resolution Date/Time: 10/03/21 @ 12:41 (17) Debility Status: Acute (18) Dysphagia Status: Acute CARLEEN GROSSMAN MD Oct 08, 2021 16:41
[2021-10-08] MEDS ORDERED: SODIUM ACETATE IV SCH ×11 (17:00)
[2021-10-08] MEDS ORDERED: [UNRECOGNIZED DRUG - OTHER] IV SCH ×11 (17:00)
[2021-10-08] MEDS ORDERED: SODIUM CHLORIDE IV SCH ×11 (17:00)
[2021-10-08] MEDS: MELATONIN 3 MG TABLET PO PRN (20:30)
[2021-10-08] MEDS: diphenhydrAMINE 25 MG TAB (BENADRYL) PO PRN (20:30)
[2021-10-08] MEDS: ENOXAPARIN 40 MG/0.4 ML (LOVENOX) SYR SC SCH (20:31)
[2021-10-09 03:45] VITALS: BP 140/80
[2021-10-09] MEDS: inSUlin ASPART (NovoLOG) 1 UNIT/0.01 ML (CHARGE PER UNIT) SC SCH ×4 (06:00→19:46)
[2021-10-09] MEDS: POTASSIUM CL 10MEQ/50ML IVPB 50 ML IV SCH (06:00)
[2021-10-09] MEDS: MAGNESIUM 1 GM/100 ML IVPB 100 ML IV SCH (06:00)
[2021-10-09] MEDS: KCL 20 MEQ TAB (K-DUR) PO SCH (06:00)
[2021-10-09 06:11] LABS: BASOPHILS % (AUTO) 0 % (0-10); EOSINOPHILS # (AUTO) 0.1 10^3/uL (0.0-0.3); EOSINOPHILS % (AUTO) 2 % (0-10); HEMATOCRIT 34 % (40-54); HEMOGLOBIN 10.9 g/dL (13.3-17.7); LYMPHOCYTES # (AUTO) 1.3 10^3/uL (1.0-4.0); LYMPHOCYTES % (AUTO) 23 % (12-44); MEAN CORPUSCULAR HEMOGLOBIN 27 pg (25-34); MEAN CORPUSCULAR HGB CONC 32 g/dL (32-36); MEAN CORPUSCULAR VOLUME 84 fL (80-99); MEAN PLATELET VOLUME 9.5 fL (9.0-12.2); MONOCYTES # (AUTO) 0.7 10^3/uL (0.0-1.0); MONOCYTES % (AUTO) 12 % (0-12); NEUTROPHILS # (AUTO) 3.6 10^3/uL (1.8-7.8); NEUTROPHILS % (AUTO) 63 % (42-75); PLATELET COUNT 365 10^3/uL (130-400); WHITE BLOOD COUNT 5.7 10^3/uL (4.3-11.0)
[2021-10-09 06:24] LABS: CALCIUM 8.5 MG/DL (8.5-10.1)
[2021-10-09 06:28] LABS: CREATININE SERUM 0.67 MG/DL (0.60-1.30)
[2021-10-09 06:43] LABS: BASOPHILS % (MANUAL) 1 %; EOSINOPHILS % (MANUAL) 4 %; LYMPHOCYTES % (MANUAL) 18 %; MONOCYTES % (MANUAL) 12 %; NEUTROPHILS % (MANUAL) 65 %; RBC MORPH NORMAL
[2021-10-09 08:00] VITALS: BP 135/63
[2021-10-09 08:16] LABS: PHOSPHORUS 3.5 MG/DL (2.3-4.7)
[2021-10-09 08:18] LABS: MAGNESIUM 1.8 MG/DL (1.6-2.4)
--- NOTE | 2021-10-09 08:47 | Speech Therapy Daily Note ---
Speech Daily Progress Note Subjective Date Seen by Provider: Oct 09, 2021 Time Seen by Provider: 08:23 The patient was lying in bed, sleeping upon entrance. The patient has a sitter present, who stated the patient experienced an improved evening with reduced agitation. The patient requires maximum verbal prompting and gentle tactile cues for appropriate alertness level and participation in the dysphagia treatment session. The patient is currently receiving 3.5 L supplemental oxygen via nasal cannula with SpO2% at 96%. Objective The patient was seated upright in the bed with aide from the sitter. Prior to PO trials, the clinician attempted oral care with a moist oral swab. The patient initially allowed the patient to use the oral swab to provide moisture to the lingual surface and oral cavity, however, on a second and third attempt, the patient attempted to "swat" at the clinician. The patient does have bilateral mittens, however, is not in upper restraints. The clinician presented a single ice chip via teaspoon. The patient orally accepted the ice chip and with maximum clinician verbal prompting initiated lingual and oral manipulation with slowed, lingual bilateral movements. Following multiple attempts, the patient elicited a pharyngeal swallow. An immediate, rigorous, productive cough was elicited. A second ice chip was attempted and the patient attempted swinging at the clinician. The rationale for the assessment and the encouragement of PO safety assessment was thoroughly discussed. Following, a half teaspoon of applesauce was attempted by the clinician. The teaspoon was placed on the patient's bottom lip for oral acceptance. The patient swatted at the teaspoon, hitting the clinician's hand and removing the bolus from the utensil. Due to agitation, safety concerns, reduced participation, and a lack of appropriateness for continued attempts, PO trials were ended. Speech pathology will reattempt PO trials with decreased agitation, increased participation, and overall increased cooperation and patient appropriateness. The sitter remained in the room for the evaluation and remained with the patient following exit of the clinician. Assessment Assessment Current Status: Poor Progress Treatment Plan Continue Plan of Care Speech Short Term Goals Short Term Goals Short Term Goals 1. The patient will participate in oral trials of the least restrictive consistency with the absence of s/s of suspected aspiration with 90% accuracy. Speech Cinder Pit Worker Goals Cinder Pit Worker Goals 1. The patient will consume the least restricted diet consistency to meet nutritional needs without the presence of s/s of suspected aspiration with 90% accuracy. Speech-Plan Treatment Plan Speech Therapy Treatment Plan: Continue Plan of Care Treatment Duration: Oct 16, 2021 Frequency: 3 times per week (Three to four times per week) Estimated Hrs Per Day: .25 hour per day Rehab Potential: Poor Safety Risks/Education Teaching Recipient: Patient Teaching Methods: Discussion Response to Teaching: Unable to Comprehend Education Topics Provided: Rationale for Assessment, Role of DIRECTOR MEDICAL SURGICAL Time Speech Therapy Time In: 08:23 Speech Therapy Time Out: 08:40 Total Billed Time: 17 Billed Treatment Time 1DRU ELIZABETH ST Oct 09, 2021 08:47
[2021-10-09] MEDS: methylPREDNISolone 40 MG/ML (Solu-MEDROL) VIAL IV SCH (08:58)
[2021-10-09] MEDS: PANTOPRAZOLE 40 MG (PROTONIX) VIAL IV SCH (08:58)
[2021-10-09] MEDS: risperiDONE 1 MG (RisperDAL) TAB PO SCH (08:58)
[2021-10-09] MEDS: LACRI-LUBE OPTHALMIC OINT 3.5 GM TUBE OU SCH ×2 (09:04→19:36)
[2021-10-09] MEDS: RT-ALBUTEROL/IPRATROPIUM 3 ML (DUONEB) VIAL INH SCH ×2 (10:38→20:03)
[2021-10-09 12:00] VITALS: BP 130/62
[2021-10-09] MEDS: LORazepam INJ 2 MG/ML (ATIVAN) VIAL IVP PRN ×2 (12:04→21:59)
[2021-10-09] MEDS: COLLAGENASE 30 GM (SANTYL) TUBE TP SCH ×2 (12:07→19:36)
--- NOTE | 2021-10-09 13:19 | Physical Therapy Progress Note ---
Therapy Progress Note Nurse asked for medical hold for PT tx today. PT will check on pt tomorrow and resume services when appropriate. XAVIER QUEVEDO WASTE SPECIALIST Oct 09, 2021 13:19
--- NOTE | 2021-10-09 13:20 | Occ Therapy Progress Note ---
Therapy Progress Note Patient on Hold per RN due to decline in status and increase in agitation and confusion. OT will attempt in ROSANA Torres Oct 09, 2021 13:20
[2021-10-09 15:21] VITALS: BP 134/62
--- NOTE | 2021-10-09 16:03 | Progress Note - Hospitalist ---
Subjective HPI/CC On Admission Date Seen by Provider: Oct 09, 2021 Time Seen by Provider: 10:45 Roman Jane is a 70 year old male who presented to the ER after being found down at his home. He was reportedly agitated, but alert and oriented on arrival. He was requiring supplemental oxygen. He was intoxicated on methamphetamine. He became less responsive and was intubated for airway protection. He was found to be in acute renal failure with rhabdomyolysis. Due to the severity of his renal failure, a transfer was attempted for hemodialysis. He had low urine output, hyperkalemia, and significantly elevated BUN/creatinine. He was treated with IV fluids and bicarbonate. No bed was able to be secured for transfer, but his renal function began to improve. Subjective/Events-last exam He is uncooperative. He is sleeping. Focused Exam Time of Focused Exam: 07:30 Objective Exam Vital Signs Vital Signs Date Time Temp Pulse Resp B/P (MAP) Pulse Ox O2 Delivery O2 Flow Rate FiO2 10/09/21 15:21 35.8 95 16 134/62 (86) 98 High Flow N/C 4.00 10/08/21 04:20 3 Capillary Refill : Less Than 3 Seconds General Appearance: No Apparent Distress, Chronically ill, Cachetic Respiratory: No Respiratory Distress, Crackles, Rhonci Cardiovascular: Regular Rate, Rhythm, No Murmur Gastrointestinal: Normal Bowel Sounds, Soft Extremity: Normal Inspection, No Pedal Edema Neurologic/Psychiatric: Depressed Affect, Other (agitated, uncooperative) Skin: Normal Color, Warm/Dry Results/Procedures Lab Laboratory Tests 10/09/21 06:00 Patient resulted labs reviewed. Imaging: Reviewed Imaging Report Assessment/Plan Assessment and Plan Assess & Plan/Chief Complaint Acute respiratory failure with hypoxia COPD exacerbation s/p steroids MAT protocol Dysphagia Severe protein calorie malnutrition Debility Delirium PT/OT/ST NPO TPN Ativan and Haldol as needed CT Head Attempted to call daughter, no answer Methamphetamine abuse Hepatitis C DVT prophylaxis: Lovenox Hypernatremia, resolved LYDIA on CKD, resolved Acute tubular necrosis, resolved Rhabdomyolysis, resolved Endotracheally intubated, resolved Pneumonia, resolved Hyperkalemia, resolved Lactic acidosis, resolved Metabolic acidosis, resolved Elevated LFTs, resolved Delirium, resolved Agitation, resolved Hypokalemia, resolved Hypomagnesemia, resolved Hypophosphatemia, resolved Diagnosis/Problems Diagnosis/Problems (1) Acute kidney injury superimposed on chronic kidney disease Status: Resolved Resolution Date/Time: 10/03/21 @ 12:41 (2) ATN (acute tubular necrosis) Status: Resolved Resolution Date/Time: 10/03/21 @ 12:41 (3) Lactic acidosis Status: Resolved Resolution Date/Time: 09/21/21 @ 18:43 (4) Hypernatremia Status: Resolved Resolution Date/Time: 10/03/21 @ 12:41 (5) Metabolic acidosis Status: Resolved Resolution Date/Time: 09/21/21 @ 18:43 (6) PNA (pneumonia) Status: Acute (7) Endotracheally intubated Status: Resolved Resolution Date/Time: 10/03/21 @ 12:41 (8) Methamphetamine abuse Status: Acute (9) Acute hepatitis Status: Resolved Resolution Date/Time: 10/03/21 @ 12:41 (10) Rhabdomyolysis Status: Resolved Qualifiers: Rhabdomyolysis type: non-traumatic Qualified Codes: M62.82 - Rhabdomyolysis Resolution Date/Time: 10/03/21 @ 12:41 (11) Multiorgan failure Status: Resolved Resolution Date/Time: 10/03/21 @ 12:41 (12) Hyperkalemia Status: Resolved Resolution Date/Time: 09/21/21 @ 18:43 (13) Acute respiratory failure with hypoxia Status: Acute (14) Hepatitis C antibody positive in blood Status: Acute (15) Delirium Status: Acute (16) Agitation Status: Resolved Resolution Date/Time: 10/03/21 @ 12:41 (17) Debility Status: Acute (18) Dysphagia Status: Acute CARLEEN GROSSMAN MD Oct 09, 2021 16:03
[2021-10-09] MEDS ORDERED: SODIUM ACETATE IV SCH ×11 (17:00)
[2021-10-09] MEDS ORDERED: [UNRECOGNIZED DRUG - OTHER] IV SCH ×11 (17:00)
[2021-10-09] MEDS ORDERED: SODIUM CHLORIDE IV SCH ×11 (17:00)
--- NOTE | 2021-10-09 17:44 | Diagnostic Imaging Report ---
PROCEDURE: CT head without contrast. TECHNIQUE: Multiple contiguous axial images were obtained through the brain without the use of intravenous contrast. Auto Exposure Controls were utilized during the CT exam to meet ALARA standards for radiation dose reduction. INDICATION: Altered mental status. COMPARISON: Head CT 09/18/2021. FINDINGS: Chronic atrophy and white matter small vessel sequelae as well as intracranial atherosclerotic vascular calcifications are stable no sulcal effacement. No cerebral edema. No evidence for elevated pressures. The basilar cisterns are patent. There is no hemorrhage. There are no abnormal extra-axial fluid collections. There are bilateral mastoid effusions as well as opacifications of the left greater than right middle ear cavities. There is waxy debris within the left greater than right external auditory canals. The paranasal sinuses and orbits are normal. The calvarium unremarkable. IMPRESSION: 1. Stable chronic findings in the brain with white matter disease, atherosclerosis and senescent atrophy. No hemorrhage, edema or acute intracerebral pathology. 2. Bilateral mastoid effusions and middle ear opacification with apparent nasal sinuses clear. Correlate clinically for otomastoiditis. 3. Not mentioned above, the visualized nasopharynx is symmetric and normal. Dictated by: Dictated on workstation # [id number]
[2021-10-09 19:09] VITALS: BP 127/58
[2021-10-09] MEDS: ENOXAPARIN 40 MG/0.4 ML (LOVENOX) SYR SC SCH (19:37)
[2021-10-09] MEDS: MELATONIN 3 MG TABLET PO PRN (19:37)
[2021-10-09] MEDS: diphenhydrAMINE 25 MG TAB (BENADRYL) PO PRN (23:00)
[2021-10-10] VITALS (7 sets, daily range): BP systolic 119–144; BP diastolic 61–76
[2021-10-10] MEDS: HALOPERIDOL 5 MG/ML (HALDOL) VIAL IM PRN ×2 (00:52→08:02)
[2021-10-10 04:24] LABS: BASOPHILS % (AUTO) 0 % (0-10); EOSINOPHILS # (AUTO) 0.1 10^3/uL (0.0-0.3); EOSINOPHILS % (AUTO) 1 % (0-10); HEMATOCRIT 33 % (40-54); HEMOGLOBIN 10.6 g/dL (13.3-17.7); LYMPHOCYTES # (AUTO) 2.4 10^3/uL (1.0-4.0); LYMPHOCYTES % (AUTO) 28 % (12-44); MEAN CORPUSCULAR HEMOGLOBIN 27 pg (25-34); MEAN CORPUSCULAR HGB CONC 32 g/dL (32-36); MEAN CORPUSCULAR VOLUME 84 fL (80-99); MEAN PLATELET VOLUME 9.6 fL (9.0-12.2); MONOCYTES # (AUTO) 0.9 10^3/uL (0.0-1.0); MONOCYTES % (AUTO) 11 % (0-12); NEUTROPHILS % (AUTO) 60 % (42-75); PLATELET COUNT 356 10^3/uL (130-400); WHITE BLOOD COUNT 8.3 10^3/uL (4.3-11.0)
[2021-10-10 04:45] LABS: ANISOCYTOSIS SLIGHT; BAND NEUTROPHILS 0 %; BASOPHILS % (MANUAL) 0 %; EOSINOPHILS % (MANUAL) 0 %; LYMPHOCYTES % (MANUAL) 23 %; MONOCYTES % (MANUAL) 9 %; NEUTROPHILS % (MANUAL) 62 %; REACTIVE LYMPHOCYTES 6 %
[2021-10-10 05:05] LABS: CALCIUM 8.8 MG/DL (8.5-10.1)
[2021-10-10] MEDS: inSUlin ASPART (NovoLOG) 1 UNIT/0.01 ML (CHARGE PER UNIT) SC SCH ×4 (05:08→20:41)
[2021-10-10 05:09] LABS: CREATININE SERUM 0.7 MG/DL (0.60-1.30)
[2021-10-10] MEDS: KCL 20 MEQ TAB (K-DUR) PO SCH (05:12)
[2021-10-10] MEDS: POTASSIUM CL 10MEQ/50ML IVPB 50 ML IV SCH (05:12)
[2021-10-10] MEDS: MAGNESIUM 1 GM/100 ML IVPB 100 ML IV SCH (05:36)
[2021-10-10] MEDS: LORazepam INJ 2 MG/ML (ATIVAN) VIAL IVP PRN ×3 (07:22→19:18)
[2021-10-10] MEDS: RT-ALBUTEROL/IPRATROPIUM 3 ML (DUONEB) VIAL INH SCH ×2 (07:36→21:06)
[2021-10-10] MEDS: PANTOPRAZOLE 40 MG (PROTONIX) VIAL IV SCH (08:02)
--- NOTE | 2021-10-10 08:17 | Physical Therapy Progress Note ---
Therapy Progress Note Patient on Hold per RN due to decline in status requiring sedation due to behaviors. PT will attempt tomorrow. LANG JACKSON PT Oct 10, 2021 08:17
--- NOTE | 2021-10-10 08:53 | Speech Therapy Progress Note ---
Therapy Progress Note 0844: Speech pathology attempted re-assessment of the patient's oropharyngeal swallowing function. Prior to entrance to the patient's room, the clinician visited with the treating RN. Per RN, the patient experienced a difficult evening and recently received medication to aid with behaviors. The RN politely requested the clinician not attempt to wake the patient at this time. The clinician agrees with the RN's request and asked the RN to contact the [facility] if the patient wakes to an appropriate alertness level for participation in the assessment on this date. ST will continue to re-attempt the evaluation as appropriate. MICHELLE MORTENSEN Oct 10, 2021 08:53
--- NOTE | 2021-10-10 10:17 | Occ Therapy Progress Note ---
Therapy Progress Note Pt on hold per RN due to decline in status requiring sedation due to behaviors. OT will attempt tomorrow. EDWINA CARRINGTON OT Oct 10, 2021 10:17
[2021-10-10] MEDS: LACRI-LUBE OPTHALMIC OINT 3.5 GM TUBE OU SCH ×2 (12:37→19:18)
[2021-10-10] MEDS: COLLAGENASE 30 GM (SANTYL) TUBE TP SCH ×2 (12:37→19:19)
--- NOTE | 2021-10-10 15:44 | Progress Note - Hospitalist ---
Subjective HPI/CC On Admission Date Seen by Provider: Oct 10, 2021 Time Seen by Provider: 10:45 Roman Jane is a 70 year old male who presented to the ER after being found down at his home. He was reportedly agitated, but alert and oriented on arrival. He was requiring supplemental oxygen. He was intoxicated on methamphetamine. He became less responsive and was intubated for airway protection. He was found to be in acute renal failure with rhabdomyolysis. Due to the severity of his renal failure, a transfer was attempted for hemodialysis. He had low urine output, hyperkalemia, and significantly elevated BUN/creatinine. He was treated with IV fluids and bicarbonate. No bed was able to be secured for transfer, but his renal function began to improve. Subjective/Events-last exam He is alert and oriented. He is laying in bed. He denies pain. He denies trouble breathing. Focused Exam Time of Focused Exam: 07:30 Objective Exam Vital Signs Vital Signs Date Time Temp Pulse Resp B/P (MAP) Pulse Ox O2 Delivery O2 Flow Rate FiO2 10/10/21 11:59 36.5 85 22 135/65 (88) 94 High Flow N/C 4.00 10/08/21 04:20 3 Capillary Refill : Less Than 3 Seconds General Appearance: No Apparent Distress, Chronically ill, Cachetic Respiratory: Lungs Clear, No Respiratory Distress Cardiovascular: Regular Rate, Rhythm, No Murmur Gastrointestinal: Normal Bowel Sounds, Soft Extremity: Normal Inspection, No Pedal Edema Neurologic/Psychiatric: Alert, Oriented x3 Skin: Normal Color, Warm/Dry Results/Procedures Lab Laboratory Tests 10/10/21 04:15 Patient resulted labs reviewed. Imaging: Reviewed Imaging Report Assessment/Plan Assessment and Plan Assess & Plan/Chief Complaint Dysphagia Severe protein calorie malnutrition Debility Delirium PT/OT/ST NPO TPN Ativan and Haldol as needed CT Head unremarkable Acute respiratory failure with hypoxia COPD s/p steroids MAT protocol Methamphetamine abuse Hepatitis C DVT prophylaxis: Lovenox Hypernatremia, resolved LYDIA on CKD, resolved Acute tubular necrosis, resolved Rhabdomyolysis, resolved Endotracheally intubated, resolved Pneumonia, resolved Hyperkalemia, resolved Lactic acidosis, resolved Metabolic acidosis, resolved Elevated LFTs, resolved Delirium, resolved Agitation, resolved Hypokalemia, resolved Hypomagnesemia, resolved Hypophosphatemia, resolved COPD exacerbation, resolved Diagnosis/Problems Diagnosis/Problems (1) Acute kidney injury superimposed on chronic kidney disease Status: Resolved Resolution Date/Time: 10/03/21 @ 12:41 (2) ATN (acute tubular necrosis) Status: Resolved Resolution Date/Time: 10/03/21 @ 12:41 (3) Lactic acidosis Status: Resolved Resolution Date/Time: 09/21/21 @ 18:43 (4) Hypernatremia Status: Resolved Resolution Date/Time: 10/03/21 @ 12:41 (5) Metabolic acidosis Status: Resolved Resolution Date/Time: 09/21/21 @ 18:43 (6) PNA (pneumonia) Status: Acute (7) Endotracheally intubated Status: Resolved Resolution Date/Time: 10/03/21 @ 12:41 (8) Methamphetamine abuse Status: Acute (9) Acute hepatitis Status: Resolved Resolution Date/Time: 10/03/21 @ 12:41 (10) Rhabdomyolysis Status: Resolved Qualifiers: Rhabdomyolysis type: non-traumatic Qualified Codes: M62.82 - Rhabdomyolysis Resolution Date/Time: 10/03/21 @ 12:41 (11) Multiorgan failure Status: Resolved Resolution Date/Time: 10/03/21 @ 12:41 (12) Hyperkalemia Status: Resolved Resolution Date/Time: 09/21/21 @ 18:43 (13) Acute respiratory failure with hypoxia Status: Acute (14) Hepatitis C antibody positive in blood Status: Acute (15) Delirium Status: Acute (16) Agitation Status: Resolved Resolution Date/Time: 10/03/21 @ 12:41 (17) Debility Status: Acute (18) Dysphagia Status: Acute CARLEEN GROSSMAN MD Oct 10, 2021 15:44
[2021-10-10] MEDS ORDERED: [UNRECOGNIZED DRUG - OTHER] IV SCH ×11 (17:00)
[2021-10-10] MEDS ORDERED: SODIUM CHLORIDE IV SCH ×11 (17:00)
[2021-10-10] MEDS ORDERED: SODIUM ACETATE IV SCH ×11 (17:00)
[2021-10-10] MEDS: ENOXAPARIN 40 MG/0.4 ML (LOVENOX) SYR SC SCH (19:18)
[2021-10-11] MEDS: HALOPERIDOL 5 MG/ML (HALDOL) VIAL IM PRN (00:06)
[2021-10-11] MEDS: diphenhydrAMINE 25 MG TAB (BENADRYL) PO PRN (02:07)
[2021-10-11 04:52] LABS: BASOPHILS % (AUTO) 0 % (0-10); EOSINOPHILS # (AUTO) 0.1 10^3/uL (0.0-0.3); EOSINOPHILS % (AUTO) 2 % (0-10); HEMATOCRIT 34 % (40-54); HEMOGLOBIN 10.8 g/dL (13.3-17.7); LYMPHOCYTES # (AUTO) 1.7 10^3/uL (1.0-4.0); LYMPHOCYTES % (AUTO) 24 % (12-44); MEAN CORPUSCULAR HEMOGLOBIN 27 pg (25-34); MEAN CORPUSCULAR HGB CONC 32 g/dL (32-36); MEAN CORPUSCULAR VOLUME 85 fL (80-99); MEAN PLATELET VOLUME 9.8 fL (9.0-12.2); MONOCYTES # (AUTO) 0.6 10^3/uL (0.0-1.0); MONOCYTES % (AUTO) 9 % (0-12); NEUTROPHILS # (AUTO) 4.5 10^3/uL (1.8-7.8); NEUTROPHILS % (AUTO) 64 % (42-75); PLATELET COUNT 367 10^3/uL (130-400)
[2021-10-11 05:30] LABS: LYMPHOCYTES % (MANUAL) 24 %; NEUTROPHILS % (MANUAL) 72 %; POTASSIUM 4.3 MMOL/L (3.6-5.0)
[2021-10-11 05:31] LABS: MICROCYTOSIS SLIGHT; MONOCYTES % (MANUAL) 4 %
[2021-10-11 05:32] LABS: CALCIUM 8.6 MG/DL (8.5-10.1)
[2021-10-11 05:36] LABS: CREATININE SERUM 0.66 MG/DL (0.60-1.30)
[2021-10-11] MEDS: KCL 20 MEQ TAB (K-DUR) PO SCH (05:36)
[2021-10-11] MEDS: POTASSIUM CL 10MEQ/50ML IVPB 50 ML IV SCH (05:36)
[2021-10-11] MEDS: inSUlin ASPART (NovoLOG) 1 UNIT/0.01 ML (CHARGE PER UNIT) SC SCH ×4 (05:37→20:45)
[2021-10-11 05:38] LABS: MAGNESIUM 1.9 MG/DL (1.6-2.4)
[2021-10-11] MEDS: MAGNESIUM 1 GM/100 ML IVPB 100 ML IV SCH (05:39)
[2021-10-11 08:00] VITALS: BP 135/62
--- NOTE | 2021-10-11 08:38 | Physical Therapy Progress Note ---
Therapy Progress Note Patient on Hold per RN due to decline in status requiring sedation due to behaviors. PT will attempt tomorrow LANG JACKSON PT Oct 11, 2021 08:38
--- NOTE | 2021-10-11 08:50 | Speech Therapy Daily Note ---
Speech Daily Progress Note Subjective Date Seen by Provider: Oct 11, 2021 Time Seen by Provider: 08:23 The patient was seated upright in bed, awake and alert at the initiation of the treatment session. The patient made eye contact with the clinician following a verbal greeting. The patient was able to state his name and his location accurately. The patient remains with bilateral mittens and a sitter at bedside. Throughout the treatment session, the patient continuously attempts to remove himself from bed and stand. Consistent verbal and tactile redirection is required from the clinician and sitter. Objective The patient presents with a wet vocal quality at baseline. The patient is currently receiving 2L supplemental oxygen via nasal cannula. The sitter remains present for the evaluation and helps the clinician with positioning, redirection, and patient encouragement. The clinician provides the patient with a moist oral swab, two ice chips, two teaspoons of water, and two teaspoons of applesauce. Overt s/s of suspected aspiration were not displayed with the ice chip trials. While slowed, the patient does attempt oral manipulation of the ice chip in the oral cavity. The patient displayed overt s/s of suspected aspiration characterized by an immediate and delayed rigorous cough, wet respirations, increasingly wet vocal quality and consistent throat clear following half teaspoons of water and half teaspoons of puree. The patient remains inappropriate for PO intake of any kind due to the overt s/s of suspected aspiration demonstrated throughout the evaluation. Frequent and thorough oral care should be administered to reduce the transfer of oral bacteria to the lungs should aspiration of secretions occur. TOTAL nutrition, hydration, and medication should not be administered via PO source. Discussions and consideration of long-term nutrition, hydration, and medication would be appropriate at this time, as a length recovery (if possible) of the oropharyngeal swallow function is expected by this clinician. Assessment Assessment Current Status: Poor Progress Treatment Plan Continue Plan of Care Speech Short Term Goals Short Term Goals Short Term Goals 1. The patient will participate in oral trials of the least restrictive consistency with the absence of s/s of suspected aspiration with 90% accuracy. Speech Technical Service Representative Goals Technical Service Representative Goals 1. The patient will consume the least restricted diet consistency to meet nutr itional needs without the presence of s/s of suspected aspiration with 90% accuracy. Speech-Plan Treatment Plan Speech Therapy Treatment Plan: Continue Plan of Care Treatment Duration: Oct 16, 2021 Frequency: 3 times per week (Three to four times per week) Estimated Hrs Per Day: .25 hour per day Rehab Potential: Poor Safety Risks/Education Teaching Recipient: Patient Teaching Methods: Discussion Response to Teaching: Unable to Comprehend Education Topics Provided: Plan of Care, Risks of Aspiration Time Speech Therapy Time In: 08:23 Speech Therapy Time Out: 08:41 Total Billed Time: 18 Billed Treatment Time 1, MICHELLE Dewey Oct 11, 2021 08:50
[2021-10-11] MEDS: PANTOPRAZOLE 40 MG (PROTONIX) VIAL IV SCH (10:06)
[2021-10-11] MEDS: LACRI-LUBE OPTHALMIC OINT 3.5 GM TUBE OU SCH ×2 (10:06→20:46)
[2021-10-11] MEDS: COLLAGENASE 30 GM (SANTYL) TUBE TP SCH ×2 (10:07→20:46)
--- NOTE | 2021-10-11 10:09 | Occ Therapy Progress Note ---
Therapy Progress Note Pt on hold per nursing due to decline in status requiring sedation due to behaviors. Due to pt being unable to actively participate in skilled therapies for the last several days due to decline in status, OT will require new orders when pt is more medically stable and able to participate in skilled therapy. d/c from OT at this time. Please send new orders if/when appropriate. EDWINA CARRINGTON OT Oct 11, 2021 10:09
[2021-10-11 15:09] VITALS: BP 121/58
[2021-10-11] MEDS ORDERED: [UNRECOGNIZED DRUG - OTHER] IV SCH ×11 (17:00)
[2021-10-11] MEDS ORDERED: SODIUM ACETATE IV SCH ×11 (17:00)
[2021-10-11] MEDS ORDERED: SODIUM CHLORIDE IV SCH ×11 (17:00)
--- NOTE | 2021-10-11 17:53 | Progress Note - Hospitalist ---
Subjective HPI/CC On Admission Date Seen by Provider: Oct 11, 2021 Time Seen by Provider: 11:35 Roman Jane is a 70 year old male who presented to the ER after being found down at his home. He was reportedly agitated, but alert and oriented on arrival. He was requiring supplemental oxygen. He was intoxicated on methamphetamine. He became less responsive and was intubated for airway protection. He was found to be in acute renal failure with rhabdomyolysis. Due to the severity of his renal failure, a transfer was attempted for hemodialysis. He had low urine output, hyperkalemia, and significantly elevated BUN/creatinine. He was treated with IV fluids and bicarbonate. No bed was able to be secured for transfer, but his renal function began to improve. Subjective/Events-last exam He is laying in bed sleeping on my arrival. He sits up on the edge of the bed. He denies pain. He denies trouble breathing. He says he is hungry. I spoke with his daughter on the phone. We discussed his poor prognosis and failure to improve. She plans to talk with social work about hospice care. Focused Exam Time of Focused Exam: 07:30 Objective Exam Vital Signs Vital Signs Date Time Temp Pulse Resp B/P (MAP) Pulse Ox O2 Delivery O2 Flow Rate FiO2 10/11/21 15:09 35.8 78 20 121/58 (79) 98 High Flow N/C 2.00 10/08/21 04:20 3 Capillary Refill : Less Than 3 Seconds General Appearance: No Apparent Distress, Chronically ill, Cachetic Respiratory: No Respiratory Distress, Rhonci Cardiovascular: Regular Rate, Rhythm, No Murmur Gastrointestinal: Normal Bowel Sounds, Soft Extremity: Normal Inspection, No Pedal Edema Skin: Normal Color, Warm/Dry Results/Procedures Lab Laboratory Tests 10/11/21 04:35 Patient resulted labs reviewed. Imaging: Reviewed Imaging Report Assessment/Plan Assessment and Plan Assess & Plan/Chief Complaint Dysphagia Severe protein calorie malnutrition Debility Delirium Poor prognosis Goals of care discussion PT/OT/ST NPO TPN Ativan and Haldol as needed CT Head unremarkable Discussed poor prognosis with daughter, she will contact social work for hospice information Acute respiratory failure with hypoxia COPD s/p steroids MAT protocol Methamphetamine abuse Hepatitis C DVT prophylaxis: Lovenox Hypernatremia, resolved LYDIA on CKD, resolved Acute tubular necrosis, resolved Rhabdomyolysis, resolved Endotracheally intubated, resolved Pneumonia, resolved Hyperkalemia, resolved Lactic acidosis, resolved Metabolic acidosis, resolved Elevated LFTs, resolved Delirium, resolved Agitation, resolved Hypokalemia, resolved Hypomagnesemia, resolved Hypophosphatemia, resolved COPD exacerbation, resolved Diagnosis/Problems Diagnosis/Problems (1) Acute kidney injury superimposed on chronic kidney disease Status: Resolved Resolution Date/Time: 10/03/21 @ 12:41 (2) ATN (acute tubular necrosis) Status: Resolved Resolution Date/Time: 10/03/21 @ 12:41 (3) Lactic acidosis Status: Resolved Resolution Date/Time: 09/21/21 @ 18:43 (4) Hypernatremia Status: Resolved Resolution Date/Time: 10/03/21 @ 12:41 (5) Metabolic acidosis Status: Resolved Resolution Date/Time: 09/21/21 @ 18:43 (6) PNA (pneumonia) Status: Acute (7) Endotracheally intubated Status: Resolved Resolution Date/Time: 10/03/21 @ 12:41 (8) Methamphetamine abuse Status: Acute (9) Acute hepatitis Status: Resolved Resolution Date/Time: 10/03/21 @ 12:41 (10) Rhabdomyolysis Status: Resolved Qualifiers: Rhabdomyolysis type: non-traumatic Qualified Codes: M62.82 - Rhabdomyolysis Resolution Date/Time: 10/03/21 @ 12:41 (11) Multiorgan failure Status: Resolved Resolution Date/Time: 10/03/21 @ 12:41 (12) Hyperkalemia Status: Resolved Resolution Date/Time: 09/21/21 @ 18:43 (13) Acute respiratory failure with hypoxia Status: Acute (14) Hepatitis C antibody positive in blood Status: Acute (15) Delirium Status: Acute (16) Agitation Status: Resolved Resolution Date/Time: 10/03/21 @ 12:41 (17) Debility Status: Acute (18) Dysphagia Status: Acute CARLEEN GROSSMAN MD Oct 11, 2021 17:53
[2021-10-11 20:41] VITALS: BP 121/58
[2021-10-11] MEDS: ENOXAPARIN 40 MG/0.4 ML (LOVENOX) SYR SC SCH (20:57)
[2021-10-11] MEDS: RT-ALBUTEROL/IPRATROPIUM 3 ML (DUONEB) VIAL INH SCH (22:14)
[2021-10-11 23:20] VITALS: BP 139/63
[2021-10-12] MEDS: diphenhydrAMINE 25 MG TAB (BENADRYL) PO PRN (01:16)
[2021-10-12 05:27] LABS: BASOPHILS % (AUTO) 0 % (0-10); EOSINOPHILS # (AUTO) 0.3 10^3/uL (0.0-0.3); EOSINOPHILS % (AUTO) 4 % (0-10); HEMATOCRIT 33 % (40-54); HEMOGLOBIN 10.7 g/dL (13.3-17.7); LYMPHOCYTES % (AUTO) 30 % (12-44); MEAN CORPUSCULAR HEMOGLOBIN 27 pg (25-34); MEAN CORPUSCULAR HGB CONC 32 g/dL (32-36); MEAN CORPUSCULAR VOLUME 85 fL (80-99); MEAN PLATELET VOLUME 9.6 fL (9.0-12.2); MONOCYTES # (AUTO) 0.8 10^3/uL (0.0-1.0); MONOCYTES % (AUTO) 11 % (0-12); NEUTROPHILS # (AUTO) 3.8 10^3/uL (1.8-7.8); NEUTROPHILS % (AUTO) 55 % (42-75); PLATELET COUNT 375 10^3/uL (130-400); WHITE BLOOD COUNT 6.9 10^3/uL (4.3-11.0)
[2021-10-12 05:39] LABS: POTASSIUM 4.5 MMOL/L (3.6-5.0)
[2021-10-12 05:40] LABS: CALCIUM 8.7 MG/DL (8.5-10.1)
[2021-10-12] MEDS: inSUlin ASPART (NovoLOG) 1 UNIT/0.01 ML (CHARGE PER UNIT) SC SCH ×4 (05:41→20:22)
[2021-10-12] MEDS: POTASSIUM CL 10MEQ/50ML IVPB 50 ML IV SCH (05:42)
[2021-10-12] MEDS: KCL 20 MEQ TAB (K-DUR) PO SCH (05:43)
[2021-10-12 05:44] LABS: CREATININE SERUM 0.67 MG/DL (0.60-1.30)
[2021-10-12 05:46] LABS: MAGNESIUM 1.9 MG/DL (1.6-2.4)
[2021-10-12] MEDS: MAGNESIUM 1 GM/100 ML IVPB 100 ML IV SCH (05:54)
[2021-10-12 06:46] LABS: EOSINOPHILS % (MANUAL) 5 %; LYMPHOCYTES % (MANUAL) 30 %; MICROCYTOSIS SLIGHT; MONOCYTES % (MANUAL) 9 %; NEUTROPHILS % (MANUAL) 56 %
[2021-10-12 07:05] VITALS: BP 113/63
[2021-10-12] MEDS: RT-ALBUTEROL/IPRATROPIUM 3 ML (DUONEB) VIAL INH SCH ×2 (09:20→21:30)
--- NOTE | 2021-10-12 10:09 | Physical Therapy Daily Note ---
PT Daily Note-Current Subjective Initially when pt. was invited to get up and about for walking etc he declined bc he wanted to go outside or on 1st floor. Nursing informed pt. this was not possible . Pt. needed some encouragement but agreed to walk about the floor/unit he is on. During gait pt stopped several times to stand and rest in place. c/o fatigue with gait Tx but agreed to exercise up in chair. and sitting up in chair after Tx. Nurse FT hannah present Pain Location: No Pain Reported Mental Status Patient Orientation: Mumbles Attachments: Oquendo Catheter, IV Transfers SCALE: Activities may be completed with or without assistive devices. 5-Sukeeqsnop-qigyhnw completes the activity by him/herself with no assistance from a helper. 5-Set-up or Clean-up Assistance-helper sets up or cleans up; patient completes activity. Snyder assists only prior to or following the activity. 4-Supervision or Touching Assistance-helper provides verbal cues and/or touching/steadying and/or contact guard assistance as patient completes activity. Assistance may be provided throughout the activity or intermittently. 3-Partial/Moderate Assistance-helper does LESS THAN HALF the effort. Snyder lifts, holds or supports trunk or limbs, but provides less than half the effort. 2-Substantial/Maximal Assistance-helper does MORE THAN HALF the effort. Snyder lifts or holds trunk or limbs and provides more than half the effort. 7-Zuxqqqqma-vkgnbg does ALL the effort. Patient does none of the effort to complete the activity. Or, the assistance of 2 or more helpers is required for the patient to complete the activity. If activity was not attempted, code reason: 7-Patient Refused. 9-Not Applicable-not attempted and the patient did not perform the activity before the current illness, exacerbation or injury. 10-Not Attempted due to Environmental Limitations-(lack of equipment, weather restraints, etc.). 88-Not Attempted due to Medical Conditions or Safety Concerns. Roll Left & Right (QC): 5 Lying to Sitting/Side of Bed(Q: 5 Sit to Stand (QC): 4 needs instruction and cuing for safety and technique Gait Training Does the Patient Walk?: Yes Walk 10 feet (QC): 4 Walk 50 ft with 2 Turns(QC): 4 Walk 150 ft (QC): 4 Gait Persons Needed: 1 Gait Assistive Device: FWW pt. walks very slowly, decreased step length, shuffled, flexed trunk over assistive device, stopping to rest occas. Exercises Supine Ex: Rolling, Hip abd/add Supine Reps: 8 Seated Therapy Exercises: Ankle pumps, Sit to stand, Long arc quads, Hip flexion Seated Reps: 12 Treatments bed TRF, gait, seated LE ex, FT sitter in room Assessment Current Status: Good Progress PT Short Term Goals Short Term Goals Time Frame: Oct 11, 2021 Roll Left & Right: 3 Sit to lyin Lying to sitting on side of be: 3 Sit to stand: 3 Chair/zqj-ly-nibbt transfer: 3 Toilet transfer: 3 Walk 10 feet: 2 PT Senior Technical Analyst Goals Senior Technical Analyst Goals PT Senior Technical Analyst Goals Time Frame: Oct 25, 2021 Roll Left & Right (QC): 4 Sit to Lying (QC): 4 Lying-Sitting on Side/Bed(QC): 4 Sit to Stand (QC): 4 Chair/Orb-mp-Vduwr Xfer(QC): 4 Toilet Transfer (QC): 4 Car Transfer (QC): 4 Does the Patient Walk: Yes Walk 10 feet (QC): 4 Walk 50ft with 2 Turns (QC): 3 Walk 150 ft (QC): 3 PT Plan Treatment/Plan Treatment Plan: Continue Plan of Care Treatment Plan: Bed Mobility, Education, Functional Activity Kaia, Functional Strength, Group Therapy, Gait, Safety, Therapeutic Exercise, Transfers Treatment Duration: Nov 11, 2021 Frequency: 6 times per week Estimated Hrs Per Day: .25 hour per day Patient and/or Family Agrees t: Yes Safety Risks/Education Patient Education: Gait Training, Transfer Techniques, Correct Positioning Teaching Recipient: Patient Teaching Methods: Demonstration, Discussion Response to Teaching: Verbalize Understanding, Return Demonstration, Reinforcement Needed Time/GCodes Time In: 1000 Time Out: 1015 Total Billed Treatment Time: 15 Total Billed Treatment 1,Gt15m BRANDON LANCE REFRIGERATION INSULATOR Oct 12, 2021 10:09
[2021-10-12] MEDS: LACRI-LUBE OPTHALMIC OINT 3.5 GM TUBE OU SCH ×2 (10:35→21:58)
[2021-10-12] MEDS: PANTOPRAZOLE 40 MG (PROTONIX) VIAL IV SCH (10:35)
[2021-10-12] MEDS: COLLAGENASE 30 GM (SANTYL) TUBE TP SCH ×2 (10:36→21:46)
[2021-10-12 15:07] VITALS: BP 120/57
--- NOTE | 2021-10-12 16:58 | Progress Note - Hospitalist ---
Subjective HPI/CC On Admission Date Seen by Provider: Oct 12, 2021 Time Seen by Provider: 10:55 Roman Jane is a 70 year old male who presented to the ER after being found down at his home. He was reportedly agitated, but alert and oriented on arrival. He was requiring supplemental oxygen. He was intoxicated on methamphetamine. He became less responsive and was intubated for airway protection. He was found to be in acute renal failure with rhabdomyolysis. Due to the severity of his renal failure, a transfer was attempted for hemodialysis. He had low urine output, hyperkalemia, and significantly elevated BUN/creatinine. He was treated with IV fluids and bicarbonate. No bed was able to be secured for transfer, but his renal function began to improve. Subjective/Events-last exam He wants to eat. He wants to go home. He denies pain. Focused Exam Time of Focused Exam: 07:30 Objective Exam Vital Signs Vital Signs Date Time Temp Pulse Resp B/P (MAP) Pulse Ox O2 Delivery O2 Flow Rate FiO2 10/12/21 15:07 36.2 84 22 120/57 (78) 93 Room Air 10/11/21 23:20 2.00 10/08/21 04:20 3 Capillary Refill : Less Than 3 Seconds General Appearance: No Apparent Distress, Chronically ill, Cachetic Respiratory: Lungs Clear, No Respiratory Distress Cardiovascular: Regular Rate, Rhythm, No Murmur Gastrointestinal: Normal Bowel Sounds, Soft Extremity: Normal Inspection, No Pedal Edema Neurologic/Psychiatric: Alert, Motor Weakness Skin: Normal Color, Warm/Dry Results/Procedures Lab Laboratory Tests 10/12/21 05:00 Patient resulted labs reviewed. Imaging: Reviewed Imaging Report Assessment/Plan Assessment and Plan Assess & Plan/Chief Complaint Dysphagia Severe protein calorie malnutrition Debility Delirium Poor prognosis Goals of care discussion PT/OT/ST NPO TPN Ativan and Haldol as needed Medically stable, awaiting safe discharge plan Acute respiratory failure with hypoxia COPD s/p steroids MAT protocol Methamphetamine abuse Hepatitis C DVT prophylaxis: Lovenox Hypernatremia, resolved LYDIA on CKD, resolved Acute tubular necrosis, resolved Rhabdomyolysis, resolved Endotracheally intubated, resolved Pneumonia, resolved Hyperkalemia, resolved Lactic acidosis, resolved Metabolic acidosis, resolved Elevated LFTs, resolved Delirium, resolved Agitation, resolved Hypokalemia, resolved Hypomagnesemia, resolved Hypophosphatemia, resolved COPD exacerbation, resolved Diagnosis/Problems Diagnosis/Problems (1) Acute kidney injury superimposed on chronic kidney disease Status: Resolved Resolution Date/Time: 10/03/21 @ 12:41 (2) ATN (acute tubular necrosis) Status: Resolved Resolution Date/Time: 10/03/21 @ 12:41 (3) Lactic acidosis Status: Resolved Resolution Date/Time: 09/21/21 @ 18:43 (4) Hypernatremia Status: Resolved Resolution Date/Time: 10/03/21 @ 12:41 (5) Metabolic acidosis Status: Resolved Resolution Date/Time: 09/21/21 @ 18:43 (6) PNA (pneumonia) Status: Acute (7) Endotracheally intubated Status: Resolved Resolution Date/Time: 10/03/21 @ 12:41 (8) Methamphetamine abuse Status: Acute (9) Acute hepatitis Status: Resolved Resolution Date/Time: 10/03/21 @ 12:41 (10) Rhabdomyolysis Status: Resolved Qualifiers: Rhabdomyolysis type: non-traumatic Qualified Codes: M62.82 - Rhabdomyolysis Resolution Date/Time: 10/03/21 @ 12:41 (11) Multiorgan failure Status: Resolved Resolution Date/Time: 10/03/21 @ 12:41 (12) Hyperkalemia Status: Resolved Resolution Date/Time: 09/21/21 @ 18:43 (13) Acute respiratory failure with hypoxia Status: Acute (14) Hepatitis C antibody positive in blood Status: Acute (15) Delirium Status: Acute (16) Agitation Status: Resolved Resolution Date/Time: 10/03/21 @ 12:41 (17) Debility Status: Acute (18) Dysphagia Status: Acute CARLEEN GROSSMAN MD Oct 12, 2021 16:58
[2021-10-12] MEDS ORDERED: SODIUM ACETATE IV SCH ×11 (17:00)
[2021-10-12] MEDS ORDERED: SODIUM CHLORIDE IV SCH ×11 (17:00)
[2021-10-12] MEDS ORDERED: [UNRECOGNIZED DRUG - OTHER] IV SCH ×11 (17:00)
[2021-10-12 20:24] VITALS: BP 146/63
[2021-10-12] MEDS: MELATONIN 3 MG TABLET PO PRN (21:57)
[2021-10-12] MEDS: ENOXAPARIN 40 MG/0.4 ML (LOVENOX) SYR SC SCH (21:57)
[2021-10-13] MEDS: diphenhydrAMINE 25 MG TAB (BENADRYL) PO PRN ×3 (00:57→21:42)
[2021-10-13] MEDS: LORazepam INJ 2 MG/ML (ATIVAN) VIAL IVP PRN ×4 (03:24→21:42)
[2021-10-13 05:29] LABS: BASOPHILS % (AUTO) 1 % (0-10); EOSINOPHILS # (AUTO) 0.1 10^3/uL (0.0-0.3); EOSINOPHILS % (AUTO) 1 % (0-10); HEMATOCRIT 33 % (40-54); HEMOGLOBIN 10.6 g/dL (13.3-17.7); LYMPHOCYTES % (AUTO) 17 % (12-44); MEAN CORPUSCULAR HEMOGLOBIN 27 pg (25-34); MEAN CORPUSCULAR HGB CONC 33 g/dL (32-36); MEAN CORPUSCULAR VOLUME 84 fL (80-99); MEAN PLATELET VOLUME 9.4 fL (9.0-12.2); MONOCYTES # (AUTO) 0.5 10^3/uL (0.0-1.0); MONOCYTES % (AUTO) 8 % (0-12); NEUTROPHILS # (AUTO) 4.5 10^3/uL (1.8-7.8); NEUTROPHILS % (AUTO) 73 % (42-75); PLATELET COUNT 317 10^3/uL (130-400); WHITE BLOOD COUNT 6.1 10^3/uL (4.3-11.0)
[2021-10-13 05:49] LABS: CALCIUM 8.6 MG/DL (8.5-10.1); CREATININE SERUM 0.73 MG/DL (0.60-1.30); MAGNESIUM 1.7 MG/DL (1.6-2.4); POTASSIUM 4.4 MMOL/L (3.6-5.0)
[2021-10-13] MEDS: inSUlin ASPART (NovoLOG) 1 UNIT/0.01 ML (CHARGE PER UNIT) SC SCH ×4 (06:08→21:43)
[2021-10-13] MEDS: POTASSIUM CL 10MEQ/50ML IVPB 50 ML IV SCH (06:08)
[2021-10-13] MEDS: KCL 20 MEQ TAB (K-DUR) PO SCH (06:08)
[2021-10-13] MEDS: RT-ALBUTEROL/IPRATROPIUM 3 ML (DUONEB) VIAL INH SCH ×2 (06:30→20:41)
[2021-10-13 06:47] LABS: LYMPHOCYTES % (MANUAL) 14 %; MICROCYTOSIS SLIGHT; MONOCYTES % (MANUAL) 7 %; NEUTROPHILS % (MANUAL) 79 %
[2021-10-13] MEDS: MAGNESIUM 1 GM/100 ML IVPB 100 ML IV SCH (07:05)
[2021-10-13] MEDS ORDERED: MAGNESIUM 1 GM/100 ML IVPB 100 ML IV ONE ×2 (07:15→08:15)
[2021-10-13] MEDS: PANTOPRAZOLE 40 MG (PROTONIX) VIAL IV SCH (07:50)
[2021-10-13] MEDS: LACRI-LUBE OPTHALMIC OINT 3.5 GM TUBE OU SCH ×2 (07:51→21:53)
[2021-10-13 07:53] VITALS: BP 130/60
[2021-10-13] MEDS: ACETAMINOPHEN 650 MG SUPP (TYLENOL) PR PRN ×2 (08:22→14:09)
[2021-10-13 12:00] VITALS: BP 128/70
[2021-10-13] MEDS: COLLAGENASE 30 GM (SANTYL) TUBE TP SCH ×2 (14:01→21:52)
--- NOTE | 2021-10-13 14:37 | Progress Note - Hospitalist ---
Subjective HPI/CC On Admission Date Seen by Provider: Oct 13, 2021 Time Seen by Provider: 11:00 Roman Jane is a 70 year old male who presented to the ER after being found down at his home. He was reportedly agitated, but alert and oriented on arrival. He was requiring supplemental oxygen. He was intoxicated on methamphetamine. He became less responsive and was intubated for airway protection. He was found to be in acute renal failure with rhabdomyolysis. Due to the severity of his renal failure, a transfer was attempted for hemodialysis. He had low urine output, hyperkalemia, and significantly elevated BUN/creatinine. He was treated with IV fluids and bicarbonate. No bed was able to be secured for transfer, but his renal function began to improve. Subjective/Events-last exam He is resting. He has no complaints. Focused Exam Lactate Level 10/13/21 09:15: Lactic Acid Level 1.12 Time of Focused Exam: 07:30 Objective Exam Vital Signs Vital Signs Date Time Temp Pulse Resp B/P (MAP) Pulse Ox O2 Delivery O2 Flow Rate FiO2 10/13/21 14:09 38.2 10/13/21 12:00 89 24 128/70 (89) Room Air 92.00 10/13/21 07:53 91 10/08/21 04:20 3 Capillary Refill : Less Than 3 Seconds General Appearance: No Apparent Distress, Chronically ill, Cachetic Respiratory: No Accessory Muscle Use, No Respiratory Distress Cardiovascular: No Edema, Other (regular rate) Gastrointestinal: No Distended, No Guarding Extremity: Normal Inspection, No Pedal Edema Neurologic/Psychiatric: Other (sleeping) Skin: Normal Color, Warm/Dry Results/Procedures Lab Laboratory Tests 10/13/21 05:15 Patient resulted labs reviewed. Imaging: Reviewed Imaging Report Assessment/Plan Assessment and Plan Assess & Plan/Chief Complaint Dysphagia Severe protein calorie malnutrition Debility Delirium Poor prognosis Goals of care discussion PT/OT/ST NPO TPN Ativan and Haldol as needed Fever Blood cultures Chest xray Procalcitonin COVID pending Acute respiratory failure with hypoxia COPD s/p steroids MAT protocol Methamphetamine abuse Hepatitis C DVT prophylaxis: Lovenox Hypernatremia, resolved LYDIA on CKD, resolved Acute tubular necrosis, resolved Rhabdomyolysis, resolved Endotracheally intubated, resolved Pneumonia, resolved Hyperkalemia, resolved Lactic acidosis, resolved Metabolic acidosis, resolved Elevated LFTs, resolved Delirium, resolved Agitation, resolved Hypokalemia, resolved Hypomagnesemia, resolved Hypophosphatemia, resolved COPD exacerbation, resolved Diagnosis/Problems Diagnosis/Problems (1) Acute kidney injury superimposed on chronic kidney disease Status: Resolved Resolution Date/Time: 10/03/21 @ 12:41 (2) ATN (acute tubular necrosis) Status: Resolved Resolution Date/Time: 10/03/21 @ 12:41 (3) Lactic acidosis Status: Resolved Resolution Date/Time: 09/21/21 @ 18:43 (4) Hypernatremia Status: Resolved Resolution Date/Time: 10/03/21 @ 12:41 (5) Metabolic acidosis Status: Resolved Resolution Date/Time: 09/21/21 @ 18:43 (6) PNA (pneumonia) Status: Acute (7) Endotracheally intubated Status: Resolved Resolution Date/Time: 10/03/21 @ 12:41 (8) Methamphetamine abuse Status: Acute (9) Acute hepatitis Status: Resolved Resolution Date/Time: 10/03/21 @ 12:41 (10) Rhabdomyolysis Status: Resolved Qualifiers: Rhabdomyolysis type: non-traumatic Qualified Codes: M62.82 - Rhabdomyolysis Resolution Date/Time: 10/03/21 @ 12:41 (11) Multiorgan failure Status: Resolved Resolution Date/Time: 10/03/21 @ 12:41 (12) Hyperkalemia Status: Resolved Resolution Date/Time: 09/21/21 @ 18:43 (13) Acute respiratory failure with hypoxia Status: Acute (14) Hepatitis C antibody positive in blood Status: Acute (15) Delirium Status: Acute (16) Agitation Status: Resolved Resolution Date/Time: 10/03/21 @ 12:41 (17) Debility Status: Acute (18) Dysphagia Status: Acute CARLEEN GROSSMAN MD Oct 13, 2021 14:37
--- NOTE | 2021-10-13 15:18 | Diagnostic Imaging Report ---
Indication: PICC line placement. Comparison: 10/03/2019. Discussion: Two views of the chest were obtained. Severe pulmonary infiltrates are present bilaterally. New right-sided PICC line with tip in the high right atrium in good position. Normal heart size. Small right effusion. No pneumothorax. Impression: 1. Right-sided PICC line with tip in the high right atrium in good position. 2. Small right effusion, stable. 3. Stable severe infiltrates. Dictated by: Dictated on workstation # [id number]
[2021-10-13 16:00] VITALS: BP 136/64
[2021-10-13] MEDS ORDERED: SODIUM CHLORIDE IV SCH ×11 (17:00)
[2021-10-13] MEDS ORDERED: [UNRECOGNIZED DRUG - OTHER] IV SCH ×11 (17:00)
[2021-10-13] MEDS ORDERED: SODIUM ACETATE IV SCH ×11 (17:00)
[2021-10-13 20:00] VITALS: BP 104/56
[2021-10-13] MEDS: ENOXAPARIN 40 MG/0.4 ML (LOVENOX) SYR SC SCH ×2 (21:42→21:50)
[2021-10-13] MEDS: HALOPERIDOL 5 MG/ML (HALDOL) VIAL IM PRN (23:40)
[2021-10-14] VITALS (8 sets, daily range): BP systolic 79–107; BP diastolic 43–58
[2021-10-14] MEDS: LORazepam INJ 2 MG/ML (ATIVAN) VIAL IVP PRN ×4 (01:48→22:22)
[2021-10-14] MEDS: HALOPERIDOL 5 MG/ML (HALDOL) VIAL IM PRN ×3 (03:53→13:22)
[2021-10-14 05:56] LABS: CALCIUM 8.4 MG/DL (8.5-10.1); CREATININE SERUM 0.88 MG/DL (0.60-1.30); MAGNESIUM 1.9 MG/DL (1.6-2.4); POTASSIUM 4.1 MMOL/L (3.6-5.0)
[2021-10-14] MEDS: POTASSIUM CL 10MEQ/50ML IVPB 50 ML IV SCH (06:15)
[2021-10-14] MEDS: inSUlin ASPART (NovoLOG) 1 UNIT/0.01 ML (CHARGE PER UNIT) SC SCH ×4 (06:15→19:41)
[2021-10-14] MEDS: MAGNESIUM 1 GM/100 ML IVPB 100 ML IV SCH (06:15)
[2021-10-14] MEDS: KCL 20 MEQ TAB (K-DUR) PO SCH (06:15)
[2021-10-14 08:29] LABS: PHOSPHORUS 3.1 MG/DL (2.3-4.7)
[2021-10-14] MEDS ORDERED: ANIDULAFUNGIN INJECTION 200 MG in NS (IVPB) 250 ML IV NR (09:00)
--- NOTE | 2021-10-14 09:19 | Speech Therapy Progress Note ---
Therapy Progress Note 0858: The clinician re-attempted an oropharyngeal swallowing evaluation on this patient at 0858. The patient recently received medication for sedation secondary to behaviors. Per RN, the patient is a HOLD at this time. ST to reattempt as the patient is appropriate. MICHELLE MORTENSEN Oct 14, 2021 09:19
[2021-10-14] MEDS: PANTOPRAZOLE 40 MG (PROTONIX) VIAL IV SCH (09:36)
--- NOTE | 2021-10-14 09:43 | Physical Therapy Progress Note ---
Therapy Progress Note Patient on Hold per RN due to decline in status requiring sedation due to behaviors. PT will attempt tomorrow LANG JACKSON PT Oct 14, 2021 09:43
[2021-10-14] MEDS ORDERED: LORazepam INJ 2 MG/ML (ATIVAN) VIAL ONE (10:23)
[2021-10-14] MEDS: COLLAGENASE 30 GM (SANTYL) TUBE TP SCH ×2 (13:24→19:53)
[2021-10-14] MEDS: LACRI-LUBE OPTHALMIC OINT 3.5 GM TUBE OU SCH ×2 (13:24→19:53)
[2021-10-14 15:54] LABS: BASOPHILS % (AUTO) 1 % (0-10); EOSINOPHILS % (AUTO) 0 % (0-10); HEMATOCRIT 31 % (40-54); HEMOGLOBIN 10.1 g/dL (13.3-17.7); LYMPHOCYTES # (AUTO) 0.6 10^3/uL (1.0-4.0); LYMPHOCYTES % (AUTO) 10 % (12-44); MEAN CORPUSCULAR HEMOGLOBIN 28 pg (25-34); MEAN CORPUSCULAR HGB CONC 33 g/dL (32-36); MEAN CORPUSCULAR VOLUME 83 fL (80-99); MEAN PLATELET VOLUME 10.4 fL (9.0-12.2); MONOCYTES # (AUTO) 0.1 10^3/uL (0.0-1.0); MONOCYTES % (AUTO) 2 % (0-12); NEUTROPHILS # (AUTO) 4.9 10^3/uL (1.8-7.8); NEUTROPHILS % (AUTO) 87 % (42-75); PLATELET COUNT 164 10^3/uL (130-400); WHITE BLOOD COUNT 5.6 10^3/uL (4.3-11.0)
--- NOTE | 2021-10-14 16:00 | Progress Note - Hospitalist ---
Subjective HPI/CC On Admission Date Seen by Provider: Oct 14, 2021 Time Seen by Provider: 10:30 Roman Jane is a 70 year old male who presented to the ER after being found down at his home. He was reportedly agitated, but alert and oriented on arrival. He was requiring supplemental oxygen. He was intoxicated on methamphetamine. He became less responsive and was intubated for airway protection. He was found to be in acute renal failure with rhabdomyolysis. Due to the severity of his renal failure, a transfer was attempted for hemodialysis. He had low urine output, hyperkalemia, and significantly elevated BUN/creatinine. He was treated with IV fluids and bicarbonate. No bed was able to be secured for transfer, but his renal function began to improve. Subjective/Events-last exam He is agitated and uncooperative. Focused Exam Lactate Level 10/13/21 09:15: Lactic Acid Level 1.12 Time of Focused Exam: 07:30 Objective Exam Vital Signs Vital Signs Date Time Temp Pulse Resp B/P (MAP) Pulse Ox O2 Delivery O2 Flow Rate FiO2 10/14/21 15:47 38.9 100 20 104/54 (71) 91 High Flow N/C 2.00 10/08/21 04:20 3 Capillary Refill : Less Than 3 Seconds General Appearance: Chronically ill, Cachetic, Mild Distress (agitated) Respiratory: No Respiratory Distress, Decreased Breath Sounds Cardiovascular: Regular Rate, Rhythm, No Murmur Gastrointestinal: Normal Bowel Sounds, Soft Extremity: Normal Inspection, No Pedal Edema Neurologic/Psychiatric: Alert, Disoriented, Other (agitated, uncooperative) Skin: Normal Color, Warm/Dry Results/Procedures Lab Laboratory Tests 10/14/21 05:10 Patient resulted labs reviewed. Imaging: Reviewed Imaging Report Assessment/Plan Assessment and Plan Assess & Plan/Chief Complaint Sepsis Fungemia COVID negative Chest xray stable Blood culture with yeast Started on Eraxis Dysphagia Severe protein calorie malnutrition Debility Delirium PT/OT/ST NPO TPN Ativan and Haldol as needed Poor prognosis Goals of care discussion Discussed worsening status with daughter Again discussed hospice/comfort care, she will contact social work Currently driving in from [place] Further discussions regarding goals of care after she arrives to the hospital Acute respiratory failure with hypoxia COPD s/p steroids MAT protocol Methamphetamine abuse Hepatitis C DVT prophylaxis: Lovenox Hypernatremia, resolved LYDIA on CKD, resolved Acute tubular necrosis, resolved Rhabdomyolysis, resolved Endotracheally intubated, resolved Pneumonia, resolved Hyperkalemia, resolved Lactic acidosis, resolved Metabolic acidosis, resolved Elevated LFTs, resolved Delirium, resolved Agitation, resolved Hypokalemia, resolved Hypomagnesemia, resolved Hypophosphatemia, resolved COPD exacerbation, resolved Diagnosis/Problems Diagnosis/Problems (1) Acute kidney injury superimposed on chronic kidney disease Status: Resolved Resolution Date/Time: 10/03/21 @ 12:41 (2) ATN (acute tubular necrosis) Status: Resolved Resolution Date/Time: 10/03/21 @ 12:41 (3) Lactic acidosis Status: Resolved Resolution Date/Time: 09/21/21 @ 18:43 (4) Hypernatremia Status: Resolved Resolution Date/Time: 10/03/21 @ 12:41 (5) Metabolic acidosis Status: Resolved Resolution Date/Time: 09/21/21 @ 18:43 (6) PNA (pneumonia) Status: Acute (7) Endotracheally intubated Status: Resolved Resolution Date/Time: 10/03/21 @ 12:41 (8) Methamphetamine abuse Status: Acute (9) Acute hepatitis Status: Resolved Resolution Date/Time: 10/03/21 @ 12:41 (10) Rhabdomyolysis Status: Resolved Qualifiers: Rhabdomyolysis type: non-traumatic Qualified Codes: M62.82 - Rhabdomyolysis Resolution Date/Time: 10/03/21 @ 12:41 (11) Multiorgan failure Status: Resolved Resolution Date/Time: 10/03/21 @ 12:41 (12) Hyperkalemia Status: Resolved Resolution Date/Time: 09/21/21 @ 18:43 (13) Acute respiratory failure with hypoxia Status: Acute (14) Hepatitis C antibody positive in blood Status: Acute (15) Delirium Status: Acute (16) Agitation Status: Resolved Resolution Date/Time: 10/03/21 @ 12:41 (17) Debility Status: Acute (18) Dysphagia Status: Acute CARLEEN GROSSMAN MD Oct 14, 2021 16:00
[2021-10-14 16:34] LABS: BAND NEUTROPHILS 2 %; LYMPHOCYTES % (MANUAL) 9 %; MONOCYTES % (MANUAL) 2 %; NEUTROPHILS % (MANUAL) 87 %; RBC MORPH NORMAL
[2021-10-14] MEDS ORDERED: [UNRECOGNIZED DRUG - OTHER] IV SCH ×11 (17:00)
[2021-10-14] MEDS ORDERED: SODIUM ACETATE IV SCH ×11 (17:00)
[2021-10-14] MEDS ORDERED: SODIUM CHLORIDE IV SCH ×11 (17:00)
[2021-10-14] MEDS: ACETAMINOPHEN 650 MG SUPP (TYLENOL) PR PRN (17:44)
[2021-10-14] MEDS ORDERED: ENOXAPARIN 30 MG/0.3 ML (LOVENOX) SYR SC SCH (21:00)
[2021-10-15] MEDS: HALOPERIDOL 5 MG/ML (HALDOL) VIAL IM PRN ×3 (01:24→09:08)
[2021-10-15 04:20] VITALS: BP 127/58
[2021-10-15] MEDS: LORazepam INJ 2 MG/ML (ATIVAN) VIAL IVP PRN ×4 (05:25→20:39)
[2021-10-15] MEDS: MAGNESIUM 1 GM/100 ML IVPB 100 ML IV SCH (06:00)
[2021-10-15] MEDS: KCL 20 MEQ TAB (K-DUR) PO SCH (06:00)
[2021-10-15] MEDS: POTASSIUM CL 10MEQ/50ML IVPB 50 ML IV SCH (06:00)
[2021-10-15] MEDS: inSUlin ASPART (NovoLOG) 1 UNIT/0.01 ML (CHARGE PER UNIT) SC SCH ×2 (06:48→11:12)
[2021-10-15] MEDS: RT-ALBUTEROL/IPRATROPIUM 3 ML (DUONEB) VIAL INH SCH (07:20)
[2021-10-15 08:00] VITALS: BP 120/62
[2021-10-15 08:48] LABS: CALCIUM 8.2 MG/DL (8.5-10.1); CREATININE SERUM 0.92 MG/DL (0.60-1.30); MAGNESIUM 2.2 MG/DL (1.6-2.4); POTASSIUM 3.6 MMOL/L (3.6-5.0)
[2021-10-15] MEDS ORDERED: ANIDULAFUNGIN INJECTION 100 MG in NS (IVPB) 100 ML IV SCH (09:00)
--- NOTE | 2021-10-15 09:02 | Speech Therapy Progress Note ---
Therapy Progress Note 0855: Speech pathology re-attempted the oropharyngeal swallowing re-evaluation on this date. The patient remains agitated, continuously attempting to remove himself from bed and requiring maximum verbal redirection from the clinician and present staff member. The patient is not following verbal commands and is not following redirection cues. At this time, the patient is not appropriate for the evaluation secondary to absence participation and cooperation. - 09/21/21 to 09/25/21: The patient received alternative sources of nutrition due to intubation. - 09/26/21 to 10/07/21: The patient remained NPO without TPN. - 10/07/21 to Present: The patient has received TPN for nutritional needs. Due to the lack of oropharyngeal swallowing improvement or progression secondary to the clinician's inability to complete follow up assessments because of the patient's poor mentation, cooperation, behavior (agitation), and participation, consideration of long-term nutritional support may be appropriate (The patient has not received PO intake since 09/21/21, the patient has received TPN since 10/07/21). MICHELLE MORTENSEN Oct 15, 2021 09:01
[2021-10-15] MEDS: diphenhydrAMINE 25 MG TAB (BENADRYL) PO PRN (09:07)
[2021-10-15] MEDS: LACRI-LUBE OPTHALMIC OINT 3.5 GM TUBE OU SCH (09:15)
[2021-10-15] MEDS: COLLAGENASE 30 GM (SANTYL) TUBE TP SCH (09:16)
[2021-10-15] MEDS: PANTOPRAZOLE 40 MG (PROTONIX) VIAL IV SCH (09:16)
--- NOTE | 2021-10-15 09:36 | Physical Therapy Progress Note ---
Therapy Progress Note Patient on Hold per RN due to decline in status requiring sedation due to behaviors. PT will attempt tomorrow and consult with physician on POC. LANG JACKSON PT Oct 15, 2021 09:36
[2021-10-15] MEDS ORDERED: PROMETHAZINE INJ 25 MG/ML (PHENERGAN) AMP IVP PRN (11:15)
[2021-10-15] MEDS ORDERED: ONDANSETRON 4 MG/2 ML (SDV) Z0FRAN IVP PRN (11:15)
[2021-10-15] MEDS ORDERED: RT-ALBUTEROL/IPRATROPIUM 3 ML (DUONEB) VIAL INH PRN (11:15)
[2021-10-15] MEDS ORDERED: BISACODYL 10 MG SUPP (DULCOLAX) PR PRN (11:15)
[2021-10-15] MEDS ORDERED: ARTIFICAL TEARS 0.4 ML UNIT DOSE (REFRESH PLUS) OU PRN (11:15)
[2021-10-15] MEDS ORDERED: ACETAMINOPHEN 650 MG SUPP (TYLENOL) PR PRN (11:15)
[2021-10-15] MEDS: GLYCOPYRROLATE 0.2 MG/ML (ROBINUL) 2 ML VIAL IV PRN (12:41)
[2021-10-15] MEDS: morphine INJ 4 MG/ML 1 ML (VIAL/SYRINGE) IV PRN ×2 (12:41→16:31)
--- NOTE | 2021-10-15 14:09 | Speech Therapy Progress Note ---
Therapy Progress Note As the patient's family recently decided upon comfort care measures, speech language pathology will sign off of skilled treatment intervention. Please re- consult speech pathology with additional changes or needs. MICHELLE MORTENSEN Oct 15, 2021 14:09
--- NOTE | 2021-10-15 15:56 | Progress Note - Hospitalist ---
Subjective HPI/CC On Admission Date Seen by Provider: Oct 15, 2021 Time Seen by Provider: 09:10 Roman Jane is a 70 year old male who presented to the ER after being found down at his home. He was reportedly agitated, but alert and oriented on arrival. He was requiring supplemental oxygen. He was intoxicated on methamphetamine. He b ecame less responsive and was intubated for airway protection. He was found to be in acute renal failure with rhabdomyolysis. Due to the severity of his renal failure, a transfer was attempted for hemodialysis. He had low urine output, hyperkalemia, and significantly elevated BUN/creatinine. He was treated with IV fluids and bicarbonate. No bed was able to be secured for transfer, but his renal function began to improve. Subjective/Events-last exam He is agitated. He appears uncomfortable and irritated. Focused Exam Lactate Level 10/13/21 09:15: Lactic Acid Level 1.12 Time of Focused Exam: 07:30 Objective Exam Vital Signs Vital Signs Date Time Temp Pulse Resp B/P (MAP) Pulse Ox O2 Delivery O2 Flow Rate FiO2 10/15/21 08:00 37.8 98 14 120/62 (81) 92 Room Air 10/15/21 04:20 2.00 10/14/21 23:20 21 Capillary Refill : Less Than 3 Seconds General Appearance: Chronically ill, Cachetic, Mild Distress (uncomfortable) Respiratory: Respiratory Distress (tachypnea), Rhonci Cardiovascular: Regular Rate, Rhythm, No Edema, No Murmur Gastrointestinal: Normal Bowel Sounds, Soft Extremity: Normal Inspection, No Pedal Edema Neurologic/Psychiatric: Alert, Disoriented Skin: Normal Color, Warm/Dry Results/Procedures Lab Laboratory Tests 10/15/21 08:13 Patient resulted labs reviewed. Imaging: Reviewed Imaging Report Assessment/Plan Assessment and Plan Assess & Plan/Chief Complaint Sepsis Fungemia Dysphagia Severe protein calorie malnutrition Debility Delirium Agitation Acute respiratory failure with hypoxia COPD Methamphetamine abuse Hepatitis C Poor prognosis Goals of care discussion Discussion with family regarding poor prognosis and goals of care Family elects to pursue comfort measures only status Comfort care order set Hypernatremia, resolved LYDIA on CKD, resolved Acute tubular necrosis, resolved Rhabdomyolysis, resolved Endotracheally intubated, resolved Pneumonia, resolved Hyperkalemia, resolved Lactic acidosis, resolved Metabolic acidosis, resolved Elevated LFTs, resolved Hypokalemia, resolved Hypomagnesemia, resolved Hypophosphatemia, resolved COPD exacerbation, resolved Diagnosis/Problems Diagnosis/Problems (1) ATN (acute tubular necrosis) Status: Resolved Resolution Date/Time: 10/03/21 @ 12:41 (2) Lactic acidosis Status: Resolved Resolution Date/Time: 09/21/21 @ 18:43 (3) Hypernatremia Status: Resolved Resolution Date/Time: 10/03/21 @ 12:41 (4) Metabolic acidosis Status: Resolved Resolution Date/Time: 09/21/21 @ 18:43 (5) PNA (pneumonia) Status: Resolved Resolution Date/Time: 10/15/21 @ 15:57 (6) Endotracheally intubated Status: Resolved Resolution Date/Time: 10/03/21 @ 12:41 (7) Methamphetamine abuse Status: Chronic (8) Acute hepatitis Status: Resolved Resolution Date/Time: 10/03/21 @ 12:41 (9) Rhabdomyolysis Status: Resolved Qualifiers: Rhabdomyolysis type: non-traumatic Qualified Codes: M62.82 - Rhabdomyolysis Resolution Date/Time: 10/03/21 @ 12:41 (10) Multiorgan failure Status: Resolved Resolution Date/Time: 10/03/21 @ 12:41 (11) Hyperkalemia Status: Resolved Resolution Date/Time: 09/21/21 @ 18:43 (12) Acute respiratory failure with hypoxia Status: Acute (13) Hepatitis C antibody positive in blood Status: Acute (14) Delirium Status: Acute (15) Agitation Status: Acute (16) Debility Status: Acute (17) Dysphagia Status: Acute (18) Acute kidney injury superimposed on chronic kidney disease Status: Resolved Resolution Date/Time: 10/03/21 @ 12:41 (19) Fungemia Status: Acute (20) Sepsis Status: Acute Qualifiers: Sepsis type: sepsis due to unspecified organism Sepsis acute organ dysfunction status: with acute organ dysfunction Severe sepsis acute organ dysfunction type: acute renal failure Acute renal failure type: unspecified Severe sepsis shock status: without septic shock Qualified Codes: A41.9 - Sepsis, unspecified organism; R65.20 - Severe sepsis without septic shock; N17.9 - Acute kidney failure, unspecified (21) Comfort measures only status Status: Acute CARLEEN GROSSMAN MD Oct 15, 2021 15:56
[2021-10-15] MEDS ORDERED: SODIUM CHLORIDE IV SCH ×11 (17:00)
[2021-10-15] MEDS ORDERED: SODIUM ACETATE IV SCH ×11 (17:00)
[2021-10-15] MEDS ORDERED: [UNRECOGNIZED DRUG - OTHER] IV SCH ×11 (17:00)
[2021-10-16] MEDS: morphine INJ 4 MG/ML 1 ML (VIAL/SYRINGE) IV PRN ×2 (00:46→21:36)
[2021-10-16] MEDS: LORazepam INJ 2 MG/ML (ATIVAN) VIAL IVP PRN ×2 (06:01→23:35)
--- NOTE | 2021-10-16 10:22 | Progress Note - Hospitalist ---
Subjective HPI/CC On Admission Date Seen by Provider: Oct 16, 2021 Time Seen by Provider: 08:20 Roman Jane is a 70 year old male who presented to the ER after being found down at his home. He was reportedly agitated, but alert and oriented on arrival. He was requiring supplemental oxygen. He was intoxicated on methamphetamine. He became less responsive and was intubated for airway protection. He was found to be in acute renal failure with rhabdomyolysis. Due to the severity of his renal failure, a transfer was attempted for hemodialysis. He had low urine output, hyperkalemia, and significantly elevated BUN/creatinine. He was treated with IV fluids and bicarbonate. No bed was able to be secured for transfer, but his renal function began to improve. Subjective/Events-last exam He appears comfortable. He is resting in bed. He is not agitated or anxious appearing. Focused Exam Time of Focused Exam: 07:30 Objective Exam Vital Signs Vital Signs Date Time Temp Pulse Resp B/P (MAP) Pulse Ox O2 Delivery O2 Flow Rate FiO2 10/16/21 06:58 Room Air 10/15/21 08:00 37.8 98 14 120/62 (81) 92 10/15/21 04:20 2.00 10/14/21 23:20 21 Capillary Refill : Less Than 3 Seconds General Appearance: No Apparent Distress, Chronically ill, Cachetic Respiratory: Respiratory Distress (tachypnea), Rhonci Cardiovascular: Regular Rate, Rhythm, No Edema, No Murmur Gastrointestinal: Normal Bowel Sounds, Soft Extremity: Normal Inspection, No Pedal Edema Neurologic/Psychiatric: Other (resting comfortably, no agitation) Results/Procedures Lab Patient resulted labs reviewed. Imaging: Reviewed Imaging Report Assessment/Plan Assessment and Plan Assess & Plan/Chief Complaint Sepsis Fungemia Dysphagia Severe protein calorie malnutrition Debility Delirium Agitation Acute respiratory failure with hypoxia COPD Methamphetamine abuse Hepatitis C Poor prognosis Goals of care discussion Discussion with family regarding poor prognosis and goals of care Family elects to pursue comfort measures only status Continue comfort measures Hypernatremia, resolved LYDIA on CKD, resolved Acute tubular necrosis, resolved Rhabdomyolysis, resolved Endotracheally intubated, resolved Pneumonia, resolved Hyperkalemia, resolved Lactic acidosis, resolved Metabolic acidosis, resolved Elevated LFTs, resolved Hypokalemia, resolved Hypomagnesemia, resolved Hypophosphatemia, resolved COPD exacerbation, resolved Diagnosis/Problems Diagnosis/Problems (1) ATN (acute tubular necrosis) Status: Resolved Resolution Date/Time: 10/03/21 @ 12:41 (2) Lactic acidosis Status: Resolved Resolution Date/Time: 09/21/21 @ 18:43 (3) Hypernatremia Status: Resolved Resolution Date/Time: 10/03/21 @ 12:41 (4) Metabolic acidosis Status: Resolved Resolution Date/Time: 09/21/21 @ 18:43 (5) PNA (pneumonia) Status: Resolved Resolution Date/Time: 10/15/21 @ 15:57 (6) Endotracheally intubated Status: Resolved Resolution Date/Time: 10/03/21 @ 12:41 (7) Methamphetamine abuse Status: Chronic (8) Acute hepatitis Status: Resolved Resolution Date/Time: 10/03/21 @ 12:41 (9) Rhabdomyolysis Status: Resolved Qualifiers: Rhabdomyolysis type: non-traumatic Qualified Codes: M62.82 - Rha bdomyolysis Resolution Date/Time: 10/03/21 @ 12:41 (10) Multiorgan failure Status: Resolved Resolution Date/Time: 10/03/21 @ 12:41 (11) Hyperkalemia Status: Resolved Resolution Date/Time: 09/21/21 @ 18:43 (12) Acute respiratory failure with hypoxia Status: Acute (13) Hepatitis C antibody positive in blood Status: Acute (14) Delirium Status: Acute (15) Agitation Status: Acute (16) Debility Status: Acute (17) Dysphagia Status: Acute (18) Acute kidney injury superimposed on chronic kidney disease Status: Resolved Resolution Date/Time: 10/03/21 @ 12:41 (19) Fungemia Status: Acute (20) Sepsis Status: Acute Qualifiers: Sepsis type: sepsis due to unspecified organism Sepsis acute organ dysfunction status: with acute organ dysfunction Severe sepsis acute organ dysfunction type: acute renal failure Acute renal failure type: unspecified Severe sepsis shock status: without septic shock Qualified Codes: A41.9 - Sepsis, unspecified organism; R65.20 - Severe sepsis without septic shock; N17.9 - Acute kidney failure, unspecified (21) Comfort measures only status Status: Acute CARLEEN GROSSMAN MD Oct 16, 2021 10:22
[2021-10-17] MEDS: morphine INJ 4 MG/ML 1 ML (VIAL/SYRINGE) IV PRN ×5 (01:08→23:49)
[2021-10-17] MEDS: LORazepam INJ 2 MG/ML (ATIVAN) VIAL IVP PRN ×4 (02:42→22:51)
[2021-10-17] MEDS: SALIVA STIMULANT MOUTH SPRAY (BIOTENE) 1.5 OZ MM PRN ×2 (07:24→16:39)
--- NOTE | 2021-10-17 16:42 | Progress Note - Hospitalist ---
Subjective HPI/CC On Admission Date Seen by Provider: Oct 17, 2021 Time Seen by Provider: 08:50 Roman Jane is a 70 year old male who presented to the ER after being found down at his home. He was reportedly agitated, but alert and oriented on arrival. He was requiring supplemental oxygen. He was intoxicated on methamphetamine. He became less responsive and was intubated for airway protection. He was found to be in acute renal failure with rhabdomyolysis. Due to the severity of his renal failure, a transfer was attempted for hemodialysis. He had low urine output, hyperkalemia, and significantly elevated BUN/creatinine. He was treated with IV fluids and bicarbonate. No bed was able to be secured for transfer, but his renal function began to improve. Subjective/Events-last exam He is resting comfortably in bed. He is sleeping. He does not appear restless or agitated. Focused Exam Time of Focused Exam: 07:30 Objective Exam Vital Signs Vital Signs Date Time Temp Pulse Resp B/P (MAP) Pulse Ox O2 Delivery O2 Flow Rate FiO2 10/17/21 15:44 Room Air 10/15/21 08:00 37.8 98 14 120/62 (81) 92 10/15/21 04:20 2.00 10/14/21 23:20 21 Capillary Refill : Less Than 3 Seconds General Appearance: No Apparent Distress, Chronically ill, Cachetic Respiratory: No Respiratory Distress, Rhonci Cardiovascular: Regular Rate, Rhythm, No Murmur Gastrointestinal: Normal Bowel Sounds, Soft Extremity: Normal Inspection, No Pedal Edema Neurologic/Psychiatric: Other (sleeping) Skin: Normal Color, Warm/Dry Results/Procedures Lab Patient resulted labs reviewed. Imaging: Reviewed Imaging Report Assessment/Plan Assessment and Plan Assess & Plan/Chief Complaint Sepsis Fungemia Dysphagia Severe protein calorie malnutrition Debility Delirium Agitation Acute respiratory failure with hypoxia COPD Methamphetamine abuse Hepatitis C Poor prognosis Goals of care discussion Continue comfort measures Hypernatremia, resolved LYDIA on CKD, resolved Acute tubular necrosis, resolved Rhabdomyolysis, resolved Endotracheally intubated, resolved Pneumonia, resolved Hyperkalemia, resolved Lactic acidosis, resolved Metabolic acidosis, resolved Elevated LFTs, resolved Hypokalemia, resolved Hypomagnesemia, resolved Hypophosphatemia, resolved COPD exacerbation, resolved Diagnosis/Problems Diagnosis/Problems (1) ATN (acute tubular necrosis) Status: Resolved Resolution Date/Time: 10/03/21 @ 12:41 (2) Lactic acidosis Status: Resolved Resolution Date/Time: 09/21/21 @ 18:43 (3) Hypernatremia Status: Resolved Resolution Date/Time: 10/03/21 @ 12:41 (4) Metabolic acidosis Status: Resolved Resolution Date/Time: 09/21/21 @ 18:43 (5) PNA (pneumonia) Status: Resolved Resolution Date/Time: 10/15/21 @ 15:57 (6) Endotracheally intubated Status: Resolved Resolution Date/Time: 10/03/21 @ 12:41 (7) Methamphetamine abuse Status: Chronic (8) Acute hepatitis Status: Resolved Resolution Date/Time: 10/03/21 @ 12:41 (9) Rhabdomyolysis Status: Resolved Qualifiers: Rhabdomyolysis type: non-traumatic Qualified Codes: M62.82 - Rhabdomyolysis Resolution Date/Time: 10/03/21 @ 12:41 (10) Multiorgan failure Status: Resolved Resolution Date/Time: 10/03/21 @ 12:41 (11) Hyperkalemia Status: Resolved Resolution Date/Time: 09/21/21 @ 18:43 (12) Acute respiratory failure with hypoxia Status: Acute (13) Hepatitis C antibody positive in blood Status: Acute (14) Delirium Status: Acute (15) Agitation Status: Acute (16) Debility Status: Acute (17) Dysphagia Status: Acute (18) Acute kidney injury superimposed on chronic kidney disease Status: Resolved Resolution Date/Time: 10/03/21 @ 12:41 (19) Fungemia Status: Acute (20) Sepsis Status: Acute Qualifiers: Sepsis type: sepsis due to unspecified organism Sepsis acute organ dysfunction status: with acute organ dysfunction Severe sepsis acute organ dysfunction type: acute renal failure Acute renal failure type: unspecified Severe sepsis shock status: without septic shock Qualified Codes: A41.9 - Sepsis, unspecified organism; R65.20 - Severe sepsis without septic shock; N17.9 - Acute kidney failure, unspecified (21) Comfort measures only status Status: Acute CARLEEN GROSSMAN MD Oct 17, 2021 16:42
[2021-10-18] MEDS: morphine INJ 4 MG/ML 1 ML (VIAL/SYRINGE) IV PRN ×4 (02:38→10:44)
[2021-10-18] MEDS: LORazepam INJ 2 MG/ML (ATIVAN) VIAL IVP PRN ×3 (03:19→10:44)
[2021-10-18] MEDS: GLYCOPYRROLATE 0.2 MG/ML (ROBINUL) 2 ML VIAL IV PRN (07:57)
--- NOTE | 2021-10-18 20:54 | Discharge Summary ---
Discharge Summary Hospital Course Problems/Dx: (1) ATN (acute tubular necrosis) Status: Resolved (2) Lactic acidosis Status: Resolved (3) Hypernatremia Status: Resolved (4) Metabolic acidosis Status: Resolved (5) PNA (pneumonia) Status: Resolved (6) Endotracheally intubated Status: Resolved (7) Methamphetamine abuse Status: Chronic (8) Acute hepatitis Status: Resolved (9) Rhabdomyolysis Status: Resolved Qualifiers: Qualified Codes: M62.82 - Rhabdomyolysis (10) Multiorgan failure Status: Resolved (11) Hyperkalemia Status: Resolved (12) Acute respiratory failure with hypoxia Status: Acute (13) Hepatitis C antibody positive in blood Status: Acute (14) Delirium Status: Acute (15) Agitation Status: Acute (16) Debility Status: Acute (17) Dysphagia Status: Acute (18) Acute kidney injury superimposed on chronic kidney disease Status: Resolved (19) Fungemia Status: Acute (20) Sepsis Status: Acute Qualifiers: Qualified Codes: A41.9 - Sepsis, unspecified organism; R65.20 - Severe sepsis without septic shock; N17.9 - Acute kidney failure, unspecified (21) Comfort measures only status Status: Acute Hospital Course Date of Admission: Sep 21, 2021 at 08:00 Admission Diagnosis : Acute kidney injury due to acute tubular necrosis Family Physician/Provider: Keara Fernandez Physician Date of Discharge: 10/18/21 Discharge Diagnosis: LYDIA, ATN, sepsis, pneumonia, acute respiratory failure with hypoxia, severe protein-calorie malnutrition, fungemia Hospital Course: Roman Jane was a 70 year old male who presented with acute methamphetamine intoxication and was admitted with acute kidney injury. He had rhabdomyolysis and acute tubular necrosis. He required endotracheal intubation in the emergency room. His kidney injury was severe and it appeared that he would likely require hemodialysis. A transfer was attempted but there were no facilities able to accept. His renal function eventually began to improve. He was admitted to the ICU. He was able to be successfully extubated. He had issues with dysphagia and was unable to tolerate anything by mouth. He required total parenteral nutrition. He was severely debilitated. He was malnourished and cachectic. He also had issues with delirium. He developed sepsis and fungemia associated with parenteral nutrition. His adult children elected to transition to comfort measures only status and he subsequently on 10/18/2021 at 1430. Labs and Pending Lab Test: Microbiology 10/13/21 Blood Culture - Final, Complete Dayami tropicalis 09/20/21 Gram Stain - Final, Complete 09/20/21 Sputum Culture - Final, Complete YEAST 09/18/21 Urine Culture - Final, Complete NO GROWTH Home Meds Active Reported Trazodone HCl 100 Mg Tablet 200 Mg PO HS TAKES 2 (100MG) TABS Proair Hfa (Albuterol Sulfate) 1 Puff Puff 2 Puff IH BID PRN Terazosin HCl 2 Mg Capsule 2 Mg PO HS Sertraline HCl 100 Mg Tablet 150 Mg PO DAILY TAKES 1 & (100MG) TABS Assessment/Pt Instructions Patient Discharge Planning: <30 minutes discharge planning Discharge Physical Examination Vital Signs Vital Signs Date Time Temp Pulse Resp B/P (MAP) Pulse Ox O2 Delivery O2 Flow Rate FiO2 10/18/21 08:00 92 Room Air 10/15/21 08:00 37.8 98 14 120/62 (81) 10/15/21 04:20 2.00 10/14/21 23:20 21 Allergies: Coded Allergies: No Known Drug Allergies (Unverified , 12/16/12) Discharge Summary Date of Admission Sep 21, 2021 at 08:00 Date of Discharge Oct 18, 2021 at 16:40 Discharge Date: Oct 18, 2021 Discharge Time: 16:40 Admission Diagnosis Acute kidney injury superimposed on chronic kidney disease Comfort Measures/ End of Life Care: Comfort Measures Date of : Oct 18, 2021 Time of : 14:30 Discharge Diagnosis Sepsis Fungemia Dysphagia Severe protein calorie malnutrition Debility Delirium Agitation Acute respiratory failure with hypoxia COPD Methamphetamine abuse Hepatitis C Poor prognosis Goals of care discussion Hypernatremia, resolved LYDIA on CKD, resolved Acute tubular necrosis, resolved Rhabdomyolysis, resolved Endotracheally intubated, resolved Pneumonia, resolved Hyperkalemia, resolved Lactic acidosis, resolved Metabolic acidosis, resolved Elevated LFTs, resolved Hypokalemia, resolved Hypomagnesemia, resolved Hypophosphatemia, resolved COPD exacerbation, resolved (1) ATN (acute tubular necrosis) Status: Resolved (2) Lactic acidosis Status: Resolved (3) Hypernatremia Status: Resolved (4) Metabolic acidosis Status: Resolved (5) PNA (pneumonia) Status: Resolved (6) Endotracheally intubated Status: Resolved (7) Methamphetamine abuse Status: Chronic (8) Acute hepatitis Status: Resolved (9) Rhabdomyolysis Status: Resolved Qualifiers: Qualified Codes: M62.82 - Rhabdomyolysis (10) Multiorgan failure Status: Resolved (11) Hyperkalemia Status: Resolved (12) Acute respiratory failure with hypoxia Status: Acute (13) Hepatitis C antibody positive in blood Status: Acute (14) Delirium Status: Acute (15) Agitation Status: Acute (16) Debility Status: Acute (17) Dysphagia Status: Acute (18) Acute kidney injury superimposed on chronic kidney disease Status: Resolved (19) Fungemia Status: Acute (20) Sepsis Status: Acute Qualifiers: Qualified Codes: A41.9 - Sepsis, unspecified organism; R65.20 - Severe sepsis without septic shock; N17.9 - Acute kidney failure, unspecified (21) Comfort measures only status Status: Acute CARLEEN GROSSMAN MD Oct 18, 2021 20:51
== END 2021-10-18 16:40 | disposition expired | DRG 207 ==
LOC: EDUNIT# 18:48 → ER 18:49 → ICU 09-21 08:00 → 4TH 10-03 15:26
PROVIDERS: ADMIT Internal Medicine; ATTEND Internal Medicine
PROC: 0BH17EZ Insertion of Endotracheal Airway into Trachea, Via Natural or Artificial Opening (ICD-10-PCS; principal; 2021-09-19)
PROC: 5A1955Z Respiratory Ventilation, Greater than 96 Consecutive Hours (ICD-10-PCS; 2021-09-19)
DX: J96.01 Acute respiratory failure with hypoxia (principal); N17.0 Acute kidney failure with tubular necrosis; A41.9 Sepsis, unspecified organism; R65.21 Severe sepsis with septic shock; J18.9 Pneumonia, unspecified organism; G93.41 Metabolic encephalopathy; E43 Unspecified severe protein-calorie malnutrition; M62.82 Rhabdomyolysis; N39.0 Urinary tract infection, site not specified; B17.10 Acute hepatitis C without hepatic coma; E87.2 Acidosis; E87.0 Hyperosmolality and hypernatremia; J44.1 Chronic obstructive pulmonary disease with (acute) exacerbation; J44.0 Chronic obstructive pulmonary disease with (acute) lower respiratory infection; B49 Unspecified mycosis; Z68.1 Body mass index [BMI] 19.9 or less, adult; F90.9 Attention-deficit hyperactivity disorder, unspecified type; F20.9 Schizophrenia, unspecified; F32.A Depression, unspecified; Z20.822 Contact with and (suspected) exposure to COVID-19; E86.0 Dehydration; E87.5 Hyperkalemia; N40.0 Benign prostatic hyperplasia without lower urinary tract symptoms; D64.9 Anemia, unspecified; N18.9 Chronic kidney disease, unspecified; E87.6 Hypokalemia; E83.42 Hypomagnesemia; E83.39 Other disorders of phosphorus metabolism; R53.81 Other malaise; Z51.5 Encounter for palliative care; Z66 Do not resuscitate; R41.0 Disorientation, unspecified; R45.1 Restlessness and agitation; F15.129 Other stimulant abuse with intoxication, unspecified; R13.10 Dysphagia, unspecified
CPT/HCPCS: 31500; 36415; 36569; 36600; 51702; 70450; 70491; 71045; 71260; 74160; 76937; 80048; 80053; 80074; 80076; 80306; 80320; 80329; 81000; 82010; 82140; 82550; 82805; 82947; 83605; 83735; 83880; 84100; 84132; 84134; 84145; 84478; 84484; 85007; 85025; 85027; 85610; 86703; 87040; 87070; 87077; 87088; 87185; 87205; 87522; 87635; 87636; 87804; 93005; 94002; 94003; 94640; 94660; 94664; 94760; 94799; 99291